=== PATIENT | female | born 1990 | race Two or more races ===

== ENCOUNTER 2016-08-20 13:18 | Outpatient (CLI) | payer MEDICARE, MEDICAID | END 2016-08-20 13:19 | disposition home or self-care (01) | DX: Z01.818 Encounter for other preprocedural examination (principal); Q21.3 Tetralogy of Fallot; Z95.4 Presence of other heart-valve replacement; F81.9 Developmental disorder of scholastic skills, unspecified ==

== ENCOUNTER 2016-10-14 14:03 | Outpatient (CLI) | payer MEDICARE, MEDICAID | END 2016-10-14 14:04 | DX: F41.1 Generalized anxiety disorder (principal); E03.9 Hypothyroidism, unspecified; F33.1 Major depressive disorder, recurrent, moderate ==

== ENCOUNTER 2016-10-14 15:02 | Outpatient (CLI) | payer MEDICARE, MEDICAID | END 2016-10-14 15:03 | DX: J31.0 Chronic rhinitis (principal) ==

== ENCOUNTER 2016-10-15 08:00 | Outpatient (CLI) | payer MEDICARE, MEDICAID | END 2016-10-15 08:01 | disposition home or self-care (01) | DX: R19.7 Diarrhea, unspecified (principal) ==

== ENCOUNTER 2016-12-06 11:51 | Outpatient (CLI) | payer MEDICARE, MEDICAID | END 2016-12-06 11:52 | disposition home or self-care (01) | DX: F43.10 Post-traumatic stress disorder, unspecified (principal); F22 Delusional disorders ==

== ENCOUNTER 2017-02-19 12:07 | Emergency (ER) | payer MEDICARE, MEDICAID ==
[2017-02-19 12:17] VITALS: BP 133/86
--- NOTE | 2017-02-19 12:33 | ED Physician Documentation ---
PD HPI HEENT - Stated complaint Stated Complaint: R EAR PX - Chief complaint Chief Complaint: Heent - History obtained from History obtained from: Patient - History of Present Illness Timing - onset: Other (She had some sort of ear surgery done in July at [facility] she thinks. For the last 3 weeks she has had fullness in the ear with decreased hearing and mild pain.) Review of Systems Constitutional: denies: Fever, Chills Eyes: denies: Loss of vision, Decreased vision Ears: reports: Loss of hearing, Ear pain. 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 : None HEENT: None Psych: Depression, Anxiety, Other Musculoskeletal: None Derm: None - Past Surgical History Past Surgical History: Yes Cardiovascular: Valve replacement, Other HEENT: Myringotomy (tubes) - Present Medications Home Medications: Ambulatory Orders Medication Instructions Recorded Confirmed Levothyroxine Sodium [Synthroid] 88 mcg PO DAILY 01/14/13 07/22/16 Trazodone HCl 50 mg PO DAILY 02/08/13 07/22/16 Ibuprofen [Motrin] 400 mg PO Q6H PRN #30 tablet 10/08/13 07/22/16 Acyclovir 400 mg PO DAILY 12/13/14 07/22/16 Atorvastatin [Lipitor] 10 mg PO DAILY 12/13/14 07/22/16 Bupropion HCl [Wellbutrin] 150 mg PO DAILY 12/13/14 07/22/16 Cetirizine [ZyrTEC] 10 mg PO DAILY 12/13/14 07/22/16 Ferrous Gluconate 324 mg PO DAILY 12/13/14 07/22/16 Minocycline HCl 100 mg PO DAILY 12/13/14 07/22/16 Epinephrine [Epipen 2-Americo] 0.3 mg IJ ONCE PRN #1 packet 12/16/15 07/22/16 raNITIdine [Zantac] 150 mg PO BID #30 tablet 05/14/16 07/22/16 Ibuprofen [Motrin] 800 mg PO Q8H PRN #30 tablet 02/19/17 Ofloxacin [Floxin] 5 drops OT BID 10 Days 02/19/17 - Allergies Allergies/Adverse Reactions: Allergies Allergy/AdvReac Type Severity Reaction Status Date / Time cephalexin monohydrate * Allergy Severe Hives Verified 02/19/17 12:17 [From Keflex] cetirizine HCl * Allergy Mild Rash Verified 02/19/17 12:17 [From Zyrtec] bacitracin Allergy Hives Verified 02/19/17 12:17 [From Neosporin (cdk-pnn-[id number])] bacitracin zinc * Allergy Hives Verified 02/19/17 12:17 [From Neosporin (amv-npw-pzbgk)] neomycin sulfate * Allergy Hives Verified 02/19/17 12:17 [From Neosporin (snf-wvp-kakcs)] polymyxin B Allergy Hives Verified 02/19/17 12:17 [From Neosporin (ozj-gvv-mtasz)] sulfamethoxazole Allergy Hives Verified 02/19/17 12:17 [From Septra] trimethoprim [From Septra] Allergy Hives Verified 02/19/17 12:17 sertraline HCl * AdvReac Intermediate Nausea Verified 02/19/17 12:17 [From Zoloft] - Social History Does the pt smoke?: No Smoking Status: Former smoker Does the pt drink ETOH?: No Does the pt have substance abuse?: No - Immunizations Immunizations are current?: No Immunizations: Other immun not current - POLST Patient has POLST: No PD ED PE NORMAL - Vitals Vital signs reviewed: Yes - General General: Alert and oriented X 3, No acute distress - HEENT HEENT: PERRL, EOMI, Other (Right TM has what appears to be a chronic perforation with mild otitis but no otorrhea) - Neck Neck: Supple, no meningeal sign, No bony TTP - Neuro Neuro: Alert and oriented X 3, Normal speech - Psych Psych: Normal mood, Normal affect Results - Vitals Vitals: Vital Signs - 24 hr 02/19/17 12:16 Temperature 36.7 C Heart Rate 102 H Respiratory 18 Rate Blood Pressure 133/86 H O2 Saturation 94 Oxygen O2 Source Room air PD MEDICAL DECISION MAKING - ED course ED course: The patient was counseled as to the diagnosis and need for follow-up. I counseled the patient with regard to signs and symptoms that would necessitate an urgent reevaluation in the emergency department. They understand they are welcome to return at any time if worse or if not improving as expected. This document was made in part using voice recognition software. While efforts are made to proofread this documents, sound alike and grammatical errors may occur. Departure - Departure Disposition: 01 Home, Self Care Clinical Impression: Otitis media, chronic with perforation Qualifiers: Laterality: right Qualified Code(s): H66.91 - Otitis media, unspecified, right ear Condition: Good Record reviewed to determine appropriate education?: Yes Instructions: ED Rupture Eardrum Infec Prescriptions: Ofloxacin [Floxin] 5 drops OT BID 10 Days Ibuprofen [Motrin] 800 mg PO Q8H PRN #30 tablet PRN Reason: PAIN &/OR FEVER Comments: I think it is imperative that she call Loren Foley on Tuesday to arrange follow-up with your ear nose and throat surgeon. Return if worse. Your blood pressure was elevated today on check into the emergency department. This does not mean that you have hypertension, it is a common phenomenon to come to the emergency department and have elevated blood pressure. I recommend that she see her primary care physician within the week to have it rechecked when you are feeling better.
== END 2017-02-19 12:42 | disposition home or self-care (01) ==
LOC: ED 12:07
DX: H66.91 Otitis media, unspecified, right ear (principal); R03.0 Elevated blood-pressure reading, without diagnosis of hypertension; Z95.2 Presence of prosthetic heart valve; Z87.891 Personal history of nicotine dependence; Z96.22 Myringotomy tube(s) status
CPT/HCPCS: 99283

== ENCOUNTER 2017-02-25 10:00 | Emergency (ER) | payer MEDICARE, MEDICAID ==
[2017-02-25 10:38] LABS: BILIRUBIN,URINE NEGATIVE (NEGATIVE); PH,URINE 5.5 PH (5.0-7.5)
[2017-02-25 10:42] LABS: UA w/ MICROSCOPIC CHARGE YES
[2017-02-25 11:03] VITALS: BP 115/80
[2017-02-25 11:05] LABS: WBC,URINE 0-3 /HPF (0-5)
[2017-02-25 11:06] LABS: UR CULTURE IF IND INDICATED
--- NOTE | 2017-02-25 11:50 | ED Physician Documentation ---
PD HPI FEMALE - Stated complaint Stated Complaint: FEMALE / BILAT ANKLE SWELLING - Chief complaint Chief Complaint: UTI - History obtained from History obtained from: Patient - History of Present Illness Timing - onset: How many years ago (1) Timing - duration: Years (1) Timing - details: Gradual onset, Still present, Waxing and waning Associated symptoms: Other (urine leaking) Similar symptoms before: Has not had sx before Recently seen: Clinic - Additional information Additional information: 26-year-old female with a history of repaired tetralogy of flow has developed some urinary leaking that has become significant enough that she is running out of underwear early in the week. She has been walking regularly and now has complaints of ankle swelling and shortness of breath with exertion as well as some chest pain. She has anxiety related to her health. Review of Systems Constitutional: denies: Fever, Chills, Myalgias Eyes: denies: Decreased vision Ears: reports: Ear pain, Drainage/discharge Nose: denies: Rhinorrhea / runny nose, Congestion Throat: denies: Sore throat Cardiac: reports: Chest pain / pressure. denies: Palpitations Respiratory: reports: Dyspnea. denies: Cough GI: denies: Abdominal Pain, Nausea, Vomiting : denies: Dysuria, Frequency Skin: denies: Rash Musculoskeletal: reports: Extremity swelling. 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 : None HEENT: None Psych: Depression, Anxiety, Other Musculoskeletal: None Derm: None - Past Surgical History Past Surgical History: Yes Cardiovascular: Valve replacement, Other HEENT: Myringotomy (tubes) - Present Medications Home Medications: Ambulatory Orders Medication Instructions Recorded Confirmed Levothyroxine Sodium [Synthroid] 88 mcg PO DAILY 01/14/13 07/22/16 Trazodone HCl 50 mg PO DAILY 02/08/13 07/22/16 Ibuprofen [Motrin] 400 mg PO Q6H PRN #30 tablet 10/08/13 07/22/16 Acyclovir 400 mg PO DAILY 12/13/14 07/22/16 Atorvastatin [Lipitor] 10 mg PO DAILY 12/13/14 07/22/16 Bupropion HCl [Wellbutrin] 150 mg PO DAILY 12/13/14 07/22/16 Cetirizine [ZyrTEC] 10 mg PO DAILY 12/13/14 07/22/16 Ferrous Gluconate 324 mg PO DAILY 12/13/14 07/22/16 Minocycline HCl 100 mg PO DAILY 12/13/14 07/22/16 Epinephrine [Epipen 2-Americo] 0.3 mg IJ ONCE PRN #1 packet 12/16/15 07/22/16 raNITIdine [Zantac] 150 mg PO BID #30 tablet 05/14/16 07/22/16 Ibuprofen [Motrin] 800 mg PO Q8H PRN #30 tablet 02/19/17 Ofloxacin [Floxin] 5 drops OT BID 10 Days 02/19/17 Furosemide [Lasix] 40 mg PO DAILY #20 tablet 02/25/17 - Allergies Allergies/Adverse Reactions: Allergies Allergy/AdvReac Type Severity Reaction Status Date / Time cephalexin monohydrate * Allergy Severe Hives Verified 02/19/17 12:17 [From Keflex] cetirizine HCl * Allergy Mild Rash Verified 02/19/17 12:17 [From Zyrtec] bacitracin Allergy Hives Verified 02/19/17 12:17 [From Neosporin (thh-tsm-[id number])] bacitracin zinc * Allergy Hives Verified 02/19/17 12:17 [From Neosporin (xxr-bcq-caras)] neomycin sulfate * Allergy Hives Verified 02/19/17 12:17 [From Neosporin (vok-fnw-[id number])] polymyxin B Allergy Hives Verified 02/19/17 12:17 [From Neosporin (dbj-avd-ljdai)] sulfamethoxazole Allergy Hives Verified 02/19/17 12:17 [From Septra] trimethoprim [From Septra] Allergy Hives Verified 02/19/17 12:17 sertraline HCl * AdvReac Intermediate Nausea Verified 02/19/17 12:17 [From Zoloft] - Social History Does the pt smoke?: No Smoking Status: Former smoker Does the pt drink ETOH?: No Does the pt have substance abuse?: No - Immunizations Immunizations are current?: No Immunizations: Other immun not current - POLST Patient has POLST: No PD ED PE NORMAL - Vitals Vital signs reviewed: Yes (normal ) - General General: Alert and oriented X 3, No acute distress, Well developed/nourished - HEENT HEENT: Atraumatic, PERRL, EOMI - Neck Neck: Supple, no meningeal sign - Cardiac Cardiac: RRR, Other (split second sound ) - Respiratory Respiratory: No respiratory distress, Clear bilaterally - Abdomen Abdomen: Soft, Non tender - Back Back: No CVA TTP, No spinal TTP - Derm Derm: Normal color, Warm and dry, No rash - Extremities Extremities: No deformity, Other (trace pitting edema bilaterally ) - Neuro Neuro: No motor deficit, No sensory deficit - Psych Psych: Normal affect, Other (mood is anxious. ) Results - Vitals Vitals: Vital Signs - 24 hr 02/25/17 10:25 Temperature 36.7 C Heart Rate 91 Respiratory 19 Rate Blood Pressure 115/80 O2 Saturation 97 Oxygen O2 Source Room air - Labs Labs: Laboratory Tests 02/25/17 02/25/17 02/25/17 10:30 13:15 13:15 WBC 10.2 RBC 4.27 Hgb 13.3 Hct 39.4 MCV 92.1 MCH 31.2 H MCHC 33.9 RDW 12.0 Plt Count 184 MPV 9.6 Neut # 6.6 Lymph # 2.5 Island # 0.6 Eos # 0.4 Baso # 0.1 Absolute Nucleated RBC 0.00 Nucleated RBCs 0.0 Sodium 141 Potassium 3.7 Chloride 110 Carbon Dioxide 22 Anion Gap 9.0 BUN 8 Creatinine 0.8 Estimated GFR (MDRD) 85 L Glucose 116 H Calcium 9.4 Total Bilirubin 1.0 AST 46 H ALT 40 Alkaline Phosphatase 142 H Troponin I B-Natriuretic Peptide Total Protein 7.5 Albumin 4.2 Globulin 3.3 Albumin/Globulin Ratio 1.3 Lipase 21 L Urine Color YELLOW Urine Clarity HAZY Urine pH 5.5 Ur Specific [place] <=1.005 Urine Protein NEGATIVE Urine Glucose (UA) NEGATIVE Urine Ketones NEGATIVE Urine Occult Blood NEGATIVE Urine Nitrite NEGATIVE Urine Bilirubin NEGATIVE Urine Urobilinogen 0.2 (NORMAL) Ur Leukocyte Esterase TRACE H Urine RBC 0-5 Urine WBC 0-3 Ur Squamous Epith Cells FEW Squamous Urine Bacteria None Seen Ur Microscopic Review INDICATED Urine Culture Comments INDICATED 02/25/17 02/25/17 13:15 13:15 WBC RBC Hgb Hct MCV MCH MCHC RDW Plt Count MPV Neut # Lymph # Island # Eos # Baso # Absolute Nucleated RBC Nucleated RBCs Sodium Potassium Chloride Carbon Dioxide Anion Gap BUN Creatinine Estimated GFR (MDRD) Glucose Calcium Total Bilirubin AST ALT Alkaline Phosphatase Troponin I < 0.04 B-Natriuretic Peptide 71 Total Protein Albumin Globulin Albumin/Globulin Ratio Lipase Urine Color Urine Clarity Urine pH Ur Specific [place] Urine Protein Urine Glucose (UA) Urine Ketones Urine Occult Blood Urine Nitrite Urine Bilirubin Urine Urobilinogen Ur Leukocyte Esterase Urine RBC Urine WBC Ur Squamous Epith Cells Urine Bacteria Ur Microscopic Review Urine Culture Comments - Rads (name of study) 2 view chest Radiology: Prelim report reviewed (Impression: Mild cardiomegaly and CHF.), EMP read indepedently, See rad report Procedures - IVC sono (time) 1145 Bedside IVC sono: IVC measures (cm) (1.21), IVC collapsed c insp (cm) (complete) , Dehydration PD MEDICAL DECISION MAKING - ED course Complexity details: reviewed old records, reviewed results, re-evaluated patient , considered differential, d/w patient, d/w family ED course: 26-year-old female with a history of tetralogy has symptoms of congestive heart failure with exertional dyspnea ankle swelling and orthopnea. She does not appear to be decompensated here in the emergency room department at the current time. She has a trace amount of fluid on her chest x-ray and a normal BNP. She does have swelling in her ankles. Her IVC is not plethoric. I have prescribed some Lasix and I have given the patient instructions on things to be concerned about for dehydration related to the medication. I have asked her to follow-up with her wind up worker for further medication adjustment. Departure - Departure Disposition: 01 Home, Self Care Clinical Impression: Congestive heart failure (CHF) Qualifiers: Congestive heart failure type: unspecified congestive heart failure type Congestive heart failure chronicity: acute on chronic Qualified Code(s): I50.9 - Heart failure, unspecified Condition: Stable Instructions: ED CHF General, Lasix Follow-Up: Tiburcio Kahn PA-C [Primary Care Provider] - [facility] - Card [Provider Group] Prescriptions: Furosemide [Lasix] 40 mg PO DAILY #20 tablet Comments: Today here in the emergency department it appears to have some mild congestive heart failure. This causes a small amount of fluid to be accumulated on your lungs. This will make it difficult for you to breathe when you are exerting herself and trying to lay down. I have prescribed some Lasix which is a medication which will relieve some of the fluid and allow you to breathe more easily. You will need to have medication adjustments done by her wind up worker in the next week. It is possible to get too dehydrated with this medication and if this happens you will get a dry mouth and become light headed and you will need to stop the lasix and drink extra fluids.
[2017-02-25 13:23] LABS: BASOPHILS # (AUTO) 0.1 10^3/uL (0.0-0.1); BASOPHILS % (AUTO) 0.6 %; EOSINOPHILS # (AUTO) 0.4 10^3/uL (0.0-0.7); EOSINOPHILS % (AUTO) 3.5 %; HCT - HEMATOCRIT 39.4 % (37.0-47.0); HGB - HEMOGLOBIN 13.3 g/dL (12.0-16.0); LYMPHOCYTES # (AUTO) 2.5 10^3/uL (1.5-3.5); LYMPHOCYTES % (AUTO) 24.4 %; MEAN CORPUSCULAR HEMOGLOBIN 31.2 pg (27.0-31.0); MEAN CORPUSCULAR HGB CONC 33.9 g/dL (32.0-36.0); MEAN CORPUSCULAR VOLUME 92.1 fL (81.0-99.0); MEAN PLATELET VOLUME 9.6 fL (7.9-10.8); MONOCYTES # (AUTO) 0.6 10^3/uL (0.0-1.0); MONOCYTES % (AUTO) 6.2 %; NEUTROPHILS # (AUTO) 6.6 10^3/uL (1.5-6.6); NEUTROPHILS % (AUTO) 65.3 %; RED BLOOD COUNT 4.27 10^6/uL (4.20-5.40); UNCORRECTED WHITE BLOOD COUNT 10.2 x10^3/uL; WHITE BLOOD COUNT 10.2 x10^3/uL (4.8-10.8)
[2017-02-25 13:56] LABS: ALBUMIN/GLOBULIN RATIO 1.3 (1.0-2.2); CALCIUM 9.4 mg/dL (8.5-10.3); CREATININE 0.8 mg/dL (0.4-1.0); POTASSIUM 3.7 mmol/L (3.5-5.0); TOTAL PROTEIN 7.5 g/dL (6.7-8.2)
--- NOTE | 2017-02-25 14:01 | XRAY Preliminary Report ---
Exam: XR Chest 2 View PA/LAT IMPRESSION: Mild cardiomegaly and CHF. [facility] SITE ID: [id number]
--- NOTE | 2017-02-25 14:13 | XRAY Report ---
EXAM: CHEST RADIOGRAPHY EXAM DATE: 02/25/2017 01:37 PM. CLINICAL HISTORY: Chest pain, exertional dyspnea. COMPARISON: 07/22/2016. TECHNIQUE: 2 views. FINDINGS: Lungs/Pleura: New borderline gastric congestion. No focal consolidation, effusion or pneumothorax. No rmal lung volumes. Mediastinum: Stable mild cardiomegaly. Remote sternotomy. No tracheal shift. Other: None. IMPRESSION: Mild cardiomegaly and CHF. [facility] Referring Provider Line: [phone] SITE ID: [id number]
== END 2017-02-25 15:09 | disposition home or self-care (01) ==
LOC: ED 10:00
DX: I50.9 Heart failure, unspecified (principal); E78.00 Pure hypercholesterolemia, unspecified; I38 Endocarditis, valve unspecified; E03.9 Hypothyroidism, unspecified; Z87.891 Personal history of nicotine dependence
CPT/HCPCS: 36415; 71020; 80053; 81001; 81003; 83690; 83880; 84484; 85025; 87086; 99282; 99284

== ENCOUNTER 2017-02-26 19:37 | Emergency (ER) | payer MEDICARE, MEDICAID ==
--- NOTE | 2017-02-26 21:11 | ED Physician Documentation ---
History of Present Illness - Stated complaint Stated Complaint: CHEST PX - Chief complaint Chief Complaint: Cardiac - History obtained from History obtained from: Patient, Caregiver - Additonal information Additional information: Patient is a 26-year-old female with a history of tetralogy of fallotWho presents with a complaint of generalized chest pain. She was seen here yesterday and diagnosed with possible new onset congestive heart failure. 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 Her complaint yesterday was swelling in the lower extremities. Today she complains of generalized chest pain. She denies any shortness of breath, nausea , vomiting constipation diarrhea or syncope. The patient is sitting on the bed playing cards with her caregiver and looks well. Review of systems: For pertinent positive and negatives in the review of systems please see history of present illness. Otherwise all other systems have been reviewed and are negative. Dragon disclaimer: Parts of this medical record were created using voice recognition technology. Because of the inherent limitations of this system occasional same sounding word substitutions do occur and persist despite proofreading. Please read the document for context. Review of Systems Constitutional: denies: Fever, Chills, Myalgias Cardiac: reports: Chest pain / pressure. 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 : None HEENT: None Psych: Depression, Anxiety, Other Musculoskeletal: None Derm: None - Past Surgical History Past Surgical History: Yes Cardiovascular: Valve replacement, Other HEENT: Myringotomy (tubes) - Present Medications Home Medications: Ambulatory Orders Medication Instructions Recorded Confirmed Levothyroxine Sodium [Synthroid] 88 mcg PO DAILY 01/14/13 07/22/16 Trazodone HCl 50 mg PO DAILY 02/08/13 07/22/16 Ibuprofen [Motrin] 400 mg PO Q6H PRN #30 tablet 10/08/13 07/22/16 Acyclovir 400 mg PO DAILY 12/13/14 07/22/16 Atorvastatin [Lipitor] 10 mg PO DAILY 12/13/14 07/22/16 Bupropion HCl [Wellbutrin] 150 mg PO DAILY 12/13/14 07/22/16 Cetirizine [ZyrTEC] 10 mg PO DAILY 12/13/14 07/22/16 Ferrous Gluconate 324 mg PO DAILY 12/13/14 07/22/16 Minocycline HCl 100 mg PO DAILY 12/13/14 07/22/16 Epinephrine [Epipen 2-Americo] 0.3 mg IJ ONCE PRN #1 packet 12/16/15 07/22/16 raNITIdine [Zantac] 150 mg PO BID #30 tablet 05/14/16 07/22/16 Ibuprofen [Motrin] 800 mg PO Q8H PRN #30 tablet 02/19/17 Ofloxacin [Floxin] 5 drops OT BID 10 Days 02/19/17 Furosemide [Lasix] 40 mg PO DAILY #20 tablet 02/25/17 - Allergies Allergies/Adverse Reactions: Allergies Allergy/AdvReac Type Severity Reaction Status Date / Time cephalexin monohydrate * Allergy Severe Hives Verified 02/26/17 19:48 [From Keflex] cetirizine HCl * Allergy Mild Rash Verified 02/26/17 19:48 [From Zyrtec] bacitracin Allergy Hives Verified 02/26/17 19:48 [From Neosporin (qtk-bmi-icict)] bacitracin zinc * Allergy Hives Verified 02/26/17 19:48 [From Neosporin (yts-amo-habof)] neomycin sulfate * Allergy Hives Verified 02/26/17 19:48 [From Neosporin (brm-uof-znsrd)] polymyxin B Allergy Hives Verified 02/26/17 19:48 [From Neosporin (dzi-rid-guddl)] sulfamethoxazole Allergy Hives Verified 02/26/17 19:48 [From Septra] trimethoprim [From Septra] Allergy Hives Verified 02/26/17 19:48 sertraline HCl * AdvReac Intermediate Nausea Verified 02/26/17 19:48 [From Zoloft] - Social History Does the pt smoke?: No Smoking Status: Former smoker Does the pt drink ETOH?: No Does the pt have substance abuse?: No - Immunizations Immunizations are current?: No Immunizations: Other immun not current - POLST Patient has POLST: No PD ED PE NORMAL - General General: Alert and oriented X 3, No acute distress, Well developed/nourished, Other (Appears developmentally delayed) - HEENT HEENT: Atraumatic, PERRL - Neck Neck: Supple, no meningeal sign, No JVD, No bruit - Cardiac Cardiac: RRR, No murmur, No gallop, Other (Loud S2) - Respiratory Respiratory: No respiratory distress, Clear bilaterally - Abdomen Abdomen: Normal bowel sounds, Soft, Non tender, Non distended - Back Back: No CVA TTP - Derm Derm: Normal color, Warm and dry - Extremities Extremities: No deformity, No tenderness to palpate - Neuro Neuro: Alert and oriented X 3, 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 On examination she is a well-appearing female who is sitting on the bed playing cards with her caregiver. Her vital signs are within normal limits and her pulse oximetry is normal. There is no JVD and no rales on examination as well as no finding of pedal edema. Her chest x-ray is relatively normal here today. I do not see any overt evidence of congestive heart failure. EKG in this patient demonstrates normal sinus rhythm at 92 bpm the LA, QRS and QT intervals are normal. There is a right bundle branch block type pattern which is present on previous EKGs. The patient's workup from yesterday was reviewed. The patient's BNP was normal at that time clinically I do not think this patient has typical congestive heart failure. There might be a small component of right-sided heart failure butThis is not clinically appreciated here today. She was started on a low dose of Lasix and has been asked to follow-up with her shift stacker. I think this is a good course of action I see nothing else to add to her workup tonight. Incidentally she was ruled out for PE yesterday with a negative d-dimer. At this point in time I will discharge her to home Disposition Clinical impression: 1. Tetralogy of fallot-appears well compensated 2. No evidence of congestive heart failure on my evaluation 3.Precordial pain, doubt ACS, PE congestive heart failure pneumothorax pneumonia or any other serious cause at this point Departure - Departure Disposition: 01 Home, Self Care Clinical Impression: Atypical chest pain Condition: Good Instructions: ED Chest Pain Atypical Unkn Cause Follow-Up: Zain Weller MD [Physician No Access] -
--- NOTE | 2017-02-26 21:15 | XRAY Preliminary Report ---
Exam: XR Chest 2 View PA/LAT IMPRESSION: 1. Stable cardiac silhouette. Stable sternotomy. 2. No acute pulmonary process. [facility] SITE ID: [id number]
[2017-02-26] MEDS ORDERED: ACETAMINOPHEN 325 MG TABLET PO STA (21:21)
[2017-02-26 21:35] VITALS: BP 106/61
[2017-02-26] MEDS ORDERED: ACETAMINOPHEN 325 MG TABLET PO ONE (21:36)
--- NOTE | 2017-02-26 21:55 | XRAY Report ---
EXAM: CHEST RADIOGRAPHY EXAM DATE: 02/26/2017 08:55 p.m. CLINICAL HISTORY: Chest pain. COMPARISON: 02/25/2017. TECHNIQUE: 2 views. FINDINGS: Lungs/Pleura: No focal opacities evident. No pleural effusion. No pneumothorax. Normal volumes. Mediastinum: Previous sternotomy. Alignment and appearance of the sternal wires is unchanged. Stable cardiac silhouette. EKG leads overlie the chest. Other: None. IMPRESSION: 1. Stable cardiac silhouette. Stable sternotomy. 2. No acute pulmonary process. [facility] Referring Provider Line: [phone] SITE ID: [id number]
== END 2017-02-26 21:40 | disposition home or self-care (01) ==
LOC: ED 19:37
DX: R07.89 Other chest pain (principal); Q21.3 Tetralogy of Fallot; I45.10 Unspecified right bundle-branch block; R94.31 Abnormal electrocardiogram [ECG] [EKG]; E78.00 Pure hypercholesterolemia, unspecified; J45.909 Unspecified asthma, uncomplicated; E03.9 Hypothyroidism, unspecified; Z87.891 Personal history of nicotine dependence
CPT/HCPCS: 71020; 93005; 99283; A9270

== ENCOUNTER 2017-03-02 10:16 | Outpatient (CLI) | payer MEDICARE, MEDICAID ==
[2017-03-02 12:49] LABS: BASOPHILS % (AUTO) 0.4 %; EOSINOPHILS # (AUTO) 0.4 10^3/uL (0.0-0.7); HGB - HEMOGLOBIN 12.5 g/dL (12.0-16.0); LYMPHOCYTES # (AUTO) 2.4 10^3/uL (1.5-3.5); LYMPHOCYTES % (AUTO) 31.6 %; MEAN CORPUSCULAR HEMOGLOBIN 31.3 pg (27.0-31.0); MEAN CORPUSCULAR HGB CONC 33.8 g/dL (32.0-36.0); MEAN CORPUSCULAR VOLUME 92.4 fL (81.0-99.0); MEAN PLATELET VOLUME 10.4 fL (7.9-10.8); MONOCYTES # (AUTO) 0.6 10^3/uL (0.0-1.0); NEUTROPHILS # (AUTO) 4.1 10^3/uL (1.5-6.6); NUCLEATED RED BLOOD CELLS AUTO 0.1 /100WBC; RED CELL DISTRIBUTION WIDTH 12.1 % (12.0-15.0); UNCORRECTED WHITE BLOOD COUNT 7.5 x10^3/uL; WHITE BLOOD COUNT 7.5 x10^3/uL (4.8-10.8)
[2017-03-02 13:37] LABS: CREATININE 0.8 mg/dL (0.4-1.0); POTASSIUM 3.4 mmol/L (3.5-5.0)
[2017-03-02 14:22] LABS: HEMOGLOBIN A1C 0.57 g/dL
== END 2017-03-02 10:17 | disposition home or self-care (01) ==
LOC: LAB.N 10:16
PROVIDERS: ATTEND Physician Assistant
DX: E11.9 Type 2 diabetes mellitus without complications (principal)
CPT/HCPCS: 36415; 80048; 82043; 83036; 84443; 85025

== ENCOUNTER 2017-04-26 11:27 | Outpatient (CLI) | payer MEDICARE, MEDICAID ==
[2017-04-26 19:42] LABS: CALCIUM 8.8 mg/dL (8.5-10.3); CREATININE 0.9 mg/dL (0.4-1.0); POTASSIUM 3.8 mmol/L (3.5-5.0)
== END 2017-04-26 11:28 | disposition home or self-care (01) ==
LOC: LAB.N 11:27
PROVIDERS: ATTEND Family Medicine
DX: F33.1 Major depressive disorder, recurrent, moderate (principal); E55.9 Vitamin D deficiency, unspecified; E03.9 Hypothyroidism, unspecified
CPT/HCPCS: 36415; 80048; 82306; 84443

== ENCOUNTER 2017-06-08 11:12 | Outpatient (CLI) | payer MEDICARE, MEDICAID ==
[2017-06-08 19:22] LABS: THYROID STIMULATING HORMONE 17.63 uIU/mL (0.34-5.60)
== END 2017-06-08 11:13 | disposition home or self-care (01) ==
LOC: LAB.N 11:12
PROVIDERS: ATTEND Family Medicine
DX: E05.90 Thyrotoxicosis, unspecified without thyrotoxic crisis or storm (principal); M54.5 Low back pain
CPT/HCPCS: 36415; 72100; 84439; 84443; 84481

== ENCOUNTER 2017-07-29 15:13 | Emergency (ER) | payer MEDICARE, MEDICAID ==
[2017-07-29 15:29] VITALS: BP 124/75
--- NOTE | 2017-07-29 16:27 | ED Physician Documentation ---
History of Present Illness - Stated complaint Stated Complaint: LUMP ON CHEST - Chief complaint Chief Complaint: General - History obtained from History obtained from: Patient - History of Present Illness Timing: Today Pain level max: 3 Pain level now: 1 Improved by: nothing Worsened by: nothing - Additonal information Additional information: Patient is a 26-year-old female who presents to the emergency department stating that earlier today she felt a lump on the right upper chest wall. States it is gone now. States that her chest is sore from doing physical therapy. Did not notice any overlying skin changes. Has not had this happen before. Is using Motrin for pain at home. 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 : None HEENT: None Psych: Depression, Anxiety, Other Musculoskeletal: None Derm: None - Past Surgical History Past Surgical History: Yes Cardiovascular: Valve replacement, Other HEENT: Myringotomy (tubes) - Present Medications Home Medications: Ambulatory Orders Medication Instructions Recorded Confirmed Levothyroxine [Synthroid] 75 mcg PO DAILY 07/29/17 07/29/17 Lisinopril 2.5 mg PO DAILY 07/29/17 07/29/17 Prazosin [Minipress] 2 mg PO DAILY 07/29/17 07/29/17 QUEtiapine [SEROquel] 200 mg PO DAILY 07/29/17 07/29/17 metFORMIN [Glucophage] 500 mcg PO DAILY 07/29/17 07/29/17 - Allergies Allergies/Adverse Reactions: Allergies Allergy/AdvReac Type Severity Reaction Status Date / Time cephalexin monohydrate * Allergy Severe Hives Verified 02/26/17 19:48 [From Keflex] cetirizine HCl * Allergy Mild Rash Verified 02/26/17 19:48 [From Zyrtec] bacitracin Allergy Hives Verified 02/26/17 19:48 [From Neosporin ([id number])] bacitracin zinc * Allergy Hives Verified 02/26/17 19:48 [From Neosporin ([id number])] neomycin sulfate * Allergy Hives Verified 02/26/17 19:48 [From Neosporin ([id number])] polymyxin B Allergy Hives Verified 02/26/17 19:48 [From Neosporin ([id number])] sulfamethoxazole Allergy Hives Verified 02/26/17 19:48 [From Septra] trimethoprim [From Aprra] Allergy Hives Verified 02/26/17 19:48 sertraline HCl * AdvReac Intermediate Nausea Verified 02/26/17 19:48 [From Zoloft] - Social History Does the pt smoke?: No Smoking Status: Former smoker Does the pt drink ETOH?: No Does the pt have substance abuse?: No - Immunizations Immunizations are current?: No Immunizations: Other immun not current - POLST Patient has POLST: No PD ED PE NORMAL - Vitals Vital signs reviewed: Yes - General General: Alert and oriented X 3, No acute distress - HEENT HEENT: Moist mucous membranes - Neck Neck: Supple, no meningeal sign - Cardiac Cardiac: RRR, Strong equal pulses - Respiratory Respiratory: No respiratory distress, Clear bilaterally, Other (TTP over the R upper chest wall. no mass felt. no lymphadenopathy. no abscess.) - Abdomen Abdomen: Soft, Non tender, Non distended - Derm Derm: Warm and dry - Neuro Neuro: Alert and oriented X 3 - Psych Psych: Normal mood, Normal affect Results - Vitals Vitals: Vital Signs - 24 hr 07/29/17 15:25 Temperature 36.5 C Heart Rate 90 Respiratory 16 Rate Blood Pressure 124/75 O2 Saturation 96 Oxygen O2 Source Room air PD MEDICAL DECISION MAKING - ED course Complexity details: considered differential, d/w patient ED course: Patient is a 26-year-old female presents to the emergency department with right upper chest wall discomfort and a mass felt earlier today. The mass has since resolved. She appears to have muscular pain at the site. No evidence of abscess. No lymphadenopathy. Will follow up with PCP for further evaluation. Patient counseled regarding signs and symptoms for which I believe and urgent re -evaluation would be necessary. Patient with good understanding of and agreement to plan and is comfortable going home at this time This document was made in part using voice recognition software. While efforts are made to proofread this document, sound alike and grammatical errors may occur. Departure - Departure Disposition: 01 Home, Self Care Clinical Impression: Chest wall pain Condition: Good Instructions: ED Strain Chest Wall Follow-Up: Jaspreet Castro MD [Primary Care Provider] - Within 1 week Comments: Return if you worsen. Continue motrin or tylenol as needed at home for pain. Discharge Date/Time: 07/29/17 16:35
== END 2017-07-29 16:35 | disposition home or self-care (01) ==
LOC: ED 15:13
DX: R07.89 Other chest pain (principal); E78.00 Pure hypercholesterolemia, unspecified; J45.909 Unspecified asthma, uncomplicated; E03.9 Hypothyroidism, unspecified; Z95.2 Presence of prosthetic heart valve; Z87.891 Personal history of nicotine dependence; F22 Delusional disorders; F33.3 Major depressive disorder, recurrent, severe with psychotic symptoms; F43.10 Post-traumatic stress disorder, unspecified
CPT/HCPCS: 36415; 80053; 82306; 84443; 85025; 99282

== ENCOUNTER 2017-08-17 14:00 | Outpatient (CLI) | payer MEDICARE, MEDICAID ==
[2017-08-17 19:00] LABS: BASOPHILS % (AUTO) 0.4 %; EOSINOPHILS # (AUTO) 0.2 10^3/uL (0.0-0.7); EOSINOPHILS % (AUTO) 2.8 %; HGB - HEMOGLOBIN 13.1 g/dL (12.0-16.0); LYMPHOCYTES % (AUTO) 30.3 %; MEAN CORPUSCULAR HEMOGLOBIN 31.6 pg (27.0-31.0); MEAN CORPUSCULAR HGB CONC 32.8 g/dL (32.0-36.0); MEAN CORPUSCULAR VOLUME 96.1 fL (81.0-99.0); MEAN PLATELET VOLUME 10.8 fL (7.9-10.8); MONOCYTES # (AUTO) 0.3 10^3/uL (0.0-1.0); MONOCYTES % (AUTO) 5.2 %; NEUTROPHILS # (AUTO) 4.1 10^3/uL (1.5-6.6); NEUTROPHILS % (AUTO) 61.3 %; PLT - PLATELET COUNT 162 10^3/uL (130-450); RED BLOOD COUNT 4.16 10^6/uL (4.20-5.40); RED CELL DISTRIBUTION WIDTH 13.4 % (12.0-15.0); WHITE BLOOD COUNT 6.7 x10^3/uL (4.8-10.8)
[2017-08-17 19:10] LABS: ALBUMIN 4.5 g/dL (3.2-5.5); ALBUMIN/GLOBULIN RATIO 1.5 (1.0-2.2); BILIRUBIN,TOTAL 1.2 mg/dL (0.2-1.0); CALCIUM 8.9 mg/dL (8.5-10.3); CREATININE 0.9 mg/dL (0.4-1.0); TOTAL PROTEIN 7.6 g/dL (6.7-8.2)
[2017-08-17 19:21] LABS: THYROID STIMULATING HORMONE 7.42 uIU/mL (0.34-5.60)
[2017-08-17 19:23] LABS: FREE T4 (FREE THYROXINE) 0.66 ng/dL (0.58-1.64)
[2017-08-17 20:11] LABS: HB2 TOTAL 14.1 g/dL; HEMOGLOBIN A1C 0.6 g/dL
[2017-08-18 13:36] LABS: HEPATITIS B SURFACE ANTIGEN NON-REACTIVE (NON-REACTIVE)
== END 2017-08-17 14:01 ==
LOC: LAB.N 14:00
PROVIDERS: ATTEND Family Medicine
DX: R74.0 Nonspecific elevation of levels of transaminase and lactic acid dehydrogenase [LDH] (principal); E11.9 Type 2 diabetes mellitus without complications; E03.9 Hypothyroidism, unspecified
CPT/HCPCS: 36415; 80053; 83036; 83540; 84439; 84443; 84466; 85025; 85651; 86317; 86704; 86709; 86803; 87340

== ENCOUNTER 2017-10-02 23:23 | Emergency (ER) | payer MEDICARE, MEDICAID ==
[2017-10-02] MEDS ORDERED: MECLIZINE 12.5 MG TABLET PO STA (23:43)
[2017-10-03 00:10] LABS: BILIRUBIN,URINE NEGATIVE (NEGATIVE); GLUCOSE, URINE (UA) NEGATIVE (NEGATIVE); KETONES,URINE (UA) NEGATIVE (NEGATIVE); LEUKOCYTE ESTERASE, URINE NEGATIVE (NEGATIVE); NITRITE,URINE NEGATIVE (NEGATIVE); OCCULT BLOOD,URINE NEGATIVE (NEGATIVE); PROTEIN,URINE NEGATIVE (NEGATIVE); UROBILINOGEN,URINE 0.2 (NORMAL) E.U./dL (NORMAL)
[2017-10-03 00:13] LABS: CLARITY,URINE CLEAR (CLEAR); HCG UR QUAL NEGATIVE
[2017-10-03 00:27] LABS: CREATININE 0.9 mg/dL (0.4-1.0)
--- NOTE | 2017-10-03 00:43 | ED Physician Documentation ---
History of Present Illness - Stated complaint Stated Complaint: DIZZINESS - Chief complaint Chief Complaint: Neuro - History obtained from History obtained from: Patient - Additonal information Additional information: The patient is a 26-year-old female who complains of dizzy spells that have been waxing and waning for the past week, and became worse tonight. She describes it as being "like my whole body is spinning." She reports associated nausea, without vomiting. She denies fever, headache, visual disturbance, sore throat, cough, or dysuria. She reports chronic tinnitus, with no recent change. She has a history of similar episodes of dizziness in the past, but never lasting this long. Further past medical history is significant for congestive heart failure. Review of Systems Constitutional: denies: Fever, Fatigue Eyes: denies: Decreased vision Ears: reports: Tinnitus/ringing (Chronically.). denies: Ear pain Nose: denies: Congestion Throat: denies: Sore throat Cardiac: denies: Chest pain / pressure, Palpitations Respiratory: denies: Dyspnea, Cough GI: reports: Nausea. 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 : None HEENT: None Psych: Depression, Anxiety, ADD/ADHD, Post traumatic stress disorder, Other Musculoskeletal: None Derm: None - Past Surgical History Past Surgical History: Yes Cardiovascular: Valve replacement, Other HEENT: Myringotomy (tubes) - Present Medications Home Medications: Ambulatory Orders Medication Instructions Recorded Confirmed Levothyroxine [Synthroid] 75 mcg PO DAILY 07/29/17 07/29/17 Lisinopril 2.5 mg PO DAILY 07/29/17 07/29/17 Prazosin [Minipress] 2 mg PO DAILY 07/29/17 07/29/17 QUEtiapine [SEROquel] 200 mg PO DAILY 07/29/17 07/29/17 metFORMIN [Glucophage] 500 mcg PO DAILY 07/29/17 07/29/17 Meclizine HCl [Motion Sickness 25 mg PO BID PRN #20 tablet 10/03/17 Relief] - Allergies Allergies/Adverse Reactions: Allergies Allergy/AdvReac Type Severity Reaction Status Date / Time cephalexin monohydrate * Allergy Severe Hives Verified 10/02/17 23:38 [From Keflex] cetirizine HCl * Allergy Mild Rash Verified 10/02/17 23:38 [From Zyrtec] bacitracin Allergy Hives Verified 10/02/17 23:38 [From Neosporin ([id number])] bacitracin zinc * Allergy Hives Verified 10/02/17 23:38 [From Neosporin ([id number])] neomycin sulfate * Allergy Hives Verified 10/02/17 23:38 [From Neosporin ([id number])] polymyxin B Allergy Hives Verified 10/02/17 23:38 [From Neosporin ([id number]-qeu-[id number])] sulfamethoxazole Allergy Hives Verified 10/02/17 23:38 [From Septra] trimethoprim [From Septra] Allergy Hives Verified 10/02/17 23:38 sertraline HCl * AdvReac Intermediate Nausea Verified 10/02/17 23:38 [From Zoloft] - Social History Does the pt smoke?: No Smoking Status: Former smoker Does the pt drink ETOH?: Yes Does the pt have substance abuse?: No Substance Use and Type: Marijuana - Immunizations Immunizations are current?: Yes Immunizations: Other immun not current - POLST Patient has POLST: No PD ED PE NORMAL - Vitals Vital signs reviewed: Yes (Hypertensive) - General General: Alert and oriented X 3, Other (Obese) - HEENT HEENT: Atraumatic, PERRL, EOMI, Ears normal, Moist mucous membranes, Pharynx benign - Neck Neck: Supple, no meningeal sign, No adenopathy, No JVD - Cardiac Cardiac: Other (Slightly rapid rate, regular rhythm.) - Respiratory Respiratory: No respiratory distress, Clear bilaterally - Abdomen Abdomen: Soft, Non tender - Back Back: No CVA TTP - Derm Derm: No rash - Extremities Extremities: No edema, No calf tenderness / cord - Neuro Neuro: Alert and oriented X 3, No motor deficit, No sensory deficit, Normal speech Results - Vitals Vitals: Vital Signs - 24 hr 10/02/17 10/02/17 10/03/17 23:28 23:36 00:49 Temperature 36.5 C Heart Rate 114 H 111 H 99 Respiratory 18 16 16 Rate Blood Pressure 148/129 H 110/78 127/84 H O2 Saturation 97 97 98 Oxygen O2 Source Room air - Labs Labs: Laboratory Tests 10/03/17 10/03/17 00:04 00:07 Sodium 137 Potassium 3.6 Chloride 106 Carbon Dioxide 19 L Anion Gap 12.0 BUN 9 Creatinine 0.9 Estimated GFR (MDRD) 75 L Glucose 136 H Calcium 9.0 Urine Color COLORLESS Urine Clarity CLEAR Urine pH 6.0 Ur Specific [place] <=1.005 Urine Protein NEGATIVE Urine Glucose (UA) NEGATIVE Urine Ketones NEGATIVE Urine Occult Blood NEGATIVE Urine Nitrite NEGATIVE Urine Bilirubin NEGATIVE Urine Urobilinogen 0.2 (NORMAL) Ur Leukocyte Esterase NEGATIVE Ur Microscopic Review NOT INDICATED Urine Culture Comments NOT INDICATED Urine HCG, Qual NEGATIVE PD MEDICAL DECISION MAKING - ED course Complexity details: reviewed results, re-evaluated patient, considered differential, d/w patient ED course: The patient's presentation is most consistent with vertigo of peripheral etiology. There is no clinical evidence to suggest a central nervous system cause for her vertigo. Her basic metabolic panel reveals mild hyperglycemia. Urinalysis is negative. Treatment in the emergency department included administration of meclizine 25 mg orally. Her symptoms improved with the above treatment. She is being discharged with a prescription for meclizine. 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 Departure - Departure Disposition: 01 Home, Self Care Clinical Impression: Dizziness, Vertigo Condition: Stable Instructions: ED Vertigo Unspecified Follow-Up: Jaspreet Castro MD [Primary Care Provider] - Prescriptions: Meclizine HCl [Motion Sickness Relief] 25 mg PO BID PRN #20 tablet PRN Reason: Dizziness Comments: You can use meclizine as prescribed if needed for recurrent dizziness. Follow up with your primary physician within 2 weeks. Call to schedule an appointment. Return to the emergency department if you develop increasing dizziness, persistent vomiting, increasing headache, or otherwise worsening symptoms. Discharge Date/Time: 10/03/17 00:50
[2017-10-03 00:50] VITALS: BP 127/84
== END 2017-10-03 00:50 | disposition home or self-care (01) ==
LOC: ED 23:23
DX: R42 Dizziness and giddiness (principal); E78.00 Pure hypercholesterolemia, unspecified; E03.9 Hypothyroidism, unspecified; Z95.2 Presence of prosthetic heart valve; Z87.891 Personal history of nicotine dependence
CPT/HCPCS: 36415; 80048; 81003; 81025; 99283; 99284; A9270; 81001; 87086

== ENCOUNTER 2017-10-17 22:09 | Emergency (ER) | payer MEDICARE, MEDICAID ==
[2017-10-17 22:18] VITALS: BP 113/70
[2017-10-17 23:14] LABS: BILIRUBIN,URINE NEGATIVE (NEGATIVE); GLUCOSE, URINE (UA) NEGATIVE (NEGATIVE); KETONES,URINE (UA) NEGATIVE (NEGATIVE); LEUKOCYTE ESTERASE, URINE MODERATE (NEGATIVE); NITRITE,URINE NEGATIVE (NEGATIVE); OCCULT BLOOD,URINE MODERATE (NEGATIVE); PH,URINE 5.5 PH (5.0-7.5); PROTEIN,URINE NEGATIVE (NEGATIVE); UROBILINOGEN,URINE 0.2 (NORMAL) E.U./dL (NORMAL)
[2017-10-17 23:16] LABS: CLARITY,URINE CLEAR (CLEAR); HCG UR QUAL NEGATIVE
[2017-10-17 23:20] LABS: BACTERIA,URINE Rare /HPF (None Seen); SQUAMOUS EPITHELIAL CELL,UR MOD Squamous (<= Few)
[2017-10-17] MEDS ORDERED: PHENAZOPYRIDINE 100 MG TABLET PO STA (23:20)
[2017-10-17] MEDS ORDERED: NITROFURANTOIN MACRO 100 MG CAPSULE PO STA (23:20)
--- NOTE | 2017-10-17 23:32 | ED Physician Documentation ---
PD HPI FEMALE - Stated complaint Stated Complaint: LOW BACK PX,PAINFUL URINATION - Chief complaint Chief Complaint: Abd Pain - History obtained from History obtained from: Patient - History of Present Illness Timing - onset: Yesterday Timing - details: Gradual onset, Still present Associated symptoms: Dysuria, Urinary frequency Similar symptoms before: Treatment Recently seen: Not recently seen - Additional information Additional information: Patient is a 27 year old female who is presenting to the emergency department for dysuria, increased urinary frequency and suprapubic pain. Patient states that the symptoms have been going on for the last few days. Review of Systems Constitutional: denies: Fever, Chills Eyes: reports: Reviewed and negative Ears: reports: Reviewed and negative Nose: reports: Reviewed and negative Throat: reports: Reviewed and negative Cardiac: reports: Reviewed and negative Respiratory: reports: Reviewed and negative GI: reports: Abdominal Pain. denies: Nausea, Vomiting, Constipation, Diarrhea : reports: Dysuria, Frequency, Hematuria. 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 HEENT: None Psych: Depression, Anxiety, Other Musculoskeletal: None Derm: None - Past Surgical History Past Surgical History: Yes Cardiovascular: Valve replacement, Other HEENT: Myringotomy (tubes) - Present Medications Home Medications: Ambulatory Orders Medication Instructions Recorded Confirmed Levothyroxine [Synthroid] 75 mcg PO DAILY 07/29/17 07/29/17 Lisinopril 2.5 mg PO DAILY 07/29/17 07/29/17 Prazosin [Minipress] 2 mg PO DAILY 07/29/17 07/29/17 QUEtiapine [SEROquel] 200 mg PO DAILY 07/29/17 07/29/17 metFORMIN [Glucophage] 500 mcg PO DAILY 07/29/17 07/29/17 Meclizine HCl [Motion Sickness 25 mg PO BID PRN #20 tablet 10/03/17 Relief] Nitrofurantoin Monohyd/M-Cryst 100 mg PO BID 5 Days capsule 10/17/17 [Macrobid 100 mg Capsule] Phenazopyridine HCl [Pyridium] 200 mg PO TID PRN #6 tablet 10/17/17 - Allergies Allergies/Adverse Reactions: Allergies Allergy/AdvReac Type Severity Reaction Status Date / Time cephalexin monohydrate * Allergy Severe Hives Verified 10/17/17 22:18 [From Keflex] cetirizine HCl * Allergy Mild Rash Verified 10/17/17 22:18 [From Zyrtec] bacitracin Allergy Hives Verified 10/17/17 22:18 [From Neosporin ([id number])] bacitracin zinc * Allergy Hives Verified 10/17/17 22:18 [From Neosporin ([id number])] neomycin sulfate * Allergy Hives Verified 10/17/17 22:18 [From Neosporin ([id number]-[id number])] polymyxin B Allergy Hives Verified 10/17/17 22:18 [From Neosporin ([id number])] sulfamethoxazole Allergy Hives Verified 10/17/17 22:18 [From Septra] trimethoprim [From Septra] Allergy Hives Verified 10/17/17 22:18 sertraline HCl * AdvReac Intermediate Nausea Verified 10/17/17 22:18 [From Zoloft] - Social History Does the pt smoke?: No Smoking Status: Former smoker Does the pt drink ETOH?: No Does the pt have substance abuse?: No - Immunizations Immunizations are current?: No Immunizations: Other immun not current - POLST Patient has POLST: No PD ED PE NORMAL - Vitals Vital signs reviewed: Yes - General General: Alert and oriented X 3 - HEENT HEENT: Atraumatic, Moist mucous membranes - Cardiac Cardiac: RRR - Respiratory Respiratory: No respiratory distress - Back Back: No CVA TTP - Derm Derm: Normal color - Extremities Extremities: No deformity, Normal ROM s pain, No calf tenderness / cord - Neuro Neuro: Alert and oriented X 3, No motor deficit, No sensory deficit, Normal speech Eye Opening: Spontaneous Motor: Obeys Commands Verbal: Oriented GCS Score: 15 - Psych Psych: Normal mood PD ED PE EXPANDED - Abdomen Abdomen: Tender to palpation, Suprapubic. No: Rebound, Guarding Results - Vitals Vitals: Vital Signs - 24 hr 10/17/17 22:14 Temperature 36.6 C Heart Rate 99 Respiratory 17 Rate Blood Pressure 113/70 O2 Saturation 100 Oxygen O2 Source Room air - Labs Labs: Laboratory Tests 10/17/17 22:24 Urine Color YELLOW Urine Clarity CLEAR Urine pH 5.5 Ur Specific [place] <=1.005 Urine Protein NEGATIVE Urine Glucose (UA) NEGATIVE Urine Ketones NEGATIVE Urine Occult Blood MODERATE H Urine Nitrite NEGATIVE Urine Bilirubin NEGATIVE Urine Urobilinogen 0.2 (NORMAL) Ur Leukocyte Esterase MODERATE H Urine RBC 11-25 H Urine WBC 6-10 H Ur Squamous Epith Cells MOD Squamous H Urine Bacteria Rare Ur Microscopic Review INDICATED Urine Culture Comments NOT INDICATED Urine HCG, Qual NEGATIVE PD MEDICAL DECISION MAKING - ED course Complexity details: reviewed old records, reviewed results, re-evaluated patient , considered differential, d/w patient ED course: Patient was seen and examined at bedside. patient's urine was collected and consistent with uti. patient was treated with macrobid and pyridium. Patient required no further work up and was stable for discharge with outpatient follow up. Departure - Departure Disposition: Home, Self Care Clinical Impression: Urinary tract infection Condition: Good Instructions: ED UTI Cystitis Female Follow-Up: Rima Melendez ARNP [Primary Care Provider] - As Needed Prescriptions: Nitrofurantoin Monohyd/M-Cryst [Macrobid 100 mg Capsule] 100 mg PO BID 5 Days capsule Phenazopyridine HCl [Pyridium] 200 mg PO TID PRN #6 tablet PRN Reason: dysuria Comments: Your symptoms today are being caused by a urinary tract infection. You had your first dose of antibiotics tonight and will need to be on them for five days. You can take pyridium, motrin and tylenol as needed for pain. You should drink plenty of fluids. you should follow up with your doctor if your symptoms persist. You may return to the emergency department at any time for new, worsening or uncontrollable symptoms. Discharge Date/Time: 10/17/17 23:45
== END 2017-10-17 23:45 | disposition home or self-care (01) ==
LOC: ED 22:09
DX: N39.0 Urinary tract infection, site not specified (principal); Z87.891 Personal history of nicotine dependence
CPT/HCPCS: 81001; 81025; 99282; 99283; A9270; 81003; 87086

== ENCOUNTER 2017-10-25 13:12 | Outpatient (CLI) | payer MEDICARE, MEDICAID ==
[2017-10-25 19:27] LABS: THYROID STIMULATING HORMONE 8.05 uIU/mL (0.34-5.60)
[2017-10-25 20:22] LABS: FREE T4 (FREE THYROXINE) 0.65 ng/dL (0.58-1.64)
== END 2017-10-25 13:13 | disposition home or self-care (01) ==
LOC: LAB.N 13:12
PROVIDERS: ATTEND Nurse Practitioner Gerontology
DX: E03.9 Hypothyroidism, unspecified (principal)
CPT/HCPCS: 36415; 84439; 84443

== ENCOUNTER 2017-11-08 09:41 | Outpatient (CLI) | payer MEDICARE, MEDICAID | END 2017-11-08 09:42 | disposition critical access hospital (66) | LOC: EMS 09:41 | PROVIDERS: ATTEND Surgery | DX: R45.851 Suicidal ideations (principal) | CPT/HCPCS: A0425; A0429 ==

== ENCOUNTER 2017-11-08 10:01 | Emergency (ER) | payer MEDICARE, MEDICAID ==
[2017-11-08] MEDS ORDERED: TETANUS/DIPHTHERIA/PERTUSSIS 0.5 ML SYRINGE IM ONE (10:13)
--- NOTE | 2017-11-08 10:17 | ED Physician Documentation ---
History of Present Illness - Stated complaint Stated Complaint: SI - Additonal information Additional information: hx from pt 27 y/o f to ER with suicidal ideation /attempt by cutting states her stressors are mom and boyfriend denies HI sometimes hears laughing states she has a hx of tetrology and had cardiac surgery twice, once as infant and then a pulmonic valve later in life she is complaint with her meds - had her levothyroxine increased a week ago she has not seen her marble mason for at least a year - had stress test 2014 and echo 2016 she states she has felt generally weak for many months also had diffuse abd pain for weeks to months Review of Systems Constitutional: denies: Fever, Chills Cardiac: denies: Chest pain / pressure, Palpitations Respiratory: denies: Dyspnea, Cough GI: reports: Abdominal Pain (diffuse subacute). denies: Abdominal Swelling, Nausea, Vomiting, Diarrhea Neurologic: reports: Generalized weakness Psychiatric: reports: Depressed, Suicidal. 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 followed by cardio at [facility] - Past Surgical History Past Surgical History: Yes Cardiovascular: Valve replacement, Other HEENT: Myringotomy (tubes) - Present Medications Home Medications: Ambulatory Orders Medication Instructions Recorded Confirmed Levothyroxine [Synthroid] 75 mcg PO DAILY 07/29/17 07/29/17 Lisinopril 2.5 mg PO DAILY 07/29/17 07/29/17 Prazosin [Minipress] 2 mg PO DAILY 07/29/17 07/29/17 metFORMIN [Glucophage] 500 mcg PO DAILY 07/29/17 07/29/17 Acetaminophen/Cod 300/30 [Tylenol 11/08/17 #3] Lurasidone HCl [Latuda] 11/08/17 Zolpidem [Ambien] 11/08/17 - Allergies Allergies/Adverse Reactions: Allergies Allergy/AdvReac Type Severity Reaction Status Date / Time cephalexin monohydrate * Allergy Severe Hives Verified 11/08/17 10:27 [From Keflex] cetirizine HCl * Allergy Mild Rash Verified 11/08/17 10:27 [From Zyrtec] bacitracin Allergy Hives Verified 11/08/17 10:27 [From Neosporin ([id number])] bacitracin zinc * Allergy Hives Verified 11/08/17 10:27 [From Neosporin ([id number])] neomycin sulfate * Allergy Hives Verified 11/08/17 10:27 [From Neosporin ([id number])] polymyxin B Allergy Hives Verified 11/08/17 10:27 [From Neosporin ([id number]-ioh-[id number])] sulfamethoxazole Allergy Hives Verified 11/08/17 10:27 [From Septra] trimethoprim [From Septra] Allergy Hives Verified 11/08/17 10:27 sertraline HCl * AdvReac Intermediate Nausea Verified 11/08/17 10:27 [From Zoloft] - Social History Does the pt smoke?: No Smoking Status: Former smoker Does the pt drink ETOH?: No Does the pt have substance abuse?: No - Immunizations Immunizations are current?: No Immunizations: Other immun not current - POLST Patient has POLST: No PD ED PE NORMAL - Vitals Vital signs reviewed: Yes - General General: Alert and oriented X 3 - HEENT HEENT: PERRL - Neck Neck: Supple, no meningeal sign - Cardiac Cardiac: RRR, Other (sternal scar) - Respiratory Respiratory: Clear bilaterally, Other (no rales) - Abdomen Abdomen: Soft, Other (mod diffuse TTP s peritoneal signs) - Derm Derm: Normal color, Other (superfical lacs to R ant wrist) - Neuro Neuro: Alert and oriented X 3 - Psych Psych: Other (depressed) Results - Vitals Vitals: Vital Signs - 24 hr 11/08/17 11/08/17 10:05 11:16 Temperature 36.2 C L Heart Rate 80 83 Respiratory 18 18 Rate Blood Pressure 118/79 128/75 O2 Saturation 97 98 Oxygen O2 Source Room air - EKG (time done) 1039 Rate: Rate (enter#) (80) Rhythm: NSR Intervals: RBBB Other comments: Other comments (simila to prior) - Labs Labs: Laboratory Tests 0311/08/17 11/08/17 10:25 10:25 10:25 WBC 7.5 RBC 4.38 Hgb 13.8 Hct 40.8 MCV 93.0 MCH 31.6 H MCHC 34.0 RDW 12.9 Plt Count 182 MPV 10.2 Neut # 4.8 Lymph # 2.0 [place] # 0.4 Eos # 0.2 Baso # 0.1 Absolute Nucleated RBC 0.00 Nucleated RBC % 0.0 Sodium 140 Potassium 3.3 L Chloride 105 Carbon Dioxide 24 Anion Gap 11.0 BUN 7 Creatinine 0.8 Estimated GFR (MDRD) 85 L Glucose 118 H Calcium 9.2 Total Bilirubin 1.2 H AST 55 H ALT 59 Alkaline Phosphatase 118 Troponin I < 0.04 B-Natriuretic Peptide Total Protein 8.1 Albumin 4.7 Globulin 3.4 Albumin/Globulin Ratio 1.4 Lipase 20 L TSH Urine Color Urine Clarity Urine pH Ur Specific [place] Urine Protein Urine Glucose (UA) Urine Ketones Urine Occult Blood Urine Nitrite Urine Bilirubin Urine Urobilinogen Ur Leukocyte Esterase Ur Microscopic Review Urine Culture Comments Urine HCG, Qual Salicylates < 6.0 Urine Opiates Screen Ur Oxycodone Screen Urine Methadone Screen Ur Propoxyphene Screen Acetaminophen < 10 L Ur Barbiturates Screen Ur Tricyclics Screen Ur Phencyclidine Scrn Ur Amphetamine Screen U Methamphetamines Scrn U Benzodiazepines Scrn Urine Cocaine Screen U Cannabinoids Screen Ethyl Alcohol < 5.0 11/08/17 11/08/17 11/08/17 10:25 10:25 10:25 WBC RBC Hgb Hct MCV MCH MCHC RDW Plt Count MPV Neut # Lymph # [place] # Eos # Baso # Absolute Nucleated RBC Nucleated RBC % Sodium Potassium Chloride Carbon Dioxide Anion Gap BUN Creatinine Estimated GFR (MDRD) Glucose Calcium Total Bilirubin AST ALT Alkaline Phosphatase Troponin I B-Natriuretic Peptide 31 Total Protein Albumin Globulin Albumin/Globulin Ratio Lipase TSH 14.17 H Urine Color Urine Clarity Urine pH Ur Specific [place] Urine Protein Urine Glucose (UA) Urine Ketones Urine Occult Blood Urine Nitrite Urine Bilirubin Urine Urobilinogen Ur Leukocyte Esterase Ur Microscopic Review Urine Culture Comments Urine HCG, Qual Salicylates Urine Opiates Screen POSITIVE H Ur Oxycodone Screen NEGATIVE Urine Methadone Screen NEGATIVE Ur Propoxyphene Screen NEGATIVE Acetaminophen Ur Barbiturates Screen NEGATIVE Ur Tricyclics Screen NEGATIVE Ur Phencyclidine Scrn NEGATIVE Ur Amphetamine Screen NEGATIVE U Methamphetamines Scrn NEGATIVE U Benzodiazepines Scrn NEGATIVE Urine Cocaine Screen NEGATIVE U Cannabinoids Screen NEGATIVE Ethyl Alcohol 11/08/17 10:25 WBC RBC Hgb Hct MCV MCH MCHC RDW Plt Count MPV Neut # Lymph # [place] # Eos # Baso # Absolute Nucleated RBC Nucleated RBC % Sodium Potassium Chloride Carbon Dioxide Anion Gap BUN Creatinine Estimated GFR (MDRD) Glucose Calcium Total Bilirubin AST ALT Alkaline Phosphatase Troponin I B-Natriuretic Peptide Total Protein Albumin Globulin Albumin/Globulin Ratio Lipase TSH Urine Color LIGHT YELLOW Urine Clarity CLEAR Urine pH 5.0 Ur Specific [place] <=1.005 Urine Protein NEGATIVE Urine Glucose (UA) NEGATIVE Urine Ketones NEGATIVE Urine Occult Blood NEGATIVE Urine Nitrite NEGATIVE Urine Bilirubin NEGATIVE Urine Urobilinogen 0.2 (NORMAL) Ur Leukocyte Esterase NEGATIVE Ur Microscopic Review NOT INDICATED Urine Culture Comments NOT INDICATED Urine HCG, Qual NEGATIVE Salicylates Urine Opiates Screen Ur Oxycodone Screen Urine Methadone Screen Ur Propoxyphene Screen Acetaminophen Ur Barbiturates Screen Ur Tricyclics Screen Ur Phencyclidine Scrn Ur Amphetamine Screen U Methamphetamines Scrn U Benzodiazepines Scrn Urine Cocaine Screen U Cannabinoids Screen Ethyl Alcohol PD MEDICAL DECISION MAKING - ED course ED course: pt with suicidal ideation and self harm medically clear - her underlying cardiac issues are stable, her TS is high and she is fatigued but her PMD has already increased her levothyroxine SW consult ordered seen by SW - and by pts own keycase assembler - they feel pt can go home - both keycase assembler and [facility] will do follow up calls later - pts caregiver will come pick her up and be with her Departure - Departure Disposition: Home, Self Care Clinical Impression: Depression Qualifiers: Depression Type: unspecified Qualified Code(s): F32.9 - Major depressive disorder, single episode, unspecified Condition: Good Instructions: ED Depression Comments: You met with your keycase assembler and also our social worker psychiatric and they feel it is safe for you to go home. You should be receiving call from [facility] and from your keycase assembler jessika to see how you are doing - please answer the phone Of course you are always welcome to return to the ER if things get worse. For the wounds on your arm, please wash with soap and water and apply antibiotic ointment twice a day until healed Also you got a tetanus booster - please let your PMD know so your medical record can be updated
[2017-11-08 10:30] LABS: MUDS CUTOFF CONCENTRATIONS CUTOFF CONC BELOW:
[2017-11-08 10:35] LABS: BILIRUBIN,URINE NEGATIVE (NEGATIVE); GLUCOSE, URINE (UA) NEGATIVE (NEGATIVE); KETONES,URINE (UA) NEGATIVE (NEGATIVE); LEUKOCYTE ESTERASE, URINE NEGATIVE (NEGATIVE); NITRITE,URINE NEGATIVE (NEGATIVE); OCCULT BLOOD,URINE NEGATIVE (NEGATIVE); PROTEIN,URINE NEGATIVE (NEGATIVE); UROBILINOGEN,URINE 0.2 (NORMAL) E.U./dL (NORMAL)
[2017-11-08 10:36] LABS: CLARITY,URINE CLEAR (CLEAR); HCG UR QUAL NEGATIVE
[2017-11-08 10:37] LABS: BASOPHILS # (AUTO) 0.1 10^3/uL (0.0-0.1); EOSINOPHILS # (AUTO) 0.2 10^3/uL (0.0-0.7); EOSINOPHILS % (AUTO) 2.6 %; HGB - HEMOGLOBIN 13.8 g/dL (12.0-16.0); LYMPHOCYTES % (AUTO) 26.8 %; MEAN CORPUSCULAR HEMOGLOBIN 31.6 pg (27.0-31.0); MEAN PLATELET VOLUME 10.2 fL (7.9-10.8); MONOCYTES # (AUTO) 0.4 10^3/uL (0.0-1.0); MONOCYTES % (AUTO) 5.1 %; NEUTROPHILS # (AUTO) 4.8 10^3/uL (1.5-6.6); NEUTROPHILS % (AUTO) 64.5 %; PLT - PLATELET COUNT 182 10^3/uL (130-450); RED BLOOD COUNT 4.38 10^6/uL (4.20-5.40); RED CELL DISTRIBUTION WIDTH 12.9 % (12.0-15.0); WHITE BLOOD COUNT 7.5 x10^3/uL (4.8-10.8)
[2017-11-08 10:44] LABS: ALBUMIN 4.7 g/dL (3.2-5.5); ALBUMIN/GLOBULIN RATIO 1.4 (1.0-2.2); ALKALINE PHOSPHATASE 118 IU/L (42-121); ALT ALANINE AMINOTRANSFERASE 59 IU/L (10-60); AST ASPARTATE AMINOTRANSFERASE 55 IU/L (10-42); BILIRUBIN,TOTAL 1.2 mg/dL (0.2-1.0); BUN - BLOOD UREA NITROGEN 7 mg/dL (6-20); CALCIUM 9.2 mg/dL (8.5-10.3); CARBON DIOXIDE - CO2 24 mmol/L (21-32); CHLORIDE 105 mmol/L (101-111); CREATININE 0.8 mg/dL (0.4-1.0); GFR - MDRD 85 (>89); GLUCOSE 118 mg/dL (70-100); LIPASE 20 U/L (22-51); SALICYLATE < 6.0 mg/dL; SODIUM 140 mmol/L (135-145); TOTAL PROTEIN 8.1 g/dL (6.7-8.2)
[2017-11-08 10:45] LABS: ACETAMINOPHEN < 10 ug/mL (10-30); AMPHETAMINE SCREEN,URINE NEGATIVE (NEGATIVE); BENZODIAZEPINES SCREEN, URINE NEGATIVE (NEGATIVE); COCAINE SCREEN URINE NEGATIVE (NEGATIVE); METHADONE SCREEN, URINE NEGATIVE (NEGATIVE); METHAMPHETAMINES SCREEN, URINE NEGATIVE (NEGATIVE); OPIATE SCREEN, URINE POSITIVE (NEGATIVE); OXYCODONE SCREEN, URINE NEGATIVE (NEGATIVE); PROPOXYPHENE SCREEN, URINE NEGATIVE (NEGATIVE); TRICYCLIC ANTIDEPRESSANT,URINE NEGATIVE (NEGATIVE)
[2017-11-08 13:52] VITALS: BP 125/74
== END 2017-11-08 13:51 | disposition home or self-care (01) ==
LOC: EDUNIT# → ED 10:01
DX: F32.9 Major depressive disorder, single episode, unspecified (principal); S60.911A Unspecified superficial injury of right wrist, initial encounter; X78.9XXA Intentional self-harm by unspecified sharp object, initial encounter; Z23 Encounter for immunization; I45.10 Unspecified right bundle-branch block; R94.31 Abnormal electrocardiogram [ECG] [EKG]; Q21.3 Tetralogy of Fallot; E78.00 Pure hypercholesterolemia, unspecified; I38 Endocarditis, valve unspecified; E03.9 Hypothyroidism, unspecified; J45.909 Unspecified asthma, uncomplicated; Z87.891 Personal history of nicotine dependence
CPT/HCPCS: 36415; 80053; 80306; 80307; 81003; 81025; 83690; 83880; 84443; 84484; 85025; 90471; 90715; 93005; 99283; 99284; G0480; 80320; 80329; 81001; 87086

== ENCOUNTER 2017-12-08 11:00 | Emergency (ER) | payer MEDICARE, MEDICAID ==
[2017-12-08 11:27] LABS: BASOPHILS # (AUTO) 0.1 10^3/uL (0.0-0.1); BASOPHILS % (AUTO) 0.6 %; EOSINOPHILS # (AUTO) 0.2 10^3/uL (0.0-0.7); EOSINOPHILS % (AUTO) 2.7 %; HGB - HEMOGLOBIN 13.7 g/dL (12.0-16.0); LYMPHOCYTES # (AUTO) 2.4 10^3/uL (1.5-3.5); LYMPHOCYTES % (AUTO) 25.2 %; MEAN CORPUSCULAR HEMOGLOBIN 31.8 pg (27.0-31.0); MEAN CORPUSCULAR HGB CONC 33.3 g/dL (32.0-36.0); MEAN CORPUSCULAR VOLUME 95.4 fL (81.0-99.0); MEAN PLATELET VOLUME 9.9 fL (7.9-10.8); MONOCYTES # (AUTO) 0.5 10^3/uL (0.0-1.0); MONOCYTES % (AUTO) 5.6 %; NEUTROPHILS # (AUTO) 6.2 10^3/uL (1.5-6.6); NEUTROPHILS % (AUTO) 65.9 %; PLT - PLATELET COUNT 191 10^3/uL (130-450); RED BLOOD COUNT 4.32 10^6/uL (4.20-5.40); RED CELL DISTRIBUTION WIDTH 13.1 % (12.0-15.0); WHITE BLOOD COUNT 9.3 x10^3/uL (4.8-10.8)
[2017-12-08 11:29] LABS: BILIRUBIN,URINE NEGATIVE (NEGATIVE); GLUCOSE, URINE (UA) NEGATIVE (NEGATIVE); KETONES,URINE (UA) NEGATIVE (NEGATIVE); LEUKOCYTE ESTERASE, URINE NEGATIVE (NEGATIVE); NITRITE,URINE NEGATIVE (NEGATIVE); OCCULT BLOOD,URINE NEGATIVE (NEGATIVE); PROTEIN,URINE NEGATIVE (NEGATIVE); UROBILINOGEN,URINE 0.2 (NORMAL) E.U./dL (NORMAL)
[2017-12-08 11:39] LABS: CLARITY,URINE CLEAR (CLEAR); HCG UR QUAL NEGATIVE
[2017-12-08 12:08] LABS: ALBUMIN 4.2 g/dL (3.2-5.5); ALBUMIN/GLOBULIN RATIO 1.3 (1.0-2.2); ALKALINE PHOSPHATASE 123 IU/L (42-121); ALT ALANINE AMINOTRANSFERASE 55 IU/L (10-60); AST ASPARTATE AMINOTRANSFERASE 40 IU/L (10-42); BILIRUBIN,TOTAL 0.8 mg/dL (0.2-1.0); BUN - BLOOD UREA NITROGEN < 5 mg/dL (6-20); CALCIUM 8.6 mg/dL (8.5-10.3); CARBON DIOXIDE - CO2 27 mmol/L (21-32); CHLORIDE 106 mmol/L (101-111); CREATININE 0.9 mg/dL (0.4-1.0); GFR - MDRD 74 (>89); GLUCOSE 105 mg/dL (70-100); LIPASE 21 U/L (22-51); SODIUM 141 mmol/L (135-145); TOTAL PROTEIN 7.4 g/dL (6.7-8.2)
[2017-12-08] MEDS ORDERED: SODIUM CHLORIDE 0.9% 1,000 ML IV ONE (13:27)
[2017-12-08] MEDS ORDERED: MORPHINE 2 MG/ML SYRINGE IVP STA (13:27)
[2017-12-08] MEDS ORDERED: ONDANSETRON 4 MG/2 ML VIAL IVP STA (13:27)
--- NOTE | 2017-12-08 13:29 | ED Physician Documentation ---
PD HPI ABD PAIN - Stated complaint Stated Complaint: ABD PX - Chief complaint Chief Complaint: Abd Pain - History obtained from History obtained from: Patient - History of Present Illness Timing - onset: Other (27-year-old woman with stage II chronic kidney disease, diabetes, hypertension. She presents with 2 days of Nausea with one episode of vomiting at the outset, She is also had diarrhea. She has not been exposed to a similar illness. She has migratory abdominal pain which is worse on the right. 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 : None HEENT: None Psych: Depression, Anxiety, Other Musculoskeletal: None Derm: None - Past Surgical History Past Surgical History: Yes Cardiovascular: Valve replacement, Other HEENT: Myringotomy (tubes) - Present Medications Home Medications: Ambulatory Orders Medication Instructions Recorded Confirmed Levothyroxine [Synthroid] 75 mcg PO DAILY 07/29/17 07/29/17 Lisinopril 2.5 mg PO DAILY 07/29/17 07/29/17 Prazosin [Minipress] 2 mg PO DAILY 07/29/17 07/29/17 metFORMIN [Glucophage] 500 mcg PO DAILY 07/29/17 07/29/17 Acetaminophen/Cod 300/30 [Tylenol 11/08/17 #3] Lurasidone HCl [Latuda] 11/08/17 Zolpidem [Ambien] 11/08/17 Loperamide [Imodium] 2 mg PO QID PRN #10 capsule 12/08/17 Ondansetron HCl [Zofran] 4 mg PO Q6H PRN #10 tablet 12/08/17 - Allergies Allergies/Adverse Reactions: Allergies Allergy/AdvReac Type Severity Reaction Status Date / Time cephalexin monohydrate * Allergy Severe Hives Verified 11/08/17 10:27 [From Keflex] cetirizine HCl * Allergy Mild Rash Verified 11/08/17 10:27 [From Zyrtec] bacitracin Allergy Hives Verified 11/08/17 10:27 [From Neosporin ([id number])] bacitracin zinc * Allergy Hives Verified 11/08/17 10:27 [From Neosporin ([id number])] neomycin sulfate * Allergy Hives Verified 11/08/17 10:27 [From Neosporin (rrd-cyp-[id number])] polymyxin B Allergy Hives Verified 11/08/17 10:27 [From Neosporin ([id number])] sulfamethoxazole Allergy Hives Verified 11/08/17 10:27 [From Septra] trimethoprim [From Septra] Allergy Hives Verified 11/08/17 10:27 sertraline HCl * AdvReac Intermediate Nausea Verified 11/08/17 10:27 [From Zoloft] - Social History Does the pt smoke?: No Smoking Status: Never smoker Does the pt drink ETOH?: No Does the pt have substance abuse?: No - Family History Family history: reports: Non contributory - Immunizations Immunizations are current?: No Immunizations: Other immun not current - POLST Patient has POLST: No PD ED PE NORMAL - Vitals Vital signs reviewed: Yes - General General: Alert and oriented X 3, No acute distress - HEENT HEENT: PERRL, EOMI - Neck Neck: Supple, no meningeal sign, No bony TTP - Cardiac Cardiac: RRR, No murmur - Respiratory Respiratory: No respiratory distress, Clear bilaterally - Abdomen Abdomen: Normal bowel sounds, Soft, Other (Tender on the right side, both upper and lower quadrants without guarding or rebound, negative Rovsing sign.) - Back Back: No CVA TTP, No spinal TTP - Derm Derm: Normal color, Warm and dry - Extremities Extremities: No edema, No calf tenderness / cord - Neuro Neuro: Alert and oriented X 3, Normal speech - Psych Psych: Normal mood, Normal affect Results - Vitals Vitals: Vital Signs - 24 hr 12/08/17 12/08/17 11:07 13:02 Temperature 36.3 C L 36.8 C Heart Rate 84 82 Respiratory 16 18 Rate Blood Pressure 112/69 125/78 O2 Saturation 97 100 Oxygen O2 Source Room air - Labs Labs: Laboratory Tests 12/08/17 12/08/17 12/08/17 11:23 11:23 11:25 WBC 9.3 RBC 4.32 Hgb 13.7 Hct 41.2 MCV 95.4 MCH 31.8 H MCHC 33.3 RDW 13.1 Plt Count 191 MPV 9.9 Neut # 6.2 Lymph # 2.4 [place] # 0.5 Eos # 0.2 Baso # 0.1 Absolute Nucleated RBC 0.00 Nucleated RBC % 0.0 Sodium 141 Potassium 3.1 L Chloride 106 Carbon Dioxide 27 Anion Gap 8.0 BUN < 5 L Creatinine 0.9 Estimated GFR (MDRD) 74 L Glucose 105 H Calcium 8.6 Total Bilirubin 0.8 AST 40 ALT 55 Alkaline Phosphatase 123 H Total Protein 7.4 Albumin 4.2 Globulin 3.2 Albumin/Globulin Ratio 1.3 Lipase 21 L Urine Color YELLOW Urine Clarity CLEAR Urine pH 6.0 Ur Specific [place] <=1.005 Urine Protein NEGATIVE Urine Glucose (UA) NEGATIVE Urine Ketones NEGATIVE Urine Occult Blood NEGATIVE Urine Nitrite NEGATIVE Urine Bilirubin NEGATIVE Urine Urobilinogen 0.2 (NORMAL) Ur Leukocyte Esterase NEGATIVE Ur Microscopic Review NOT INDICATED Urine Culture Comments NOT INDICATED Urine HCG, Qual NEGATIVE - Rads (name of study) CT A/P Radiology: EMP read contemporaneously (normal) PD MEDICAL DECISION MAKING - ED course ED course: 27-year-old woman with vomiting and diarrhea and abdominal cramps that seems mostly like a viral process, that said she was abdominally tender on the right and therefore CT scanning was done, her appendix was well visualized and normal. The only lab that was abnormal of significance was her potassium which was repleted normally, her alkaline phosphatase is chronically elevated. She was feeling better after treatment here and requested discharge. Departure - Departure Disposition: 01 Home, Self Care Clinical Impression: Abdominal pain Qualifiers: Abdominal location: generalized Qualified Code(s): R10.84 - Generalized abdominal pain Vomiting Qualifiers: Vomiting type: unspecified Vomiting Intractability: non-intractable Nausea presence: with nausea Qualified Code(s): R11.2 - Nausea with vomiting, unspecified Diarrhea Qualifiers: Diarrhea type: presumed infectious Qualified Code(s): R19.7 - Diarrhea, unspecified Condition: Good Record reviewed to determine appropriate education?: Yes Instructions: Abdominal Pain, ED Nausea Vomiting Prescriptions: Loperamide [Imodium] 2 mg PO QID PRN #10 capsule PRN Reason: Diarrhea Ondansetron HCl [Zofran] 4 mg PO Q6H PRN #10 tablet PRN Reason: Nausea / Vomiting Comments: Call your doctor to arrange a follow-up appointment, make the next available appointment. In the interim, return anytime if worse or if new symptoms develop.
[2017-12-08] MEDS ORDERED: IOPAMIDOL-300 100 ML VIAL ONE (14:39)
[2017-12-08] MEDS ORDERED: IOPAMIDOL-300 100 ML VIAL IVP ONE (15:02)
[2017-12-08] MEDS ORDERED: POTASSIUM BICARB 25 MEQ TABLET PO STA (15:15)
--- NOTE | 2017-12-08 15:24 | CT Report ---
EXAM: CT ABDOMEN AND PELVIS EXAM DATE: 12/08/2017 03:03 PM. CLINICAL HISTORY: Right lower quadrant pain. COMPARISONS: CT abdomen and pelvis 05/27/15. TECHNIQUE: Routine helical CT imaging was performed through the abdomen and pelvis. IV contrast: ISOV UE 300 100mL. Enteric contrast: No. Reconstructions: Coronal and sagittal. In accordance with CT protocol optimization, one or more of the following dose reduction techniques w ere utilized for this exam: automated exposure control, adjustment of mA and/or KV based on patient s ize, or use of iterative reconstructive technique. FINDINGS: Lung bases: No acute findings. Liver: Fatty liver. Mild lobular contour at the left hepatic lobe again noted. Gallbladder: Unremarkable. Pelvis: Unremarkable Pancreas: Unremarkable. Spleen: Lobular contour of the spleen. No splenomegaly. Adrenals: Unremarkable. Kidneys: Unremarkable. No urinary tract calculi are seen. Bowel: Normal appendix. No acute findings. No evidence for bowel obstruction. No free fluid or free a ir. Pelvis: The bladder and remaining pelvic organs appear unremarkable. Vascular structures: No acute findings. Bones: No acute bone findings. Sternotomy wires. IMPRESSION: 1. Fatty liver. 2. Normal appendix. 3. No acute findings. [facility] Referring Provider Line: [phone] SITE ID: [id number]
--- NOTE | 2017-12-08 15:24 | CT Preliminary Report ---
Exam: CT ABDOMEN/PELVIS W/ IMPRESSION: 1. Fatty liver. 2. Normal appendix. 3. No acute findings. [facility] SITE ID: [id number]
[2017-12-08 15:46] VITALS: BP 126/78
== END 2017-12-08 15:45 | disposition home or self-care (01) ==
LOC: ED 11:00
DX: R11.2 Nausea with vomiting, unspecified (principal); R19.7 Diarrhea, unspecified; R10.84 Generalized abdominal pain; E78.00 Pure hypercholesterolemia, unspecified; J45.909 Unspecified asthma, uncomplicated; E03.9 Hypothyroidism, unspecified; Z95.2 Presence of prosthetic heart valve
CPT/HCPCS: 36415; 74177; 80053; 81003; 81025; 83690; 85025; 96361; 96374; 99283; 99284; A9270; J2270; Q9967; 81001; 87086

== ENCOUNTER 2018-01-19 13:18 | Outpatient (CLI) | payer MEDICARE, MEDICAID ==
[2018-01-19 19:12] LABS: CALCIUM 9.1 mg/dL (8.5-10.3); CREATININE 0.7 mg/dL (0.4-1.0)
== END 2018-01-19 13:19 | disposition home or self-care (01) ==
LOC: LAB.N 13:18
PROVIDERS: ATTEND Nurse Practitioner Gerontology
DX: E87.6 Hypokalemia (principal); E03.9 Hypothyroidism, unspecified; R10.9 Unspecified abdominal pain
CPT/HCPCS: 36415; 80048; 84443

== ENCOUNTER 2018-02-13 19:19 | Outpatient (CLI) | payer MEDICARE, MEDICAID | END 2018-02-13 19:20 | disposition critical access hospital (66) | LOC: EMS 19:19 | PROVIDERS: ATTEND Surgery | DX: R45.851 Suicidal ideations (principal); R45.850 Homicidal ideations | CPT/HCPCS: A0425; A0429 ==

== ENCOUNTER 2018-02-13 19:35 | Emergency (ER) | payer MEDICARE, MEDICAID ==
[2018-02-13 19:56] LABS: MUDS CUTOFF CONCENTRATIONS CUTOFF CONC BELOW:
[2018-02-13 19:57] LABS: BASOPHILS # (AUTO) 0.1 10^3/uL (0.0-0.1); BASOPHILS % (AUTO) 0.8 %; EOSINOPHILS # (AUTO) 0.1 10^3/uL (0.0-0.7); EOSINOPHILS % (AUTO) 1.1 %; LYMPHOCYTES # (AUTO) 1.8 10^3/uL (1.5-3.5); LYMPHOCYTES % (AUTO) 17.9 %; MEAN CORPUSCULAR HEMOGLOBIN 32.1 pg (27.0-31.0); MEAN CORPUSCULAR HGB CONC 33.8 g/dL (32.0-36.0); MEAN CORPUSCULAR VOLUME 95.2 fL (81.0-99.0); MEAN PLATELET VOLUME 10.4 fL (7.9-10.8); MONOCYTES # (AUTO) 0.6 10^3/uL (0.0-1.0); MONOCYTES % (AUTO) 5.8 %; NEUTROPHILS # (AUTO) 7.3 10^3/uL (1.5-6.6); NEUTROPHILS % (AUTO) 74.4 %; PLT - PLATELET COUNT 179 10^3/uL (130-450); RED BLOOD COUNT 4.66 10^6/uL (4.20-5.40); RED CELL DISTRIBUTION WIDTH 12.7 % (12.0-15.0); WHITE BLOOD COUNT 9.8 x10^3/uL (4.8-10.8)
[2018-02-13 20:03] LABS: BILIRUBIN,URINE NEGATIVE (NEGATIVE); GLUCOSE, URINE (UA) NEGATIVE (NEGATIVE); KETONES,URINE (UA) NEGATIVE (NEGATIVE); LEUKOCYTE ESTERASE, URINE LARGE (NEGATIVE); NITRITE,URINE NEGATIVE (NEGATIVE); OCCULT BLOOD,URINE TRACE-LYSE (NEGATIVE); PROTEIN,URINE NEGATIVE (NEGATIVE); UROBILINOGEN,URINE 0.2 (NORMAL) E.U./dL (NORMAL)
[2018-02-13 20:10] LABS: CLARITY,URINE HAZY (CLEAR)
[2018-02-13 20:11] LABS: HCG UR QUAL NEGATIVE
[2018-02-13 20:12] LABS: ALBUMIN 4.4 g/dL (3.2-5.5); ALBUMIN/GLOBULIN RATIO 1.2 (1.0-2.2); ALKALINE PHOSPHATASE 133 IU/L (42-121); ALT ALANINE AMINOTRANSFERASE 82 IU/L (10-60); AST ASPARTATE AMINOTRANSFERASE 66 IU/L (10-42); BILIRUBIN,TOTAL 1.3 mg/dL (0.2-1.0); BUN - BLOOD UREA NITROGEN 6 mg/dL (6-20); CALCIUM 9.6 mg/dL (8.5-10.3); CARBON DIOXIDE - CO2 25 mmol/L (21-32); CHLORIDE 106 mmol/L (101-111); CREATININE 0.8 mg/dL (0.4-1.0); GFR - MDRD 85 (>89); GLUCOSE 124 mg/dL (70-100); LIPASE 27 U/L (22-51); SALICYLATE < 6.0 mg/dL; SODIUM 141 mmol/L (135-145); TOTAL PROTEIN 8.1 g/dL (6.7-8.2)
[2018-02-13 20:16] LABS: BACTERIA,URINE Many /HPF (None Seen); SQUAMOUS EPITHELIAL CELL,UR RARE Squamous (<= Few); YEAST,URINE PRESENT
[2018-02-13 20:17] LABS: AMPHETAMINE SCREEN,URINE NEGATIVE (NEGATIVE); BENZODIAZEPINES SCREEN, URINE NEGATIVE (NEGATIVE); COCAINE SCREEN URINE NEGATIVE (NEGATIVE); METHADONE SCREEN, URINE NEGATIVE (NEGATIVE); METHAMPHETAMINES SCREEN, URINE NEGATIVE (NEGATIVE); OPIATE SCREEN, URINE NEGATIVE (NEGATIVE); OXYCODONE SCREEN, URINE NEGATIVE (NEGATIVE); PROPOXYPHENE SCREEN, URINE NEGATIVE (NEGATIVE); TRICYCLIC ANTIDEPRESSANT,URINE NEGATIVE (NEGATIVE)
[2018-02-13 20:24] LABS: ACETAMINOPHEN < 10 ug/mL (10-30)
[2018-02-13] MEDS ORDERED: NITROFURANTOIN MACRO 100 MG CAPSULE PO STA (20:32)
--- NOTE | 2018-02-13 20:34 | ED Physician Documentation ---
PD HPI MHE - Stated complaint Stated Complaint: SI - Chief complaint Chief Complaint: MHE - History obtained from History obtained from: Patient - History of Present Illness Primary symptom: Suicidal ideation, Homicidal ideation Timing - onset: Today Contributing factors: Sig other Similar symptoms before: Work up / diagnostics, Treatment Recently seen: Not recently seen - Additional information Additional information: Patient is a 27 year old female with a history of depression who is presenting to the emergency department for suicidal ideation. Ptaient states that her ex boyfriend placed a restraining order against her today and that is what set things off today. patient was going to take "sleeping pills" Patient called police and they came to the house before she could take the pills. 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 : None HEENT: None Psych: Depression, Anxiety, Other Musculoskeletal: None Derm: None - Past Surgical History Past Surgical History: Yes Cardiovascular: Valve replacement, Other HEENT: Myringotomy (tubes) - Present Medications Home Medications: Ambulatory Orders Medication Instructions Recorded Confirmed Levothyroxine [Synthroid] 75 mcg PO DAILY 07/29/17 07/29/17 Lisinopril 2.5 mg PO DAILY 07/29/17 07/29/17 Prazosin [Minipress] 2 mg PO DAILY 07/29/17 07/29/17 metFORMIN [Glucophage] 500 mcg PO DAILY 07/29/17 07/29/17 Lurasidone HCl [Latuda] 11/08/17 Nitrofurantoin Monohyd/M-Cryst 100 mg PO BID 5 Days capsule 02/13/18 [Macrobid 100 mg Capsule] Ramelteon [Rozerem] 8 mg PO DAILY PM PRN 02/13/18 02/13/18 - Allergies Allergies/Adverse Reactions: Allergies Allergy/AdvReac Type Severity Reaction Status Date / Time cephalexin monohydrate * Allergy Severe Hives Verified 02/13/18 19:44 [From Keflex] cetirizine HCl * Allergy Mild Rash Verified 02/13/18 19:44 [From Zyrtec] bacitracin Allergy Hives Verified 02/13/18 19:44 [From Neosporin ([id number])] bacitracin zinc * Allergy Hives Verified 02/13/18 19:44 [From Neosporin ([id number]-[id number])] neomycin sulfate * Allergy Hives Verified 02/13/18 19:44 [From Neosporin ([id number]-[id number])] polymyxin B Allergy Hives Verified 02/13/18 19:44 [From Neosporin (koy-rje-ssqqi)] sulfamethoxazole Allergy Hives Verified 02/13/18 19:44 [From Septra] trimethoprim [From Septra] Allergy Hives Verified 02/13/18 19:44 sertraline HCl * AdvReac Intermediate Nausea Verified 02/13/18 19:44 [From Zoloft] - Social History Does the pt smoke?: No Smoking Status: Never smoker Does the pt drink ETOH?: No Does the pt have substance abuse?: No - Immunizations Immunizations are current?: No Immunizations: Other immun not current - POLST Patient has POLST: No PD ED PE NORMAL - Vitals Vital signs reviewed: Yes - General General: Alert and oriented X 3 - HEENT HEENT: Atraumatic - Cardiac Cardiac: RRR - Respiratory Respiratory: No respiratory distress - Abdomen Abdomen: Non distended - Derm Derm: Normal color, Warm and dry - Extremities Extremities: No deformity - Neuro Neuro: Alert and oriented X 3, No motor deficit, Normal speech Eye Opening: Spontaneous PD ED PE EXPANDED - Psych Psych: Depressed, Suicidal. No: Anxious, Agitated, Combative Results - Vitals Vitals: Vital Signs - 24 hr 02/13/18 02/14/18 19:37 04:06 Temperature 36.1 C L Heart Rate 75 72 Respiratory 16 14 Rate Blood Pressure 112/76 114/78 O2 Saturation 95 74 L Oxygen O2 Source Room air - Labs Labs: Laboratory Tests 02/13/18 02/13/18 02/13/18 19:48 19:48 19:52 WBC 9.8 RBC 4.66 Hgb 15.0 Hct 44.3 MCV 95.2 MCH 32.1 H MCHC 33.8 RDW 12.7 Plt Count 179 MPV 10.4 Neut # (Auto) 7.3 H Lymph # (Auto) 1.8 [place] # (Auto) 0.6 Eos # (Auto) 0.1 Baso # (Auto) 0.1 Absolute Nucleated RBC 0.00 Nucleated RBC % 0.0 Sodium Potassium Chloride Carbon Dioxide Anion Gap BUN Creatinine Estimated GFR (MDRD) Glucose Calcium Total Bilirubin AST ALT Alkaline Phosphatase Total Protein Albumin Globulin Albumin/Globulin Ratio Lipase TSH Urine Color YELLOW Urine Clarity HAZY Urine pH 6.0 Ur Specific [place] <=1.005 Urine Protein NEGATIVE Urine Glucose (UA) NEGATIVE Urine Ketones NEGATIVE Urine Occult Blood TRACE-LYSE Urine Nitrite NEGATIVE Urine Bilirubin NEGATIVE Urine Urobilinogen 0.2 (NORMAL) Ur Leukocyte Esterase LARGE H Urine RBC 11-25 H Urine WBC >25 H Ur Squamous Epith Cells RARE Squamous Urine Bacteria Many H Urine Yeast PRESENT Ur Microscopic Review INDICATED Urine Culture Comments INDICATED Urine HCG, Qual NEGATIVE Salicylates Urine Opiates Screen NEGATIVE Ur Oxycodone Screen NEGATIVE Urine Methadone Screen NEGATIVE Ur Propoxyphene Screen NEGATIVE Acetaminophen Ur Barbiturates Screen NEGATIVE Ur Tricyclics Screen NEGATIVE Ur Phencyclidine Scrn NEGATIVE Ur Amphetamine Screen NEGATIVE U Methamphetamines Scrn NEGATIVE U Benzodiazepines Scrn NEGATIVE Urine Cocaine Screen NEGATIVE U Cannabinoids Screen NEGATIVE Ethyl Alcohol 02/13/18 02/13/18 19:52 19:52 WBC RBC Hgb Hct MCV MCH MCHC RDW Plt Count MPV Neut # (Auto) Lymph # (Auto) [place] # (Auto) Eos # (Auto) Baso # (Auto) Absolute Nucleated RBC Nucleated RBC % Sodium 141 Potassium 3.5 Chloride 106 Carbon Dioxide 25 Anion Gap 10.0 BUN 6 Creatinine 0.8 Estimated GFR (MDRD) 85 L Glucose 124 H Calcium 9.6 Total Bilirubin 1.3 H AST 66 H ALT 82 H Alkaline Phosphatase 133 H Total Protein 8.1 Albumin 4.4 Globulin 3.7 Albumin/Globulin Ratio 1.2 Lipase 27 TSH < 0.08 L Urine Color Urine Clarity Urine pH Ur Specific [place] Urine Protein Urine Glucose (UA) Urine Ketones Urine Occult Blood Urine Nitrite Urine Bilirubin Urine Urobilinogen Ur Leukocyte Esterase Urine RBC Urine WBC Ur Squamous Epith Cells Urine Bacteria Urine Yeast Ur Microscopic Review Urine Culture Comments Urine HCG, Qual Salicylates < 6.0 Urine Opiates Screen Ur Oxycodone Screen Urine Methadone Screen Ur Propoxyphene Screen Acetaminophen < 10 L Ur Barbiturates Screen Ur Tricyclics Screen Ur Phencyclidine Scrn Ur Amphetamine Screen U Methamphetamines Scrn U Benzodiazepines Scrn Urine Cocaine Screen U Cannabinoids Screen Ethyl Alcohol < 5.0 PD MEDICAL DECISION MAKING - ED course Complexity details: reviewed old records, reviewed results, re-evaluated patient , considered differential, d/w patient ED course: Patient was seen and examined at bedside. labs were drawn and urine was collected. Patient was found to have a urinary tract infection but was otherwise medically clear. Patient was voluntary so was observed in the emergency department overnight. Patient was signed out to Dr. Navarrete awaiting social work evaluation. - Sepsis Event Vital Signs: Vital Signs - 24 hr 02/13/18 02/14/18 19:37 04:06 Temperature 36.1 C L Heart Rate 75 72 Respiratory 16 14 Rate Blood Pressure 112/76 114/78 O2 Saturation 95 74 L Oxygen O2 Source Room air Departure - Departure Clinical Impression: Urinary tract infection, Depressive disorder, Suicidal ideation Condition: Good Instructions: ED Stress React, ED Depression, ED UTI Cystitis Female Prescriptions: Nitrofurantoin Monohyd/M-Cryst [Macrobid 100 mg Capsule] 100 mg PO BID 5 Days capsule
[2018-02-14] MEDS ORDERED: LORazepam 0.5 MG TABLET PO STA (04:01)
[2018-02-14] MEDS ORDERED: ACETAMINOPHEN 325 MG TABLET PO STA (08:03)
[2018-02-14 10:34] VITALS: BP 98/65
== END 2018-02-14 10:45 | disposition home or self-care (01) ==
LOC: EDBD → ED 19:35
DX: R45.851 Suicidal ideations (principal); N39.0 Urinary tract infection, site not specified; F32.9 Major depressive disorder, single episode, unspecified; E78.00 Pure hypercholesterolemia, unspecified; E03.9 Hypothyroidism, unspecified; Z95.2 Presence of prosthetic heart valve; Z79.82 Long term (current) use of aspirin
CPT/HCPCS: 36415; 80053; 80306; 80307; 81001; 81025; 83690; 84443; 85025; 87086; 99283; 99284; A9270; G0480; 80320; 80329; 81003

== ENCOUNTER 2018-02-21 21:47 | Outpatient (CLI) | payer MEDICARE, MEDICAID | END 2018-02-21 21:48 | disposition critical access hospital (66) | LOC: EMS 21:47 | PROVIDERS: ATTEND Surgery | DX: T42.6X2A Poisoning by other antiepileptic and sedative-hypnotic drugs, intentional self-harm, initial encounter (principal) | CPT/HCPCS: A0425; A0429 ==

== ENCOUNTER 2018-02-21 22:05 | Emergency (ER) | payer MEDICARE, MEDICAID ==
[2018-02-21 23:06] LABS: BASOPHILS # (AUTO) 0.1 10^3/uL (0.0-0.1); BASOPHILS % (AUTO) 0.9 %; EOSINOPHILS # (AUTO) 0.2 10^3/uL (0.0-0.7); EOSINOPHILS % (AUTO) 2.2 %; HGB - HEMOGLOBIN 14.1 g/dL (12.0-16.0); LYMPHOCYTES # (AUTO) 2.3 10^3/uL (1.5-3.5); LYMPHOCYTES % (AUTO) 23.6 %; MEAN CORPUSCULAR HEMOGLOBIN 31.6 pg (27.0-31.0); MEAN CORPUSCULAR HGB CONC 33.5 g/dL (32.0-36.0); MEAN CORPUSCULAR VOLUME 94.4 fL (81.0-99.0); MEAN PLATELET VOLUME 10.2 fL (7.9-10.8); MONOCYTES # (AUTO) 0.7 10^3/uL (0.0-1.0); MONOCYTES % (AUTO) 7.2 %; NEUTROPHILS # (AUTO) 6.3 10^3/uL (1.5-6.6); NEUTROPHILS % (AUTO) 66.1 %; PLT - PLATELET COUNT 169 10^3/uL (130-450); RED BLOOD COUNT 4.47 10^6/uL (4.20-5.40); RED CELL DISTRIBUTION WIDTH 12.7 % (12.0-15.0); WHITE BLOOD COUNT 9.6 x10^3/uL (4.8-10.8)
[2018-02-21 23:24] LABS: ACETAMINOPHEN < 10 ug/mL (10-30); ALBUMIN 3.9 g/dL (3.2-5.5); ALBUMIN/GLOBULIN RATIO 1.1 (1.0-2.2); ALKALINE PHOSPHATASE 134 IU/L (42-121); ALT ALANINE AMINOTRANSFERASE 40 IU/L (10-60); AST ASPARTATE AMINOTRANSFERASE 38 IU/L (10-42); BILIRUBIN,TOTAL 1.1 mg/dL (0.2-1.0); BUN - BLOOD UREA NITROGEN < 5 mg/dL (6-20); CARBON DIOXIDE - CO2 23 mmol/L (21-32); CHLORIDE 107 mmol/L (101-111); CREATININE 0.8 mg/dL (0.4-1.0); GFR - MDRD 85 (>89); GLUCOSE 105 mg/dL (70-100); LIPASE 25 U/L (22-51); MAGNESIUM 1.8 mg/dL (1.7-2.8); SALICYLATE < 6.0 mg/dL; SODIUM 141 mmol/L (135-145); TOTAL PROTEIN 7.4 g/dL (6.7-8.2)
[2018-02-21 23:30] LABS: HCG,QUALITATIVE BLOOD NEGATIVE
--- NOTE | 2018-02-22 01:03 | ED Physician Documentation ---
History of Present Illness - Stated complaint Stated Complaint: OD - Chief complaint Chief Complaint: MHE - Additonal information Additional information: 27-year-old female presents the emergency department after taking an overdose of her medication this evening. The patient reports doing this and attempt to end her life. The patient still has Is having suicidal thoughts. The patient denies any acute medical complaints. The symptoms were initiated after issues with her significant other. No relieving factors. No other associated symptoms. 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 : None HEENT: None Psych: Depression, Anxiety, Other Musculoskeletal: None Derm: None - Past Surgical History Past Surgical History: Yes Cardiovascular: Valve replacement, Other HEENT: Myringotomy (tubes) - Present Medications Home Medications: Ambulatory Orders Medication Instructions Recorded Confirmed Levothyroxine [Synthroid] 75 mcg PO DAILY 07/29/17 07/29/17 Lisinopril 2.5 mg PO DAILY 07/29/17 07/29/17 Prazosin [Minipress] 2 mg PO DAILY 07/29/17 07/29/17 metFORMIN [Glucophage] 500 mcg PO DAILY 07/29/17 07/29/17 Lurasidone HCl [Latuda] 11/08/17 Nitrofurantoin Monohyd/M-Cryst 100 mg PO BID 5 Days capsule 02/13/18 [Macrobid 100 mg Capsule] Ramelteon [Rozerem] 8 mg PO DAILY PM PRN 02/13/18 02/13/18 - Allergies Allergies/Adverse Reactions: Allergies Allergy/AdvReac Type Severity Reaction Status Date / Time cephalexin monohydrate * Allergy Severe Hives Verified 02/13/18 19:44 [From Keflex] cetirizine HCl * Allergy Mild Rash Verified 02/13/18 19:44 [From Zyrtec] bacitracin Allergy Hives Verified 02/13/18 19:44 [From Neosporin ([id number])] bacitracin zinc * Allergy Hives Verified 02/13/18 19:44 [From Neosporin ([id number])] neomycin sulfate * Allergy Hives Verified 02/13/18 19:44 [From Neosporin ([id number])] polymyxin B Allergy Hives Verified 02/13/18 19:44 [From Neosporin ([id number])] sulfamethoxazole Allergy Hives Verified 02/13/18 19:44 [From Septra] trimethoprim [From Septra] Allergy Hives Verified 02/13/18 19:44 sertraline HCl * AdvReac Intermediate Nausea Verified 02/13/18 19:44 [From Zoloft] - Social History Does the pt smoke?: No Smoking Status: Never smoker Does the pt drink ETOH?: No Does the pt have substance abuse?: No - Immunizations Immunizations are current?: No Immunizations: Other immun not current - POLST Patient has POLST: No PD ED PE NORMAL - General General: Alert and oriented X 3, No acute distress - HEENT HEENT: Atraumatic, PERRL, EOMI, Ears normal - Cardiac Cardiac: RRR, Strong equal pulses - Respiratory Respiratory: No respiratory distress, Clear bilaterally - Abdomen Abdomen: Normal bowel sounds, Soft - Derm Derm: Normal color - Extremities Extremities: No deformity, No edema - Neuro Neuro: Alert and oriented X 3, No motor deficit, Normal speech PD ED PE EXPANDED - Psych Psych: Depressed, Suicidal, Withdrawn, Anxious Results - Vitals Vitals: Vital Signs - 24 hr 02/21/18 02/21/18 02/22/18 22:10 23:54 00:12 Temperature 36.5 C Heart Rate 82 78 78 Respiratory 16 21 16 Rate Blood Pressure 114/81 H 106/75 104/69 O2 Saturation 98 96 96 02/22/18 01:10 Temperature Heart Rate 84 Respiratory 17 Rate Blood Pressure 107/84 H O2 Saturation 97 Oxygen O2 Source Room air - Labs Labs: Laboratory Tests 02/21/18 02/21/18 02/21/18 23:01 23:01 23:01 WBC 9.6 RBC 4.47 Hgb 14.1 Hct 42.2 MCV 94.4 MCH 31.6 H MCHC 33.5 RDW 12.7 Plt Count 169 MPV 10.2 Neut # (Auto) 6.3 Lymph # (Auto) 2.3 [place] # (Auto) 0.7 Eos # (Auto) 0.2 Baso # (Auto) 0.1 Absolute Nucleated RBC 0.00 Nucleated RBC % 0.0 Sodium 141 Potassium 3.2 L Chloride 107 Carbon Dioxide 23 Anion Gap 11.0 BUN < 5 L Creatinine 0.8 Estimated GFR (MDRD) 85 L Glucose 105 H Calcium 9.0 Magnesium 1.8 Total Bilirubin 1.1 H AST 38 ALT 40 Alkaline Phosphatase 134 H Total Protein 7.4 Albumin 3.9 Globulin 3.5 Albumin/Globulin Ratio 1.1 Lipase 25 Serum HCG, Qual NEGATIVE Urine Color Urine Clarity Urine pH Ur Specific [place] Urine Protein Urine Glucose (UA) Urine Ketones Urine Occult Blood Urine Nitrite Urine Bilirubin Urine Urobilinogen Ur Leukocyte Esterase Ur Microscopic Review Urine Culture Comments Salicylates < 6.0 Acetaminophen < 10 L 02/22/18 04:52 WBC RBC Hgb Hct MCV MCH MCHC RDW Plt Count MPV Neut # (Auto) Lymph # (Auto) [place] # (Auto) Eos # (Auto) Baso # (Auto) Absolute Nucleated RBC Nucleated RBC % Sodium Potassium Chloride Carbon Dioxide Anion Gap BUN Creatinine Estimated GFR (MDRD) Glucose Calcium Magnesium Total Bilirubin AST ALT Alkaline Phosphatase Total Protein Albumin Globulin Albumin/Globulin Ratio Lipase Serum HCG, Qual Urine Color YELLOW Urine Clarity HAZY Urine pH 6.0 Ur Specific [place] <=1.005 Urine Protein NEGATIVE Urine Glucose (UA) NEGATIVE Urine Ketones NEGATIVE Urine Occult Blood TRACE-INTA Urine Nitrite NEGATIVE Urine Bilirubin NEGATIVE Urine Urobilinogen 0.2 (NORMAL) Ur Leukocyte Esterase LARGE H Ur Microscopic Review INDICATED Urine Culture Comments Not Reportable Salicylates Acetaminophen PD MEDICAL DECISION MAKING - ED course ED course: The patient is medically stable and has not developed any toxidrome secondary to her overdose. Since the patient is voluntary at this time she was observed in the emergency department throughout the night. The patient will require evaluation by social work. The findings and plan were discussed with the patient who understands and agrees. @ 07:00 AM The patient's care will be turned over to the oncoming physician Dr. Navarrete For final disposition per social work's recommendations - Sepsis Event Vital Signs: Vital Signs - 24 hr 02/21/18 02/21/18 02/22/18 22:10 23:54 00:12 Temperature 36.5 C Heart Rate 82 78 78 Respiratory 16 21 16 Rate Blood Pressure 114/81 H 106/75 104/69 O2 Saturation 98 96 96 02/22/18 01:10 Temperature Heart Rate 84 Respiratory 17 Rate Blood Pressure 107/84 H O2 Saturation 97 Oxygen O2 Source Room air Departure - Departure Clinical Impression: Attempted suicide
[2018-02-22 04:58] LABS: MUDS CUTOFF CONCENTRATIONS CUTOFF CONC BELOW:
[2018-02-22 04:59] LABS: BILIRUBIN,URINE NEGATIVE (NEGATIVE); GLUCOSE, URINE (UA) NEGATIVE (NEGATIVE); KETONES,URINE (UA) NEGATIVE (NEGATIVE); LEUKOCYTE ESTERASE, URINE LARGE (NEGATIVE); NITRITE,URINE NEGATIVE (NEGATIVE); OCCULT BLOOD,URINE TRACE-INTA (NEGATIVE); PROTEIN,URINE NEGATIVE (NEGATIVE); UROBILINOGEN,URINE 0.2 (NORMAL) E.U./dL (NORMAL)
[2018-02-22 05:02] LABS: CLARITY,URINE HAZY (CLEAR)
[2018-02-22 05:09] LABS: BACTERIA,URINE Few /HPF (None Seen); RBC,URINE 0-5 /HPF (0-5); SQUAMOUS EPITHELIAL CELL,UR FEW Squamous (<= Few); TRICHOMONAS,URINE PRESENT (None Seen)
[2018-02-22 05:10] LABS: AMPHETAMINE SCREEN,URINE NEGATIVE (NEGATIVE); BENZODIAZEPINES SCREEN, URINE NEGATIVE (NEGATIVE); COCAINE SCREEN URINE NEGATIVE (NEGATIVE); METHADONE SCREEN, URINE NEGATIVE (NEGATIVE); METHAMPHETAMINES SCREEN, URINE NEGATIVE (NEGATIVE); OPIATE SCREEN, URINE NEGATIVE (NEGATIVE); OXYCODONE SCREEN, URINE NEGATIVE (NEGATIVE); PROPOXYPHENE SCREEN, URINE NEGATIVE (NEGATIVE); TRICYCLIC ANTIDEPRESSANT,URINE NEGATIVE (NEGATIVE)
--- NOTE | 2018-02-22 08:20 | ED Physician Documentation ---
PD HPI MHE - Stated complaint Stated Complaint: OD - Chief complaint Chief Complaint: MHE - History obtained from History obtained from: Patient - History of Present Illness Primary symptom: Suicidal ideation, Suicide attempt, Self harm - OD Timing - onset: Today Contributing factors: Sig other Similar symptoms before: Diagnosis (depression with SI) Recently seen: Emergency Dept - Additional information Additional information: 27-year-old female with history of depression has had multiple episodes of suicidal ideation and she had a attempt last night with melatonin. She is somewhat impulsive and this morning she is remorseful no longer suicidal. 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 : None HEENT: None Psych: Depression, Anxiety, Other Musculoskeletal: None Derm: None - Past Surgical History Past Surgical History: Yes Cardiovascular: Valve replacement, Other HEENT: Myringotomy (tubes) - Present Medications Home Medications: Ambulatory Orders Medication Instructions Recorded Confirmed Levothyroxine [Synthroid] 75 mcg PO DAILY 07/29/17 07/29/17 Lisinopril 2.5 mg PO DAILY 07/29/17 07/29/17 Prazosin [Minipress] 2 mg PO DAILY 07/29/17 07/29/17 metFORMIN [Glucophage] 500 mcg PO DAILY 07/29/17 07/29/17 Lurasidone HCl [Latuda] 11/08/17 Nitrofurantoin Monohyd/M-Cryst 100 mg PO BID 5 Days capsule 02/13/18 [Macrobid 100 mg Capsule] Ramelteon [Rozerem] 8 mg PO DAILY PM PRN 02/13/18 02/13/18 - Allergies Allergies/Adverse Reactions: Allergies Allergy/AdvReac Type Severity Reaction Status Date / Time cephalexin monohydrate * Allergy Severe Hives Verified 02/13/18 19:44 [From Keflex] cetirizine HCl * Allergy Mild Rash Verified 02/13/18 19:44 [From Zyrtec] bacitracin Allergy Hives Verified 02/13/18 19:44 [From Neosporin ([id number])] bacitracin zinc * Allergy Hives Verified 02/13/18 19:44 [From Neosporin ([id number])] neomycin sulfate * Allergy Hives Verified 02/13/18 19:44 [From Neosporin ([id number]-[id number])] polymyxin B Allergy Hives Verified 02/13/18 19:44 [From Neosporin ([id number]-[id number])] sulfamethoxazole Allergy Hives Verified 02/13/18 19:44 [From Septra] trimethoprim [From Septra] Allergy Hives Verified 02/13/18 19:44 sertraline HCl * AdvReac Intermediate Nausea Verified 02/13/18 19:44 [From Zoloft] - Social History Does the pt smoke?: No Smoking Status: Never smoker Does the pt drink ETOH?: No Does the pt have substance abuse?: No - Immunizations Immunizations are current?: No Immunizations: Other immun not current - POLST Patient has POLST: No PD ED PE NORMAL - Vitals Vital signs reviewed: Yes (hypertensive mild diastolic only ) - General General: Alert and oriented X 3, No acute distress, Well developed/nourished - HEENT HEENT: Atraumatic, PERRL, EOMI - Respiratory Respiratory: No respiratory distress - Extremities Extremities: No deformity, No edema - Neuro Neuro: Alert and oriented X 3, flap presser 2-12 intact, No motor deficit, No sensory deficit, Normal speech Eye Opening: Spontaneous Motor: Obeys Commands Verbal: Oriented GCS Score: 15 - Psych Psych: Normal mood, Normal affect, Other (no pressured speech or flight of ideas. No specific plan. ) Results - Vitals Vitals: Vital Signs - 24 hr 02/21/18 02/21/18 02/22/18 22:10 23:54 00:12 Temperature 36.5 C Heart Rate 82 78 78 Respiratory 16 21 16 Rate Blood Pressure 114/81 H 106/75 104/69 O2 Saturation 98 96 96 02/22/18 02/22/18 02/22/18 01:10 06:28 06:29 Temperature 36.9 C Heart Rate 84 69 Respiratory 17 18 Rate Blood Pressure 107/84 H 107/67 O2 Saturation 97 95 02/22/18 11:58 Temperature 36.8 C Heart Rate 68 Respiratory 18 Rate Blood Pressure 110/65 O2 Saturation 97 Oxygen O2 Source Room air - Labs Labs: Microbiology 02/22/18 04:52 Urine Culture - Preliminary Urine,Clean Catch CULTURE IN PROGRESS. RESULTS TO FOLLOW. Laboratory Tests 07/10/18 07/10/18 07/10/18 23:01 23:01 23:01 WBC 9.6 RBC 4.47 Hgb 14.1 Hct 42.2 MCV 94.4 MCH 31.6 H MCHC 33.5 RDW 12.7 Plt Count 169 MPV 10.2 Neut # (Auto) 6.3 Lymph # (Auto) 2.3 [place] # (Auto) 0.7 Eos # (Auto) 0.2 Baso # (Auto) 0.1 Absolute Nucleated RBC 0.00 Nucleated RBC % 0.0 Sodium 141 Potassium 3.2 L Chloride 107 Carbon Dioxide 23 Anion Gap 11.0 BUN < 5 L Creatinine 0.8 Estimated GFR (MDRD) 85 L Glucose 105 H Calcium 9.0 Magnesium 1.8 Total Bilirubin 1.1 H AST 38 ALT 40 Alkaline Phosphatase 134 H Total Protein 7.4 Albumin 3.9 Globulin 3.5 Albumin/Globulin Ratio 1.1 Lipase 25 Serum HCG, Qual NEGATIVE Urine Color Urine Clarity Urine pH Ur Specific [place] Urine Protein Urine Glucose (UA) Urine Ketones Urine Occult Blood Urine Nitrite Urine Bilirubin Urine Urobilinogen Ur Leukocyte Esterase Urine RBC Urine WBC Ur Squamous Epith Cells Urine Bacteria Urine Trichomonas Ur Microscopic Review Urine Culture Comments Salicylates < 6.0 Urine Opiates Screen Ur Oxycodone Screen Urine Methadone Screen Ur Propoxyphene Screen Acetaminophen < 10 L Ur Barbiturates Screen Ur Tricyclics Screen Ur Phencyclidine Scrn Ur Amphetamine Screen U Methamphetamines Scrn U Benzodiazepines Scrn Urine Cocaine Screen U Cannabinoids Screen 02/22/18 04:52 WBC RBC Hgb Hct MCV MCH MCHC RDW Plt Count MPV Neut # (Auto) Lymph # (Auto) [place] # (Auto) Eos # (Auto) Baso # (Auto) Absolute Nucleated RBC Nucleated RBC % Sodium Potassium Chloride Carbon Dioxide Anion Gap BUN Creatinine Estimated GFR (MDRD) Glucose Calcium Magnesium Total Bilirubin AST ALT Alkaline Phosphatase Total Protein Albumin Globulin Albumin/Globulin Ratio Lipase Serum HCG, Qual Urine Color YELLOW Urine Clarity HAZY Urine pH 6.0 Ur Specific [place] <=1.005 Urine Protein NEGATIVE Urine Glucose (UA) NEGATIVE Urine Ketones NEGATIVE Urine Occult Blood TRACE-INTA Urine Nitrite NEGATIVE Urine Bilirubin NEGATIVE Urine Urobilinogen 0.2 (NORMAL) Ur Leukocyte Esterase LARGE H Urine RBC 0-5 Urine WBC >25 H Ur Squamous Epith Cells FEW Squamous Urine Bacteria Few Urine Trichomonas PRESENT H Ur Microscopic Review INDICATED Urine Culture Comments INDICATED Salicylates Urine Opiates Screen NEGATIVE Ur Oxycodone Screen NEGATIVE Urine Methadone Screen NEGATIVE Ur Propoxyphene Screen NEGATIVE Acetaminophen Ur Barbiturates Screen NEGATIVE Ur Tricyclics Screen NEGATIVE Ur Phencyclidine Scrn NEGATIVE Ur Amphetamine Screen NEGATIVE U Methamphetamines Scrn NEGATIVE U Benzodiazepines Scrn NEGATIVE Urine Cocaine Screen NEGATIVE U Cannabinoids Screen NEGATIVE PD MEDICAL DECISION MAKING - ED course Complexity details: reviewed old records, considered differential, d/w patient ED course: 27-year-old female with prior psychiatric history had another impulsive event last night she was boarded in the emergency department overnight and social media executive evaluate her this morning. - Sepsis Event Vital Signs: Vital Signs - 24 hr 02/21/18 02/21/18 02/22/18 22:10 23:54 00:12 Temperature 36.5 C Heart Rate 82 78 78 Respiratory 16 21 16 Rate Blood Pressure 114/81 H 106/75 104/69 O2 Saturation 98 96 96 02/22/18 02/22/18 02/22/18 01:10 06:28 06:29 Temperature 36.9 C Heart Rate 84 69 Respiratory 17 18 Rate Blood Pressure 107/84 H 107/67 O2 Saturation 97 95 02/22/18 11:58 Temperature 36.8 C Heart Rate 68 Respiratory 18 Rate Blood Pressure 110/65 O2 Saturation 97 Oxygen O2 Source Room air Departure - Departure Disposition: 01 Home, Self Care Clinical Impression: Attempted suicide, Depressive disorder Condition: Stable Instructions: ED Stress React, ED Contract No Harm Follow-Up: Rima Melendez ARNP [Primary Care Provider] - Discharge Date/Time: 02/22/18 11:58
[2018-02-22 12:00] VITALS: BP 110/65
== END 2018-02-22 11:58 | disposition home or self-care (01) ==
LOC: EDUNIT# → ED 22:05
DX: T50.992A Poisoning by other drugs, medicaments and biological substances, intentional self-harm, initial encounter (principal); F32.9 Major depressive disorder, single episode, unspecified; E78.00 Pure hypercholesterolemia, unspecified; E03.9 Hypothyroidism, unspecified; Z95.2 Presence of prosthetic heart valve
CPT/HCPCS: 36415; 80053; 80306; 80307; 81001; 83690; 83735; 84703; 85025; 87086; 99283; 99284; G0480; 80329; 81003

== ENCOUNTER 2018-05-02 17:14 | Outpatient (CLI) | payer MEDICARE, MEDICAID | END 2018-05-02 17:15 | disposition critical access hospital (66) | LOC: EMS 17:14 | PROVIDERS: ATTEND Surgery | DX: R45.851 Suicidal ideations (principal) | CPT/HCPCS: A0425; A0429 ==

== ENCOUNTER 2018-05-02 17:37 | Emergency (ER) | payer MEDICARE, MEDICAID ==
[2018-05-02 17:57] LABS: MUDS CUTOFF CONCENTRATIONS CUTOFF CONC BELOW:
[2018-05-02 18:00] LABS: BILIRUBIN,URINE NEGATIVE (NEGATIVE); GLUCOSE, URINE (UA) NEGATIVE (NEGATIVE); KETONES,URINE (UA) NEGATIVE (NEGATIVE); LEUKOCYTE ESTERASE, URINE MODERATE (NEGATIVE); NITRITE,URINE NEGATIVE (NEGATIVE); OCCULT BLOOD,URINE TRACE-LYSE (NEGATIVE); PROTEIN,URINE NEGATIVE (NEGATIVE); UROBILINOGEN,URINE 0.2 (NORMAL) E.U./dL (NORMAL)
--- NOTE | 2018-05-02 18:12 | ED Physician Documentation ---
PD HPI MHE - Stated complaint Stated Complaint: SI - Chief complaint Chief Complaint: MHE - History obtained from History obtained from: Patient - History of Present Illness Primary symptom: Suicidal ideation, Self harm - cut Timing - onset: Today - Additional information Additional information: 27-year-old female with a history of depression, anxiety and multiple attempts at self-harm presents the emergency department with suicidal ideations and cutting. The patient reports cutting herself with a kitchen knife. The wounds are superficial. The patient denies any overdoses. The patient still reports feeling suicidal. Symptoms are described as severe. No specific triggering factors. The patient denies any acute medical complaints. The patient has been hospitalized in the past for similar episodes Review of Systems Constitutional: denies: Fever, Chills Eyes: denies: Discharge Ears: denies: Ear pain Nose: denies: Congestion Throat: denies: Sore throat Cardiac: denies: Chest pain / pressure Respiratory: denies: Cough GI: denies: Abdominal Pain, Abdominal Swelling : denies: Dysuria Skin: denies: Rash Musculoskeletal: denies: Neck pain Neurologic: denies: Generalized weakness Psychiatric: reports: Depressed, Suicidal. 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 HEENT: None Psych: Depression, Anxiety, Other Musculoskeletal: None Derm: None - Past Surgical History Past Surgical History: Yes Cardiovascular: Valve replacement, Other HEENT: Myringotomy (tubes) - Present Medications Home Medications: Ambulatory Orders Medication Instructions Recorded Confirmed Levothyroxine [Synthroid] 75 mcg PO DAILY 07/29/17 07/29/17 Lisinopril 2.5 mg PO DAILY 07/29/17 07/29/17 Prazosin [Minipress] 2 mg PO DAILY 07/29/17 07/29/17 metFORMIN [Glucophage] 500 mcg PO DAILY 07/29/17 07/29/17 Lurasidone HCl [Latuda] 11/08/17 Nitrofurantoin Monohyd/M-Cryst 100 mg PO BID 5 Days capsule 02/13/18 [Macrobid 100 mg Capsule] Ramelteon [Rozerem] 8 mg PO DAILY PM PRN 02/13/18 02/13/18 - Allergies Allergies/Adverse Reactions: Allergies Allergy/AdvReac Type Severity Reaction Status Date / Time cephalexin monohydrate * Allergy Severe Hives Verified 02/13/18 19:44 [From Keflex] cetirizine HCl * Allergy Mild Rash Verified 02/13/18 19:44 [From Zyrtec] bacitracin Allergy Hives Verified 02/13/18 19:44 [From Neosporin ([id number])] bacitracin zinc * Allergy Hives Verified 02/13/18 19:44 [From Neosporin ([id number])] neomycin sulfate * Allergy Hives Verified 02/13/18 19:44 [From Neosporin ([id number])] polymyxin B Allergy Hives Verified 02/13/18 19:44 [From Neosporin ([id number])] sulfamethoxazole Allergy Hives Verified 02/13/18 19:44 [From Septra] trimethoprim [From Septra] Allergy Hives Verified 02/13/18 19:44 sertraline HCl * AdvReac Intermediate Nausea Verified 02/13/18 19:44 [From Zoloft] - Social History Does the pt smoke?: No Smoking Status: Never smoker Does the pt drink ETOH?: No Does the pt have substance abuse?: No - Immunizations Immunizations are current?: No Immunizations: Other immun not current - POLST Patient has POLST: No PD ED PE NORMAL - General General: Alert and oriented X 3 - HEENT HEENT: Atraumatic, PERRL, EOMI, Moist mucous membranes - Cardiac Cardiac: RRR, Strong equal pulses - Respiratory Respiratory: No respiratory distress - Abdomen Abdomen: Soft, Non tender, Non distended - Back Back: No CVA TTP - Derm Derm: Other (The patient has very superficial abrasions on her wrists, there is no evidence of deep lacerations that would require suture repair) - Extremities Extremities: No deformity, Normal ROM s pain - Neuro Neuro: Alert and oriented X 3 PD ED PE EXPANDED - Psych Psych: Depressed, Suicidal, Anxious Results - Vitals Vitals: Vital Signs - 24 hr 05/02/18 17:48 Temperature 36 C L Heart Rate 78 Respiratory 18 Rate Blood Pressure 111/70 O2 Saturation 98 Oxygen O2 Source Room air - Labs Labs: Laboratory Tests 05/02/18 05/02/18 05/02/18 17:36 17:36 18:20 WBC RBC Hgb Hct MCV MCH MCHC RDW Plt Count MPV Neut # (Auto) Lymph # (Auto) [place] # (Auto) Eos # (Auto) Baso # (Auto) Absolute Nucleated RBC Nucleated RBC % Sodium 143 Potassium 3.3 L Chloride 109 Carbon Dioxide 24 Anion Gap 10.0 BUN 6 Creatinine 0.7 Estimated GFR (MDRD) 99 Glucose 115 H Calcium 9.2 Total Bilirubin 0.4 AST 46 H ALT 51 Alkaline Phosphatase 141 H Total Protein 7.8 Albumin 4.4 Globulin 3.4 Albumin/Globulin Ratio 1.3 Lipase 27 Urine Color LT. YELLOW Urine Clarity CLEAR Urine pH 6.0 Ur Specific [place] <=1.005 Urine Protein NEGATIVE Urine Glucose (UA) NEGATIVE Urine Ketones NEGATIVE Urine Occult Blood TRACE-LYSE Urine Nitrite NEGATIVE Urine Bilirubin NEGATIVE Urine Urobilinogen 0.2 (NORMAL) Ur Leukocyte Esterase MODERATE H Urine RBC 0-5 Urine WBC 11-25 H Ur Squamous Epith Cells MOD Squamous H Urine Bacteria Rare Ur Microscopic Review INDICATED Urine Culture Comments NOT INDICATED Urine HCG, Qual NEGATIVE Salicylates < 6.0 Urine Opiates Screen NEGATIVE Ur Oxycodone Screen NEGATIVE Urine Methadone Screen NEGATIVE Ur Propoxyphene Screen NEGATIVE Acetaminophen < 10 L Ur Barbiturates Screen NEGATIVE Ur Tricyclics Screen NEGATIVE Ur Phencyclidine Scrn NEGATIVE Ur Amphetamine Screen NEGATIVE U Methamphetamines Scrn NEGATIVE U Benzodiazepines Scrn NEGATIVE Urine Cocaine Screen NEGATIVE U Cannabinoids Screen NEGATIVE Ethyl Alcohol < 5.0 05/02/18 18:20 WBC 9.6 RBC 4.57 Hgb 14.7 Hct 44.0 MCV 96.2 MCH 32.1 H MCHC 33.4 RDW 13.8 Plt Count 182 MPV 10.4 Neut # (Auto) 6.5 Lymph # (Auto) 2.3 [place] # (Auto) 0.4 Eos # (Auto) 0.3 Baso # (Auto) 0.1 Absolute Nucleated RBC 0.01 Nucleated RBC % 0.1 Sodium Potassium Chloride Carbon Dioxide Anion Gap BUN Creatinine Estimated GFR (MDRD) Glucose Calcium Total Bilirubin AST ALT Alkaline Phosphatase Total Protein Albumin Globulin Albumin/Globulin Ratio Lipase Urine Color Urine Clarity Urine pH Ur Specific [place] Urine Protein Urine Glucose (UA) Urine Ketones Urine Occult Blood Urine Nitrite Urine Bilirubin Urine Urobilinogen Ur Leukocyte Esterase Urine RBC Urine WBC Ur Squamous Epith Cells Urine Bacteria Ur Microscopic Review Urine Culture Comments Urine HCG, Qual Salicylates Urine Opiates Screen Ur Oxycodone Screen Urine Methadone Screen Ur Propoxyphene Screen Acetaminophen Ur Barbiturates Screen Ur Tricyclics Screen Ur Phencyclidine Scrn Ur Amphetamine Screen U Methamphetamines Scrn U Benzodiazepines Scrn Urine Cocaine Screen U Cannabinoids Screen Ethyl Alcohol PD MEDICAL DECISION MAKING - ED course ED course: The patient was seen and evaluated by telemetry psych. The patient contracts for safety and no longer reports self-harm. The tele-psych physician recommends discharge into the care of the great grandparents if they are willing to come evaluated. They recommend reevaluation as an outpatient with the patient's mental health professional. On reevaluation the patient is resting comfortably, the patient has no suicidal ideations and is requesting discharge home. The patient contacted her great- grandfather and he will come and pick the patient up and is comfortable taking the patient home. I discussed warning signs with the patient and recommended returning to the emergency department immediately for any worsening or any concerns. - Sepsis Event Vital Signs: Vital Signs - 24 hr 05/02/18 17:48 Temperature 36 C L Heart Rate 78 Respiratory 18 Rate Blood Pressure 111/70 O2 Saturation 98 Oxygen O2 Source Room air Departure - Departure Disposition: 01 Home, Self Care Clinical Impression: Suicidal ideations, Abrasion Condition: Good Instructions: ED Abrasion, Suicide Warning Signs What Do, Suicide Warning Signs Self Follow-Up: Rima Melendez ARNP [Primary Care Provider] - Tomorrow Comments: Please follow-up with your mental health professional in the next 1-3 days for recheck and reevaluation. Please return back to the emergency department immediately for any worsening or any concerns.
[2018-05-02 18:14] LABS: AMPHETAMINE SCREEN,URINE NEGATIVE (NEGATIVE); BENZODIAZEPINES SCREEN, URINE NEGATIVE (NEGATIVE); CLARITY,URINE CLEAR (CLEAR); COCAINE SCREEN URINE NEGATIVE (NEGATIVE); HCG UR QUAL NEGATIVE; METHADONE SCREEN, URINE NEGATIVE (NEGATIVE); METHAMPHETAMINES SCREEN, URINE NEGATIVE (NEGATIVE); OPIATE SCREEN, URINE NEGATIVE (NEGATIVE); OXYCODONE SCREEN, URINE NEGATIVE (NEGATIVE); PROPOXYPHENE SCREEN, URINE NEGATIVE (NEGATIVE); TRICYCLIC ANTIDEPRESSANT,URINE NEGATIVE (NEGATIVE)
[2018-05-02 18:15] LABS: BACTERIA,URINE Rare /HPF (None Seen); RBC,URINE 0-5 /HPF (0-5); SQUAMOUS EPITHELIAL CELL,UR MOD Squamous (<= Few)
[2018-05-02 18:31] LABS: BASOPHILS # (AUTO) 0.1 10^3/uL (0.0-0.1); BASOPHILS % (AUTO) 0.6 %; EOSINOPHILS # (AUTO) 0.3 10^3/uL (0.0-0.7); EOSINOPHILS % (AUTO) 2.7 %; HGB - HEMOGLOBIN 14.7 g/dL (12.0-16.0); LYMPHOCYTES # (AUTO) 2.3 10^3/uL (1.5-3.5); LYMPHOCYTES % (AUTO) 24.5 %; MEAN CORPUSCULAR HEMOGLOBIN 32.1 pg (27.0-31.0); MEAN CORPUSCULAR HGB CONC 33.4 g/dL (32.0-36.0); MEAN CORPUSCULAR VOLUME 96.2 fL (81.0-99.0); MEAN PLATELET VOLUME 10.4 fL (7.9-10.8); MONOCYTES # (AUTO) 0.4 10^3/uL (0.0-1.0); MONOCYTES % (AUTO) 4.6 %; NEUTROPHILS # (AUTO) 6.5 10^3/uL (1.5-6.6); NEUTROPHILS % (AUTO) 67.6 %; PLT - PLATELET COUNT 182 10^3/uL (130-450); RED BLOOD COUNT 4.57 10^6/uL (4.20-5.40); RED CELL DISTRIBUTION WIDTH 13.8 % (12.0-15.0); WHITE BLOOD COUNT 9.6 x10^3/uL (4.8-10.8)
[2018-05-02 18:46] LABS: ACETAMINOPHEN < 10 ug/mL (10-30); ALBUMIN 4.4 g/dL (3.2-5.5); ALBUMIN/GLOBULIN RATIO 1.3 (1.0-2.2); ALKALINE PHOSPHATASE 141 IU/L (42-121); ALT ALANINE AMINOTRANSFERASE 51 IU/L (10-60); AST ASPARTATE AMINOTRANSFERASE 46 IU/L (10-42); BILIRUBIN,TOTAL 0.4 mg/dL (0.2-1.0); BUN - BLOOD UREA NITROGEN 6 mg/dL (6-20); CALCIUM 9.2 mg/dL (8.5-10.3); CARBON DIOXIDE - CO2 24 mmol/L (21-32); CHLORIDE 109 mmol/L (101-111); CREATININE 0.7 mg/dL (0.4-1.0); GFR - MDRD 99 (>89); GLUCOSE 115 mg/dL (70-100); LIPASE 27 U/L (22-51); SALICYLATE < 6.0 mg/dL; SODIUM 143 mmol/L (135-145); TOTAL PROTEIN 7.8 g/dL (6.7-8.2)
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
[2018-05-02 22:46] VITALS: BP 119/71
== END 2018-05-03 00:02 | disposition home or self-care (01) ==
LOC: EDUNIT# → ED 17:37
DX: R45.851 Suicidal ideations (principal); S60.812A Abrasion of left wrist, initial encounter; S60.811A Abrasion of right wrist, initial encounter; X78.1XXA Intentional self-harm by knife, initial encounter; E03.9 Hypothyroidism, unspecified; E78.00 Pure hypercholesterolemia, unspecified; Z95.2 Presence of prosthetic heart valve
CPT/HCPCS: 36415; 80053; 81001; 81025; 83690; 85025; 99283; 99284; G0426; Q3014; 80306; 80307; 80320; 80329; 81003; 87086

== ENCOUNTER 2018-05-31 18:02 | Outpatient (CLI) | payer MEDICARE, MEDICAID | END 2018-05-31 18:03 | disposition critical access hospital (66) | LOC: EMS 18:02 | PROVIDERS: ATTEND Surgery | DX: R09.89 Other specified symptoms and signs involving the circulatory and respiratory systems (principal) | CPT/HCPCS: A0425; A0429 ==

== ENCOUNTER 2018-05-31 18:21 | Emergency (ER) | payer MEDICARE, MEDICAID ==
[2018-05-31 18:33] VITALS: BP 127/64
[2018-05-31] MEDS ORDERED: BENZONATATE 100 MG CAPSULE PO STA (19:09)
--- NOTE | 2018-05-31 19:11 | ED Physician Documentation ---
PD HPI URI - Stated complaint Stated Complaint: SOA - Chief complaint Chief Complaint: Resp - History obtained from History obtained from: Patient - Additional information Additional information: 27-year-old female presents the emergency department with nasal congestion and cough for the past several days. No reports of difficulty breathing, fevers, chills, abdominal pain or chest pain. Symptoms are described as mild. The patient has a history of suicidal ideations, the patient thought about suicide yesterday but currently denies any suicidal ideations, the patient denies homicidal ideations. No reports of self-harm. Review of Systems Constitutional: denies: Fever Eyes: denies: Discharge Ears: denies: Loss of hearing Nose: reports: Congestion Throat: denies: Sore throat Cardiac: denies: Chest pain / pressure Respiratory: reports: Cough. 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 : None HEENT: None Psych: Depression, Anxiety, Panic attacks, Post traumatic stress disorder, Other Musculoskeletal: None Derm: None Other Past Medical History: tetrology of fallo - Past Surgical History Past Surgical History: Yes Cardiovascular: Valve replacement, Other HEENT: Myringotomy (tubes) - Present Medications Home Medications: Ambulatory Orders Medication Instructions Recorded Confirmed RX: Levothyroxine [Synthroid] 75 mcg PO DAILY 07/29/17 05/31/18 RX: Lisinopril 2.5 mg PO DAILY 07/29/17 05/31/18 RX: Prazosin [Minipress] 2 mg PO DAILY 07/29/17 05/31/18 RX: metFORMIN [Glucophage] 500 mg PO DAILY 07/29/17 07/29/17 Lurasidone HCl [Latuda] 80 mg ORAL DAILY 11/08/17 05/31/18 Ramelteon [Rozerem] 8 mg PO DAILY PM PRN 02/13/18 05/31/18 Benzonatate [Tessalon Perle] 100 - 200 mg PO TID PRN #30 capsule 05/31/18 - Allergies Allergies/Adverse Reactions: Allergies Allergy/AdvReac Type Severity Reaction Status Date / Time cephalexin monohydrate * Allergy Severe Hives Verified 05/31/18 18:48 [From Keflex] cetirizine HCl * Allergy Mild Rash Verified 05/31/18 18:48 [From Zyrtec] bacitracin Allergy Hives Verified 05/31/18 18:48 [From Neosporin ([id number]-[id number])] bacitracin zinc * Allergy Hives Verified 05/31/18 18:48 [From Neosporin (qzj-sor-qjntf)] neomycin sulfate * Allergy Hives Verified 05/31/18 18:48 [From Neosporin (gwj-bzj-xzrhf)] polymyxin B Allergy Hives Verified 05/31/18 18:48 [From Neosporin (jel-qau-ydtog)] sulfamethoxazole Allergy Hives Verified 05/31/18 18:48 [From Septra] trimethoprim [From Septra] Allergy Hives Verified 05/31/18 18:48 sertraline HCl * AdvReac Intermediate Nausea Verified 05/31/18 18:48 [From Zoloft] - Social History Does the pt smoke?: Yes Smoking Status: Current every day smoker Does the pt drink ETOH?: No Does the pt have substance abuse?: No - Immunizations Immunizations are current?: Yes Immunizations: Other immun not current - POLST Patient has POLST: No PD ED PE NORMAL - General General: Alert and oriented X 3, No acute distress - HEENT HEENT: Atraumatic, PERRL, EOMI, Ears normal - Neck Neck: Supple, no meningeal sign - Cardiac Cardiac: RRR, Strong equal pulses - Respiratory Respiratory: No respiratory distress - Derm Derm: Normal color - Extremities Extremities: No deformity - Neuro Neuro: Alert and oriented X 3, Normal speech - Psych Psych: Normal mood Results - Vitals Vitals: Vital Signs - 24 hr 05/31/18 18:26 Temperature 37.5 C Heart Rate 80 Respiratory 18 Rate Blood Pressure 127/64 O2 Saturation 99 Oxygen O2 Source Room air PD MEDICAL DECISION MAKING - ED course ED course: The patient's symptoms seem to be consistent with a viral etiology. The patient appears appropriate for discharge home with symptomatic management. The patient has a long history of suicidal ideations, The patient currently has no active suicidal ideations or thoughts. The patient has appropriate outpatient care and currently no further workup is warranted at this time in the emergency department and the patient has no request for inpatient therapy. The patient appears appropriate for discharge. I discussed warning signs and recommended returning to the emergency department immediately for worsening or any concerns. Departure - Departure Disposition: Home, Self Care Clinical Impression: Viral URI with cough Condition: Good Instructions: ED URI Viral Follow-Up: Rima Melendez ARNP [Primary Care Provider] - Within 1 week Prescriptions: Benzonatate [Tessalon Perle] 100 - 200 mg PO TID PRN #30 capsule PRN Reason: Cough Comments: Please follow-up with primary care. Please return to the emergency department for any worsening or any concerns Discharge Date/Time: 05/31/18 19:25
== END 2018-05-31 19:25 | disposition home or self-care (01) ==
LOC: EDUNIT# → EDBD → ED 18:21
DX: J06.9 Acute upper respiratory infection, unspecified (principal); B97.89 Other viral agents as the cause of diseases classified elsewhere; E03.9 Hypothyroidism, unspecified; E78.00 Pure hypercholesterolemia, unspecified; E11.9 Type 2 diabetes mellitus without complications; F17.200 Nicotine dependence, unspecified, uncomplicated; Z79.84 Long term (current) use of oral hypoglycemic drugs; Z95.2 Presence of prosthetic heart valve
CPT/HCPCS: 99283; A9270

== ENCOUNTER 2018-10-17 09:39 | Outpatient (CLI) | payer MEDICARE, MEDICAID ==
--- NOTE | 2018-10-17 15:06 | Ultrasound Report ---
Reason: HX OF MENORRHAGIA Procedure Date: 10/17/2018 Accession Number: [id number] / [id number] Procedure: US - Pelvic w/Transvaginal CPT Code: FULL RESULT: EXAM: PELVIC ULTRASOUND EXAM DATE: 10/17/2018 10:37 AM. CLINICAL HISTORY: History of menorrhagia. COMPARISON: None. TECHNIQUE: Realtime transabdominal pelvic scan performed to identify the uterus and adnexa and as an overview of other pelvic structures, with static image documentation. FINDINGS: Uterus: 5.7 x 2.5 x 3.0 cm, volume 22.4 cc. Anteverted position. Normal overall size and echotexture. Masses: None. Endometrium: 5 mm. A 3 mm density seen within the fundal endometrial canal, no abnormal vascularity seen by Doppler. Cervix: Within the endocervical canal is a 0.6 x 0.4 cm soft tissue mass without internal vascularity by color Doppler surrounded by fluid within the endocervix. Ovaries are seen only in transabdominal fashion. Right Ovary: 2.7 x 1.0 x 1.3 cm, volume 2.4 cc. Normal echotexture and blood flow. Left Ovary: 2.8 x 1.0 x 1.7 cm, volume 2.5 cc. Normal echotexture and blood flow. Free Fluid: None. Other: None. IMPRESSION: Endocervical polyp versus blood products. An additional 3 mm density within the fundal endometrium, no abnormal vascularity was seen by color Doppler. RADIA
== END 2018-10-17 09:40 | disposition home or self-care (01) ==
LOC: DI 09:39
PROVIDERS: ATTEND Obstetrics & Gynecology
DX: N88.9 Noninflammatory disorder of cervix uteri, unspecified (principal)
CPT/HCPCS: 76830; 76856

== ENCOUNTER 2018-11-27 08:00 | Outpatient (CLI) | payer MEDICARE, MEDICAID ==
[2018-11-27 19:45] LABS: BASOPHILS % (AUTO) 0.3 %; EOSINOPHILS # (AUTO) 0.2 10^3/uL (0.0-0.7); EOSINOPHILS % (AUTO) 2.2 %; HGB - HEMOGLOBIN 14.1 g/dL (12.0-16.0); LYMPHOCYTES # (AUTO) 1.9 10^3/uL (1.5-3.5); LYMPHOCYTES % (AUTO) 25.9 %; MEAN CORPUSCULAR HEMOGLOBIN 30.9 pg (27.0-31.0); MEAN CORPUSCULAR HGB CONC 32.3 g/dL (32.0-36.0); MEAN CORPUSCULAR VOLUME 95.7 fL (81.0-99.0); MONOCYTES # (AUTO) 0.2 10^3/uL (0.0-1.0); MONOCYTES % (AUTO) 3.4 %; NEUTROPHILS # (AUTO) 5.1 10^3/uL (1.5-6.6); NEUTROPHILS % (AUTO) 68.2 %; PLT - PLATELET COUNT 165 10^3/uL (130-450); RED BLOOD COUNT 4.57 10^6/uL (4.20-5.40); RED CELL DISTRIBUTION WIDTH 13.1 % (12.0-15.0); WHITE BLOOD COUNT 7.5 x10^3/uL (4.8-10.8)
[2018-11-27 20:05] LABS: CALCIUM 9.4 mg/dL (8.5-10.3); CREATININE 0.7 mg/dL (0.4-1.0)
== END 2018-11-27 23:59 | disposition home or self-care (01) ==
LOC: LAB.N 08:00
PROVIDERS: ATTEND Internal Medicine Cardiovascular Disease
DX: Q21.3 Tetralogy of Fallot (principal); Z95.2 Presence of prosthetic heart valve; R42 Dizziness and giddiness
CPT/HCPCS: 36415; 80048; 85025

== ENCOUNTER 2018-12-13 15:45 | Emergency (ER) | payer MEDICARE, MEDICAID ==
--- NOTE | 2018-12-13 16:05 | ED Physician Documentation ---
PD HPI CHEST PAIN - Stated complaint Stated Complaint: CHEST PAIN - Chief complaint Chief Complaint: Cardiac - History obtained from History obtained from: Patient - History of Present Illness Timing - onset: Today Timing - onset during: Rest Timing - duration: Minutes Timing - details: Abrupt onset, Still present Quality: Sharp, Pain Location: Substernal, Right chest Radiation: Back Improved by: Rest Worsened by: Inspiration, Movement, Palpation Associated symptoms: No: Shortness of air, Diaphoresis, Nausea, Vomiting, Feeling faint / dizzy, General Weakness, Palpitations, Cough Similar symptoms before: Has not had sx before Recently seen: Not recently seen - Additional information Additional information: 28-year-old female has eaten at [employer] and shortly after developed some pain in her abdomen radiating to her back and into her chest. After arrival to the emerge department her pain seem to have resolved she now complains of some persistence of this pain. She states that she has had similar pains previously but none that lasted like this. Review of Systems Constitutional: denies: Fever Eyes: denies: Decreased vision Ears: denies: Ear pain Nose: denies: Congestion Throat: denies: Sore throat Cardiac: reports: Chest pain / pressure. denies: Palpitations, Pedal edema, Calf pain Respiratory: denies: Dyspnea, Cough GI: reports: Abdominal Pain, Nausea. denies: Vomiting, Constipation, Diarrhea : denies: Dysuria, Frequency Skin: denies: Rash Musculoskeletal: reports: Back pain. 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 HEENT: None Psych: Depression, Anxiety, Panic attacks, Post traumatic stress disorder, Other Musculoskeletal: None Derm: None - Past Surgical History Past Surgical History: Yes Cardiovascular: Valve replacement, Other HEENT: Myringotomy (tubes) - Present Medications Home Medications: Ambulatory Orders Medication Instructions Recorded Confirmed Levothyroxine [Synthroid] 75 mcg PO DAILY 07/29/17 12/13/18 Lisinopril 2.5 mg PO DAILY 07/29/17 12/13/18 Prazosin [Minipress] 2 mg PO DAILY 07/29/17 12/13/18 metFORMIN [Glucophage] 500 mg PO DAILY 07/29/17 12/13/18 Ramelteon [Rozerem] 8 mg PO DAILY PM PRN 02/13/18 12/13/18 Esomeprazole Magnesium [Nexium] 20 mg PO DAILY #30 capsule. 12/13/18 - Allergies Allergies/Adverse Reactions: Allergies Allergy/AdvReac Type Severity Reaction Status Date / Time cephalexin monohydrate * Allergy Severe Hives Verified 12/13/18 15:59 [From Keflex] cetirizine HCl * Allergy Mild Rash Verified 12/13/18 15:59 [From Zyrtec] bacitracin Allergy Hives Verified 12/13/18 15:59 [From Neosporin (vyf-sri-khorq)] bacitracin zinc * Allergy Hives Verified 12/13/18 15:59 [From Neosporin ([id number]-pne-vkgvp)] neomycin sulfate * Allergy Hives Verified 12/13/18 15:59 [From Neosporin (ala-vct-njmep)] polymyxin B Allergy Hives Verified 12/13/18 15:59 [From Neosporin (zty-wha-ztomj)] sulfamethoxazole Allergy Hives Verified 12/13/18 15:59 [From Septra] trimethoprim [From Septra] Allergy Hives Verified 12/13/18 15:59 sertraline HCl * AdvReac Intermediate Nausea Verified 12/13/18 15:59 [From Zoloft] - Social History Does the pt smoke?: Yes Smoking Status: Current every day smoker Does the pt drink ETOH?: No Does the pt have substance abuse?: No - Immunizations Immunizations are current?: Yes Immunizations: Other immun not current - POLST Patient has POLST: No PD ED PE NORMAL - Vitals Vital signs reviewed: Yes (tachy ) - General General: Alert and oriented X 3, No acute distress, Well developed/nourished - HEENT HEENT: Atraumatic, PERRL, EOMI - Neck Neck: Supple, no meningeal sign, No bony TTP - Cardiac Cardiac: RRR, No murmur - Respiratory Respiratory: No respiratory distress, Other - Abdomen Abdomen: Normal bowel sounds, Soft - Back Back: No CVA TTP, No spinal TTP - Derm Derm: Normal color, Warm and dry, No rash - Extremities Extremities: No deformity Results - Vitals Vitals: Vital Signs - 24 hr 12/13/18 15:57 Temperature 37.0 C Heart Rate 107 H Respiratory 16 Rate Blood Pressure 122/70 O2 Saturation 99 Oxygen O2 Source Room air - EKG (time done) 1555 Rate: Rate (enter#) (101) Rhythm: Sinus tachycardia, LAE Intervals: RBBB Compare to prior EKG: Changed from prior EKG (SPT 11-08-17 rate has increased) Computer interpretation: Agree with computer - Labs Labs: Laboratory Tests 12/13/18 12/13/18 17:22 17:22 WBC 10.6 RBC 4.59 Hgb 14.3 Hct 42.7 MCV 93.1 MCH 31.2 H MCHC 33.5 RDW 13.1 Plt Count 170 MPV 10.0 Neut # (Auto) 7.9 H Lymph # (Auto) 1.8 [place] # (Auto) 0.5 Eos # (Auto) 0.3 Baso # (Auto) 0.2 H Absolute Nucleated RBC 0.00 Nucleated RBC % 0.0 Sodium 140 Potassium 3.5 Chloride 103 Carbon Dioxide 24 Anion Gap 13.0 BUN 6 Creatinine 0.9 Estimated GFR (MDRD) 74 L Glucose 96 Calcium 9.2 Total Bilirubin 0.9 AST 70 H ALT 59 Alkaline Phosphatase 123 H Total Protein 7.7 Albumin 4.1 Globulin 3.6 Albumin/Globulin Ratio 1.1 Lipase 28 PD MEDICAL DECISION MAKING - ED course Complexity details: reviewed old records, reviewed results, re-evaluated patient, considered differential, d/w patient, d/w family ED course: 28 y/o female with a history of congenital heart disease has developed chest pain after eating today and has right upper quadrant pain on palpation. She does not have obvious stone on bedside ultrasound but the gallbladder is sonographically tender. She is administered a GI cocktail with resolution of her symptoms. An ultrasound of the gallbladder is obtained. Departure - Departure Clinical Impression: GERD (gastroesophageal reflux disease) Qualifiers: Esophagitis presence: esophagitis presence not specified Qualified Code(s): K21.9 - Gastro-esophageal reflux disease without esophagitis Condition: Stable Instructions: ED GERD Follow-Up: Rima Melendez ARNP [Primary Care Provider] - Prescriptions: Esomeprazole Magnesium [Nexium] 20 mg PO DAILY #30 capsule.
[2018-12-13 17:28] LABS: BASOPHILS # (AUTO) 0.2 10^3/uL (0.0-0.1); BASOPHILS % (AUTO) 1.7 %; EOSINOPHILS # (AUTO) 0.3 10^3/uL (0.0-0.7); EOSINOPHILS % (AUTO) 2.4 %; HGB - HEMOGLOBIN 14.3 g/dL (12.0-16.0); LYMPHOCYTES # (AUTO) 1.8 10^3/uL (1.5-3.5); LYMPHOCYTES % (AUTO) 16.6 %; MEAN CORPUSCULAR HEMOGLOBIN 31.2 pg (27.0-31.0); MEAN CORPUSCULAR HGB CONC 33.5 g/dL (32.0-36.0); MEAN CORPUSCULAR VOLUME 93.1 fL (81.0-99.0); MONOCYTES # (AUTO) 0.5 10^3/uL (0.0-1.0); MONOCYTES % (AUTO) 4.7 %; NEUTROPHILS # (AUTO) 7.9 10^3/uL (1.5-6.6); NEUTROPHILS % (AUTO) 74.6 %; PLT - PLATELET COUNT 170 10^3/uL (130-450); RED BLOOD COUNT 4.59 10^6/uL (4.20-5.40); RED CELL DISTRIBUTION WIDTH 13.1 % (12.0-15.0); WHITE BLOOD COUNT 10.6 x10^3/uL (4.8-10.8)
[2018-12-13] MEDS ORDERED: LIDOCAINE VISCOUS 2% 15 ML UDC MM STA (17:28)
[2018-12-13] MEDS ORDERED: MAG HYDROX/AL HYDROX/SIMETH 30 ML UDC PO STA (17:28)
[2018-12-13 17:40] LABS: ALBUMIN 4.1 g/dL (3.2-5.5); ALBUMIN/GLOBULIN RATIO 1.1 (1.0-2.2); BILIRUBIN,TOTAL 0.9 mg/dL (0.2-1.0); CALCIUM 9.2 mg/dL (8.5-10.3); CREATININE 0.9 mg/dL (0.4-1.0); TOTAL PROTEIN 7.7 g/dL (6.7-8.2)
--- NOTE | 2018-12-13 18:42 | Ultrasound Report ---
Reason: RUQ pain after [employer] Procedure Date: 12/13/2018 Accession Number: [id number] / [id number] Procedure: US - Abdomen Limited CPT Code: FULL RESULT: EXAM: ABDOMEN ULTRASOUND LIMITED, RUQ EXAM DATE: 12/13/2018 06:16 PM. CLINICAL HISTORY: Right upper quadrant pain COMPARISON: ABDOMEN/PELVIS W/ 12/08/2017 2:47 PM. TECHNIQUE: Real-time scanning was performed with static images obtained. FINDINGS: Liver: Submitted images of liver demonstrate no focal lesions. Main portal vein flow: Hepatopetal. Gallbladder: No stones, wall thickening, or sonographic Sherman's sign. Biliary System: CBD measures 3 mm. No intrahepatic or extrahepatic ductal dilatation. Other: No evidence of right hydronephrosis. IMPRESSION: Negative right upper quadrant ultrasound. RADIA
[2018-12-13 19:01] VITALS: BP 115/65
== END 2018-12-13 19:01 | disposition home or self-care (01) ==
LOC: ED 15:45
DX: K21.9 Gastro-esophageal reflux disease without esophagitis (principal); E11.9 Type 2 diabetes mellitus without complications; Q28.9 Congenital malformation of circulatory system, unspecified; F17.200 Nicotine dependence, unspecified, uncomplicated; Z95.2 Presence of prosthetic heart valve; Z79.84 Long term (current) use of oral hypoglycemic drugs
CPT/HCPCS: 36415; 76705; 80053; 83690; 85025; 93005; 99283; A9270

== ENCOUNTER 2019-01-09 19:40 | Outpatient (CLI) | payer MEDICARE, MEDICAID | END 2019-01-09 19:41 | disposition critical access hospital (66) | LOC: EMS 19:40 | PROVIDERS: ATTEND Surgery | DX: R45.851 Suicidal ideations (principal); R10.9 Unspecified abdominal pain | CPT/HCPCS: A0425; A0429 ==

== ENCOUNTER 2019-01-09 19:59 | Emergency (ER) | payer MEDICARE, MEDICAID ==
--- NOTE | 2019-01-09 20:11 | ED Physician Documentation ---
History of Present Illness - Stated complaint Stated Complaint: SI - Chief complaint Chief Complaint: MHE - History obtained from History obtained from: Patient - History of Present Illness Timing: Prior to arrival - Additonal information Additional information: Patient is a 28-year-old female with history of psychiatric disease and previous suicide attempt by medication overdose presenting with suicidal ideations. Patient reports that her aunt and her got into a fight which caused her excessive stress and she began to think about running into traffic in order to end her life. Patient states that she would not actually do this because of how much she loves her parents, but she is feeling significantly stressed and sad otherwise. Patient denies other self harming behavior, hallucinations, paranoia, alcohol or illicit drug use. Patient does complain of suprapubic abdominal tenderness with nausea but no vomiting, fever, dysuria, hematuria, stool changes. Patient also denies other symptoms such as cough or cold symptoms. Patient reports that she is compliant with all medications including psychiatric medications. No other improving or worsening factors noted. 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 : None HEENT: None Psych: Depression, Anxiety, Panic attacks, Post traumatic stress disorder, Other Musculoskeletal: None Derm: None - Past Surgical History Past Surgical History: Yes Cardiovascular: Valve replacement, Other HEENT: Myringotomy (tubes) - Present Medications Home Medications: Ambulatory Orders Medication Instructions Recorded Confirmed Levothyroxine [Synthroid] 75 mcg PO DAILY 07/29/17 01/09/19 Lisinopril 2.5 mg PO DAILY 07/29/17 01/09/19 Prazosin [Minipress] 2 mg PO DAILY 07/29/17 01/09/19 metFORMIN [Glucophage] 500 mg PO DAILY 07/29/17 01/09/19 Ramelteon [Rozerem] 8 mg PO DAILY PM PRN 02/13/18 01/09/19 Esomeprazole Magnesium [Nexium] 20 mg PO DAILY #30 capsule. 12/13/18 01/09/19 - Allergies Allergies/Adverse Reactions: Allergies Allergy/AdvReac Type Severity Reaction Status Date / Time cephalexin monohydrate * Allergy Severe Hives Verified 01/09/19 20:07 [From Keflex] cetirizine HCl * Allergy Mild Rash Verified 01/09/19 20:07 [From Zyrtec] bacitracin Allergy Hives Verified 01/09/19 20:07 [From Neosporin ([id number])] bacitracin zinc * Allergy Hives Verified 01/09/19 20:07 [From Neosporin (dxa-[id number]-[id number])] neomycin sulfate * Allergy Hives Verified 01/09/19 20:07 [From Neosporin (raq-iep-[id number])] polymyxin B Allergy Hives Verified 01/09/19 20:07 [From Neosporin (ety-gum-[id number])] sulfamethoxazole Allergy Hives Verified 01/09/19 20:07 [From Septra] trimethoprim [From Septra] Allergy Hives Verified 01/09/19 20:07 sertraline HCl * AdvReac Intermediate Nausea Verified 01/09/19 20:07 [From Zoloft] - Social History Does the pt smoke?: Yes Smoking Status: Current every day smoker Does the pt drink ETOH?: No Does the pt have substance abuse?: No - Immunizations Immunizations are current?: Yes Immunizations: Other immun not current - POLST Patient has POLST: No PD ED PE NORMAL - Vitals Vital signs reviewed: Yes - General General: Alert and oriented X 3, No acute distress, Well developed/nourished (Poor hygiene throughout) - HEENT HEENT: Atraumatic, Moist mucous membranes. No: Dentition benign (Poor dental hygiene throughout) - Cardiac Cardiac: RRR, No murmur (Faint holosystolic murmur) - Respiratory Respiratory: No respiratory distress, Clear bilaterally - Abdomen Abdomen: Soft, Non distended. No: Non tender (Suprapubic tenderness present without rebound or guarding) - Derm Derm: Normal color, Warm and dry, No rash - Extremities Extremities: No deformity, No tenderness to palpate - Neuro Neuro: Alert and oriented X 3, No motor deficit, No sensory deficit - Psych Psych: Normal mood, Normal affect Results - Vitals Vitals: Vital Signs - 24 hr 01/09/19 01/09/19 20:00 20:59 Temperature 36.0 C L Heart Rate 95 Respiratory 16 16 Rate Blood Pressure 110/84 H O2 Saturation 96 Oxygen O2 Source Room air - Labs Labs: Laboratory Tests 01/09/19 01/09/19 01/09/19 20:10 20:10 20:10 WBC RBC Hgb Hct MCV MCH MCHC RDW Plt Count MPV Neut # (Auto) Lymph # (Auto) [place] # (Auto) Eos # (Auto) Baso # (Auto) Absolute Nucleated RBC Nucleated RBC % Sodium Potassium Chloride Carbon Dioxide Anion Gap BUN Creatinine Estimated GFR (MDRD) Glucose Calcium Total Bilirubin AST ALT Alkaline Phosphatase Total Protein Albumin Globulin Albumin/Globulin Ratio Lipase TSH Urine Color LIGHT YELLOW Urine Clarity CLEAR Urine pH 6.0 Ur Specific [place] <=1.005 <=1.005 Urine Protein NEGATIVE Urine Glucose (UA) NEGATIVE Urine Ketones NEGATIVE Urine Occult Blood NEGATIVE Urine Nitrite NEGATIVE Urine Bilirubin NEGATIVE Urine Urobilinogen 0.2 (NORMAL) Ur Leukocyte Esterase SMALL H Urine RBC 0-5 Urine WBC >25 H Urine WBC Clumps PRESENT Ur Squamous Epith Cells MANY Squamous H Urine Bacteria Many H Ur Microscopic Review INDICATED Urine Culture Comments NOT INDICATED Urine HCG, Qual NEGATIVE Salicylates Urine Opiates Screen NEGATIVE Ur Oxycodone Screen NEGATIVE Urine Methadone Screen NEGATIVE Ur Propoxyphene Screen NEGATIVE Acetaminophen Ur Barbiturates Screen NEGATIVE Ur Tricyclics Screen NEGATIVE Ur Phencyclidine Scrn NEGATIVE Ur Amphetamine Screen NEGATIVE U Methamphetamines Scrn NEGATIVE U Benzodiazepines Scrn NEGATIVE Urine Cocaine Screen NEGATIVE U Cannabinoids Screen NEGATIVE 01/09/19 01/09/19 01/09/19 20:24 20:24 20:24 WBC 10.1 RBC 4.47 Hgb 13.9 Hct 40.8 MCV 91.3 MCH 31.1 H MCHC 34.1 RDW 13.1 Plt Count 185 MPV 10.2 Neut # (Auto) 6.9 H Lymph # (Auto) 2.4 [place] # (Auto) 0.6 Eos # (Auto) 0.2 Baso # (Auto) 0.1 Absolute Nucleated RBC 0.00 Nucleated RBC % 0.0 Sodium 140 Potassium 3.5 Chloride 102 Carbon Dioxide 23 Anion Gap 15.0 H BUN 8 Creatinine 0.8 Estimated GFR (MDRD) 84 L Glucose 117 H Calcium 9.7 Total Bilirubin 0.8 AST 67 H ALT 75 H Alkaline Phosphatase 152 H Total Protein 8.0 Albumin 4.3 Globulin 3.7 Albumin/Globulin Ratio 1.2 Lipase 33 TSH < 0.08 L Urine Color Urine Clarity Urine pH Ur Specific [place] Urine Protein Urine Glucose (UA) Urine Ketones Urine Occult Blood Urine Nitrite Urine Bilirubin Urine Urobilinogen Ur Leukocyte Esterase Urine RBC Urine WBC Urine WBC Clumps Ur Squamous Epith Cells Urine Bacteria Ur Microscopic Review Urine Culture Comments Urine HCG, Qual Salicylates < 6.0 Urine Opiates Screen Ur Oxycodone Screen Urine Methadone Screen Ur Propoxyphene Screen Acetaminophen < 10 L Ur Barbiturates Screen Ur Tricyclics Screen Ur Phencyclidine Scrn Ur Amphetamine Screen U Methamphetamines Scrn U Benzodiazepines Scrn Urine Cocaine Screen U Cannabinoids Screen PD MEDICAL DECISION MAKING - ED course Complexity details: reviewed old records, reviewed results, re-evaluated patient, considered differential, d/w patient ED course: Patient presenting with acute exacerbation of underlying psychiatric illness and suicidal thoughts. Patient does not appear to be responding to internal stimuli. Patient also denies hallucinations, paranoia, alcohol or drug use. No evidence of toxidrome, intoxication, withdrawal on exam. Physical exam is relatively unremarkable except for mild suprapubic tenderness and do have suspicion for possible UTI. Screening lab work and urinalysis obtained. Patient will require further mental health evaluation and social work has been consulted, but due to the hour, will likely not evaluate patient until tomorrow morning. Patient will likely stay in the ED overnight and she is aware of this plan.Screening lab work returned reflecting underlying disease processes such as diabetes and thyroid disorder. No acute issues found. Urinalysis also questionable for infection, but likely dirty sample given number of squamous cells present. However, based on clinical exam and patient's complaints, feel appropriate to treat for UTI. Patient started on Macrobid, particularly given her allergies. Patient monitored overnight in the ED without issue and signed off to oncoming ED physician at approximately 7 AM. Disposition per mental health evaluation. Departure - Departure Clinical Impression: Psychiatric symptoms, Suicidal ideation Condition: Fair
[2019-01-09 20:15] LABS: MUDS CUTOFF CONCENTRATIONS CUTOFF CONC BELOW:
[2019-01-09 20:19] LABS: BILIRUBIN,URINE NEGATIVE (NEGATIVE); GLUCOSE, URINE (UA) NEGATIVE (NEGATIVE); KETONES,URINE (UA) NEGATIVE (NEGATIVE); LEUKOCYTE ESTERASE, URINE SMALL (NEGATIVE); NITRITE,URINE NEGATIVE (NEGATIVE); OCCULT BLOOD,URINE NEGATIVE (NEGATIVE); PROTEIN,URINE NEGATIVE (NEGATIVE); UROBILINOGEN,URINE 0.2 (NORMAL) E.U./dL (NORMAL)
[2019-01-09 20:20] LABS: CLARITY,URINE CLEAR (CLEAR); HCG UR QUAL NEGATIVE
[2019-01-09 20:26] LABS: BACTERIA,URINE Many /HPF (None Seen); RBC,URINE 0-5 /HPF (0-5); SQUAMOUS EPITHELIAL CELL,UR MANY Squamous (<= Few); WBC CLUMPS,URINE PRESENT
[2019-01-09 20:27] LABS: AMPHETAMINE SCREEN,URINE NEGATIVE (NEGATIVE); BENZODIAZEPINES SCREEN, URINE NEGATIVE (NEGATIVE); COCAINE SCREEN URINE NEGATIVE (NEGATIVE); METHADONE SCREEN, URINE NEGATIVE (NEGATIVE); METHAMPHETAMINES SCREEN, URINE NEGATIVE (NEGATIVE); OPIATE SCREEN, URINE NEGATIVE (NEGATIVE); OXYCODONE SCREEN, URINE NEGATIVE (NEGATIVE); PROPOXYPHENE SCREEN, URINE NEGATIVE (NEGATIVE); TRICYCLIC ANTIDEPRESSANT,URINE NEGATIVE (NEGATIVE)
[2019-01-09 20:30] LABS: BASOPHILS # (AUTO) 0.1 10^3/uL (0.0-0.1); BASOPHILS % (AUTO) 0.7 %; EOSINOPHILS # (AUTO) 0.2 10^3/uL (0.0-0.7); EOSINOPHILS % (AUTO) 1.5 %; HGB - HEMOGLOBIN 13.9 g/dL (12.0-16.0); LYMPHOCYTES # (AUTO) 2.4 10^3/uL (1.5-3.5); LYMPHOCYTES % (AUTO) 23.8 %; MEAN CORPUSCULAR HEMOGLOBIN 31.1 pg (27.0-31.0); MEAN CORPUSCULAR HGB CONC 34.1 g/dL (32.0-36.0); MEAN CORPUSCULAR VOLUME 91.3 fL (81.0-99.0); MEAN PLATELET VOLUME 10.2 fL (7.9-10.8); MONOCYTES # (AUTO) 0.6 10^3/uL (0.0-1.0); MONOCYTES % (AUTO) 6.1 %; NEUTROPHILS # (AUTO) 6.9 10^3/uL (1.5-6.6); NEUTROPHILS % (AUTO) 67.9 %; PLT - PLATELET COUNT 185 10^3/uL (130-450); RED BLOOD COUNT 4.47 10^6/uL (4.20-5.40); RED CELL DISTRIBUTION WIDTH 13.1 % (12.0-15.0); WHITE BLOOD COUNT 10.1 x10^3/uL (4.8-10.8)
[2019-01-09 20:47] LABS: ACETAMINOPHEN < 10 ug/mL (10-30); ALBUMIN 4.3 g/dL (3.2-5.5); ALBUMIN/GLOBULIN RATIO 1.2 (1.0-2.2); ALKALINE PHOSPHATASE 152 IU/L (42-121); ALT ALANINE AMINOTRANSFERASE 75 IU/L (10-60); AST ASPARTATE AMINOTRANSFERASE 67 IU/L (10-42); BILIRUBIN,TOTAL 0.8 mg/dL (0.2-1.0); BUN - BLOOD UREA NITROGEN 8 mg/dL (6-20); CALCIUM 9.7 mg/dL (8.5-10.3); CARBON DIOXIDE - CO2 23 mmol/L (21-32); CHLORIDE 102 mmol/L (101-111); CREATININE 0.8 mg/dL (0.4-1.0); GFR - MDRD 84 (>89); GLUCOSE 117 mg/dL (70-100); LIPASE 33 U/L (22-51); SALICYLATE < 6.0 mg/dL; SODIUM 140 mmol/L (135-145)
[2019-01-09] MEDS ORDERED: NICOTINE 21 MG PATCH TOP STA (21:57)
[2019-01-09] MEDS ORDERED: NITROFURANTOIN MACRO 100 MG CAPSULE PO SCH (22:00)
[2019-01-10] MEDS ORDERED: LEVOTHYROXINE 75 MCG TABLET PO SCH (07:00)
[2019-01-10] MEDS ORDERED: LISINOPRIL 5 MG TABLET PO SCH (09:00)
[2019-01-10] MEDS ORDERED: metFORMIN 500 MG TABLET PO SCH (09:00)
--- NOTE | 2019-01-10 09:00 | ED Physician Documentation ---
ED Addendum - Addendum Addendum: 01/10/19 08:58 Patient has been seen and evaluated by the social service worker. They have created a safety plan and she has someone is going to come get her. She is well connected with mental health services. She stated to me that she is feeling better and no longer wanting to harm herself. She did request to be evaluated for pain in the right armpit. She has had a rash there for months. It is happened previously during the summer when she sweats a lot. She has not been putting anything on it and does not use any deodorants or other creams. She has not discussed this with her primary care provider. There is no rash in the left axilla. The rash is an area of erythema without satellite punctate lesions. No palpable fluctuance. It is slightly moist and a little tender. She is encouraged to use cornstarch and even a cotton padding there to help absorb any moisture and fol low-up with her primary care provider I see no evidence of abscess or fungal infection. Departure - Departure Disposition: 01 Home, Self Care Clinical Impression: Psychiatric symptoms, Suicidal ideation, Rash and nonspecific skin eruption UTI (urinary tract infection) Qualifiers: Urinary tract infection type: site unspecified Hematuria presence: without hematuria Qualified Code(s): N39.0 - Urinary tract infection, site not specified Condition: Good Instructions: ED Depression, ED UTI Cystitis Female Follow-Up: Rima Melendez ARNP [Primary Care Provider] - Within 1 week Prescriptions: Nitrofurantoin Monohyd/M-Cryst [Macrobid 100 mg Capsule] 100 mg PO BID #14 capsule Comments: Follow-up as arranged by social work with your mental health provider. Take the Macrobid prescription 1 tablet twice a day for 7 days for the urinary tract infection. Try to apply some cornstarch to the right armpit to help reduce the rash. Follow-up with your primary care provider within1 week to reevaluate the rash. Return to the emergency department if you have concerns that you are feeling you are going to harm yourself. Crisis Line and is available to talk to someone [email or web address] is also available to chat with someone online if you prefer. There are also many resources on this website and apps for your phone to help with your mental health You can also text the word START to [phone] to chat with someome via text.
[2019-01-10 09:34] VITALS: BP 135/75
[2019-01-10] MEDS ORDERED: PRAZOSIN 1 MG CAPSULE PO SCH (21:00)
== END 2019-01-10 09:34 | disposition home or self-care (01) ==
LOC: EDUNIT# → ED 19:59
DX: R45.851 Suicidal ideations (principal); F32.9 Major depressive disorder, single episode, unspecified; F41.9 Anxiety disorder, unspecified; E11.9 Type 2 diabetes mellitus without complications; F17.200 Nicotine dependence, unspecified, uncomplicated; Z79.84 Long term (current) use of oral hypoglycemic drugs
CPT/HCPCS: 36415; 81001; 81025; 83690; 99284; 99285; A9270; 80053; 80306; 80307; 80320; 80329; 81003; 84443; 85025; 87086

== ENCOUNTER 2019-01-30 08:00 | Outpatient (CLI) | payer MEDICARE, MEDICAID ==
[2019-01-30 19:27] LABS: HB2 TOTAL 14.4 g/dL; HEMOGLOBIN A1C 0.6 g/dL
[2019-01-30 19:41] LABS: CALCIUM 9.2 mg/dL (8.5-10.3); CREATININE 0.8 mg/dL (0.4-1.0)
== END 2019-01-30 23:59 | disposition home or self-care (01) ==
LOC: LAB.N 08:00
PROVIDERS: ATTEND Nurse Practitioner Gerontology
DX: E11.9 Type 2 diabetes mellitus without complications (principal)
CPT/HCPCS: 36415; 80048; 83036

== ENCOUNTER 2019-02-22 10:39 | Outpatient (CLI) | payer MEDICARE, MEDICAID ==
--- NOTE | 2019-02-22 14:19 | XRAY Report ---
Reason: ankle pain,right Procedure Date: 02/22/2019 Accession Number: [id number] / [id number] Procedure: XRN - Ankle 3 View RT CPT Code: FULL RESULT: EXAM: RIGHT ANKLE RADIOGRAPHY, 3 VIEWS EXAM DATE: 02/22/2019 11:23 AM. CLINICAL HISTORY: 28-year-old female with nontraumatic right ankle pain for 3 weeks. COMPARISON: None. TECHNIQUE: Frontal, lateral and oblique views. FINDINGS: Bones: Small plantar heel spur. Otherwise normal. No fractures or bone lesions. Joints: Normal. No effusion. No subluxations. The ankle mortise is normally aligned. Soft Tissues: Normal. No soft tissue swelling. IMPRESSION: Small plantar heel spur. Otherwise normal examination. RADIA
== END 2019-02-22 10:40 | disposition home or self-care (01) ==
LOC: DI.N 10:39
PROVIDERS: ATTEND Family Medicine
DX: M77.31 Calcaneal spur, right foot (principal)

== ENCOUNTER 2019-04-08 11:58 | Outpatient (CLI) | payer MEDICARE, MEDICAID | END 2019-04-08 11:59 | disposition critical access hospital (66) | LOC: EMS 11:58 | PROVIDERS: ATTEND Surgery | DX: H93.93 Unspecified disorder of ear, bilateral (principal) | CPT/HCPCS: A0425; A0429 ==

== ENCOUNTER 2019-04-08 12:15 | Emergency (ER) | payer MEDICARE, MEDICAID ==
[2019-04-08 12:22] VITALS: BP 132/76
--- NOTE | 2019-04-08 12:27 | ED Physician Documentation ---
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 No fevers or pain.) Review of Systems Constitutional: denies: Fever Ears: reports: Loss of hearing. 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 : None HEENT: None Psych: Depression, Anxiety, Panic attacks, Post traumatic stress disorder, Other Musculoskeletal: None Derm: None - Past Surgical History Past Surgical History: Yes Cardiovascular: Valve replacement, Other HEENT: Myringotomy (tubes) - Present Medications Home Medications: Ambulatory Orders Medication Instructions Recorded Confirmed Levothyroxine [Synthroid] 75 mcg PO DAILY 07/29/17 01/09/19 Lisinopril 2.5 mg PO DAILY 07/29/17 01/09/19 Prazosin [Minipress] 2 mg PO DAILY 07/29/17 01/09/19 metFORMIN [Glucophage] 500 mg PO DAILY 07/29/17 01/09/19 Ramelteon [Rozerem] 8 mg PO DAILY PM PRN 02/13/18 01/09/19 Esomeprazole Magnesium [Nexium] 20 mg PO DAILY #30 capsule. 12/13/18 01/09/19 Nitrofurantoin Monohyd/M-Cryst 100 mg PO BID #14 capsule 01/10/19 [Macrobid 100 mg Capsule] Amox/Clav 875/125 [Augmentin] 1 each PO Q12H #20 tablet 04/08/19 Carbamide Peroxide Otic Drop 10 drops OT DAILY #1 bottle 04/08/19 [Debrox Otic Drops] - Allergies Allergies/Adverse Reactions: Allergies Allergy/AdvReac Type Severity Reaction Status Date / Time cephalexin monohydrate * Allergy Severe Hives Verified 04/08/19 12:22 [From Keflex] cetirizine HCl * Allergy Mild Rash Verified 04/08/19 12:22 [From Zyrtec] bacitracin Allergy Hives Verified 04/08/19 12:22 [From Neosporin (zof-kbb-febed)] bacitracin zinc * Allergy Hives Verified 04/08/19 12:22 [From Neosporin (ult-quu-jtdla)] neomycin sulfate * Allergy Hives Verified 04/08/19 12:22 [From Neosporin ([id number]-qtb-wwvqd)] polymyxin B Allergy Hives Verified 04/08/19 12:22 [From Neosporin (ixe-mqh-bedox)] sulfamethoxazole Allergy Hives Verified 04/08/19 12:22 [From Septra] trimethoprim [From Septra] Allergy Hives Verified 04/08/19 12:22 sertraline HCl * AdvReac Intermediate Nausea Verified 04/08/19 12:22 [From Zoloft] - Social History Does the pt smoke?: Yes Smoking Status: Current every day smoker Does the pt drink ETOH?: No Does the pt have substance abuse?: No - Immunizations Immunizations are current?: Yes Immunizations: Other immun not current - POLST Patient has POLST: No PD ED PE NORMAL - Vitals Vital signs reviewed: Yes - General General: Alert and oriented X 3, No acute distress - HEENT HEENT: Other (She has right otitis media, the left TM is not able to be visualized due to cerumen impaction) - Neck Neck: Supple, no meningeal sign, No bony TTP - Neuro Neuro: Alert and oriented X 3, Normal speech Results - Vitals Vitals: Vital Signs - 24 hr 04/08/19 12:20 Temperature 36.5 C Heart Rate 88 Respiratory 19 Rate Blood Pressure 132/76 H O2 Saturation 94 Oxygen O2 Source Room air PD MEDICAL DECISION MAKING - ED course ED course: I attempted to irrigate the left ear canal for cerumen, she did not tolerate it well stating that her ears are very sensitive and prefers to do home treatment. Departure - Departure Disposition: 01 Home, Self Care Clinical Impression: Impacted cerumen of left ear ROM (right otitis media) Qualifiers: Otitis media type: suppurative Chronicity: acute Recurrence: not specified as recurrent Spontaneous tympanic membrane rupture: without spontaneous rupture Qualified Code(s): H66.001 - Acute suppurative otitis media without spontaneous rupture of ear drum, right ear Condition: Good Record reviewed to determine appropriate education?: Yes Instructions: ED Otitis Media Acute Adult, ED Wax Ear Home Removal Prescriptions: Amox/Clav 875/125 [Augmentin] 1 each PO Q12H #20 tablet Carbamide Peroxide Otic Drop [Debrox Otic Drops] 10 drops OT DAILY #1 bottle Comments: The earwax drops only need to go in the left ear. Follow-up with your doctor in 1 week. Return for new worsening symptoms.
== END 2019-04-08 12:33 | disposition home or self-care (01) ==
LOC: EDUNIT# → ED 12:15
DX: H66.001 Acute suppurative otitis media without spontaneous rupture of ear drum, right ear (principal); H61.22 Impacted cerumen, left ear; E11.9 Type 2 diabetes mellitus without complications; Z79.84 Long term (current) use of oral hypoglycemic drugs; F17.200 Nicotine dependence, unspecified, uncomplicated
CPT/HCPCS: 69209; 99282; 99283

== ENCOUNTER 2019-04-30 08:00 | Outpatient (CLI) | payer MEDICARE, MEDICAID | END 2019-04-30 08:01 | disposition home or self-care (01) | LOC: LAB.R 08:00 | PROVIDERS: ATTEND Nurse Practitioner Gerontology | DX: R19.7 Diarrhea, unspecified (principal) | CPT/HCPCS: 87493 ==

== ENCOUNTER 2019-05-21 08:00 | Outpatient (CLI) | payer MEDICARE, MEDICAID | END 2019-05-21 23:59 | disposition home or self-care (01) | LOC: LAB.R 08:00 | PROVIDERS: ATTEND Nurse Practitioner Family | DX: N39.0 Urinary tract infection, site not specified (principal) | CPT/HCPCS: 87077; 87086; 87181 ==

== ENCOUNTER 2019-07-23 10:49 | Outpatient (CLI) | payer MEDICARE, MEDICAID ==
[2019-07-23 12:55] LABS: BASOPHILS # (AUTO) 0.1 10^3/uL (0.0-0.1); BASOPHILS % (AUTO) 0.5 %; EOSINOPHILS # (AUTO) 0.3 10^3/uL (0.0-0.7); EOSINOPHILS % (AUTO) 3.2 %; HGB - HEMOGLOBIN 13.7 g/dL (12.0-16.0); LYMPHOCYTES # (AUTO) 2.3 10^3/uL (1.5-3.5); LYMPHOCYTES % (AUTO) 24.5 %; MEAN CORPUSCULAR HEMOGLOBIN 29.6 pg (27.0-31.0); MEAN CORPUSCULAR HGB CONC 31.9 g/dL (32.0-36.0); MEAN CORPUSCULAR VOLUME 92.7 fL (81.0-99.0); MEAN PLATELET VOLUME 12.2 fL (7.9-10.8); MONOCYTES # (AUTO) 0.9 10^3/uL (0.0-1.0); MONOCYTES % (AUTO) 9.6 %; NEUTROPHILS # (AUTO) 5.7 10^3/uL (1.5-6.6); NEUTROPHILS % (AUTO) 61.8 %; PLT - PLATELET COUNT 180 10^3/uL (130-450); RED BLOOD COUNT 4.63 10^6/uL (4.20-5.40); RED CELL DISTRIBUTION WIDTH 12.6 % (12.0-15.0); WHITE BLOOD COUNT 9.2 x10^3/uL (4.8-10.8)
[2019-07-23 13:13] LABS: HB2 TOTAL 14.6 g/dL; HEMOGLOBIN A1C 0.66 g/dL; HEMOGLOBIN A1C % 6.3 % (4.6-6.2)
[2019-07-23 13:25] LABS: ALBUMIN 4.4 g/dL (3.2-5.5); ALBUMIN/GLOBULIN RATIO 1.1 (1.0-2.2); ALKALINE PHOSPHATASE 136 IU/L (42-121); ALT ALANINE AMINOTRANSFERASE 51 IU/L (10-60); AST ASPARTATE AMINOTRANSFERASE 56 IU/L (10-42); BILIRUBIN,TOTAL 1.4 mg/dL (0.2-1.0); BUN - BLOOD UREA NITROGEN 6 mg/dL (6-20); CALCIUM 9.2 mg/dL (8.5-10.3); CARBON DIOXIDE - CO2 24 mmol/L (21-32); CHLORIDE 104 mmol/L (101-111); CHOL/HDL RATIO 5.2 (<4.4); CHOLESTEROL 259 mg/dL; CREATININE 0.9 mg/dL (0.4-1.0); GFR - MDRD 74 (>89); GLUCOSE 152 mg/dL (70-100); HDL CHOLESTEROL 50 mg/dL; LDL CHOLESTEROL,CALCULATED 168 mg/dL; LDL/HDL RATIO 3.4 (<4.4); SODIUM 138 mmol/L (135-145); TOTAL PROTEIN 8.5 g/dL (6.7-8.2); VLDL CHOLESTEROL 41 mg/dL
[2019-07-23 13:56] LABS: FREE T4 (FREE THYROXINE) 0.7 ng/dL (0.58-1.64)
== END 2019-07-23 23:59 | disposition home or self-care (01) ==
LOC: LAB.N 10:49
PROVIDERS: ATTEND Nurse Practitioner Gerontology
DX: E11.9 Type 2 diabetes mellitus without complications (principal); E78.1 Pure hyperglyceridemia; E03.9 Hypothyroidism, unspecified
CPT/HCPCS: 36415; 80053; 80061; 83036; 83721; 84439; 84443; 85025

== ENCOUNTER 2019-08-20 04:30 | Outpatient (CLI) | payer MEDICARE, MEDICAID | END 2019-08-20 23:59 | disposition home or self-care (01) | LOC: LAB.R 04:30 | PROVIDERS: ATTEND Family Medicine | DX: K52.9 Noninfective gastroenteritis and colitis, unspecified (principal) | CPT/HCPCS: 81599; 83630; 87045; 87046; 87177; 87209; 87329; 87338; 87493 ==

== ENCOUNTER 2019-08-27 02:35 | Outpatient (CLI) | payer MEDICARE, MEDICAID | END 2019-08-27 02:36 | disposition critical access hospital (66) | LOC: EMS 02:35 | PROVIDERS: ATTEND Surgery | DX: R42 Dizziness and giddiness (principal); F41.9 Anxiety disorder, unspecified | CPT/HCPCS: A0425; A0429 ==

== ENCOUNTER 2019-08-27 02:55 | Emergency (ER) | payer MEDICARE, MEDICAID ==
--- NOTE | 2019-08-27 03:17 | ED Physician Documentation ---
PD [facility] HEENT - Stated complaint Stated Complaint: DIZZY - Chief complaint Chief Complaint: Neuro - History obtained from History obtained from: Patient, EMS - History of Present Illness Timing - onset: How many days ago (3) Timing - duration: Days (3) Timing - details: Gradual onset, Still present Location: Other (She has been having positional vertigo for the last 3 days. She has had some nasal congestion and a little bit of sore throat. She had had a cough a few weeks ago but this has improved. She denies any generalized headache but does have a feeling of pressure and discomfort in the frontal area. She was feeling increased dizziness with movement and position with nausea associated this evening.) Worsens: Position Associated symptoms: Congestion, Headache (frontal sinus area only), Other (She states she gets her medications weekly and a prefilled packet from the pharmacy. She had not gotten her most recent one on Tuesday as it was not available at the pharmacy on time. She has been without her usual medicines for 3 days however the symptoms started on the 3 days ago when she had not even run out as yet.). 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 : None HEENT: None Psych: Depression, Anxiety, Panic attacks, Post traumatic stress disorder, Other Musculoskeletal: None Derm: None - Past Surgical History Past Surgical History: Yes Cardiovascular: Valve replacement, Other HEENT: Myringotomy (tubes) - Present Medications Home Medications: Ambulatory Orders Medication Instructions Recorded Confirmed Levothyroxine [Synthroid] 75 mcg PO DAILY 07/29/17 08/27/19 Prazosin [Minipress] 2 mg PO DAILY 07/29/17 08/27/19 lisinopriL [Lisinopril] 2.5 mg PO DAILY 07/29/17 08/27/19 metFORMIN [Glucophage] 500 mg PO DAILY 07/29/17 08/27/19 Ramelteon [Rozerem] 8 mg PO DAILY PM PRN 02/13/18 08/27/19 Esomeprazole Magnesium [Nexium] 20 mg PO DAILY #30 capsule. 12/13/18 08/27/19 Buspirone HCl 5 mg PO DAILY 08/27/19 08/27/19 Doxycycline Monohydrate 100 mg PO BID #14 tablet 08/27/19 Meclizine HCl [Motion Sickness 25 mg PO Q6H PRN #25 tablet 08/27/19 Relief] Potassium Chloride 10 meq PO DAILY #10 tablet.er 08/27/19 - Allergies Allergies/Adverse Reactions: Allergies Allergy/AdvReac Type Severity Reaction Status Date / Time cephalexin monohydrate * Allergy Severe Hives Verified 08/27/19 03:06 [From Keflex] cetirizine HCl * Allergy Mild Rash Verified 08/27/19 03:06 [From Zyrtec] bacitracin Allergy Hives Verified 08/27/19 03:06 [From Neosporin ([id number])] bacitracin zinc * Allergy Hives Verified 08/27/19 03:06 [From Neosporin (hhl-smn-tgiqw)] neomycin sulfate * Allergy Hives Verified 08/27/19 03:06 [From Neosporin (zyg-shv-tvmst)] polymyxin B Allergy Hives Verified 08/27/19 03:06 [From Neosporin (lro-lqz-abjuq)] sulfamethoxazole Allergy Hives Verified 08/27/19 03:06 [From Septra] trimethoprim [From Septra] Allergy Hives Verified 08/27/19 03:06 sertraline HCl * AdvReac Intermediate Nausea Verified 08/27/19 03:06 [From Zoloft] - Social History Does the pt smoke?: Yes Smoking Status: Current every day smoker Does the pt drink ETOH?: No Does the pt have substance abuse?: No - Immunizations Immunizations are current?: Yes Immunizations: Other immun not current - POLST Patient has POLST: No PD ED PE NORMAL - Vitals Vital signs reviewed: Yes - General General: Alert and oriented X 3, Well developed/nourished - HEENT HEENT: PERRL, EOMI (with some nystagmus to the left), Pharynx benign. No: Ears normal (right is normal. Left TM is normal but there is small pimple-like spot at inner helix of ear, just at outer end of the canal. Local redness as well. 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 2-12 intact, No motor deficit, No sensory deficit, Normal speech Eye Opening: Spontaneous Motor: Obeys Commands Verbal: Oriented GCS Score: 15 Results - Vitals Vitals: Vital Signs - 24 hr 08/27/19 08/27/19 08/27/19 03:00 03:30 04:00 Temperature 36.5 C Heart Rate 78 73 77 Respiratory 16 16 17 Rate Blood Pressure 126/89 H 100/71 118/73 O2 Saturation 96 100 98 08/27/19 04:30 Temperature 36.8 C Heart Rate 76 Respiratory 16 Rate Blood Pressure 113/60 O2 Saturation 99 Oxygen O2 Source Room air - Labs Labs: Laboratory Tests 08/27/19 08/27/19 04:07 04:07 WBC 9.5 RBC 4.20 Hgb 13.0 Hct 40.2 MCV 95.7 MCH 31.0 MCHC 32.3 RDW 13.2 Plt Count 209 MPV 11.1 H Neut # (Auto) 5.8 Lymph # (Auto) 2.8 [place] # (Auto) 0.5 Eos # (Auto) 0.3 Baso # (Auto) 0.0 Absolute Nucleated RBC 0.00 Nucleated RBC % 0.0 Sodium 142 Potassium 3.1 L Chloride 109 Carbon Dioxide 24 Anion Gap 9.0 BUN 8 Creatinine 0.8 Estimated GFR (MDRD) 84 L Glucose 151 H Calcium 9.0 Total Bilirubin 1.0 AST 43 H ALT 43 Alkaline Phosphatase 131 H Total Protein 7.6 Albumin 4.1 Globulin 3.5 Albumin/Globulin Ratio 1.2 Lipase 33 Departure - Departure Disposition: 01 Home, Self Care Clinical Impression: Acute severe vertigo, Hypokalemia Infection of ear canal Qualifiers: Laterality: left Qualified Code(s): H60.392 - Other infective otitis externa, left ear Condition: Stable Record reviewed to determine appropriate education?: Yes Instructions: ED Vertigo Unspecified Follow-Up: Rima Melendez ARNP [Primary Care Provider] - Prescriptions: Doxycycline Monohydrate 100 mg PO BID #14 tablet Meclizine HCl [Motion Sickness Relief] 25 mg PO Q6H PRN #25 tablet PRN Reason: Vertigo Potassium Chloride 10 meq PO DAILY #10 tablet.er Comments: Continue usual medications. Stay well-hydrated. Use meclizine every 6-8 hours if needed for dizziness. We will give you an antibiotic doxycycline twice daily for a week for potential infectious cause of this. There is some redness of the left ear canal. And an infection of the middle ear is also a common cause of dizziness like this. Your potassium level was low on your electrolytes/blood test. Take your potassium supplement daily for a week. I would anticipate improvement with the meclizine for the dizziness and resolution of the symptoms over the next 2 to 3 days. Recheck if persistent beyond that or other worsening symptoms.
[2019-08-27] MEDS ORDERED: MECLIZINE 12.5 MG TABLET PO STA (03:54)
[2019-08-27] MEDS ORDERED: DOXYCYCLINE 100 MG TABLET PO STA (03:55)
[2019-08-27 04:14] LABS: BASOPHILS % (AUTO) 0.4 %; EOSINOPHILS # (AUTO) 0.3 10^3/uL (0.0-0.7); EOSINOPHILS % (AUTO) 3.6 %; LYMPHOCYTES # (AUTO) 2.8 10^3/uL (1.5-3.5); LYMPHOCYTES % (AUTO) 29.4 %; MEAN CORPUSCULAR HGB CONC 32.3 g/dL (32.0-36.0); MEAN CORPUSCULAR VOLUME 95.7 fL (81.0-99.0); MEAN PLATELET VOLUME 11.1 fL (7.9-10.8); MONOCYTES # (AUTO) 0.5 10^3/uL (0.0-1.0); MONOCYTES % (AUTO) 5.1 %; NEUTROPHILS # (AUTO) 5.8 10^3/uL (1.5-6.6); PLT - PLATELET COUNT 209 10^3/uL (130-450); RED CELL DISTRIBUTION WIDTH 13.2 % (12.0-15.0); WHITE BLOOD COUNT 9.5 x10^3/uL (4.8-10.8)
[2019-08-27 04:27] LABS: ALBUMIN 4.1 g/dL (3.2-5.5); ALBUMIN/GLOBULIN RATIO 1.2 (1.0-2.2); CREATININE 0.8 mg/dL (0.4-1.0); TOTAL PROTEIN 7.6 g/dL (6.7-8.2)
[2019-08-27 04:42] VITALS: BP 113/60
[2019-08-27] MEDS ORDERED: POTASSIUM CHLORIDE 20 MEQ TABLET PO ONE (04:55)
== END 2019-08-27 05:15 | disposition home or self-care (01) ==
LOC: EDUNIT# → EDBD → ED 02:55
DX: R42 Dizziness and giddiness (principal); E87.6 Hypokalemia; H60.392 Other infective otitis externa, left ear; E11.9 Type 2 diabetes mellitus without complications; Z79.84 Long term (current) use of oral hypoglycemic drugs; J45.909 Unspecified asthma, uncomplicated; F17.200 Nicotine dependence, unspecified, uncomplicated
CPT/HCPCS: 36415; 80053; 83690; 85025; 99284; A9270

== ENCOUNTER 2020-01-30 08:00 | Outpatient (CLI) | payer MEDICARE, MEDICAID ==
[2020-01-30 11:56] LABS: BASOPHILS # (AUTO) 0.1 10^3/uL (0.0-0.1); BASOPHILS % (AUTO) 0.6 %; EOSINOPHILS # (AUTO) 0.2 10^3/uL (0.0-0.7); EOSINOPHILS % (AUTO) 2.5 %; HGB - HEMOGLOBIN 14.5 g/dL (12.0-16.0); LYMPHOCYTES # (AUTO) 2.3 10^3/uL (1.5-3.5); LYMPHOCYTES % (AUTO) 25.9 %; MEAN CORPUSCULAR HEMOGLOBIN 31.1 pg (27.0-31.0); MEAN CORPUSCULAR HGB CONC 32.6 g/dL (32.0-36.0); MEAN CORPUSCULAR VOLUME 95.5 fL (81.0-99.0); MEAN PLATELET VOLUME 12.8 fL (7.9-10.8); MONOCYTES # (AUTO) 0.5 10^3/uL (0.0-1.0); MONOCYTES % (AUTO) 5.9 %; NEUTROPHILS # (AUTO) 5.8 10^3/uL (1.5-6.6); NEUTROPHILS % (AUTO) 64.8 %; PLT - PLATELET COUNT 168 10^3/uL (130-450); RED BLOOD COUNT 4.66 10^6/uL (4.20-5.40); RED CELL DISTRIBUTION WIDTH 13.1 % (12.0-15.0)
[2020-01-30 12:51] LABS: THYROID STIMULATING HORMONE 1.36 uIU/mL (0.34-5.60)
[2020-01-30 12:53] LABS: ALBUMIN 4.7 g/dL (3.2-5.5); ALBUMIN/GLOBULIN RATIO 1.3 (1.0-2.2); BILIRUBIN,TOTAL 0.9 mg/dL (0.2-1.0); CALCIUM 9.2 mg/dL (8.5-10.3); CREATININE 0.8 mg/dL (0.4-1.0); FREE T3 3.4 pg/mL (2.5-3.9); FREE T4 (FREE THYROXINE) 0.95 ng/dL (0.58-1.64); TOTAL PROTEIN 8.2 g/dL (6.7-8.2)
[2020-01-30 13:27] LABS: HB2 TOTAL 14.9 g/dL; HEMOGLOBIN A1C 0.62 g/dL
[2020-01-30 14:04] LABS: HCG,QUALITATIVE BLOOD NEGATIVE
[2020-01-30 23:04] LABS: TRICHOMONAS VAGINALIS DNA NEGATIVE (NEGATIVE)
[2020-01-31 12:59] LABS: HEPATITIS C ANTIBODY NON-REACTIVE (NON-REACTIVE)
[2020-02-01 10:49] LABS: HSV 1 IGG TYPE SPECIFIC AB <0.90 index; HSV 2 IGG TYPE SPECIFIC AB 3.46 index
== END 2020-01-30 23:59 | disposition home or self-care (01) ==
LOC: LAB.WCP 08:00
PROVIDERS: ATTEND Nurse Practitioner
DX: Z11.9 Encounter for screening for infectious and parasitic diseases, unspecified (principal); E11.9 Type 2 diabetes mellitus without complications; Z32.00 Encounter for pregnancy test, result unknown; D69.6 Thrombocytopenia, unspecified; E03.9 Hypothyroidism, unspecified
CPT/HCPCS: 36415; 80053; 82043; 83036; 84439; 84443; 84481; 84703; 85025; 86317; 86695; 86696; 86704; 86803; 87389; 87491; 87591; 87661

== ENCOUNTER 2020-02-13 14:26 | Outpatient (CLI) | payer MEDICARE, MEDICAID ==
--- NOTE | 2020-02-13 16:27 | Ultrasound Report ---
PROCEDURE: Abdomen Limited INDICATIONS: TRANSAMINASES SERUM ELEVATED TECHNIQUE: Real-time focused scanning was performed of the abdomen, with image documentation. COMPARISON: 12/13/2018 FINDINGS: Liver is normal in size. Liver is diffusely echogenic with nodular margins highly suspicious for hepa tic cirrhosis. No focal hepatic mass lesions. Gallbladder is sonographically normal. No gallstones. No gallbladder wall thickening. No pericholecys tic fluid. The sonographic Sherman's sign. Biliary tree is nondilated. Common bile duct measures 5.0 mm. Pancreas is obscured by bowel gas and cannot be evaluated. Right kidney is sonographically normal. Abdominal aorta are sonographically normal. IMPRESSION: 1. Echogenic liver with nodular hepatic margins highly suspicious for hepatic cirrhosis. 2. No biliary obstruction. Reviewed by: Milly Jenkins MD, PhD on 02/13/2020 4:25 PM PDT Approved by: Milly Jenkins MD, PhD on 02/13/2020 4:25 PM PDT Station ID: [id number]
== END 2020-02-13 14:27 | disposition home or self-care (01) ==
LOC: DI 14:26
PROVIDERS: ATTEND Nurse Practitioner
DX: R74.0 Nonspecific elevation of levels of transaminase and lactic acid dehydrogenase [LDH] (principal)
CPT/HCPCS: 76705

== ENCOUNTER 2020-02-26 16:52 | Outpatient (CLI) | payer MEDICARE, MEDICAID | END 2020-02-26 16:53 | disposition critical access hospital (66) | LOC: EMS 16:52 | PROVIDERS: ATTEND Surgery | DX: R60.0 Localized edema (principal) | CPT/HCPCS: A0425; A0429 ==

== ENCOUNTER 2020-02-26 17:11 | Emergency (ER) | payer MEDICARE, MEDICAID ==
[2020-02-26 17:53] LABS: BILIRUBIN,URINE NEGATIVE (NEGATIVE); GLUCOSE, URINE (UA) NEGATIVE (NEGATIVE); KETONES,URINE (UA) NEGATIVE (NEGATIVE); LEUKOCYTE ESTERASE, URINE MODERATE (NEGATIVE); NITRITE,URINE NEGATIVE (NEGATIVE); OCCULT BLOOD,URINE TRACE-LYSE (NEGATIVE); PROTEIN,URINE NEGATIVE (NEGATIVE); UROBILINOGEN,URINE 0.2 (NORMAL) E.U./dL (NORMAL)
[2020-02-26 17:55] LABS: CLARITY,URINE CLEAR (CLEAR); HCG UR QUAL NEGATIVE
[2020-02-26 18:01] LABS: BACTERIA,URINE None Seen /HPF (None Seen); RBC,URINE 0-5 /HPF (0-5); SQUAMOUS EPITHELIAL CELL,UR FEW Squamous (<= Few)
--- NOTE | 2020-02-26 18:54 | ED Physician Documentation ---
History of Present Illness - Stated complaint Stated Complaint: BODY SWELLING - Chief complaint Chief Complaint: General - History obtained from History obtained from: Patient - History of Present Illness Timing: Prior to arrival - Additonal information Additional information: 29-year-old female presents to the emergency department with chief complaint of swelling in her hands and forearms that she noticed this afternoon. Patient denies dyspnea, chest pain, she has no difficulty talking swallowing. The finding of upper extremity swelling is a subjective finding only. I do not appreciate any facial or arm swelling. Patient is known to this emergency department and has been seen multiple times previously for mental health concerns History of hypothyroidism. On levothyroxine 125 mcg qd Review of Systems Constitutional: denies: Fever, Chills Cardiac: denies: Chest pain / pressure, Palpitations Respiratory: denies: Dyspnea, Cough GI: denies: Abdominal Pain, Abdominal Swelling : denies: Dysuria, Frequency Skin: denies: Rash, Lesions Musculoskeletal: reports: Other (Reports swelling of hands and forearms). 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 : None HEENT: Chronic hearing loss Psych: Depression, Anxiety, Panic attacks, Post traumatic stress disorder, Other Musculoskeletal: None Derm: Eczema Other Past Medical History: TOF - Past Surgical History Past Surgical History: Yes Cardiovascular: Valve replacement, Other HEENT: Myringotomy (tubes) - Present Medications Home Medications: Ambulatory Orders Medication Instructions Recorded Confirmed Levothyroxine [Synthroid] 125 mcg PO DAILY 07/29/17 02/26/20 Prazosin [Minipress] 2 mg PO DAILY 07/29/17 02/26/20 lisinopriL [Lisinopril] 2.5 mg PO DAILY 07/29/17 02/26/20 metFORMIN [Glucophage] 500 mg PO DAILY 07/29/17 02/26/20 Ramelteon [Rozerem] 8 mg PO DAILY PM PRN 02/13/18 02/26/20 Esomeprazole Magnesium [Nexium] 20 mg PO DAILY #30 capsule. 12/13/18 08/27/19 Buspirone HCl 5 mg PO TID 08/27/19 02/26/20 Meclizine HCl [Motion Sickness 25 mg PO Q6H PRN #25 tablet 08/27/19 02/26/20 Relief] Potassium Chloride 10 meq PO DAILY #10 tablet.er 08/27/19 02/26/20 Mirtazapine 15 mg PO DAILY PM 02/26/20 02/26/20 - Allergies Allergies/Adverse Reactions: Allergies Allergy/AdvReac Type Severity Reaction Status Date / Time cephalexin monohydrate * Allergy Severe Hives Verified 08/27/19 03:06 [From Keflex] cetirizine HCl * Allergy Mild Rash Verified 08/27/19 03:06 [From Zyrtec] bacitracin Allergy Hives Verified 08/27/19 03:06 [From Neosporin ([id number])] bacitracin zinc * Allergy Hives Verified 08/27/19 03:06 [From Neosporin ([id number]-[id number])] neomycin sulfate * Allergy Hives Verified 08/27/19 03:06 [From Neosporin ([id number])] polymyxin B Allergy Hives Verified 08/27/19 03:06 [From Neosporin ([id number]-yid-[id number])] sulfamethoxazole Allergy Hives Verified 08/27/19 03:06 [From Septra] trimethoprim [From Septra] Allergy Hives Verified 08/27/19 03:06 sertraline HCl * AdvReac Intermediate Nausea Verified 08/27/19 03:06 [From Zoloft] - Social History Does the pt smoke?: No Smoking Status: Former smoker Does the pt drink ETOH?: No Does the pt have substance abuse?: Yes Substance Use and Type: Marijuana - Immunizations Immunizations are current?: Yes Immunizations: Other immun not current - POLST Patient has POLST: No PD ED PE NORMAL - General General: Alert and oriented X 3, No acute distress, Well developed/nourished - HEENT HEENT: PERRL, EOMI, Other (Poor dentition) - Neck Neck: Supple, no meningeal sign, No adenopathy - Cardiac Cardiac: RRR, No murmur - Respiratory Respiratory: No respiratory distress - Abdomen Abdomen: Normal bowel sounds, Soft - Back Back: No CVA TTP, No spinal TTP - Extremities Extremities: No deformity, No tenderness to palpate, Normal ROM s pain (No swelling noted in the hands or forearms of patient. 2+ radial pulse bilaterally. Patient able to move bilateral upper extremities normal in all planes.). 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, No motor deficit, No sensory deficit Results - Vitals Vitals: Vital Signs - 24 hr 02/26/20 02/26/20 02/26/20 17:11 17:22 19:55 Temperature 37.2 C 37 C Heart Rate 92 94 82 Respiratory 18 18 17 Rate Blood Pressure 111/64 135/79 H O2 Saturation 95 96 98 02/26/20 19:57 Temperature Heart Rate Respiratory Rate Blood Pressure 122/75 O2 Saturation Oxygen O2 Source Room air - Labs Labs: Laboratory Tests 02/26/20 02/26/20 02/26/20 17:45 18:49 18:49 WBC 8.3 RBC 4.26 Hgb 13.5 Hct 41.3 MCV 96.9 MCH 31.7 H MCHC 32.7 RDW 13.1 Plt Count 183 MPV 12.1 H Neut # (Auto) 5.6 Lymph # (Auto) 2.0 [place] # (Auto) 0.4 Eos # (Auto) 0.3 Baso # (Auto) 0.0 Absolute Nucleated RBC 0.00 Nucleated RBC % 0.0 PT 11.1 INR 1.0 Sodium Potassium Chloride Carbon Dioxide Anion Gap BUN Creatinine Estimated GFR (MDRD) Glucose Calcium Total Bilirubin AST ALT Alkaline Phosphatase B-Natriuretic Peptide Total Protein Albumin Globulin Albumin/Globulin Ratio Lipase TSH Free T4 Urine Color YELLOW Urine Clarity CLEAR Urine pH 6.0 Ur Specific [place] <=1.005 Urine Protein NEGATIVE Urine Glucose (UA) NEGATIVE Urine Ketones NEGATIVE Urine Occult Blood TRACE-LYSE Urine Nitrite NEGATIVE Urine Bilirubin NEGATIVE Urine Urobilinogen 0.2 (NORMAL) Ur Leukocyte Esterase MODERATE H Urine RBC 0-5 Urine WBC 6-10 H Ur Squamous Epith Cells FEW Squamous Urine Bacteria None Seen Ur Microscopic Review INDICATED Urine Culture Comments INDICATED Urine HCG, Qual NEGATIVE 02/26/20 02/26/20 02/26/20 18:49 18:49 18:49 WBC RBC Hgb Hct MCV MCH MCHC RDW Plt Count MPV Neut # (Auto) Lymph # (Auto) [place] # (Auto) Eos # (Auto) Baso # (Auto) Absolute Nucleated RBC Nucleated RBC % PT INR Sodium 147 H Potassium 2.9 L Chloride 105 Carbon Dioxide 27 Anion Gap 15.0 H BUN 6 Creatinine 1.0 Estimated GFR (MDRD) 65 L Glucose 114 H Calcium 9.1 Total Bilirubin 1.0 AST 51 H ALT 41 Alkaline Phosphatase 100 B-Natriuretic Peptide 72 Total Protein 7.3 Albumin 4.3 Globulin 3.0 Albumin/Globulin Ratio 1.4 Lipase 36 TSH 21.55 H Free T4 Urine Color Urine Clarity Urine pH Ur Specific [place] Urine Protein Urine Glucose (UA) Urine Ketones Urine Occult Blood Urine Nitrite Urine Bilirubin Urine Urobilinogen Ur Leukocyte Esterase Urine RBC Urine WBC Ur Squamous Epith Cells Urine Bacteria Ur Microscopic Review Urine Culture Comments Urine HCG, Qual 02/26/20 18:49 WBC RBC Hgb Hct MCV MCH MCHC RDW Plt Count MPV Neut # (Auto) Lymph # (Auto) [place] # (Auto) Eos # (Auto) Baso # (Auto) Absolute Nucleated RBC Nucleated RBC % PT INR Sodium Potassium Chloride Carbon Dioxide Anion Gap BUN Creatinine Estimated GFR (MDRD) Glucose Calcium Total Bilirubin AST ALT Alkaline Phosphatase B-Natriuretic Peptide Total Protein Albumin Globulin Albumin/Globulin Ratio Lipase TSH Free T4 0.42 L Urine Color Urine Clarity Urine pH Ur Specific [place] Urine Protein Urine Glucose (UA) Urine Ketones Urine Occult Blood Urine Nitrite Urine Bilirubin Urine Urobilinogen Ur Leukocyte Esterase Urine RBC Urine WBC Ur Squamous Epith Cells Urine Bacteria Ur Microscopic Review Urine Culture Comments Urine HCG, Qual PD MEDICAL DECISION MAKING - ED course Complexity details: reviewed results, re-evaluated patient, d/w patient ED course: 29-year-old female presents to the emergency department with chief complaint of swelling in her hands and forearms that she noticed today. This is a subjective finding only as neither I nor the nursing staff note any swelling in her arms or hands. She has no dysphonia, no complaints of chest pain, she is speaking in full sentences. - labs reviewed. noted TSH abnormalities c/w hx of hypothyroidism. Corrected T4 0.48. Recommend close f/u with pcp - no findings c/w heart failure, pulmonary edema. Pt potassium was low at 2.9. repleated with 40 meq kcl in the ED - Departure - Departure Disposition: 01 Home, Self Care Clinical Impression: Arm swelling, Hypokalemia Hypothyroid Qualifiers: Hypothyroidism type: other Qualified Code(s): E03.8 - Other specified hypothyroidism Condition: Stable Comments: your labs look good today other than persistence of your hypothyroidism. Please discuss this with your primary doctor, your levothyroxine should be reevaluated You do not have swellign right now If you have difficulty breathing, return of swelling, return to the ED for a second look
[2020-02-26 18:58] LABS: BASOPHILS % (AUTO) 0.5 %; EOSINOPHILS # (AUTO) 0.3 10^3/uL (0.0-0.7); HGB - HEMOGLOBIN 13.5 g/dL (12.0-16.0); LYMPHOCYTES % (AUTO) 24.5 %; MEAN CORPUSCULAR HEMOGLOBIN 31.7 pg (27.0-31.0); MEAN CORPUSCULAR HGB CONC 32.7 g/dL (32.0-36.0); MEAN CORPUSCULAR VOLUME 96.9 fL (81.0-99.0); MEAN PLATELET VOLUME 12.1 fL (7.9-10.8); MONOCYTES # (AUTO) 0.4 10^3/uL (0.0-1.0); MONOCYTES % (AUTO) 4.2 %; NEUTROPHILS # (AUTO) 5.6 10^3/uL (1.5-6.6); NEUTROPHILS % (AUTO) 67.4 %; PLT - PLATELET COUNT 183 10^3/uL (130-450); RED BLOOD COUNT 4.26 10^6/uL (4.20-5.40); RED CELL DISTRIBUTION WIDTH 13.1 % (12.0-15.0); WHITE BLOOD COUNT 8.3 x10^3/uL (4.8-10.8)
[2020-02-26 19:05] LABS: PT - PROTHROMBIN TIME 11.1 secs (9.9-12.6)
[2020-02-26 19:15] LABS: ALBUMIN 4.3 g/dL (3.2-5.5); ALBUMIN/GLOBULIN RATIO 1.4 (1.0-2.2); CALCIUM 9.1 mg/dL (8.5-10.3); TOTAL PROTEIN 7.3 g/dL (6.7-8.2)
[2020-02-26] MEDS ORDERED: POTASSIUM CHLORIDE 20 MEQ TABLET PO STA (19:49)
[2020-02-26 19:57] VITALS: BP 122/75
== END 2020-02-26 20:39 | disposition home or self-care (01) ==
LOC: EDUNIT# → ED 17:11
DX: R22.33 Localized swelling, mass and lump, upper limb, bilateral (principal); E87.6 Hypokalemia; E11.9 Type 2 diabetes mellitus without complications; Z79.84 Long term (current) use of oral hypoglycemic drugs; J45.909 Unspecified asthma, uncomplicated; Z95.2 Presence of prosthetic heart valve; Z87.891 Personal history of nicotine dependence; E03.9 Hypothyroidism, unspecified
CPT/HCPCS: 36415; 80053; 81001; 81025; 83690; 83880; 84439; 84443; 85025; 85610; 87086; 99283; 99284; A9270; 81003

== ENCOUNTER 2020-03-27 11:25 | Outpatient (CLI) | payer MEDICARE, MEDICAID | END 2020-03-27 11:26 | disposition critical access hospital (66) | LOC: EMS 11:25 | PROVIDERS: ATTEND Surgery | DX: R07.9 Chest pain, unspecified (principal); R06.02 Shortness of breath; R53.83 Other fatigue | CPT/HCPCS: A0425; A0427 ==

== ENCOUNTER 2020-03-27 11:47 | Emergency (ER) | payer MEDICARE, MEDICAID ==
[2020-03-27 12:14] LABS: BASOPHILS # (AUTO) 0.1 10^3/uL (0.0-0.1); BASOPHILS % (AUTO) 0.7 %; EOSINOPHILS # (AUTO) 0.3 10^3/uL (0.0-0.7); EOSINOPHILS % (AUTO) 3.5 %; HGB - HEMOGLOBIN 13.4 g/dL (12.0-16.0); LYMPHOCYTES # (AUTO) 2.2 10^3/uL (1.5-3.5); LYMPHOCYTES % (AUTO) 30.2 %; MEAN CORPUSCULAR HEMOGLOBIN 30.5 pg (27.0-31.0); MEAN CORPUSCULAR HGB CONC 31.5 g/dL (32.0-36.0); MEAN CORPUSCULAR VOLUME 96.8 fL (81.0-99.0); MEAN PLATELET VOLUME 12.5 fL (7.9-10.8); MONOCYTES # (AUTO) 0.5 10^3/uL (0.0-1.0); MONOCYTES % (AUTO) 6.4 %; NEUTROPHILS # (AUTO) 4.3 10^3/uL (1.5-6.6); NEUTROPHILS % (AUTO) 58.9 %; PLT - PLATELET COUNT 188 10^3/uL (130-450); RED BLOOD COUNT 4.39 10^6/uL (4.20-5.40); RED CELL DISTRIBUTION WIDTH 12.4 % (12.0-15.0); WHITE BLOOD COUNT 7.3 x10^3/uL (4.8-10.8)
--- NOTE | 2020-03-27 12:21 | XRAY Report ---
PROCEDURE: Chest 1 View X-Ray INDICATIONS: Chest pain TECHNIQUE: One view of the chest was acquired. COMPARISON: 03/26/2020 FINDINGS: Surgical changes and devices: Median sternotomy changes again noted. Lungs and pleura: No pleural effusions or pneumothorax. Lungs are clear. Mediastinum: Mediastinal contours appear normal. Heart size at the upper limits of normal similar t o the prior study. Bones and chest wall: No suspicious bony lesions. Overlying soft tissues appear unremarkable. IMPRESSION: Mild cardiomegaly similar to prior study. No acute cardiopulmonary process superimposed. Reviewed by: Harshil Goins MD on 03/27/2020 12:20 PM PDT Approved by: Harshil Goins MD on 03/27/2020 12:20 PM PDT Station ID: [id number]
--- NOTE | 2020-03-27 12:26 | ED Physician Documentation ---
History of Present Illness - Stated complaint Stated Complaint: CHEST PAIN/SOA - Chief complaint Chief Complaint: Cardiac - History obtained from History obtained from: Patient - History of Present Illness Timing: How many days ago (2) - Additonal information Additional information: 29-year-old female presents to the emergency department for evaluation of chest pain and shortness of breath. This young lady does have some developmental delay and reports a history of tetralogy of Fallot (TOF) for which she had some partial corrective surgery at 18 months of age as well as a pulmonary valve replacement at the [facility] in [place] in 2011. She states that this morning she was walking her dog with her caregiver when she developed chest pain. It lasted about an hour. She also reported that she developed pain below both of her ribs at that time. EMS was summoned and she was brought to the emergency department. 324 mg of aspirin was given in route. At this time patient denies that she has chest pain and states that she feels better because they gave her aspirin. i saw this young lady nearly a month ago when she reported that her hands and le gs were swollen, however that was a subjective finding only She denies any cough or fever. She has no arm or leg swelling at this time. pmh: tetraology of fallot, Pulmonary valve replacement, htn, hypothyroid, ?? 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 : None HEENT: Chronic hearing loss Psych: Depression, Anxiety, Panic attacks, Post traumatic stress disorder, Other Musculoskeletal: None Derm: Eczema - Past Surgical History Past Surgical History: Yes Cardiovascular: Valve replacement, Other HEENT: Myringotomy (tubes) - Present Medications Home Medications: Ambulatory Orders Medication Instructions Recorded Confirmed Levothyroxine [Synthroid] 125 mcg PO DAILY 07/29/17 02/26/20 Prazosin [Minipress] 2 mg PO DAILY 07/29/17 02/26/20 lisinopriL [Lisinopril] 2.5 mg PO DAILY 07/29/17 02/26/20 metFORMIN [Glucophage] 500 mg PO DAILY 07/29/17 02/26/20 Ramelteon [Rozerem] 8 mg PO DAILY PM PRN 02/13/18 02/26/20 Esomeprazole Magnesium [Nexium] 20 mg PO DAILY #30 capsule. 12/13/18 08/27/19 Buspirone HCl 5 mg PO TID 08/27/19 02/26/20 Meclizine HCl [Motion Sickness 25 mg PO Q6H PRN #25 tablet 08/27/19 02/26/20 Relief] Potassium Chloride 10 meq PO DAILY #10 tablet.er 08/27/19 02/26/20 Mirtazapine 15 mg PO DAILY PM 02/26/20 02/26/20 - Allergies Allergies/Adverse Reactions: Allergies Allergy/AdvReac Type Severity Reaction Status Date / Time cephalexin monohydrate * Allergy Severe Hives Verified 08/27/19 03:06 [From Keflex] cetirizine HCl * Allergy Mild Rash Verified 08/27/19 03:06 [From Zyrtec] bacitracin Allergy Hives Verified 08/27/19 03:06 [From Neosporin ([id number])] bacitracin zinc * Allergy Hives Verified 08/27/19 03:06 [From Neosporin ([id number]-nbz-[id number])] neomycin sulfate * Allergy Hives Verified 08/27/19 03:06 [From Neosporin ([id number]-[id number])] polymyxin B Allergy Hives Verified 08/27/19 03:06 [From Neosporin ([id number])] sulfamethoxazole Allergy Hives Verified 08/27/19 03:06 [From Septra] trimethoprim [From Septra] Allergy Hives Verified 08/27/19 03:06 sertraline HCl * AdvReac Intermediate Nausea Verified 08/27/19 03:06 [From Zoloft] - Social History Does the pt smoke?: No Smoking Status: Never smoker Does the pt drink ETOH?: No Does the pt have substance abuse?: Yes - Immunizations Immunizations are current?: Yes Immunizations: Other immun not current - POLST Patient has POLST: No PD ED PE NORMAL - General General: Alert and oriented X 3, No acute distress - HEENT HEENT: PERRL, EOMI - Neck Neck: Supple, no meningeal sign, No adenopathy - Cardiac Cardiac: RRR, No murmur, No gallop, Strong equal pulses - Respiratory Respiratory: No respiratory distress, Clear bilaterally - Abdomen Abdomen: Normal bowel sounds, Non tender - Derm Derm: Normal color, Warm and dry - Extremities Extremities: No deformity - Neuro Neuro: Alert and oriented X 3, 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 Eye Opening: Spontaneous Motor: Obeys Commands Verbal: Oriented GCS Score: 15 Results - Vitals Vitals: Vital Signs - 24 hr 03/27/20 03/27/20 03/27/20 11:50 12:20 13:15 Temperature 36.9 C Heart Rate 95 90 90 Respiratory 22 17 18 Rate Blood Pressure 124/68 134/75 H 127/85 H O2 Saturation 96 96 97 03/27/20 13:30 Temperature Heart Rate 87 Respiratory 19 Rate Blood Pressure 127/85 H O2 Saturation 100 Oxygen O2 Source Room air - EKG (time done) 1150 Rate: Rate (enter#) (90) Rhythm: NSR [place]: Normal Intervals: RBBB QRS: LVH Ischemia: Non specific changes Compare to prior EKG: Unchanged from prior EKG Computer interpretation: Agree with computer - Labs Labs: Laboratory Tests 03/27/20 03/27/20 03/27/20 12:00 12:00 12:00 WBC 7.3 RBC 4.39 Hgb 13.4 Hct 42.5 MCV 96.8 MCH 30.5 MCHC 31.5 L RDW 12.4 Plt Count 188 MPV 12.5 H Neut # (Auto) 4.3 Lymph # (Auto) 2.2 [place] # (Auto) 0.5 Eos # (Auto) 0.3 Baso # (Auto) 0.1 Absolute Nucleated RBC 0.00 Nucleated RBC % 0.0 Sodium 139 Potassium 3.6 Chloride 100 L Carbon Dioxide 28 Anion Gap 11.0 BUN 6 Creatinine 0.8 Estimated GFR (MDRD) 84 L Glucose 116 H Calcium 9.3 Total Bilirubin 0.9 AST 62 H ALT 46 Alkaline Phosphatase 178 H Troponin I High Sens 3.5 B-Natriuretic Peptide Total Protein 8.4 H Albumin 4.7 Globulin 3.7 Albumin/Globulin Ratio 1.3 Lipase 28 03/27/20 12:00 WBC RBC Hgb Hct MCV MCH MCHC RDW Plt Count MPV Neut # (Auto) Lymph # (Auto) [place] # (Auto) Eos # (Auto) Baso # (Auto) Absolute Nucleated RBC Nucleated RBC % Sodium Potassium Chloride Carbon Dioxide Anion Gap BUN Creatinine Estimated GFR (MDRD) Glucose Calcium Total Bilirubin AST ALT Alkaline Phosphatase Troponin I High Sens B-Natriuretic Peptide 19 Total Protein Albumin Globulin Albumin/Globulin Ratio Lipase - Rads (name of study) CXR Radiology: Final report received (Mild cardiomegaly similar to prior study. No acute cardiopulmonary process superimposed.) PD MEDICAL DECISION MAKING - ED course Complexity details: reviewed old records, reviewed results, re-evaluated patient, considered differential, d/w patient ED course: 29-year-old female presents the emergency department for evaluation of chest pain that she noted while walking her dog this afternoon. - She does have a history of TOF as well as a pulmonary valve replacement. She is scheduled to see her high pressure kettle operator on the in [place]. - At this time on exam she appears very well. Her EKG is unchanged from previous and continues to show a right bundle branch block. Her high- sensitivity troponin is negative despite 2 days of chest pain. Chest x-ray is without any acute cardiopulmonary events. Mild cardiomegaly is noted and unchanged from baseline. Her BNP is not elevated. In addition she has no crackles or hypoxia on exam. This exam is not consistent with acute heart failure - Patient reports that she feels well and no longer has chest pain. At this time I feel that she is stable for discharge home and appropriate for her to continue to follow-up with the high pressure kettle operator as scheduled. Departure - Departure Disposition: 01 Home, Self Care Clinical Impression: History of tetralogy of Fallot repair, Pulmonary valve replaced Chest pain Qualifiers: Chest pain type: unspecified Qualified Code(s): R07.9 - Chest pain, unspecified Condition: Stable Instructions: ED Chest Pain Atypical Unkn Cause Follow-Up: Micaela Light ARNP, SENIOR TELECOMMUNICATIONS CONSULTANT-C [Primary Care Provider] - Comments: Stacey today your labs, EKG and chest x-ray are all relatively normal and unchanged from previous visits. It does not look like you are having a heart attack today. I think it is important that you continue to follow-up with a high pressure kettle operator on the of this month as you are already scheduled. Please return to the emergency department if your symptoms worsen, you have any lavell ting episodes, feels severely short of breath or have any other emergent concerns.
[2020-03-27 12:35] LABS: ALBUMIN 4.7 g/dL (3.2-5.5); ALBUMIN/GLOBULIN RATIO 1.3 (1.0-2.2); BILIRUBIN,TOTAL 0.9 mg/dL (0.2-1.0); CALCIUM 9.3 mg/dL (8.5-10.3); CREATININE 0.8 mg/dL (0.4-1.0); TOTAL PROTEIN 8.4 g/dL (6.7-8.2)
[2020-03-27 13:56] VITALS: BP 130/75
== END 2020-03-27 13:59 | disposition home or self-care (01) ==
LOC: EDUNIT# → ED 11:47
DX: R07.9 Chest pain, unspecified (principal); Z87.74 Personal history of (corrected) congenital malformations of heart and circulatory system; Z95.2 Presence of prosthetic heart valve; E11.9 Type 2 diabetes mellitus without complications; Z79.84 Long term (current) use of oral hypoglycemic drugs; I45.10 Unspecified right bundle-branch block
CPT/HCPCS: 36415; 71045; 80053; 83690; 83880; 84484; 85025; 93005; 99281; 99284

== ENCOUNTER 2020-05-16 08:00 | Outpatient (CLI) | payer MEDICARE, MEDICAID | END 2020-05-16 23:59 | disposition home or self-care (01) | LOC: LAB.R 08:00 | PROVIDERS: ATTEND Family Medicine | DX: J06.9 Acute upper respiratory infection, unspecified (principal); Z20.828 Contact with and (suspected) exposure to other viral communicable diseases ==

== ENCOUNTER 2020-07-03 16:44 | Outpatient (CLI) | payer MEDICARE, MEDICAID | END 2020-07-03 16:45 | disposition EMS.NT | LOC: EMS 16:44 | PROVIDERS: ATTEND Surgery | DX: F41.9 Anxiety disorder, unspecified (principal) ==

== ENCOUNTER 2020-07-30 18:54 | Outpatient (CLI) | payer MEDICARE, MEDICAID | END 2020-07-30 18:55 | disposition critical access hospital (66) | LOC: EMS 18:54 | PROVIDERS: ATTEND Surgery | DX: R07.9 Chest pain, unspecified (principal) | CPT/HCPCS: A0425; A0429 ==

== ENCOUNTER 2020-07-30 19:38 | Observation (INO) | payer MEDICARE, MEDICAID ==
[2020-07-30 20:06] LABS: BASOPHILS % (AUTO) 0.4 %; EOSINOPHILS # (AUTO) 0.1 10^3/uL (0.0-0.7); EOSINOPHILS % (AUTO) 1.3 %; HGB - HEMOGLOBIN 13.5 g/dL (12.0-16.0); LYMPHOCYTES # (AUTO) 2.3 10^3/uL (1.5-3.5); LYMPHOCYTES % (AUTO) 24.7 %; MEAN CORPUSCULAR HEMOGLOBIN 30.7 pg (27.0-31.0); MEAN CORPUSCULAR HGB CONC 32.1 g/dL (32.0-36.0); MEAN CORPUSCULAR VOLUME 95.7 fL (81.0-99.0); MEAN PLATELET VOLUME 12.5 fL (7.9-10.8); MONOCYTES # (AUTO) 0.4 10^3/uL (0.0-1.0); MONOCYTES % (AUTO) 4.7 %; NEUTROPHILS # (AUTO) 6.3 10^3/uL (1.5-6.6); NEUTROPHILS % (AUTO) 68.6 %; PLT - PLATELET COUNT 174 10^3/uL (130-450); RED CELL DISTRIBUTION WIDTH 13.5 % (12.0-15.0); WHITE BLOOD COUNT 9.2 x10^3/uL (4.8-10.8)
[2020-07-30] MEDS ORDERED: SODIUM CHLORIDE FLUSH 0.9% 10 ML SYRINGE IVP PRN (20:31)
[2020-07-30] MEDS ORDERED: ACETAMINOPHEN 325 MG TABLET PO PRN (20:31)
[2020-07-30] MEDS ORDERED: oxyCODONE 5 MG TABLET PO PRN (20:31)
--- NOTE | 2020-07-30 20:32 | ED Physician Documentation ---
PD HPI CHEST PAIN - Stated complaint Stated Complaint: CP, ANXIETY - Chief complaint Chief Complaint: Cardiac - History obtained from History obtained from: Patient - Additional information Additional information: 29-year-old woman with past medical history of tetralogy of Fallot status post open heart surgery as an infant, with pulmonic valve revision in 2011, high blood pressure, hypothyroidism, former smoker, with family history of heart attack presents with chest heaviness intermittent over past few weeks with an episode today occurring at rest that is now mild, initially sudden onset, sever e, constant, pressure like, a/w dizziness. she Also has been more short of breath and anxious recently. She does say that she has had significant family stress. Denies fevers cough nausea or diaphoresis. Denies leg swelling. 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 HEENT: Chronic hearing loss Psych: Depression, Anxiety, Panic attacks, Post traumatic stress disorder, Other Musculoskeletal: None Derm: Eczema - Past Surgical History Past Surgical History: Yes Cardiovascular: Valve replacement, Other HEENT: Myringotomy (tubes) - Present Medications Home Medications: Ambulatory Orders Medication Instructions Recorded Confirmed Levothyroxine [Synthroid] 125 mcg PO DAILY 07/29/17 02/26/20 Prazosin [Minipress] 2 mg PO DAILY 07/29/17 02/26/20 lisinopriL [Lisinopril] 2.5 mg PO DAILY 07/29/17 02/26/20 metFORMIN [Glucophage] 500 mg PO DAILY 07/29/17 02/26/20 Ramelteon [Rozerem] 8 mg PO DAILY PM PRN 02/13/18 02/26/20 Esomeprazole Magnesium [Nexium] 20 mg PO DAILY #30 capsule. 12/13/18 08/27/19 Buspirone HCl 5 mg PO TID 08/27/19 02/26/20 Meclizine HCl [Motion Sickness 25 mg PO Q6H PRN #25 tablet 08/27/19 02/26/20 Relief] Potassium Chloride 10 meq PO DAILY #10 tablet.er 08/27/19 02/26/20 Mirtazapine 15 mg PO DAILY PM 02/26/20 02/26/20 - Allergies Allergies/Adverse Reactions: Allergies Allergy/AdvReac Type Severity Reaction Status Date / Time cephalexin monohydrate * Allergy Severe Hives Verified 07/30/20 19:53 [From Keflex] cetirizine HCl * Allergy Mild Rash Verified 07/30/20 19:53 [From Zyrtec] bacitracin Allergy Hives Verified 07/30/20 19:53 [From Neosporin ([id number])] bacitracin zinc * Allergy Hives Verified 07/30/20 19:53 [From Neosporin ([id number]-ciz-vibkj)] neomycin sulfate * Allergy Hives Verified 07/30/20 19:53 [From Neosporin (iiz-ovo-nptqy)] polymyxin B Allergy Hives Verified 07/30/20 19:53 [From Neosporin (son-uap-[id number])] sulfamethoxazole Allergy Hives Verified 07/30/20 19:53 [From Septra] trimethoprim [From Septra] Allergy Hives Verified 07/30/20 19:53 sertraline HCl * AdvReac Intermediate Nausea Verified 07/30/20 19:53 [From Zoloft] - Social History Does the pt smoke?: No Smoking Status: Never smoker Does the pt drink ETOH?: No Does the pt have substance abuse?: Yes - Immunizations Immunizations are current?: Yes Immunizations: Other immun not current - POLST Patient has POLST: No PD ED PE NORMAL - Vitals Vital signs reviewed: Yes - General General: Alert and oriented X 3 - HEENT HEENT: Atraumatic, PERRL, EOMI - Neck Neck: Supple, no meningeal sign - Cardiac Cardiac: RRR - Respiratory Respiratory: No respiratory distress, Clear bilaterally - Abdomen Abdomen: Normal bowel sounds, Non tender, Non distended - Female Female : Deferred - Rectal Rectal: Deferred - Back Back: No CVA TTP - Derm Derm: Normal color - Extremities Extremities: No deformity - Neuro Neuro: Alert and oriented X 3 - Psych Psych: Normal mood, Normal affect Results - Vitals Vitals: Vital Signs - 24 hr 07/30/20 19:43 Temperature 36.2 C L Heart Rate 83 Respiratory 14 Rate Blood Pressure 106/66 O2 Saturation 100 Oxygen O2 Source Room air - Labs Labs: Laboratory Tests 07/30/20 07/30/20 19:58 19:58 WBC 9.2 RBC 4.40 Hgb 13.5 Hct 42.1 MCV 95.7 MCH 30.7 MCHC 32.1 RDW 13.5 Plt Count 174 MPV 12.5 H Neut # (Auto) 6.3 Lymph # (Auto) 2.3 [place] # (Auto) 0.4 Eos # (Auto) 0.1 Baso # (Auto) 0.0 Absolute Nucleated RBC 0.00 Nucleated RBC % 0.0 Troponin I High Sens 4.5 PD MEDICAL DECISION MAKING - ED course Complexity details: reviewed results, d/w patient, d/w cisco consultant ED course: Yes 29-year-old woman with high risk features presents with chest pain, 2.5 years since last stress test. Discussed with Dr. Steiner who says she is a good candidate for obs. Will stress in the morning. possible echo as well. Departure - Departure Disposition: ED Place in Observation Clinical Impression: Chest pain, Shortness of breath, Dizziness Condition: Stable
--- NOTE | 2020-07-30 20:34 | XRAY Report ---
PROCEDURE: Chest 1 View X-Ray INDICATIONS: Chest Pain TECHNIQUE: One view of the chest was acquired. COMPARISON: 03/27/2020 FINDINGS: Surgical changes and devices: Sternotomy wires and cardiac valvular prosthesis. Lungs and pleura: No pleural effusions or pneumothorax. Scattered subsegmental scarring/atelectasis . No acute consolidation. . Mediastinum: Mediastinal contours appear normal. Heart size is normal. Bones and chest wall: No suspicious bony lesions. Overlying soft tissues appear unremarkable. IMPRESSION: No acute disease. Reviewed by: Silvestre Mason MD on 07/30/2020 8:32 PM PST Approved by: Silvestre Mason MD on 07/30/2020 8:32 PM [facility] Station ID: [id number]
--- NOTE | 2020-07-30 20:42 | HISTORY & PHYSICAL EXAMINATION ---
Chief Complaint - Chief Complaint Chief Complaint: Chest pain/pressure History of Present Illness - Admitted From Admitted From:: [facility] ED - History Obtained From Records Reviewed: Yes History obtained from: Patient - History of Present Illness HPI Comment/Other: Patient is a 29-year-old obese female with medical history significant for ajay betes mellitus, hypertension, hyperlipidemia, depression, hypothyroidism, GERD, tetralogy of Fallot as a child and a pulmonic valve replacement who presented to the ED with complaint of chest pressure. She says it feels like there is a wrecking ball on her chest. She reports radiation to the left side of her chest. Her symptoms started around 7 PM today while she was cleaning her apartment. She denied difficulty in breathing fever or chills. She reported some nausea but no vomiting and mild abdominal pain. The chest pain was intermittent and she said it lasted about 15 minutes. At the time of the exam she was not experiencing any chest pain but reported left sided pain under her left arm. It was a reproducible pain. She reports having undergone a stress test about 2 years ago in [place]. She has seen a casket coverer by name Dr. Mattson in [place]. Work-up in the ED included troponin which was negative. Her EKG showed right bundle branch. She was presented for admission for chest pain rule out. 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 She does not know her parents medical history because she has not been in communication with them for a long time. She was mainly brought up by her Great grandparents. Her great grandfather had history of an SD. Social History Notes: She stopped smoking on March 02, 2019. She does not drink alcohol or use recreational substances.She lives alone - POLST Patient has POLST: No POLST Status: Full Code Meds/Allgy - Home Medications Home Medications: Ambulatory Orders Medication Instructions Recorded Confirmed Levothyroxine [Synthroid] 125 mcg PO DAILY 07/29/17 02/26/20 Prazosin [Minipress] 2 mg PO DAILY 07/29/17 02/26/20 lisinopriL [Lisinopril] 2.5 mg PO DAILY 07/29/17 02/26/20 metFORMIN [Glucophage] 500 mg PO DAILY 07/29/17 02/26/20 Ramelteon [Rozerem] 8 mg PO DAILY PM PRN 02/13/18 02/26/20 Esomeprazole Magnesium [Nexium] 20 mg PO DAILY #30 capsule. 12/13/18 08/27/19 Buspirone HCl 5 mg PO TID 08/27/19 02/26/20 Meclizine HCl [Motion Sickness 25 mg PO Q6H PRN #25 tablet 08/27/19 02/26/20 Relief] Potassium Chloride 10 meq PO DAILY #10 tablet.er 08/27/19 02/26/20 Mirtazapine 15 mg PO DAILY PM 02/26/20 02/26/20 - Allergies Allergies/Adverse Reactions: Allergies Allergy/AdvReac Type Severity Reaction Status Date / Time cephalexin monohydrate * Allergy Severe Hives Verified 07/30/20 19:53 [From Keflex] cetirizine HCl * Allergy Mild Rash Verified 07/30/20 19:53 [From Zyrtec] bacitracin Allergy Hives Verified 07/30/20 19:53 [From Neosporin ([id number])] bacitracin zinc * Allergy Hives Verified 07/30/20 19:53 [From Neosporin ([id number])] neomycin sulfate * Allergy Hives Verified 07/30/20 19:53 [From Neosporin ([id number])] polymyxin B Allergy Hives Verified 07/30/20 19:53 [From Neosporin ([id number])] sulfamethoxazole Allergy Hives Verified 07/30/20 19:53 [From Septra] trimethoprim [From Septra] Allergy Hives Verified 07/30/20 19:53 sertraline HCl * AdvReac Intermediate Nausea Verified 07/30/20 19:53 [From Zoloft] Review of Systems - Constitutional Constitutional: denies: Fatigue, Fever, Chills - Eyes Eyes: denies: Pain, Vision loss - Ears, Nose & Throat Ears, Nose & Throat: denies: Ear pain, Sore throat - Cardiovascular Cariovascular: reports: Chest pain. denies: Irregular heart rate, Palpitations, Edema, Lightheadedness, Syncope - Respiratory Respiratory: denies: Cough, Sputum production, Wheezing, SOB at rest, SOB with exertion - Gastrointestinal Gastrointestinal: denies: Abdominal pain, Abdominal distention, Constipation, Diarrhea, Nausea, Vomiting - Genitourinary Genitourinary: denies: Dysuria, Frequency, Urgency, Hematuria - Musculoskeletal Musculoskeletal: denies: Muscle pain, Back pain, Muscle aches, Stiffness - Integumentary Integumentary: denies: Rash, Pruritis, Lesions - Neurological Neurological: denies: General weakness, Focal weakness, Headache, Dizziness - Psychiatric Psychiatric: reports: Depression, Anxiety - Endocrine Endocrine: denies: Polyuria, Polydypsia - Hematologic/Lymphatic Hematologic/Lymphatic: denies: Anemia, Bruising, Petechiae Prior Level of Functionality: She is independent of activities of daily living Exam - Vital Signs Vital Signs: Vital Signs x48h Temp Pulse Resp BP Pulse Ox 07/30/20 19:43 36.2 C L 83 14 106/66 100 - Physical Exam General Appearance: positive: Alert, Mild distress Eyes Bilateral: positive: PERRL, EOMI ENT: positive: No signs of dehydration Neck: positive: No JVD, Trachea midline Respiratory: positive: No respiratory distress, Breath sounds nml. negative: Chest non-tender, Wheezes, Rales, Rhonchi Cardiovascular: positive: Regular rate & rhythm, Systolic murmur (2/6). negative: Tachycardia Abdomen: positive: Non-tender, No organomegaly, Nml bowel sounds, No distention. negative: Guarding, Rebound Back: positive: Nml inspection Skin: positive: Color nml, No rash, Warm, Dry Extremities: positive: Non-tender, Full ROM, Nml appearance, No pedal edema Neurologic/Psychiatric: positive: Oriented x3, Motor nml, Mood/affect nml Conclusion/Plan - Problem List (1) Chest pain Conclusion/Plan: Differential for etiology includes cardiac versus anxiety versus musculoskeletal Given her significant cardiac history, it was felt that she should undergo a chest pain rule out. She has history of tetralogy of Fallot and a pulmonary valve replacement in 2010. Her last stress test was 2 years ago. It was an exercise stress test which she reports was unremarkable. Initial troponin was negative. We will trend troponin x2 more and do a stress test in the morning (2) Diabetes Conclusion/Plan: Patient is on Metformin at home. We will hold Metformin and order sliding scale insulin. (3) Hypertension Conclusion/Plan: On lisinopril and prazosin (4) Depression Conclusion/Plan: On buspirone and mirtazapine Qualifiers: Depression Type: unspecified Qualified Code(s): F32.9 - Major depressive disorder, single episode, unspecified (5) GERD (gastroesophageal reflux disease) Conclusion/Plan: On Nexium. Will order Protonix Qualifiers: Esophagitis presence: esophagitis presence not specified Qualified Code(s): K21.9 - Gastro-esophageal reflux disease without esophagitis (6) Hypothyroid Conclusion/Plan: On Synthroid 125 mcg p.o. daily Qualifiers: Hypothyroidism type: other Qualified Code(s): E03.8 - Other specified hypothyroidism - Lab Results Fish Bones: 07/30/20 19:58 07/30/20 20:25 Core Measures - Anticipated LOS I expect patient to be DC'd or transferred within 96 hours.: Yes - DVT/VTE - Prophylaxis VTE/DVT Device ordered at admit?: Yes VTE/DVT Prophylaxis med ordered at admit?: Yes
[2020-07-30 20:44] LABS: ALBUMIN 4.9 g/dL (3.2-5.5); ALBUMIN/GLOBULIN RATIO 1.3 (1.0-2.2); BILIRUBIN,TOTAL 1.3 mg/dL (0.2-1.0); CALCIUM 9.1 mg/dL (8.5-10.3); CREATININE 1.3 mg/dL (0.4-1.0); TOTAL PROTEIN 8.7 g/dL (6.7-8.2)
[2020-07-30] MEDS ORDERED: ASPIRIN 325 MG TABLET PO STA (20:45)
[2020-07-30] MEDS ORDERED: POTASSIUM CHLORIDE 20 MEQ/15 ML UDC PO STA (20:46)
[2020-07-30] MEDS ORDERED: LACTATED RINGERS 1,000 ML IV STA (20:48)
[2020-07-30 21:48] LABS: C. PNEUMONIAE- RESP PCR PANEL NOT DETECTED
[2020-07-30] MEDS: POTASSIUM CHLOR 10 MEQ/100 ML 10 MEQ/100 ML BAG IV SCH (22:38)
[2020-07-30] MEDS: SODIUM CHLORIDE 0.9% 1,000 ML IV SCH (23:43)
[2020-07-30] MEDS: INSULIN REGULAR HUMAN 300 UNIT/3 ML VIAL SUBQ SCH (23:49)
[2020-07-31] MEDS: POTASSIUM CHLOR 10 MEQ/100 ML 10 MEQ/100 ML BAG IV SCH ×3 (00:39→04:39)
[2020-07-31] MEDS: SODIUM CHLORIDE FLUSH 0.9% 10 ML SYRINGE IVP SCH ×2 (01:44→13:46)
[2020-07-31 05:38] LABS: BASOPHILS # (AUTO) 0.1 10^3/uL (0.0-0.1); BASOPHILS % (AUTO) 0.6 %; EOSINOPHILS # (AUTO) 0.3 10^3/uL (0.0-0.7); EOSINOPHILS % (AUTO) 3.2 %; HGB - HEMOGLOBIN 13.3 g/dL (12.0-16.0); LYMPHOCYTES # (AUTO) 2.8 10^3/uL (1.5-3.5); LYMPHOCYTES % (AUTO) 34.9 %; MEAN CORPUSCULAR HEMOGLOBIN 31.7 pg (27.0-31.0); MEAN CORPUSCULAR HGB CONC 32.8 g/dL (32.0-36.0); MEAN CORPUSCULAR VOLUME 96.7 fL (81.0-99.0); MEAN PLATELET VOLUME 12.3 fL (7.9-10.8); MONOCYTES # (AUTO) 0.5 10^3/uL (0.0-1.0); MONOCYTES % (AUTO) 6.2 %; NEUTROPHILS # (AUTO) 4.4 10^3/uL (1.5-6.6); PLT - PLATELET COUNT 175 10^3/uL (130-450); RED CELL DISTRIBUTION WIDTH 13.6 % (12.0-15.0); WHITE BLOOD COUNT 7.9 x10^3/uL (4.8-10.8)
[2020-07-31 05:47] LABS: CREATININE 1.1 mg/dL (0.4-1.0)
[2020-07-31] MEDS: INSULIN REGULAR HUMAN 300 UNIT/3 ML VIAL SUBQ SCH ×2 (05:58→13:11)
[2020-07-31] MEDS ORDERED: PANTOPRAZOLE 40 MG TABLET PO SCH (07:00)
[2020-07-31] MEDS: SODIUM CHLORIDE 0.9% 1,000 ML IV SCH (08:26)
[2020-07-31] MEDS ORDERED: ENOXAPARIN 40 MG/0.4 ML SYRINGE SUBQ SCH (09:00)
[2020-07-31] MEDS ORDERED: AMINOPHYLLINE 500 MG/20 ML VIAL ONE (12:48)
[2020-07-31] MEDS ORDERED: REGADENOSON 0.4 MG/5 ML SYRINGE IVP ONE ×2 (12:48→13:55)
--- NOTE | 2020-07-31 14:37 | PHARMACY PROGRESS NOTE ---
- Best Possible Medication History Admit Date and Time: 07/30/202030 Processed by: Pharmacy Medication History completed: Yes Patient Interview: Completed Secondary Source(s): Physician records, Pharmacy records, Insurance records (PATIENT INTERVIEWED BY ELECTRICAL LINESWORKER. PATIENT ABLE TO CONFIRM HOME MEDICATIONS. PATIENT REPORTS SHE DOES NOT TAKE LASIX 20MG AT HOME, HOWEVER IT IS SHOWN ON THE INSURANCE PULL ) As the person ultimately responsible for medication therapy, providers are able to order a medication from an existing home medication list in [facility] via the "Reconcile Routine" prior to Confirmation of that medication by applications support specialist. Such practice is discouraged except when the physician, in their clinical judgment, deems that a medical need exists for a medication without regard to previous use.
--- NOTE | 2020-07-31 14:53 | CARDIAC PROCEDURE NOTE ---
DATE OF SERVICE: 07/31/2020 Physician: Lauren Felton MD INDICATION: Chest pain. CARDIAC RISK FACTORS: Obesity, diabetes, hypertension, hyperlipidemia, recent ex-smoker who quit 1 year ago, remote family history of heart disease. This patient has a history of Tetralogy of Fallot, that was repaired at 18 months, and approximately 10 years ago, she had pulmonic valve replacement ope- heart surgery. DESCRIPTION OF PROCEDURE: After signing informed consent, the patient started to undergo a Saqib-protocol treadmill stress test. She could not complete the walking and requested the test to be stopped. The test was was then changed to a Lexiscan pharmaceutical stress test with nuclear myocardial perfusion imaging. RESTING HEART RATE: 69. PEAK heart rate that was achieved during exercise was 104. With Lexiscan, her heart rate was 94. RESTING BLOOD PRESSURE: Resting blood pressure: 109/71. With exercise, her blood pressure james to 132/80. With Lexiscan, her blood pressure was measured at 107/83. The patient developed fatigue, shortness of breath and started to get her chest pressure after 1.5 minutes of exercise in stage 1 of Saqib protocol. Her oxygen saturation at that point dropped to 90% on room air. During the Lexiscan test, she had approximately 15 seconds of chest pain and brief shortness of breath. The oxygen saturation was 91-95% on room air. RESTING EKG: Normal sinus rhythm, vertical axis, right bundle branch block. EKG AT PEAK: With Lexiscan, EKG showed no new ST segment or T-wave changes. SUMMARY: 1. Abnormal resting EKG with evidence of cor pulmonale (in a patient with known Tetralogy of Fallot and right heart disease, and status post pulmonic valve implant). 2. Poor exercise tolerance and desaturation occurred after 1.5 minutes of exercise. 3. No ischemic changes developed by EKG criteria during pharmaceutical stress testing. 4. Nuclear images will be reported separately and showed: Anterior wall artifact that resolves with position change, no areas of ischemia suspected. cc: VICENTE Morley, CLAM PICKER-C Zain Weller MD TD: 07/31/2020 13:44 JEFF
--- NOTE | 2020-07-31 16:15 | Nuclear Medicine Report ---
PROCEDURE: Rest and exercise myocardial perfusion SPECT with gated imaging and ejection fraction INDICATIONS: chest pain RADIOPHARMACEUTICAL: 15.8 mCi Tc-99m Myoview IV at rest and 40.5 mCi Tc-99m Myoview IV at peak exerc ise. [id number] was performed. TECHNIQUE: Radiopharmaceutical was injected at peak stress test, and also at rest. SPECT images wer e obtained. SPECT myocardial perfusion images were displayed in short axis, horizontal long axis, an d vertical long axis views. Gated images were reviewed using AutoQUANT software. COMPARISON: None available. FINDINGS: Raw data: There is good myocardial labeling by radiotracer. No significant motion artifacts. Lung- to-heart ratio is 0.34 (normal is less than 0.38 for tetrafosmin tracer). Left ventricle function: Unable to perform gated images to assess left ventricular systolic function . Myocardial perfusion: There is a large, moderate, primarily fixed perfusion defect in the anterior w all, anterior septum and anterolateral, most likely secondary to breast attenuation and shifting marcella st artifact.. IMPRESSION: 1. Severely limited examination because of the patient's body habitus. The gated images could not be obtained to assess left ventricular systolic function. 2. Probably normal myocardial perfusion images. There is a large, moderate, primarily fixed perfusion defect in the anterior wall, anterior septum and anterolateral, most likely secondary to breast atte nuation and shifting breast artifact. A large area of myocardial infarct with mild yajaira-infarct ische alec is felt less likely although not entirely excluded. 3. Please correlate with stress EKG result. PQRS ATTESTATIONS: Measure 322 - Is this imaging test primarily performed on a low-risk surgery patient for preoperative evaluation within 30 days preceding their low-risk non-cardiac surgery? Low-risk surgery is defined as cardiac or myocardial infarction less than 1%, including (but not limited to) endoscopic pr ocedures, superficial procedures, cataract surgery, and excisional breast surgery: Answer: No Measure 323 - Is this imaging test performed primarily for the monitoring of an asymptomatic patient who had percutaneous coronary intervention on the visit date or within 2 years of the visit date? An swer: No Measure 324 - Is this imaging test performed primarily for the initial detection and risk assessment on an asymptomatic, low coronary heart disease patient? Low CHD risk definition = clinicians should consider the maximum number of available patient factors used to estimate risk based on [place] (A TP III criteria), typically age, gender, diabetes, smoking status, and use of blood pressure medicati on, and integrate age appropriate estimates for missing elements, such as LDL or standard blood press ure. Answer: No Reviewed by: Jorge Swann MD on 07/31/2020 4:13 PM PST Approved by: Jorge Swann MD on 07/31/2020 4:13 PM PST Station ID: [id number]
--- NOTE | 2020-07-31 16:53 | Discharge Plan ---
Discharge Plan Problem Reviewed?: Yes Disposition: Home, Self Care Condition: Fair Diet: Diabetic Activity Restrictions: Activity as Tolerated Health Concerns: You were in Observation status to evaluate chest pain. The stress test turned out stable and your Echo turned out stable. You should have follow-up with your System Administration Advisor soon, in the next several weeks, to further evaluate the chest pain. Resume all your usual medications. Plan of Treatment: As above. Care Goals: Improvement in symptoms and stabilization are the goals. Assessment: Patient understands the plan. Written instructions are provided as a reminder. No Smoking: If you smoke, Please STOP! Call for help. Follow-up with: Zain Weller MD [Physician No Access] - Micaela Light ARNP, BRYOLOGIST-C [Credentialed Staff Provider] -
--- NOTE | 2020-07-31 17:02 | DISCHARGE SUMMARY ---
Discharge Summary Admit Date: 07/30/20 Discharge Date: 07/31/20 Discharging Provider: Dr Lauren Felton Primary Care Provider: Micaela Light NP and Dr Smitha Weller (Cardiology) Code Status: Attempt Resuscitation Condition at Discharge: Fair Discharge Disposition: 01 Home, Self Care - HPI History of Present Illness: From the admission H&P of Dr. Alyssa Justiceu: Patient is a 29-year-old obese female with medical history significant for diabetes mellitus, hypertension, hyperlipidemia, depression, hypothyroidism, GERD, Tetralogy of Fallot, repaired as an and a pulmonic valve replacement several years ago, who presented to the ED with complaint of chest pressure. She says it feels like there is a "wrecking ball on her chest". She reports radiation to the left side of her chest. Her symptoms started around 7 PM today while she was cleaning her apartment. She denied difficulty in breathing fever or chills. She reported some nausea but no vomiting and mild abdominal pain. The chest pain was intermittent and she said it lasted about 15 minutes. At the time of the exam she was not experiencing any chest pain but reported pain under her left arm. It was a reproducible pain, with tenderness to touch. She reports having undergone a stress test about 2 years ago in [place]. She has seen a Instrument And Electrical Technician by name Dr. Weller in [place]. Work-up in the ED included troponin which was negative. Her EKG showed right bundle branch. She was presented for Observation for chest pain, rule out AL protocol. - HOSPITAL COURSE Hospital Course: #1 Chest pain She had one more episode of chest pain when she was anxious. Troponins were all normal. She underwent a stress test: she could not adjust to treadmill exercise and she became quickly SOB, O2 sat became 90%. Therefore a Lexiscan pharmaceutical stress test was done. Her EKG showed a vertical axis and RBBB. There were no ischemic EKG changes with pharmaceutical stress. The nuclear image showed an attenuation defect, resolved with prone imaging. It was felt to be a normal test, without ischemia. #2 Pericardial effusion A resting Echo was also done. This showed normal LV size and function, normal RV size and function. A 15 mmHg gradient across her PV replacement was reported. She also had a small posterior pericardial effusion. The possible cause of her chest pain may have been pericarditis therefore. She was advised to see her Instrument And Electrical Technician for further management of this (potentially with NSAIDs). #3 Tetralogy of Fallot repaired As per Hx. #4 Hx pulmonic valve replaced, with normal function As per Hx. The gradient of 15 mmHg across a PV replacement may be acceptable. #5 Diabetes mellitus She was on a Diabetic diet and her Metformin was unchanged. #6 Hypertension She was kept on her home med of Lisinopril. #7 Morbid obesity BMI is 39, for her 4 foot 9 in. frame. #8 GERD These symptoms were unlike her GERD, she reported. #9 Hypothyroidism Her home dose of Synthroid was continued. #10 Developmental delay She exhibited signs of developmental delay in her conversations, and she has dysmorphic features, thick glasses, short height, and a syndrome may be present. #11 Depression (?and Anxiety) She was kept on her same 4 home meds for this. - ALLERGIES Allergies/Adverse Reactions: Allergies Allergy/AdvReac Type Severity Reaction Status Date / Time cephalexin monohydrate * Allergy Severe Hives Verified 07/30/20 19:53 [From Keflex] cetirizine HCl * Allergy Mild Rash Verified 07/30/20 19:53 [From Zyrtec] bacitracin Allergy Hives Verified 07/30/20 19:53 [From Neosporin ([id number])] bacitracin zinc * Allergy Hives Verified 07/30/20 19:53 [From Neosporin ([id number]-[id number])] neomycin sulfate * Allergy Hives Verified 07/30/20 19:53 [From Neosporin ([id number]-[id number])] polymyxin B Allergy Hives Verified 07/30/20 19:53 [From Neosporin ([id number])] sulfamethoxazole Allergy Hives Verified 07/30/20 19:53 [From Septra] trimethoprim [From Septra] Allergy Hives Verified 07/30/20 19:53 sertraline HCl * AdvReac Intermediate Nausea Verified 07/30/20 19:53 [From Zoloft] - MEDICATIONS Home Medications: Ambulatory Orders Medication Instructions Recorded Confirmed lisinopriL [Lisinopril] 2.5 mg PO DAILY 07/29/17 07/31/20 metFORMIN [Glucophage] 500 mg PO DAILY 07/29/17 07/31/20 ARIPiprazole INJ [Abilify Maintena] 400 mg IM .QMONTH 07/31/20 07/31/20 Acetaminophen [Aphen] 325 mg PO DAILY PRN 07/31/20 07/31/20 Albuterol Sulf [Ventolin Hfa 1 - 2 puffs INH Q6H PRN 07/31/20 07/31/20 Inhaler] Buspirone HCl 7.5 mg PO TID 07/31/20 07/31/20 Doxepin [SINEquan] 25 mg PO DAILY 07/31/20 07/31/20 Levothyroxine [Synthroid] 125 mcg PO DAILY 07/31/20 07/31/20 Melatonin 5 mg PO QPM PRN 07/31/20 07/31/20 Mirtazapine [Remeron] 30 mg PO QPM 07/31/20 07/31/20 Prazosin [Minipress] 1 mg PO DAILY 07/31/20 07/31/20 - PHYSICAL EXAM AT DISCHARGE General Appearance: positive: No acute distress, Other (Short stature, dysmorphic facial features, Indiginous ethnicity) Eyes Bilateral: positive: EOMI, Other (Wearing thick prescription-lens glasses) ENT: positive: No signs of dehydration Neck: positive: Nml inspection, No JVD Respiratory: positive: No respiratory distress, Breath sounds nml Cardiovascular: positive: Regular rate & rhythm, No murmur Abdomen: positive: Nml bowel sounds, Other (Obese with a pannus) Skin: positive: Warm, Dry Extremities: positive: Non-tender, No pedal edema Neurologic/Psychiatric: positive: Oriented x3, Motor nml - LABS Result Diagrams: 07/31/20 05:22 07/31/20 05:22 - DIAGNOSTIC IMAGING Diagnostic Imaging Results: Final report reviewed - FOLLOW UP Follow Up: See PCP and/or Instrument And Electrical Technician in 1-2 weeks for hospital follow-up. - TIME SPENT Time Spent in Discharge (Minutes): 35
[2020-07-31 17:43] VITALS: BP 114/75
== END 2020-07-31 19:15 | disposition home or self-care (01) ==
LOC: EDUNIT# → EDBD → ED 19:38 → MS2 20:31
PROVIDERS: ADMIT Internal Medicine; ATTEND Internal Medicine
DX: R07.9 Chest pain, unspecified (principal); I45.10 Unspecified right bundle-branch block; J90 Pleural effusion, not elsewhere classified; Z87.74 Personal history of (corrected) congenital malformations of heart and circulatory system; Z95.2 Presence of prosthetic heart valve; E11.9 Type 2 diabetes mellitus without complications; I10 Essential (primary) hypertension; E66.01 Morbid (severe) obesity due to excess calories; Z68.39 Body mass index [BMI] 39.0-39.9, adult; K21.9 Gastro-esophageal reflux disease without esophagitis; E03.9 Hypothyroidism, unspecified; F80.9 Developmental disorder of speech and language, unspecified; F41.9 Anxiety disorder, unspecified; F32.9 Major depressive disorder, single episode, unspecified; E78.5 Hyperlipidemia, unspecified; J45.909 Unspecified asthma, uncomplicated; R01.1 Cardiac murmur, unspecified; H54.7 Unspecified visual loss; F43.10 Post-traumatic stress disorder, unspecified; F41.0 Panic disorder [episodic paroxysmal anxiety]; Z79.84 Long term (current) use of oral hypoglycemic drugs; Z79.899 Other long term (current) drug therapy; Z87.891 Personal history of nicotine dependence; Z82.49 Family history of ischemic heart disease and other diseases of the circulatory system
CPT/HCPCS: 36415; 71045; 78452; 80048; 80053; 83690; 83735; 84484; 85025; 87631; 93005; 93017; 93306; 96365; 96366; 96372; 99284; 99285; A9270; A9500; G0378; J1650; J2785; J7120; 0202U

== ENCOUNTER 2020-08-27 22:11 | Outpatient (CLI) | payer MEDICARE, MEDICAID | END 2020-08-27 22:12 | disposition critical access hospital (66) | LOC: EMS 22:11 | PROVIDERS: ATTEND Surgery | DX: R07.9 Chest pain, unspecified (principal) | CPT/HCPCS: A0425; A0427 ==

== ENCOUNTER 2020-08-27 22:27 | Emergency (ER) | payer MEDICARE, MEDICAID ==
--- NOTE | 2020-08-27 23:26 | ED Physician Documentation ---
PD HPI CHEST PAIN - Stated complaint Stated Complaint: CP - Chief complaint Chief Complaint: Cardiac - History obtained from History obtained from: Patient - Additional information Additional information: Comes emergency department chief complaint of chest pain that has been going on on and off for "a long time", months to years per patient. The patient states that hurts to take a deep breath or try to sit up. She denies any shortness of breath, fever, or chills. No cough. The patient was just admitted to the hospital in mid July for work-up after experiencing further chest pain. At that time, she was evaluated with a stress test and echocardiogram. Stress test was negative, and echo showed a mild amount of fluid in the posterior pericardial sac. It is thought the patient may possibly have pericarditis, but she did very well while admitted and was deemed stable for discharge. The patient is already established with Dr. Weller of cardiology through [facility]. 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 She also has a history of diabetes and hypertension. No known coronary artery disease. Patient states she does not take anything for the pain when she gets the episodes at home. She was given a dose of aspirin in route, and states that her pain is gone. No other complaints at this time. Patient does report that she did follow-up with Dr. Ku on the th of this month via Zoom, and that Dr. Weller is going to have her go to the [facility] for second opinion on her ongoing chest pain. However, she states nothing was changed in her medication regimen. Review of Systems Ten Systems: 10 systems reviewed and negative Constitutional: reports: Reviewed and negative. denies: Fever, Chills Eyes: reports: Reviewed and negative Ears: reports: Reviewed and negative Nose: reports: Reviewed and negative Throat: reports: Reviewed and negative Cardiac: reports: Chest pain / pressure. denies: Pedal edema Respiratory: reports: Reviewed and negative. 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 : None HEENT: Chronic hearing loss Psych: Depression, Anxiety, Panic attacks, Post traumatic stress disorder, Other Musculoskeletal: None Derm: Eczema - Past Surgical History Past Surgical History: Yes Cardiovascular: Valve replacement, Other HEENT: Myringotomy (tubes) - Present Medications Home Medications: Ambulatory Orders Medication Instructions Recorded Confirmed lisinopriL [Lisinopril] 2.5 mg PO DAILY 07/29/17 08/27/20 metFORMIN [Glucophage] 500 mg PO DAILY 07/29/17 08/27/20 ARIPiprazole INJ [Abilify Maintena] 400 mg IM .QMONTH 07/31/20 08/27/20 Acetaminophen [Aphen] 325 mg PO DAILY PRN 07/31/20 08/27/20 Albuterol Sulf [Ventolin Hfa 1 - 2 puffs INH Q6H PRN 07/31/20 08/27/20 Inhaler] Buspirone HCl 7.5 mg PO TID 07/31/20 08/27/20 Doxepin [SINEquan] 25 mg PO DAILY 07/31/20 08/27/20 Levothyroxine [Synthroid] 125 mcg PO DAILY 07/31/20 08/27/20 Melatonin 5 mg PO QPM PRN 07/31/20 08/27/20 Mirtazapine [Remeron] 30 mg PO QPM 07/31/20 08/27/20 Prazosin [Minipress] 1 mg PO DAILY 07/31/20 08/27/20 - Allergies Allergies/Adverse Reactions: Allergies Allergy/AdvReac Type Severity Reaction Status Date / Time cephalexin monohydrate * Allergy Severe Hives Verified 08/27/20 22:36 [From Keflex] cetirizine HCl * Allergy Mild Rash Verified 08/27/20 22:36 [From Zyrtec] bacitracin Allergy Hives Verified 08/27/20 22:36 [From Neosporin ([id number])] bacitracin zinc * Allergy Hives Verified 08/27/20 22:36 [From Neosporin ([id number]-[id number])] neomycin sulfate * Allergy Hives Verified 08/27/20 22:36 [From Neosporin ([id number])] polymyxin B Allergy Hives Verified 08/27/20 22:36 [From Neosporin ([id number])] sulfamethoxazole Allergy Hives Verified 08/27/20 22:36 [From Septra] trimethoprim [From Septra] Allergy Hives Verified 08/27/20 22:36 sertraline HCl * AdvReac Intermediate Nausea Verified 08/27/20 22:36 [From Zoloft] - Social History Does the pt smoke?: No Smoking Status: Never smoker Does the pt drink ETOH?: No Does the pt have substance abuse?: Yes - Immunizations Immunizations are current?: Yes Immunizations: Other immun not current - POLST Patient has POLST: No POLST Status: Full Code PD ED PE NORMAL - Vitals Vital signs reviewed: Yes - General General: Alert and oriented X 3, No acute distress, Well developed/nourished - HEENT HEENT: Atraumatic, PERRL, EOMI, Moist mucous membranes - Neck Neck: Supple, no meningeal sign - Cardiac Cardiac: RRR, No murmur, Strong equal pulses - Respiratory Respiratory: No respiratory distress, Clear bilaterally - Abdomen Abdomen: Soft, Non distended, Other (Mild epigastric tenderness, no rebound or guarding.) - Back Back: No CVA TTP - Derm Derm: Normal color, Warm and dry, No rash - Extremities Extremities: No deformity, No edema, No calf tenderness / cord - Neuro Neuro: Alert and oriented X 3, Other (Grossly intact) - Psych Psych: Normal mood, Normal affect Results - Vitals Vitals: Vital Signs - 24 hr 08/27/20 08/27/20 22:31 23:47 Temperature 37.1 C 36.6 C Heart Rate 80 85 Respiratory 18 16 Rate Blood Pressure 114/66 115/72 O2 Saturation 99 97 Oxygen O2 Source Room air - EKG (time done) 2229 Rate: Rate (enter#) (78) Rhythm: NSR [place]: Normal Intervals: RBBB QRS: Normal Ischemia: Normal ST segments, T wave inversion Compare to prior EKG: Unchanged from prior EKG Computer interpretation: Agree with computer - Rads (name of study) chest XR Radiology: Final report received, EMP read indepedently, See rad report (stable CM) PD MEDICAL DECISION MAKING - ED course Complexity details: reviewed old records, reviewed results, re-evaluated patient, considered differential, d/w patient ED course: I did review the patient's old records and found that the patient had had a very extensive work-up from a cardiac standpoint within the last month, without concerning findings. EKG tonight was unremarkable for new changes. Chest x-ray is also unremarkable. I discussed with the patient that I do not find evidence on EKG of pericarditis, and I do not hear any pericardial rub on exam. I am not sure why the patient is keeps getting episodes of chest pain, but I do not find evidence of an emergent cause of this today. We have discussed home management of the symptoms, as well as the usual indications for return. Patient is also encouraged to continue to pursue the plan as outlined by her sawing and assembly supervisor. Departure - Departure Disposition: 01 Home, Self Care Clinical Impression: Chest pain Qualifiers: Chest pain type: unspecified Qualified Code(s): R07.9 - Chest pain, unspecified Condition: Stable Instructions: ED Chest Pain Atypical Unkn Cause Comments: Your chest x-ray is clear today. There is no evidence of an acute worsening of your cardiac condition, and at this point in time, you should follow-up with your sawing and assembly supervisor and with the sawing and assembly supervisor at [facility], as planned. You may use aspirin, ibuprofen, or Tylenol as needed for the pains that you get. Discharge Date/Time: 08/27/20 23:49
[2020-08-27 23:50] VITALS: BP 115/72
--- NOTE | 2020-08-28 08:22 | XRAY Report ---
PROCEDURE: Chest 1 View X-Ray INDICATIONS: chest pain TECHNIQUE: One view of the chest was acquired. COMPARISON: 07/30/2020 FINDINGS: Surgical changes and devices: Median sternotomy wires and surgical clips are again seen. Prosthetic h eart valve is also unchanged.. Lungs and pleura: No pleural effusions or pneumothorax. Mild pulmonary vascular congestion is likely present. No definite focal infiltrate. Mediastinum: Mediastinal contours appear normal. Heart size is enlarged. Bones and chest wall: No suspicious bony lesions. Overlying soft tissues appear unremarkable. IMPRESSION: Cardiomegaly and mild congestion. No definite focal infiltrate, pleural effusion or pneumothorax. No significant discrepancy. Reviewed by: Ortega Reveles MD on 08/28/2020 8:20 AM [facility] Approved by: Ortega Reveles MD on 08/28/2020 8:20 AM [facility] Station ID: [id number]
== END 2020-08-27 23:49 | disposition home or self-care (01) ==
LOC: EDUNIT# → ED 22:27
DX: R07.9 Chest pain, unspecified (principal); I45.10 Unspecified right bundle-branch block; I10 Essential (primary) hypertension; E11.9 Type 2 diabetes mellitus without complications; Z79.84 Long term (current) use of oral hypoglycemic drugs
CPT/HCPCS: 93005; 99283

== ENCOUNTER 2020-09-11 21:10 | Outpatient (CLI) | payer MEDICARE, MEDICAID | END 2020-09-11 21:11 | disposition critical access hospital (66) | LOC: EMS 21:10 | PROVIDERS: ATTEND Surgery | DX: M54.5 Low back pain (principal) | CPT/HCPCS: A0425; A0429 ==

== ENCOUNTER 2020-09-11 21:28 | Emergency (ER) | payer MEDICARE, MEDICAID ==
[2020-09-11] MEDS ORDERED: KETOROLAC 30 MG/ML VIAL IM STA (21:41)
[2020-09-11] MEDS ORDERED: HYDROcod/ACETAM 5/325 MG TABLET PO STA (21:41)
[2020-09-11] MEDS ORDERED: methocarbamoL 500 MG TABLET PO STA (21:41)
--- NOTE | 2020-09-11 21:42 | ED Physician Documentation ---
PD HPI BACK PAIN - Stated complaint Stated Complaint: LOW BACK PAIN - History obtained from History obtained from: Patient, Family (sister) - History of Present Illness Timing - onset: Today (awoke with low back pain, left and right, this morning. No noted injury. Did not hurt yesterday.) Timing - duration: Days (1) Timing - details: Abrupt onset (noted when awoke from sleep and started to get up.), Still present Location: Lower, Right, Left Quality: Pain, Spasm Associated symptoms: No: Fever, Weakness, Numbness Improves with: Rest Worsened by: Movement Contributing factors: No: Lifting, Twisting, Trauma Similar symptoms before: Has not had sx before Recently seen: Clinic (has been seen for chest pain in past couple months, with eval by ECHO and nuclear stress, without signs of ischemic heart disease.) Review of Systems Constitutional: denies: Fever, Chills Nose: denies: Rhinorrhea / runny nose, Congestion Throat: denies: Sore throat Respiratory: denies: Cough GI: reports: Abdominal Pain (chronic recurrent and is getting referral to GI.), Diarrhea (loose at times chronically.). 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 : None HEENT: Chronic hearing loss Psych: Depression, Anxiety, Panic attacks, Post traumatic stress disorder, Other Musculoskeletal: None Derm: Eczema - Past Surgical History Past Surgical History: Yes Cardiovascular: Valve replacement, Other HEENT: Myringotomy (tubes) - Present Medications Home Medications: Ambulatory Orders Medication Instructions Recorded Confirmed lisinopriL [Lisinopril] 2.5 mg PO DAILY 07/29/17 09/11/20 metFORMIN [Glucophage] 500 mg PO DAILY 07/29/17 09/11/20 ARIPiprazole INJ [Abilify Maintena] 400 mg IM .QMONTH 07/31/20 08/27/20 Acetaminophen [Aphen] 325 mg PO DAILY PRN 07/31/20 08/27/20 Albuterol Sulf [Ventolin Hfa 1 - 2 puffs INH Q6H PRN 07/31/20 08/27/20 Inhaler] Buspirone HCl 15 mg PO TID 07/31/20 09/11/20 Doxepin [SINEquan] 25 mg PO DAILY 07/31/20 09/11/20 Levothyroxine [Synthroid] 125 mcg PO DAILY 07/31/20 09/11/20 Melatonin 5 mg PO QPM PRN 07/31/20 08/27/20 Mirtazapine [Remeron] 30 mg PO QPM 07/31/20 09/11/20 Prazosin [Minipress] 1 mg PO DAILY 07/31/20 09/11/20 HYDROcod/ACETAM 5/325 [Jacob 5/325] 1 ea PO Q6H PRN #14 tablet 09/11/20 tiZANidine [Zanaflex] 4 mg PO Q8H PRN #20 tablet 09/11/20 - Allergies Allergies/Adverse Reactions: Allergies Allergy/AdvReac Type Severity Reaction Status Date / Time cephalexin monohydrate * Allergy Severe Hives Verified 09/11/20 21:49 [From Keflex] cetirizine HCl * Allergy Mild Rash Verified 09/11/20 21:49 [From Zyrtec] bacitracin Allergy Hives Verified 09/11/20 21:49 [From Neosporin ([id number])] bacitracin zinc * Allergy Hives Verified 09/11/20 21:49 [From Neosporin ([id number])] neomycin sulfate * Allergy Hives Verified 09/11/20 21:49 [From Neosporin ([id number])] polymyxin B Allergy Hives Verified 09/11/20 21:49 [From Neosporin ([id number])] sulfamethoxazole Allergy Hives Verified 09/11/20 21:49 [From Septra] trimethoprim [From Septra] Allergy Hives Verified 09/11/20 21:49 sertraline HCl * AdvReac Intermediate Nausea Verified 09/11/20 21:49 [From Zoloft] - Social History Does the pt smoke?: No Smoking Status: Never smoker Does the pt drink ETOH?: No Does the pt have substance abuse?: Yes - Immunizations Immunizations are current?: Yes Immunizations: Other immun not current - POLST Patient has POLST: No POLST Status: Full Code PD ED PE NORMAL - Vitals Vital signs reviewed: Yes - General General: Alert and oriented X 3, Well developed/nourished - Neck Neck: Supple, no meningeal sign, No adenopathy - Cardiac Cardiac: RRR, Other (1/6 murmur left chest) - Respiratory Respiratory: Clear bilaterally - Abdomen Abdomen: Soft, Non distended, No organomegaly, Other (mild tenderness mid to low abd without guarding nor percussion tender. She states that is usually tender for her and is getting GI referral. Abd palpation does not make back hurt more. ) - Back Back: No CVA TTP, Other (tender in paralumbar muscles right more than left, without point tenderness. No rash nor sores. ) - Derm Derm: Normal color, Warm and dry - Neuro Neuro: Alert and oriented X 3, No motor deficit, No sensory deficit, Normal speech, Other (normal patellar reflexes. ) Eye Opening: Spontaneous Motor: Obeys Commands Verbal: Oriented GCS Score: 15 Results - Vitals Vitals: Vital Signs - 24 hr 09/11/20 09/11/20 21:46 22:46 Temperature 37.2 C Heart Rate 88 83 Respiratory 18 18 Rate Blood Pressure 134/91 H 109/79 O2 Saturation 99 97 Oxygen O2 Source Room air - Labs Labs: Laboratory Tests 09/11/20 09/11/20 09/11/20 21:47 21:59 21:59 WBC 8.3 RBC 4.45 Hgb 13.7 Hct 43.7 MCV 98.2 MCH 30.8 MCHC 31.4 L RDW 13.3 Plt Count 146 MPV 12.3 H Neut # (Auto) 5.6 Lymph # (Auto) 2.2 [place] # (Auto) 0.3 Eos # (Auto) 0.2 Baso # (Auto) 0.1 Absolute Nucleated RBC 0.00 Nucleated RBC % 0.0 Sodium 144 Potassium 3.5 Chloride 103 Carbon Dioxide 26 Anion Gap 15.0 H BUN 11 Creatinine 1.1 H Estimated GFR (MDRD) 58 L Glucose 120 H Calcium 9.6 Total Bilirubin 0.9 AST 64 H ALT 76 H Alkaline Phosphatase 123 H Total Protein 8.4 H Albumin 4.7 Globulin 3.7 Albumin/Globulin Ratio 1.3 Urine Color YELLOW Urine Clarity CLEAR Urine pH 6.5 Ur Specific [place] <=1.005 Urine Protein NEGATIVE Urine Glucose (UA) NEGATIVE Urine Ketones NEGATIVE Urine Occult Blood NEGATIVE Urine Nitrite NEGATIVE Urine Bilirubin NEGATIVE Urine Urobilinogen 0.2 (NORMAL) Ur Leukocyte Esterase SMALL H Urine RBC 0-5 Urine WBC 4-5 Ur Squamous Epith Cells MOD Squamous H Urine Bacteria Rare Ur Microscopic Review INDICATED Urine Culture Comments NOT INDICATED Urine HCG, Qual NEGATIVE PD MEDICAL DECISION MAKING - ED course Complexity details: reviewed results, re-evaluated patient (improved and much more cvomfortable after meds. ), considered differential (seems musculoskeletal pain. She is concerned about UTI or kidney process. Not really hurting in kidney area. 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 Use tizanidine muscle relaxant 3 times a day. Tylenol 325 mg 4 times a day. To that add hydrocodone 3 or 4 times a day if needed for pain. Recheck if not improved well over the next several days and resolved by several days to a week. Discharge Date/Time: 09/11/20 22:46
[2020-09-11 22:04] LABS: BASOPHILS # (AUTO) 0.1 10^3/uL (0.0-0.1); BASOPHILS % (AUTO) 0.6 %; EOSINOPHILS # (AUTO) 0.2 10^3/uL (0.0-0.7); EOSINOPHILS % (AUTO) 2.1 %; HGB - HEMOGLOBIN 13.7 g/dL (12.0-16.0); LYMPHOCYTES # (AUTO) 2.2 10^3/uL (1.5-3.5); MEAN CORPUSCULAR HEMOGLOBIN 30.8 pg (27.0-31.0); MEAN CORPUSCULAR HGB CONC 31.4 g/dL (32.0-36.0); MEAN CORPUSCULAR VOLUME 98.2 fL (81.0-99.0); MEAN PLATELET VOLUME 12.3 fL (7.9-10.8); MONOCYTES # (AUTO) 0.3 10^3/uL (0.0-1.0); MONOCYTES % (AUTO) 4.1 %; NEUTROPHILS # (AUTO) 5.6 10^3/uL (1.5-6.6); PLT - PLATELET COUNT 146 10^3/uL (130-450); RED BLOOD COUNT 4.45 10^6/uL (4.20-5.40); RED CELL DISTRIBUTION WIDTH 13.3 % (12.0-15.0); WHITE BLOOD COUNT 8.3 x10^3/uL (4.8-10.8)
[2020-09-11 22:10] LABS: BILIRUBIN,URINE NEGATIVE (NEGATIVE); GLUCOSE, URINE (UA) NEGATIVE (NEGATIVE); KETONES,URINE (UA) NEGATIVE (NEGATIVE); LEUKOCYTE ESTERASE, URINE SMALL (NEGATIVE); NITRITE,URINE NEGATIVE (NEGATIVE); OCCULT BLOOD,URINE NEGATIVE (NEGATIVE); PH,URINE 6.5 PH (5.0-7.5); PROTEIN,URINE NEGATIVE (NEGATIVE); UROBILINOGEN,URINE 0.2 (NORMAL) E.U./dL (NORMAL)
[2020-09-11 22:12] LABS: CLARITY,URINE CLEAR (CLEAR); HCG UR QUAL NEGATIVE
[2020-09-11 22:17] LABS: ALBUMIN 4.7 g/dL (3.2-5.5); ALBUMIN/GLOBULIN RATIO 1.3 (1.0-2.2); BILIRUBIN,TOTAL 0.9 mg/dL (0.2-1.0); CALCIUM 9.6 mg/dL (8.5-10.3); CREATININE 1.1 mg/dL (0.4-1.0); TOTAL PROTEIN 8.4 g/dL (6.7-8.2)
[2020-09-11 22:26] LABS: BACTERIA,URINE Rare /HPF (None Seen); RBC,URINE 0-5 /HPF (0-5); SQUAMOUS EPITHELIAL CELL,UR MOD Squamous (<= Few)
[2020-09-11] MEDS ORDERED: HYDROcod/ACET 5/325 Prepack 4 PO STA (22:36)
[2020-09-11 22:47] VITALS: BP 109/79
== END 2020-09-11 22:46 | disposition home or self-care (01) ==
LOC: EDUNIT# → ED 21:28
DX: M54.5 Low back pain (principal); R10.9 Unspecified abdominal pain; E11.9 Type 2 diabetes mellitus without complications; Z79.84 Long term (current) use of oral hypoglycemic drugs; R01.1 Cardiac murmur, unspecified
CPT/HCPCS: 80053; 81001; 81025; 85025; 96372; 99283; 99284; A9270; 81003; 87086

== ENCOUNTER 2020-09-17 | Outpatient (CLI) | payer MEDICARE, MEDICAID | END 2020-09-17 11:19 | disposition critical access hospital (66) | DX: R07.81 Pleurodynia (principal) | CPT/HCPCS: A0425; A0429 ==

== ENCOUNTER 2020-09-17 11:45 | Emergency (ER) | payer MEDICARE, MEDICAID ==
[2020-09-17 12:16] LABS: BASOPHILS # (AUTO) 0.1 10^3/uL (0.0-0.1); BASOPHILS % (AUTO) 0.6 %; EOSINOPHILS # (AUTO) 0.3 10^3/uL (0.0-0.7); EOSINOPHILS % (AUTO) 3.6 %; HGB - HEMOGLOBIN 13.9 g/dL (12.0-16.0); LYMPHOCYTES # (AUTO) 2.4 10^3/uL (1.5-3.5); LYMPHOCYTES % (AUTO) 27.9 %; MEAN CORPUSCULAR HEMOGLOBIN 30.8 pg (27.0-31.0); MEAN CORPUSCULAR HGB CONC 32.1 g/dL (32.0-36.0); MEAN CORPUSCULAR VOLUME 95.8 fL (81.0-99.0); MEAN PLATELET VOLUME 12.1 fL (7.9-10.8); MONOCYTES # (AUTO) 0.4 10^3/uL (0.0-1.0); NEUTROPHILS # (AUTO) 5.5 10^3/uL (1.5-6.6); NEUTROPHILS % (AUTO) 62.7 %; PLT - PLATELET COUNT 170 10^3/uL (130-450); RED BLOOD COUNT 4.52 10^6/uL (4.20-5.40); RED CELL DISTRIBUTION WIDTH 13.4 % (12.0-15.0); WHITE BLOOD COUNT 8.7 x10^3/uL (4.8-10.8)
--- NOTE | 2020-09-17 12:20 | XRAY Report ---
PROCEDURE: Chest 1 View X-Ray INDICATIONS: Chest Pain TECHNIQUE: One view of the chest was acquired. COMPARISON: Chest x-ray 08/27/2020 FINDINGS: Surgical changes and devices: Sternal wires are noted. Prosthetic heart valve is also noted. Lungs and pleura: No pleural effusions or pneumothorax. Lungs are clear. Mild increased pulmonary v ascularity. Mediastinum: Mediastinal contours appear normal. Heart size is markedly enlarged. Bones and chest wall: No suspicious bony lesions. Overlying soft tissues appear unremarkable. IMPRESSION: Marked cardiomegaly without focal infiltrate. Mild prominence of pulmonary vasculature suggestive of edema. Reviewed by: Miracle Kim MD on 09/17/2020 12:18 PM PST Approved by: Miracle Kim MD on 09/17/2020 12:18 PM PST Station ID: [id number]
[2020-09-17] MEDS ORDERED: ACETAMINOPHEN 325 MG TABLET PO STA (12:39)
[2020-09-17 12:42] LABS: ALBUMIN 4.7 g/dL (3.2-5.5); ALBUMIN/GLOBULIN RATIO 1.4 (1.0-2.2); BILIRUBIN,TOTAL 1.5 mg/dL (0.2-1.0); CALCIUM 9.7 mg/dL (8.5-10.3); CREATININE 1.1 mg/dL (0.4-1.0); TOTAL PROTEIN 8.1 g/dL (6.7-8.2)
[2020-09-17] MEDS ORDERED: LORazepam 0.5 MG TABLET PO STA (12:44)
--- NOTE | 2020-09-17 12:47 | ED Physician Documentation ---
PD HPI CHEST PAIN - Stated complaint Stated Complaint: chest px - Chief complaint Chief Complaint: Cardiac - History obtained from History obtained from: Patient - History of Present Illness Pain level max: 7 Pain level now: 2 Quality: Pressure, Aching, Sharp Location: Left chest, Right chest Radiation: No: Jaw, Neck, Back, Abdominal, Left upper extremity, Right upper extremity Improved by: Rest Worsened by: Movement, Palpation Associated symptoms: No: Shortness of air, Diaphoresis, Nausea, Vomiting, Feeling faint / dizzy, General Weakness, Palpitations, Cough - Additional information Additional information: Patient is a 29-year-old female who presents to the emergency department complaint of bilateral chest pain. She states this is the same as her usual chest pain. She states she is scheduled for a work-up at the [facility] in 5 days. She has a history of tetralogy of Fallot. She states that she talked to the clinic today and they told her to come to the emergency department for evaluation. She states that she has had increasing anxiety lately and feels like she may be having a panic attack. Currently her pain is mild. She denies any suicidal or homicidal ideation. She states her pain was better after taking pain medication this morning. She is unsure what she took, she thinks it may have been Motrin or aspirin. Review of Systems Ten Systems: 10 systems reviewed and negative Constitutional: denies: Fever, Chills Ears: denies: Ear pain Nose: denies: Rhinorrhea / runny nose, Congestion Throat: denies: Sore throat Cardiac: denies: Palpitations, Calf pain Respiratory: denies: Cough GI: denies: Vomiting, Diarrhea : denies: Dysuria Skin: denies: Rash Musculoskeletal: denies: Neck pain, Back pain Neurologic: denies: Headache PD PAST MEDICAL HISTORY - Past Medical History Past Medical History: Yes Cardiovascular: Hypertension, High cholesterol, Murmur, Valve disorder, Other Respiratory: Asthma Neuro: None, Other Endocrine/Autoimmune: Type 2 diabetes, HyPOthyroidism GI: Other DIFFERENTIAL SPECIALIST: None : None HEENT: Chronic hearing loss Psych: Depression, Anxiety, Panic attacks, Post traumatic stress disorder, Other Musculoskeletal: None Derm: Eczema - Past Surgical History Past Surgical History: Yes Cardiovascular: Valve replacement, Other HEENT: Myringotomy (tubes) - Present Medications Home Medications: Ambulatory Orders Medication Instructions Recorded Confirmed lisinopriL [Lisinopril] 2.5 mg PO DAILY 07/29/17 09/17/20 metFORMIN [Glucophage] 500 mg PO DAILY 07/29/17 09/17/20 ARIPiprazole INJ [Abilify Maintena] 400 mg IM .QMONTH 07/31/20 09/17/20 Acetaminophen [Aphen] 325 mg PO DAILY PRN 07/31/20 09/17/20 Albuterol Sulf [Ventolin Hfa 1 - 2 puffs INH Q6H PRN 07/31/20 09/17/20 Inhaler] Buspirone HCl 15 mg PO TID 07/31/20 09/17/20 Doxepin [SINEquan] 10 mg PO DAILY 07/31/20 09/17/20 Levothyroxine [Synthroid] 125 mcg PO DAILY 07/31/20 09/17/20 Melatonin 5 mg PO QPM PRN 07/31/20 09/17/20 Mirtazapine [Remeron] 20 mg PO QPM 07/31/20 09/17/20 Prazosin [Minipress] 1 mg PO DAILY 07/31/20 09/17/20 HYDROcod/ACETAM 5/325 [[place] 5/325] 1 ea PO Q6H PRN #14 tablet 09/11/20 09/17/20 tiZANidine [Zanaflex] 4 mg PO Q8H PRN #20 tablet 09/11/20 09/17/20 Furosemide [Lasix] 20 mg PO DAILY 09/17/20 09/17/20 - Allergies Allergies/Adverse Reactions: Allergies Allergy/AdvReac Type Severity Reaction Status Date / Time cephalexin monohydrate * Allergy Severe Hives Verified 09/17/20 11:49 [From Keflex] cetirizine HCl * Allergy Mild Rash Verified 09/17/20 11:49 [From Zyrtec] bacitracin Allergy Hives Verified 09/17/20 11:49 [From Neosporin ([id number])] bacitracin zinc * Allergy Hives Verified 09/17/20 11:49 [From Neosporin ([id number])] neomycin sulfate * Allergy Hives Verified 09/17/20 11:49 [From Neosporin ([id number])] polymyxin B Allergy Hives Verified 09/17/20 11:49 [From Neosporin ([id number])] sulfamethoxazole Allergy Hives Verified 09/17/20 11:49 [From Septra] trimethoprim [From Septra] Allergy Hives Verified 09/17/20 11:49 sertraline HCl * AdvReac Intermediate Nausea Verified 09/17/20 11:49 [From Zoloft] - Social History Does the pt smoke?: No Smoking Status: Former smoker Does the pt drink ETOH?: No Does the pt have substance abuse?: Yes Substance Use and Type: Marijuana - Immunizations Immunizations are current?: Yes Immunizations: Other immun not current - POLST Patient has POLST: No POLST Status: Full Code PD ED PE NORMAL - Vitals Vital signs reviewed: Yes - General General: Alert and oriented X 3, No acute distress - HEENT HEENT: PERRL, Moist mucous membranes - Neck Neck: Supple, no meningeal sign - Cardiac Cardiac: RRR, Strong equal pulses - Respiratory Respiratory: No respiratory distress, Clear bilaterally - Abdomen Abdomen: Soft, Non tender, Non distended - Derm Derm: Warm and dry, No rash - Extremities Extremities: No edema, No calf tenderness / cord - Neuro Neuro: Alert and oriented X 3 - Psych Psych: Normal mood, Normal affect Results - Vitals Vitals: Vital Signs - 24 hr 09/17/20 09/17/20 09/17/20 11:49 12:50 13:22 Temperature 37 C 36.8 C Heart Rate 82 79 77 Respiratory 16 22 20 Rate Blood Pressure 116/85 H 123/82 H 122/80 O2 Saturation 99 100 100 Oxygen O2 Source Room air - EKG (time done) 1150 Rate: Rate (enter#) (80) Rhythm: NSR Intervals: RBBB QRS: LVH Compare to prior EKG: Unchanged from prior EKG - Labs Labs: Laboratory Tests 09/17/20 09/17/20 09/17/20 12:05 12:05 12:05 WBC 8.7 RBC 4.52 Hgb 13.9 Hct 43.3 MCV 95.8 MCH 30.8 MCHC 32.1 RDW 13.4 Plt Count 170 MPV 12.1 H Neut # (Auto) 5.5 Lymph # (Auto) 2.4 [place] # (Auto) 0.4 Eos # (Auto) 0.3 Baso # (Auto) 0.1 Absolute Nucleated RBC 0.00 Nucleated RBC % 0.0 Sodium 139 Potassium 3.3 L Chloride 97 L Carbon Dioxide 25 Anion Gap 17.0 H BUN 9 Creatinine 1.1 H Estimated GFR (MDRD) 58 L Glucose 108 H Calcium 9.7 Total Bilirubin 1.5 H AST 75 H ALT 66 H Alkaline Phosphatase 123 H Troponin I High Sens 3.2 Total Protein 8.1 Albumin 4.7 Globulin 3.4 Albumin/Globulin Ratio 1.4 Lipase 31 - Rads (name of study) cxr Radiology: Prelim report reviewed, EMP read contemporaneously, See rad report (Marked cardiomegaly without focal infiltrate. Mild prominence of pulmonary vasculature suggestive of edema) PD MEDICAL DECISION MAKING - ED course Complexity details: reviewed results, re-evaluated patient, considered differential (No ST elevation [place], no aortic dissection, no PE, no tension pneumothorax, no aortic aneurysm), d/w patient ED course: Symptoms resolved in the emergency department. Patient feels much better. We will have her follow-up with her doctor for further care. No evidence of acute coronary syndrome. No evidence of PE. No evidence of pneumothorax. Has chronic LFT elevation. Has had ultrasounds without gallbladder disease. Does have fatty liver. Patient counseled regarding signs and symptoms for which I believe and urgent re-evaluation would be necessary. Patient with good understanding of and agreement to plan and is comfortable going home at this time This document was made in part using voice recognition software. While efforts are made to proofread this document, sound alike and grammatical errors may occur. 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 Return if you worsen. You can use Tylenol or Motrin at home for pain. Continue your current medications. Your testing is normal today. Discharge Date/Time: 09/17/20 13:26
[2020-09-17 13:23] VITALS: BP 122/80
== END 2020-09-17 13:26 | disposition home or self-care (01) ==
LOC: EDUNIT# → ED 11:45
DX: R07.9 Chest pain, unspecified (principal); R74.8 Abnormal levels of other serum enzymes; I11.9 Hypertensive heart disease without heart failure; I45.10 Unspecified right bundle-branch block; K76.0 Fatty (change of) liver, not elsewhere classified; F41.9 Anxiety disorder, unspecified; E11.9 Type 2 diabetes mellitus without complications; Z79.84 Long term (current) use of oral hypoglycemic drugs; Z86.79 Personal history of other diseases of the circulatory system; Z87.891 Personal history of nicotine dependence
CPT/HCPCS: 36415; 71045; 80053; 83690; 84484; 85025; 93005; 99284; A9270

== ENCOUNTER 2020-10-29 15:13 | Outpatient (CLI) | payer MEDICARE, MEDICAID ==
--- NOTE | 2020-10-29 16:18 | Ultrasound Report ---
PROCEDURE: Abdomen Limited INDICATIONS: ELEVATED LIVER ENZYMES TECHNIQUE: Real-time focused scanning was performed of the abdomen, with image documentation. COMPARISON: 02/13/2020 FINDINGS: Diffusely increased hepatic parenchymal echogenicity and coarsened hepatic echotexture, fi ndings which are nonspecific but suggest a diffuse hepatocellular process such as steatosis, hepatiti s, or potentially early cirrhosis. No focal hepatic mass. No intrahepatic or extra hepatic biliary du ctal dilatation. Unremarkable CT appearance of the gallbladder, right kidney, and visualized portions of the pancreas. IMPRESSION: Diffusely increased hepatic parenchymal echogenicity with mild coarsened hepatic echotexture. These f indings are consistent with a diffuse hepatocellular process such as steatosis or steatohepatitis, vi ral hepatitis, or potentially early cirrhotic change. Other less common diffuse hepatocellular proces ses are also possible. Findings are not significantly changed from the prior study. Reviewed by: Harshil Goins MD on 10/29/2020 4:16 PM PDT Approved by: Harshil Goins MD on 10/29/2020 4:16 PM PDT Station ID: [id number]
== END 2020-10-29 15:14 | disposition home or self-care (01) ==
LOC: DI 15:13
PROVIDERS: ATTEND Internal Medicine Gastroenterology
DX: R93.2 Abnormal findings on diagnostic imaging of liver and biliary tract (principal)

== ENCOUNTER 2020-11-04 08:00 | Outpatient (CLI) | payer MEDICARE, MEDICAID ==
[2020-11-04 17:50] LABS: BASOPHILS % (AUTO) 0.5 %; EOSINOPHILS # (AUTO) 0.3 10^3/uL (0.0-0.7); EOSINOPHILS % (AUTO) 2.9 %; HGB - HEMOGLOBIN 13.3 g/dL (12.0-16.0); LYMPHOCYTES % (AUTO) 23.4 %; MEAN CORPUSCULAR HEMOGLOBIN 31.1 pg (27.0-31.0); MEAN CORPUSCULAR HGB CONC 31.7 g/dL (32.0-36.0); MEAN CORPUSCULAR VOLUME 98.4 fL (81.0-99.0); MEAN PLATELET VOLUME 12.3 fL (7.9-10.8); MONOCYTES # (AUTO) 0.4 10^3/uL (0.0-1.0); MONOCYTES % (AUTO) 4.2 %; NEUTROPHILS % (AUTO) 68.8 %; PLT - PLATELET COUNT 170 10^3/uL (130-450); RED BLOOD COUNT 4.27 10^6/uL (4.20-5.40); RED CELL DISTRIBUTION WIDTH 13.6 % (12.0-15.0); WHITE BLOOD COUNT 8.6 x10^3/uL (4.8-10.8)
[2020-11-04 17:51] LABS: BILIRUBIN,URINE NEGATIVE (NEGATIVE); GLUCOSE, URINE (UA) NEGATIVE (NEGATIVE); KETONES,URINE (UA) NEGATIVE (NEGATIVE); LEUKOCYTE ESTERASE, URINE MODERATE (NEGATIVE); NITRITE,URINE NEGATIVE (NEGATIVE); OCCULT BLOOD,URINE LARGE (NEGATIVE); PH,URINE 5.5 PH (5.0-7.5); PROTEIN,URINE NEGATIVE (NEGATIVE); UROBILINOGEN,URINE 0.2 (NORMAL) E.U./dL (NORMAL)
[2020-11-04 17:53] LABS: CLARITY,URINE CLOUDY (CLEAR)
[2020-11-04 18:01] LABS: BACTERIA,URINE Few /HPF (None Seen); SQUAMOUS EPITHELIAL CELL,UR FEW Squamous (<= Few); WBC,URINE >25 /HPF (0-5)
[2020-11-04 18:11] LABS: ALBUMIN 4.6 g/dL (3.2-5.5); ALBUMIN/GLOBULIN RATIO 1.4 (1.0-2.2); BILIRUBIN,TOTAL 1.1 mg/dL (0.2-1.0); CALCIUM 9.4 mg/dL (8.5-10.3); POTASSIUM 3.5 mmol/L (3.5-5.0)
[2020-11-04 19:11] LABS: ESTIMATED AVERAGE GLUCOSE 137 mg/dL (70-100); HEMOGLOBIN A1c% 6.4 % (4.27-6.07)
== END 2020-11-04 23:59 | disposition home or self-care (01) ==
LOC: LAB.WCP 08:00
PROVIDERS: ATTEND Nurse Practitioner
DX: E11.9 Type 2 diabetes mellitus without complications (principal); R30.0 Dysuria; R10.9 Unspecified abdominal pain
CPT/HCPCS: 36415; 80053; 81001; 83036; 85025; 87086; 87181

== ENCOUNTER 2020-11-06 17:51 | Outpatient (CLI) | payer MEDICARE, MEDICAID | END 2020-11-06 17:52 | disposition EMS.NT | LOC: EMS 17:51 | DX: M54.5 Low back pain (principal); R30.0 Dysuria; R31.0 Gross hematuria ==

== ENCOUNTER 2020-11-18 10:32 | Emergency (ER) | payer MEDICARE, MEDICAID ==
[2020-11-18] MEDS ORDERED: NAPROXEN 250 MG TABLET PO STA (11:59)
--- NOTE | 2020-11-18 12:10 | ED Physician Documentation ---
History of Present Illness - Stated complaint Stated Complaint: R BREAST PX - Chief complaint Chief Complaint: General - History obtained from History obtained from: Patient - Additonal information Additional information: Patient comes emergency department chief complaint of right breast pain that has been going on for the last approximately 5 days. Patient states it just feels as though something is poking her in the right side of her breast. Patient denies any mass. She states there may be swelling but she is not sure. Patient states her poor eyesight does not allow her to get a good look and see if her breast appears red. She denies any drainage from the nipple that she knows of. Patient has a history of amenorrhea for the last 13 years and has not been recently. She is not lactating. Patient denies trauma to her breast. No other complaints at this time. No family history of breast cancer that patient knows of Review of Systems Ten Systems: 10 systems reviewed and negative Constitutional: reports: Reviewed and negative Eyes: reports: Reviewed and negative Ears: reports: Reviewed and negative Nose: reports: Reviewed and negative Throat: reports: Reviewed and negative Cardiac: reports: Reviewed and negative Respiratory: reports: Reviewed and negative GI: reports: Reviewed and negative : reports: Reviewed and negative Skin: reports: Reviewed and negative Musculoskeletal: reports: Reviewed and negative Neurologic: reports: Reviewed and negative Psychiatric: reports: Reviewed and negative Endocrine: reports: Reviewed and negative Immunocompromised: reports: Reviewed and negative PD PAST MEDICAL HISTORY - Past Medical History Past Medical History: Yes Cardiovascular: Hypertension, High cholesterol, Murmur, Valve disorder, Other Respiratory: Asthma Neuro: None, Other Endocrine/Autoimmune: Type 2 diabetes, HyPOthyroidism GI: Other CLIENT DIRECTOR: None : None HEENT: Chronic hearing loss Psych: Depression, Anxiety, Panic attacks, Post traumatic stress disorder, Other Musculoskeletal: None Derm: Eczema - Past Surgical History Past Surgical History: Yes Cardiovascular: Valve replacement, Other HEENT: Myringotomy (tubes) - Present Medications Home Medications: Ambulatory Orders Medication Instructions Recorded Confirmed lisinopriL [Lisinopril] 2.5 mg PO DAILY 07/29/17 11/18/20 metFORMIN [Glucophage] 500 mg PO DAILY 07/29/17 11/18/20 ARIPiprazole INJ [Abilify Maintena] 400 mg IM .QMONTH 07/31/20 11/18/20 Acetaminophen [Aphen] 325 mg PO DAILY PRN 07/31/20 11/18/20 Albuterol Sulf [Ventolin Hfa 1 - 2 puffs INH Q6H PRN 07/31/20 11/18/20 Inhaler] Doxepin [SINEquan] 10 mg PO DAILY 07/31/20 11/18/20 Levothyroxine [Synthroid] 125 mcg PO DAILY 07/31/20 11/18/20 Melatonin 5 mg PO QPM PRN 07/31/20 11/18/20 Mirtazapine [Remeron] 20 mg PO QPM 07/31/20 11/18/20 Prazosin [Minipress] 2 mg PO DAILY 07/31/20 11/18/20 tiZANidine [Zanaflex] 4 mg PO Q8H PRN #20 tablet 09/11/20 11/18/20 Furosemide [Lasix] 20 mg PO DAILY 09/17/20 11/18/20 LORazepam [Ativan] 1 mg PO DAILY PRN 11/18/20 11/18/20 Naproxen 250 mg PO QID PRN #15 tablet 11/18/20 - Allergies Allergies/Adverse Reactions: Allergies Allergy/AdvReac Type Severity Reaction Status Date / Time cephalexin monohydrate * Allergy Severe Hives Verified 11/18/20 10:50 [From Keflex] cetirizine HCl * Allergy Mild Rash Verified 11/18/20 10:50 [From Zyrtec] bacitracin Allergy Hives Verified 11/18/20 10:50 [From Neosporin ([id number])] bacitracin zinc * Allergy Hives Verified 11/18/20 10:50 [From Neosporin (ipo-qel-qytag)] neomycin sulfate * Allergy Hives Verified 11/18/20 10:50 [From Neosporin ([id number]-[id number]-[id number])] polymyxin B Allergy Hives Verified 11/18/20 10:50 [From Neosporin ([id number]-bkg-[id number])] sulfamethoxazole Allergy Hives Verified 11/18/20 10:50 [From Septra] trimethoprim [From Septra] Allergy Hives Verified 11/18/20 10:50 sertraline HCl * AdvReac Intermediate Nausea Verified 11/18/20 10:50 [From Zoloft] - Social History Does the pt smoke?: No Smoking Status: Former smoker Does the pt drink ETOH?: Yes Does the pt have substance abuse?: Yes Substance Use and Type: Marijuana - Immunizations Immunizations are current?: Yes Immunizations: Other immun not current - POLST Patient has POLST: No POLST Status: Full Code PD ED PE NORMAL - Vitals Vital signs reviewed: Yes - General General: Alert and oriented X 3, No acute distress, Well developed/nourished - HEENT HEENT: Atraumatic, PERRL, EOMI, Moist mucous membranes - Neck Neck: Supple, no meningeal sign - Respiratory Respiratory: No respiratory distress - Derm Derm: Normal color, Warm and dry, No rash - Extremities Extremities: No deformity, No edema - Neuro Neuro: Alert and oriented X 3, 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 No distortion of nipple/areola. No peau d'orange. No palpable mass in either breast. Patient does have tenderness with deep probing during breast exam. This is located in approximately the 10 o'clock position probing toward the areola. However, no cords, erythema, fluctuance, induration, or any other abnormalities are noted. There is no palpable lymphadenopathy in either the breast or the axilla. No nipple discharge. Results - Vitals Vitals: Vital Signs - 24 hr 11/18/20 11/18/20 10:50 13:04 Temperature 36.5 C 36.9 C Heart Rate 86 83 Respiratory 18 18 Rate Blood Pressure 135/76 H 123/85 H O2 Saturation 99 100 Oxygen O2 Source Room air PD MEDICAL DECISION MAKING - ED course Complexity details: considered differential, d/w patient ED course: Examination revealed no abnormality of either breast, nor was there any axillary adenopathy. I did not find any indication for work-up or further intervention i n the ED. The pt was advised to follow up with her PCP or CLIENT DIRECTOR to discuss whether further intervention, such as mammogram, is indicated. We have discussed the usual indications for return. Departure - Departure Disposition: Home, Self Care Clinical Impression: Breast pain Condition: Stable Instructions: Benign Conditions Breast, Self Exam Breast Prescriptions: Naproxen 250 mg PO QID PRN #15 tablet PRN Reason: Pain Comments: Examination of your breast does not reveal any abnormal findings, other than some tenderness in the area of your breast glands. However, there is nothing that feels abnormal, like a tumor, or the inflammatory changes that we would expect with infection. Additionally, the skin of your breast appears healthy and does not show the changes that we would expect with cancer or infection. It is not clear exactly why your breast is hurting, since you have not had any trauma to the area. Most likely, there is some swelling or inflammation of the natural glandular tissue of the breasts, which can happen intermittently as a result of changes in your female hormones. It is important that you follow-up with your primary doctor to determine whether you need to have a mammogram or not. Generally, women should have mammograms starting age 40, so you would be a bit young for this. However, you should make an appointment to follow-up with your doctor and talk to her further about any concerns she may have regarding your breast pain. You may take ibuprofen or naproxen to help with this. You may also use warm and cold compresses to help with some of the discomfort, as well. Be sure you are wearing a bra that is supportive but not overly tight. Discharge Date/Time: 11/18/20 13:05
[2020-11-18 13:05] VITALS: BP 123/85
== END 2020-11-18 13:05 | disposition home or self-care (01) ==
LOC: ED 10:32
DX: N64.4 Mastodynia (principal); N91.2 Amenorrhea, unspecified; I10 Essential (primary) hypertension; E11.9 Type 2 diabetes mellitus without complications; Z79.84 Long term (current) use of oral hypoglycemic drugs; Z87.891 Personal history of nicotine dependence
CPT/HCPCS: 99282; 99284; A9270

== ENCOUNTER 2021-01-09 10:11 | Outpatient (CLI) | payer MEDICARE, MEDICAID ==
--- NOTE | 2021-01-13 13:25 | Mammography Report ---
BILATERAL DIGITAL DIAGNOSTIC MAMMOGRAM 3D/2D: 01/09/2021 CLINICAL: Intermitten pain in bilateral breasts. Pt had medical emergency during exam and left to be evaluated for left chest pain and left breast tingling. Pt had a vasovagal episode during exam. Pt cooper s had open heart surgery x2. Baseline exam. No prior exams were available for comparison. The tissue of both breasts is extremely dense, which lowers the sensitivity of mammography. No significant masses, calcifications, or other findings are seen in either breast. IMPRESSION: NEGATIVE There is no mammographic evidence of malignancy. Return to annual mammogram screening schedule is recommended. Breast pain in the breast is reported as bilateral and diffuse. During the mammogram examination the patient experienced a syncopal event and was taking to the emergency room. The additional ML view of the left breast was not obtained due to this syncopal event. If there is a high concern, the left ML view could be subsequently obtained. Recommend clinical evaluation. This exam was interpreted at Station ID: [id number]. NOTE: For mammograms, a report in lay terms will be sent to the patient. Approximately 15% of breast malignancies will not be visualized mammographically. In the management of a palpable breast mass, a negative mammogram must not discourage biopsy of a clinically suspicious lesion. Electronically Signed By: Armen Peck M.D. slc/:01/09/2021 15:22:31 ACR BI-RADS Category 1: Negative 3341F PARENCHYMAL PATTERN: (VD) - The breast(s) demonstrate(s) extremely dense parenchyma, limiting the sen sitivity of mammography. BI-RADS CATEGORY: (1) - 1 RECOMMENDATION: (ANNUAL) - Recommend routine annual screening mammography. [id number] return to screening LATERALITY: (B)
== END 2021-01-09 23:59 | disposition home or self-care (01) ==
LOC: DI 10:11
PROVIDERS: ATTEND Nurse Practitioner Family
DX: N64.4 Mastodynia (principal)

== ENCOUNTER 2021-01-09 10:29 | Outpatient (CLI) | payer MEDICARE, MEDICAID ==
--- NOTE | 2021-01-09 13:36 | Ultrasound Report ---
PROCEDURE: Abdomen Complete INDICATIONS: ABD PAIN TECHNIQUE: Real-time scanning was performed of the abdominal and retroperitoneal organs, with image documentatio n. COMPARISON: None. FINDINGS: Liver: Borderline hepatomegaly is seen. Liver measures 17 cm in length. Coarsely echogenic liver pare nchyma is seen. No discrete hepatic lesion. Suggestion of sparing near gallbladder fossa is noted. Gallbladder: There is no gallstone. No gallbladder wall thickening or pericholecystic fluid. No sonog raphic Sherman's sign. Biliary ducts: Intrahepatic bile ducts are non-dilated. Extrahepatic bile duct caliber measures 4.2 mm. Normal is 6-7 mm or less in diameter, or 10 mm or less post-cholecystectomy. Pancreas: Visualized portions of the pancreas are sonographically normal. Spleen: Spleen is normal in size and homogeneous in echotexture. Kidneys: Kidneys are normal in size and echotexture. Right kidney measures 9.7 cm long; left kidney measures 9.4 cm long. No hydronephrosis or nephrolithiasis. No solid masses. Aorta: Visualized aorta is normal in caliber at less than 3 cm. Iliacs: Proximal common iliac arteries are normal in caliber at less than 2.5 cm. IVC: Intrahepatic inferior vena cava is patent. Miscellaneous: No free abdominal fluid. IMPRESSION: 1. Hepatic steatosis with areas of sparing near gallbladder fossa. Borderline hepatomegaly measures 1 7 cm in length. 2. Normal-appearing gallbladder. No biliary ductal dilatation. 3. Rest of the exam is unremarkable. Reviewed by: Ortega Reveles MD on 01/09/2021 1:34 PM PDT Approved by: Ortega Reveles MD on 01/09/2021 1:34 PM PDT Station ID: [id number]
== END 2021-01-09 10:30 | disposition home or self-care (01) ==
LOC: DI 10:29
PROVIDERS: ATTEND Nurse Practitioner Family
DX: K76.0 Fatty (change of) liver, not elsewhere classified (principal); R16.0 Hepatomegaly, not elsewhere classified

== ENCOUNTER 2021-01-09 13:07 | Emergency (ER) | payer MEDICARE, MEDICAID ==
[2021-01-09] MEDS ORDERED: LORazepam 2 MG/ML VIAL IVP STA (13:16)
[2021-01-09] MEDS ORDERED: SODIUM CHLORIDE 0.9% 1,000 ML IV STA (13:16)
--- NOTE | 2021-01-09 13:18 | ED Physician Documentation ---
PD HPI ABD PAIN - Stated complaint Stated Complaint: LIGHT HEADED/LT BREAST PX - Chief complaint Chief Complaint: Cardiac - History obtained from History obtained from: Patient - Additional information Additional information: 30-year-old woman with history of tetralogy of Fallot with repair and pulmonic valve replacement, anxiety, hypothyroidism, diabetes, hypertension, reflux, depression presents with 5 days of constant left breast pain feeling like needles are in her breast. It is associated with intermittent shortness of breath, significant anxiety, and postural dizziness. She does note that she was fasting today for an abdominal ultrasound, results are not available yet, but the dizziness preceded the fasting. She denies pedal edema or calf pain. No possibility of . Review of Systems Ten Systems: 10 systems reviewed and negative Constitutional: denies: Fever, Chills Cardiac: denies: Pedal edema, Calf pain Respiratory: reports: Cough. 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 HEENT: Chronic hearing loss Psych: Depression, Anxiety, Panic attacks, Post traumatic stress disorder, Other Musculoskeletal: None Derm: Eczema - Past Surgical History Past Surgical History: Yes Cardiovascular: Valve replacement, Other HEENT: Myringotomy (tubes) - Present Medications Home Medications: Ambulatory Orders Medication Instructions Recorded Confirmed lisinopriL [Lisinopril] 2.5 mg PO DAILY 07/29/17 01/09/21 metFORMIN [Glucophage] 500 mg PO DAILY 07/29/17 01/09/21 ARIPiprazole INJ [Abilify Maintena] 400 mg IM .QMONTH 07/31/20 01/09/21 Acetaminophen [Aphen] 325 mg PO DAILY PRN 07/31/20 01/09/21 Albuterol Sulf [Ventolin Hfa 1 - 2 puffs INH Q6H PRN 07/31/20 01/09/21 Inhaler] Doxepin [SINEquan] 10 mg PO DAILY 07/31/20 01/09/21 Levothyroxine [Synthroid] 125 mcg PO DAILY 07/31/20 01/09/21 Melatonin 5 mg PO QPM PRN 07/31/20 01/09/21 Mirtazapine [Remeron] 20 mg PO QPM 07/31/20 01/09/21 Prazosin [Minipress] 2 mg PO DAILY 07/31/20 01/09/21 tiZANidine [Zanaflex] 4 mg PO Q8H PRN #20 tablet 09/11/20 01/09/21 Furosemide [Lasix] 20 mg PO DAILY 09/17/20 01/09/21 LORazepam [Ativan] 1 mg PO DAILY PRN 11/18/20 11/18/20 Naproxen 250 mg PO QID PRN #15 tablet 11/18/20 01/09/21 - Allergies Allergies/Adverse Reactions: Allergies Allergy/AdvReac Type Severity Reaction Status Date / Time cephalexin monohydrate * Allergy Severe Hives Verified 01/09/21 13:14 [From Keflex] cetirizine HCl * Allergy Mild Rash Verified 01/09/21 13:14 [From Zyrtec] bacitracin Allergy Hives Verified 01/09/21 13:14 [From Neosporin ([id number])] bacitracin zinc * Allergy Hives Verified 01/09/21 13:14 [From Neosporin ([id number]-gnm-[id number])] neomycin sulfate * Allergy Hives Verified 01/09/21 13:14 [From Neosporin ([id number]-ggh-[id number])] polymyxin B Allergy Hives Verified 01/09/21 13:14 [From Neosporin ([id number]-[id number])] sulfamethoxazole Allergy Hives Verified 01/09/21 13:14 [From Septra] trimethoprim [From Septra] Allergy Hives Verified 01/09/21 13:14 sertraline HCl * AdvReac Intermediate Nausea Verified 01/09/21 13:14 [From Zoloft] - Social History Does the pt smoke?: No Smoking Status: Former smoker Does the pt drink ETOH?: Yes Does the pt have substance abuse?: Yes - Immunizations Immunizations are current?: Yes Immunizations: Other immun not current - POLST Patient has POLST: No POLST Status: Full Code PD ED PE NORMAL - Vitals Vital signs reviewed: Yes - General General: Alert and oriented X 3 (Anxious and sometimes tearful) - HEENT HEENT: PERRL, EOMI - Neck Neck: Supple, no meningeal sign, No bony TTP - Cardiac Cardiac: RRR, Other (Subtle systolic murmur at the right upper sternal border) - Respiratory Respiratory: No respiratory distress, Clear bilaterally - Abdomen Abdomen: Non tender - Back Back: No CVA TTP, No spinal TTP - Derm Derm: Normal color, Warm and dry - Extremities Extremities: No edema, No calf tenderness / cord - Neuro Neuro: Alert and oriented X 3, Normal speech Results - Vitals Vitals: Vital Signs - 24 hr 01/09/21 13:11 Temperature 36.3 C L Heart Rate 84 Respiratory 16 Rate Blood Pressure 135/92 H O2 Saturation 99 Oxygen O2 Source Room air - EKG (time done) 1312 Rate: Rate (enter#) (83) Rhythm: NSR [place]: Normal Intervals: RBBB QRS: Normal Ischemia: Normal ST segments - Labs Labs: Laboratory Tests 01/09/21 01/09/21 01/09/21 13:13 13:13 13:13 WBC 8.1 RBC 4.37 Hgb 13.8 Hct 42.9 MCV 98.2 MCH 31.6 H MCHC 32.2 RDW 13.1 Plt Count 159 MPV 12.4 H Neut # (Auto) 4.8 Lymph # (Auto) 2.5 [place] # (Auto) 0.4 Eos # (Auto) 0.3 Baso # (Auto) 0.1 Absolute Nucleated RBC 0.00 Nucleated RBC % 0.0 Sodium 143 Potassium 4.2 Chloride 104 Carbon Dioxide 30 Anion Gap 9.0 BUN 6 Creatinine 1.1 H Estimated GFR (MDRD) 58 L Glucose 106 H Calcium 9.8 Total Bilirubin 1.0 AST 93 H ALT 101 H Alkaline Phosphatase 136 H Troponin I High Sens 3.9 Total Protein 8.9 H Albumin 5.0 Globulin 3.9 Albumin/Globulin Ratio 1.3 Lipase 32 PD MEDICAL DECISION MAKING - ED course Complexity details: reviewed old records (Stress test with nuclear component negative in July of last year. Right bundle branch block is old looking at prior EKGs.) ED course: 30-year-old woman presents with atypical chest pain and dizziness in the setting of anxiety and comorbidities including history of tetralogy of Fallot and type 2 diabetes. Labs reviewed, they are at her baseline. Chest x-ray shows no acute disease. Troponin and EKG without change. Departure - Departure Disposition: 01 Home, Self Care Clinical Impression: Atypical chest pain Condition: Good Record reviewed to determine appropriate education?: Yes Instructions: ED Chest Pain Atypical Unkn Cause Comments: Call your doctor to arrange a follow-up appointment, make the next available appointment. In the interim, return anytime if worse or if new symptoms develop.
[2021-01-09 13:34] LABS: BASOPHILS # (AUTO) 0.1 10^3/uL (0.0-0.1); BASOPHILS % (AUTO) 0.6 %; EOSINOPHILS # (AUTO) 0.3 10^3/uL (0.0-0.7); EOSINOPHILS % (AUTO) 3.1 %; HCT - HEMATOCRIT 42.9 % (37.0-47.0); HGB - HEMOGLOBIN 13.8 g/dL (12.0-16.0); LYMPHOCYTES # (AUTO) 2.5 10^3/uL (1.5-3.5); LYMPHOCYTES % (AUTO) 30.9 %; MEAN CORPUSCULAR HEMOGLOBIN 31.6 pg (27.0-31.0); MEAN CORPUSCULAR HGB CONC 32.2 g/dL (32.0-36.0); MEAN CORPUSCULAR VOLUME 98.2 fL (81.0-99.0); MEAN PLATELET VOLUME 12.4 fL (7.9-10.8); MONOCYTES # (AUTO) 0.4 10^3/uL (0.0-1.0); MONOCYTES % (AUTO) 5.5 %; NEUTROPHILS # (AUTO) 4.8 10^3/uL (1.5-6.6); NEUTROPHILS % (AUTO) 59.8 %; PLT - PLATELET COUNT 159 10^3/uL (130-450); RED BLOOD COUNT 4.37 10^6/uL (4.20-5.40); RED CELL DISTRIBUTION WIDTH 13.1 % (12.0-15.0); WHITE BLOOD COUNT 8.1 x10^3/uL (4.8-10.8)
--- NOTE | 2021-01-09 13:51 | XRAY Report ---
PROCEDURE: Chest 1 View X-Ray INDICATIONS: Chest Pain TECHNIQUE: One view of the chest was acquired. COMPARISON: None. FINDINGS: Surgical changes and devices: Sternotomy wires. Lungs and pleura: No pleural effusions or pneumothorax. Scattered subsegmental scarring/atelectasis . No acute consolidation. Mediastinum: Mediastinal contours appear normal. Heart size is normal. Bones and chest wall: No suspicious bony lesions. Overlying soft tissues appear unremarkable. IMPRESSION: No acute disease. Reviewed by: Silvestre Giron MD on 01/09/2021 1:49 PM PDT Approved by: Silvestre Giron MD on 01/09/2021 1:49 PM PDT Station ID: [id number]
[2021-01-09 14:02] LABS: ALBUMIN/GLOBULIN RATIO 1.3 (1.0-2.2); CALCIUM 9.8 mg/dL (8.5-10.3); CREATININE 1.1 mg/dL (0.4-1.0); POTASSIUM 4.2 mmol/L (3.5-5.0); TOTAL PROTEIN 8.9 g/dL (6.7-8.2)
[2021-01-09 14:23] VITALS: BP 114/81
== END 2021-01-09 15:51 | disposition home or self-care (01) ==
LOC: ED 13:07
DX: R07.89 Other chest pain (principal); I10 Essential (primary) hypertension; E11.9 Type 2 diabetes mellitus without complications; Q21.3 Tetralogy of Fallot; Z79.84 Long term (current) use of oral hypoglycemic drugs; Z87.891 Personal history of nicotine dependence; K76.0 Fatty (change of) liver, not elsewhere classified; R16.0 Hepatomegaly, not elsewhere classified; N64.4 Mastodynia
CPT/HCPCS: 36415; 71045; 76700; 77066; 80053; 83690; 84484; 85025; 93005; 96361; 96374; 99284; J2060

== ENCOUNTER 2021-01-23 06:43 | Outpatient (CLI) | payer MEDICARE, MEDICAID | END 2021-01-23 06:44 | disposition critical access hospital (66) | LOC: EMS 06:43 | DX: R10.9 Unspecified abdominal pain (principal); R19.7 Diarrhea, unspecified | CPT/HCPCS: A0425; A0429 ==

== ENCOUNTER 2021-01-23 07:01 | Emergency (ER) | payer MEDICARE, MEDICAID ==
[2021-01-23] MEDS ORDERED: ACETAMINOPHEN 325 MG TABLET PO STA (07:09)
--- NOTE | 2021-01-23 07:10 | ED Physician Documentation ---
PD HPI ABD PAIN - Stated complaint Stated Complaint: ABD PX - History obtained from History obtained from: Patient, EMS - Additional information Additional information: 30-year-old woman with history of tetralogy of Fallot but no abdominal s urgeries. 5 days of constant diffuse abdominal pain "like dragon flies in my stomach." It is associated with vomiting and diarrhea. No sick contacts. No fevers. is unlikely but not impossible. Says she has had similar episodes in the past worked up with ultrasound with diagnosis of fatty liver, no other clear diagnoses. Abdominal ultrasound from January 09 reviewed showing hepatic steatosis, borderline hepatomegaly, the rest of the exam was unremarkable. She has chronically elevated liver enzymes with transaminases in the 60 to 100 range, generally. 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 HEENT: Chronic hearing loss Psych: Depression, Anxiety, Panic attacks, Post traumatic stress disorder, Other Musculoskeletal: None Derm: Eczema - Past Surgical History Past Surgical History: Yes Cardiovascular: Valve replacement, Other HEENT: Myringotomy (tubes) - Present Medications Home Medications: Ambulatory Orders Medication Instructions Recorded Confirmed lisinopriL [Lisinopril] 2.5 mg PO DAILY 07/29/17 01/23/21 metFORMIN [Glucophage] 500 mg PO DAILY 07/29/17 01/23/21 ARIPiprazole INJ [Abilify Maintena] 400 mg IM .QMONTH 07/31/20 01/23/21 Acetaminophen [Aphen] 325 mg PO DAILY PRN 07/31/20 01/23/21 Albuterol Sulf [Ventolin Hfa 1 - 2 puffs INH Q6H PRN 07/31/20 01/23/21 Inhaler] Doxepin [SINEquan] 10 mg PO DAILY 07/31/20 01/23/21 Levothyroxine [Synthroid] 125 mcg PO DAILY 07/31/20 01/23/21 Melatonin 5 mg PO QPM PRN 07/31/20 01/23/21 Mirtazapine [Remeron] 20 mg PO QPM 07/31/20 01/23/21 Prazosin [Minipress] 2 mg PO DAILY 07/31/20 01/23/21 Furosemide [Lasix] 20 mg PO DAILY 09/17/20 01/23/21 LORazepam [Ativan] 1 mg PO DAILY PRN 11/18/20 01/23/21 Naproxen 250 mg PO QID PRN #15 tablet 11/18/20 01/23/21 Nitrofurantoin Macrocrystal 100 mg PO BID #10 cap 01/23/21 [Macrodantin] - Allergies Allergies/Adverse Reactions: Allergies Allergy/AdvReac Type Severity Reaction Status Date / Time cephalexin monohydrate * Allergy Severe Hives Verified 01/23/21 07:28 [From Keflex] cetirizine HCl * Allergy Mild Rash Verified 01/23/21 07:28 [From Zyrtec] bacitracin Allergy Hives Verified 01/23/21 07:28 [From Neosporin ([id number])] bacitracin zinc * Allergy Hives Verified 01/23/21 07:28 [From Neosporin ([id number]-[id number]-[id number])] neomycin sulfate * Allergy Hives Verified 01/23/21 07:28 [From Neosporin ([id number]-kzn-[id number])] polymyxin B Allergy Hives Verified 01/23/21 07:28 [From Neosporin (lbr-caz-xrdoc)] sulfamethoxazole Allergy Hives Verified 01/23/21 07:28 [From Septra] trimethoprim [From Septra] Allergy Hives Verified 01/23/21 07:28 sertraline HCl * AdvReac Intermediate Nausea Verified 01/23/21 07:28 [From Zoloft] - Social History Does the pt smoke?: No Smoking Status: Former smoker Does the pt drink ETOH?: Yes Does the pt have substance abuse?: Yes - Immunizations Immunizations are current?: Yes Immunizations: Other immun not current - POLST Patient has POLST: No POLST Status: Full Code PD ED PE NORMAL - Vitals Vital signs reviewed: Yes - General General: Alert and oriented X 3, No acute distress - HEENT HEENT: PERRL, EOMI - Neck Neck: Supple, no meningeal sign, No bony TTP - Cardiac Cardiac: RRR - Respiratory Respiratory: No respiratory distress, Clear bilaterally - Abdomen Abdomen: Normal bowel sounds, Soft, Other (Mild LLQ TTP) - Back Back: No CVA TTP, No spinal TTP - Derm Derm: Normal color, Warm and dry - Extremities Extremities: No edema, No calf tenderness / cord - Neuro Neuro: Alert and oriented X 3, Normal speech Results - Vitals Vitals: Vital Signs - 24 hr 01/23/21 07:08 Temperature 37.1 C Heart Rate 80 Respiratory 18 Rate Blood Pressure 123/79 O2 Saturation 98 Oxygen O2 Source Room air - Labs Labs: Laboratory Tests 01/23/21 01/23/21 01/23/21 07:31 07:31 07:59 WBC 7.4 RBC 4.21 Hgb 13.2 Hct 40.5 MCV 96.2 MCH 31.4 H MCHC 32.6 RDW 13.1 Plt Count 170 MPV 12.3 H Neut # (Auto) 4.4 Lymph # (Auto) 2.3 Crisp # (Auto) 0.4 Eos # (Auto) 0.2 Baso # (Auto) 0.1 Absolute Nucleated RBC 0.00 Nucleated RBC % 0.0 Sodium 138 Potassium 3.2 L Chloride 100 L Carbon Dioxide 26 Anion Gap 12.0 BUN 9 Creatinine 1.1 H Estimated GFR (MDRD) 58 L Glucose 112 H Calcium 9.4 Total Bilirubin 0.9 AST 75 H ALT 67 H Alkaline Phosphatase 118 Total Protein 8.7 H Albumin 5.0 Globulin 3.7 Albumin/Globulin Ratio 1.4 Lipase 35 Urine Color LIGHT YELLOW Urine Clarity CLEAR Urine pH 5.5 Ur Specific [place] <=1.005 Urine Protein NEGATIVE Urine Glucose (UA) NEGATIVE Urine Ketones NEGATIVE Urine Occult Blood NEGATIVE Urine Nitrite NEGATIVE Urine Bilirubin NEGATIVE Urine Urobilinogen 0.2 (NORMAL) Ur Leukocyte Esterase LARGE H Urine RBC 0-5 Urine WBC 6-10 H Ur Squamous Epith Cells MOD Squamous H Urine Bacteria Few Ur Microscopic Review INDICATED Urine Culture Comments NOT INDICATED Urine HCG, Qual NEGATIVE - Rads (name of study) CT A/P Radiology: EMP read contemporaneously (NAD) PD MEDICAL DECISION MAKING - ED course ED course: Patient with chronic abdominal pain, some tenderness in the suprapubic and left lower quadrant area. No evidence of diverticulitis on CT. Declined pain medication while here. Unable to produce a stool sample for culture. She has seen GI for this problem without clear diagnosis. Given the suprapubic tenderness and bacteriuria she is treated with Macrobid. Departure - Departure Disposition: 01 Home, Self Care Clinical Impression: Cystitis, Abdominal pain Condition: Stable Record reviewed to determine appropriate education?: Yes Instructions: ED UTI Cystitis Female Prescriptions: Nitrofurantoin Macrocrystal [Macrodantin] 100 mg PO BID #10 cap Comments: Follow-up with your primary care physician, next available appointment. Return for new or worsening symptoms. CT scanning labs were basically normal except for some chronic findings of mildly elevated liver enzymes and mildly low potassium, we did give you a potassium pill here prior to discharge. Discharge Date/Time: 01/23/21 09:37
[2021-01-23 07:28] VITALS: BP 123/79
[2021-01-23] MEDS ORDERED: IOVERSOL 320 100 ML VIAL IVP ONE ×2 (07:35→08:45)
[2021-01-23 08:00] LABS: BASOPHILS # (AUTO) 0.1 10^3/uL (0.0-0.1); BASOPHILS % (AUTO) 0.7 %; EOSINOPHILS # (AUTO) 0.2 10^3/uL (0.0-0.7); EOSINOPHILS % (AUTO) 2.7 %; HCT - HEMATOCRIT 40.5 % (37.0-47.0); HGB - HEMOGLOBIN 13.2 g/dL (12.0-16.0); LYMPHOCYTES # (AUTO) 2.3 10^3/uL (1.5-3.5); LYMPHOCYTES % (AUTO) 31.6 %; MEAN CORPUSCULAR HEMOGLOBIN 31.4 pg (27.0-31.0); MEAN CORPUSCULAR HGB CONC 32.6 g/dL (32.0-36.0); MEAN CORPUSCULAR VOLUME 96.2 fL (81.0-99.0); MEAN PLATELET VOLUME 12.3 fL (7.9-10.8); MONOCYTES # (AUTO) 0.4 10^3/uL (0.0-1.0); MONOCYTES % (AUTO) 5.3 %; NEUTROPHILS # (AUTO) 4.4 10^3/uL (1.5-6.6); NEUTROPHILS % (AUTO) 59.6 %; PLT - PLATELET COUNT 170 10^3/uL (130-450); RED BLOOD COUNT 4.21 10^6/uL (4.20-5.40); RED CELL DISTRIBUTION WIDTH 13.1 % (12.0-15.0); WHITE BLOOD COUNT 7.4 x10^3/uL (4.8-10.8)
[2021-01-23 08:08] LABS: BILIRUBIN,URINE NEGATIVE (NEGATIVE); GLUCOSE, URINE (UA) NEGATIVE (NEGATIVE); KETONES,URINE (UA) NEGATIVE (NEGATIVE); LEUKOCYTE ESTERASE, URINE LARGE (NEGATIVE); NITRITE,URINE NEGATIVE (NEGATIVE); OCCULT BLOOD,URINE NEGATIVE (NEGATIVE); PH,URINE 5.5 PH (5.0-7.5); PROTEIN,URINE NEGATIVE (NEGATIVE); UROBILINOGEN,URINE 0.2 (NORMAL) E.U./dL (NORMAL)
[2021-01-23 08:15] LABS: ALBUMIN/GLOBULIN RATIO 1.4 (1.0-2.2); BILIRUBIN,TOTAL 0.9 mg/dL (0.2-1.0); CALCIUM 9.4 mg/dL (8.5-10.3); CREATININE 1.1 mg/dL (0.4-1.0); POTASSIUM 3.2 mmol/L (3.5-5.0); TOTAL PROTEIN 8.7 g/dL (6.7-8.2)
[2021-01-23 08:18] LABS: CLARITY,URINE CLEAR (CLEAR); HCG UR QUAL NEGATIVE
[2021-01-23 08:27] LABS: BACTERIA,URINE Few /HPF (None Seen); RBC,URINE 0-5 /HPF (0-5); SQUAMOUS EPITHELIAL CELL,UR MOD Squamous (<= Few)
--- NOTE | 2021-01-23 08:53 | CT Report ---
PROCEDURE: Abdomen/Pelvis W INDICATIONS: IV only, LLQ pain CONTRAST: IV CONTRAST: Optiray 320 ml: 100 PO CONTRAST: *NO PO CONTRAST TECHNIQUE: After the administration of IV contrast, 5 mm thick sections acquired from the diaphragms to the symp hysis. 5 mm thick coronal and sagittal reformats were acquired. For radiation dose reduction, the f ollowing was used: automated exposure control, adjustment of mA and/or kV according to patient size. COMPARISON: 12/08/2017. FINDINGS: Image quality: Excellent. ABDOMEN: Lung bases: Lung bases are clear. Heart size is normal. Solid organs: Liver is normal in size. No discrete hepatic lesion is seen. Moderate to severe hepati c steatosis is seen. Spleen shows normal size and enhancement. Gallbladder is within normal limits. Biliary system is non dilated. Pancreas enhances normally. No adrenal nodules. Kidneys demonstrate normal size and enhancement, without hydronephrosis. Peritoneum and bowel: Bowel loops demonstrate normal wall thickness and caliber. No free fluid or a ir. Appendix is visualized and is within normal limits. No abscess collection. Nodes and vessels: No retroperitoneal or mesenteric adenopathy by size criteria. Aorta and inferior vena cava are normal in size. Miscellaneous: No ventral hernias. PELVIS: Genitourinary: Bladder wall thickness is normal. Intrauterine device is noted within its endometrial location. No gross abnormality is seen in bilateral adnexa. Miscellaneous: No inguinal hernias or adenopathy. Bones: No suspicious bony lesions. No vertebral body compression fractures. IMPRESSION: 1. No bowel obstruction or abnormal bowel wall thickening. No free fluid or free air. Normal appendix . 2. No renal stone or hydronephrosis. 3. Intrauterine device is noted within uterus. No gross abnormality is seen in bilateral ovaries. Reviewed by: Ortega Reveles MD on 01/23/2021 8:51 AM PDT Approved by: Ortega Reveles MD on 01/23/2021 8:51 AM PDT Station ID: [id number]
[2021-01-23] MEDS ORDERED: POTASSIUM CHLORIDE 20 MEQ TABLET PO STA (08:56)
== END 2021-01-23 09:37 | disposition home or self-care (01) ==
LOC: EDUNIT# → ED 07:01
DX: N30.90 Cystitis, unspecified without hematuria (principal); R10.9 Unspecified abdominal pain; I10 Essential (primary) hypertension; E11.9 Type 2 diabetes mellitus without complications; Z79.84 Long term (current) use of oral hypoglycemic drugs; Z87.891 Personal history of nicotine dependence
CPT/HCPCS: 36415; 74177; 80053; 81001; 81025; 83690; 85025; 99284; A9270; Q9967; 81003; 87086

== ENCOUNTER 2021-03-09 09:08 | Outpatient (CLI) | payer MEDICARE, MEDICAID ==
--- NOTE | 2021-03-09 11:11 | XRAY Report ---
PROCEDURE: Foot 3 View LT INDICATIONS: CONTUSION OF L FOOT TECHNIQUE: 3 views of the foot were acquired. COMPARISON: None FINDINGS: Bones: No fractures or dislocations. No suspicious bony lesions. Soft tissues: No tibiotalar joint effusion. Achilles tendon appears normal. IMPRESSION: Normal left foot Reviewed by: Russell Tom on 03/09/2021 11:09 AM PDT Approved by: Russell Tom on 03/09/2021 11:09 AM PDT Station ID: [id number]
== END 2021-03-09 23:59 | disposition home or self-care (01) ==
LOC: DI.N 09:08
PROVIDERS: ATTEND Physician Assistant Medical
DX: S90.32XA Contusion of left foot, initial encounter (principal)

== ENCOUNTER 2021-03-24 11:22 | Outpatient (CLI) | payer MEDICARE, MEDICAID | END 2021-03-24 11:23 | disposition home or self-care (01) | LOC: LAB.N 11:22 | PROVIDERS: ATTEND Family Medicine | DX: Z53.9 Procedure and treatment not carried out, unspecified reason (principal) ==

== ENCOUNTER 2021-03-24 11:23 | Outpatient (CLI) | payer MEDICARE, MEDICAID ==
[2021-03-24 18:10] LABS: BILIRUBIN,URINE NEGATIVE (NEGATIVE); GLUCOSE, URINE (UA) NEGATIVE (NEGATIVE); KETONES,URINE (UA) NEGATIVE (NEGATIVE); LEUKOCYTE ESTERASE, URINE MODERATE (NEGATIVE); NITRITE,URINE NEGATIVE (NEGATIVE); OCCULT BLOOD,URINE NEGATIVE (NEGATIVE); PROTEIN,URINE NEGATIVE (NEGATIVE); UROBILINOGEN,URINE 0.2 (NORMAL) E.U./dL (NORMAL)
[2021-03-24 18:14] LABS: CLARITY,URINE CLEAR (CLEAR)
[2021-03-24 18:36] LABS: BACTERIA,URINE Few /HPF (None Seen); RBC,URINE 0-5 /HPF (0-5); SQUAMOUS EPITHELIAL CELL,UR FEW Squamous (<= Few)
== END 2021-03-24 23:59 ==
LOC: LAB.N 11:23
PROVIDERS: ATTEND Family Medicine
DX: R10.9 Unspecified abdominal pain (principal)
CPT/HCPCS: 81001; 87086

== ENCOUNTER 2021-03-30 11:24 | Outpatient (CLI) | payer MEDICARE, MEDICAID ==
[2021-03-30 17:57] LABS: BILIRUBIN,URINE NEGATIVE (NEGATIVE); GLUCOSE, URINE (UA) NEGATIVE (NEGATIVE); KETONES,URINE (UA) NEGATIVE (NEGATIVE); LEUKOCYTE ESTERASE, URINE MODERATE (NEGATIVE); NITRITE,URINE NEGATIVE (NEGATIVE); OCCULT BLOOD,URINE NEGATIVE (NEGATIVE); PROTEIN,URINE NEGATIVE (NEGATIVE); UROBILINOGEN,URINE 0.2 (NORMAL) E.U./dL (NORMAL)
[2021-03-30 18:23] LABS: BACTERIA,URINE Many /HPF (None Seen); CLARITY,URINE HAZY (CLEAR); RBC,URINE 0-5 /HPF (0-5); SQUAMOUS EPITHELIAL CELL,UR MOD Squamous (<= Few); WBC,URINE >25 /HPF (0-5)
== END 2021-03-30 11:25 | disposition home or self-care (01) ==
LOC: LAB.N 11:24
PROVIDERS: ATTEND Nurse Practitioner
DX: R30.0 Dysuria (principal)
CPT/HCPCS: 81001; 87086

== ENCOUNTER 2021-05-18 21:12 | Outpatient (CLI) | payer MEDICARE, MEDICAID | END 2021-05-18 21:13 | disposition EMS.NT | LOC: EMS 21:12 | DX: M54.2 Cervicalgia (principal); R09.81 Nasal congestion ==

== ENCOUNTER 2021-06-25 08:00 | Outpatient (CLI) | payer MEDICARE, MEDICAID | END 2021-06-25 23:59 | disposition home or self-care (01) | LOC: LAB.N 08:00 | PROVIDERS: ATTEND Physician Assistant | DX: R39.9 Unspecified symptoms and signs involving the genitourinary system (principal) | CPT/HCPCS: 87086 ==

== ENCOUNTER 2021-07-20 08:00 | Outpatient (CLI) | payer MEDICARE, MEDICAID ==
[2021-07-20 21:16] LABS: BACTERIAL VAGINOSIS DNA POSITIVE (NEGATIVE); CANDIDA GLABRATA DNA NEGATIVE (NEGATIVE); CANDIDA GROUP DNA NEGATIVE (NEGATIVE); CANDIDA KRUSEI DNA NEGATIVE (NEGATIVE); TRICHOMONAS VAGINALIS DNA NEGATIVE (NEGATIVE)
== END 2021-07-20 23:59 ==
LOC: LAB.N 08:00
PROVIDERS: ATTEND Nurse Practitioner
DX: N39.0 Urinary tract infection, site not specified (principal)
CPT/HCPCS: 87077; 87086; 87181; 87661; 87801

== ENCOUNTER 2021-08-30 23:05 | Outpatient (CLI) | payer MEDICARE, MEDICAID | END 2021-08-30 23:06 | disposition critical access hospital (66) | LOC: EMS 23:05 | DX: R45.851 Suicidal ideations (principal) | CPT/HCPCS: A0425; A0429 ==

== ENCOUNTER 2021-08-30 23:22 | Emergency (ER) | payer MEDICARE, MEDICAID ==
--- NOTE | 2021-08-30 23:49 | ED Physician Documentation ---
PD HPI MHE - Stated complaint Stated Complaint: SI - Chief complaint Chief Complaint: MHE - History obtained from History obtained from: Patient, EMS - History of Present Illness Primary symptom: Suicidal ideation Timing - onset: Today (tonight) Pain level max: 0 Pain level now: 0 Recently seen: Not recently seen - Additional information Additional information: BIBA. Patient c/o suicidal thoughts with plan of drowning herself. She used marijuana tonight and she feels this might have triggered these thoughts, although she has used marijuana before without this effect. Review of Systems Cardiac: reports: Reviewed and negative Respiratory: reports: Reviewed and negative GI: reports: Reviewed and negative Psychiatric: reports: Depressed, Suicidal. 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 HEENT: Chronic hearing loss Psych: Depression, Anxiety, Panic attacks, Post traumatic stress disorder, Other Musculoskeletal: None Derm: Eczema - Past Surgical History Past Surgical History: Yes Cardiovascular: Valve replacement, Other HEENT: Myringotomy (tubes) - Present Medications Home Medications: Ambulatory Orders Medication Instructions Recorded Confirmed lisinopriL [Lisinopril] 2.5 mg PO DAILY 07/29/17 08/30/21 metFORMIN [Glucophage] 500 mg PO DAILY 07/29/17 08/30/21 ARIPiprazole INJ [Abilify Maintena] 400 mg IM .QMONTH 07/31/20 08/30/21 Acetaminophen [Aphen] 325 mg PO DAILY PRN 07/31/20 08/30/21 Albuterol Sulf [Ventolin Hfa 1 - 2 puffs INH Q6H PRN 07/31/20 08/30/21 Inhaler] Doxepin [SINEquan] 10 mg PO DAILY 07/31/20 08/30/21 Levothyroxine [Synthroid] 125 mcg PO DAILY 07/31/20 08/30/21 Melatonin 5 mg PO QPM PRN 07/31/20 08/30/21 Mirtazapine [Remeron] 20 mg PO QPM 07/31/20 08/30/21 Prazosin [Minipress] 2 mg PO DAILY 07/31/20 08/30/21 Furosemide [Lasix] 20 mg PO DAILY 09/17/20 08/30/21 LORazepam [Ativan] 1 mg PO DAILY PRN 11/18/20 08/30/21 Naproxen 250 mg PO QID PRN #15 tablet 11/18/20 08/30/21 - Allergies Allergies/Adverse Reactions: Allergies Allergy/AdvReac Type Severity Reaction Status Date / Time cephalexin monohydrate * Allergy Severe Hives Verified 08/30/21 23:28 [From Keflex] cetirizine HCl * Allergy Mild Rash Verified 08/30/21 23:28 [From Zyrtec] bacitracin Allergy Hives Verified 08/30/21 23:28 [From Neosporin ([id number])] bacitracin zinc * Allergy Hives Verified 08/30/21 23:28 [From Neosporin (atm-gcq-ekjhw)] neomycin sulfate * Allergy Hives Verified 08/30/21 23:28 [From Neosporin (evv-gee-mxela)] polymyxin B Allergy Hives Verified 08/30/21 23:28 [From Neosporin (suo-gud-puhzw)] sulfamethoxazole Allergy Hives Verified 08/30/21 23:28 [From Septra] trimethoprim [From Septra] Allergy Hives Verified 08/30/21 23:28 sertraline HCl * AdvReac Intermediate Nausea Verified 08/30/21 23:28 [From Zoloft] - Social History Does the pt smoke?: No Smoking Status: Never smoker Does the pt drink ETOH?: Yes Does the pt have substance abuse?: Yes - Immunizations Immunizations are current?: Yes Immunizations: Other immun not current - POLST Patient has POLST: No POLST Status: Full Code PD ED PE NORMAL - Vitals Vital signs reviewed: Yes - General General: Alert and oriented X 3, No acute distress, Well developed/nourished - HEENT HEENT: Moist mucous membranes - Neck Neck: Supple, no meningeal sign - Cardiac Cardiac: RRR - Respiratory Respiratory: No respiratory distress, Clear bilaterally - Abdomen Abdomen: Soft, Non tender - Derm Derm: Normal color, Warm and dry - Neuro Neuro: Alert and oriented X 3 Eye Opening: Spontaneous Motor: Obeys Commands Verbal: Oriented GCS Score: 15 PD ED PE EXPANDED - Cardiac Cardiac: Murmur Present (09/20 TEDDY cardiac base, greatest right 2nd ICS) - Psych Psych: Other (flat affect) Results - Vitals Vitals: Vital Signs - 24 hr 08/30/21 08/31/21 08/31/21 23:28 03:53 11:00 Temperature 36.3 C L 36.5 C 37.0 C Heart Rate 89 81 83 Respiratory 15 16 17 Rate Blood Pressure 112/66 115/68 127/68 O2 Saturation 99 98 95 08/31/21 14:34 Temperature 37.0 C Heart Rate 80 Respiratory 16 Rate Blood Pressure 124/62 O2 Saturation 96 Oxygen O2 Source Room air - Labs Labs: Microbiology 08/31/21 00:44 Urine Culture - Preliminary Urine,Clean Catch CULTURE IN PROGRESS. RESULTS TO FOLLOW. Laboratory Tests 08/31/21 08/31/21 08/31/21 00:37 00:37 00:37 WBC 8.8 RBC 4.25 Hgb 13.1 Hct 39.5 MCV 92.9 MCH 30.8 MCHC 33.2 RDW 13.1 Plt Count 158 MPV 12.6 H Neut # (Auto) 6.7 H Lymph # (Auto) 1.4 L [place] # (Auto) 0.6 Eos # (Auto) 0.1 Baso # (Auto) 0.0 Absolute Nucleated RBC 0.00 Nucleated RBC % 0.0 Sodium 139 Potassium 3.6 Chloride 100 L Carbon Dioxide 27 Anion Gap 12.0 BUN 8 Creatinine 0.8 Estimated GFR (MDRD) 83 L Glucose 156 H Calcium 9.2 TSH 0.08 L Urine Color Urine Clarity Urine pH Ur Specific Shock Urine Protein Urine Glucose (UA) Urine Ketones Urine Occult Blood Urine Nitrite Urine Bilirubin Urine Urobilinogen Ur Leukocyte Esterase Urine RBC Urine WBC Ur Squamous Epith Cells Urine Bacteria Ur Microscopic Review Urine Culture Comments Urine HCG, Qual Nasal Adenovirus (PCR) Nasal B. parapertussis DNA (PCR) Nasal Coronavir 229E PCR Nasal Coronavir HKU1 PCR Nasal Coronavir NL63 PCR Nasal Coronavir OC43 PCR Nasal Enterovir/Rhinovir PCR Nasal Influenza B PCR Nasal Influenza A PCR Nasal Parainfluen 1 PCR Nasal Parainfluen 2 PCR Nasal Parainfluen 3 PCR Nasal Parainfluen 4 PCR Nasal RSV (PCR) Nasal B.pertussis DNA PCR Nasal C.pneumoniae (PCR) Kev[place] Human Metapneumo PCR Nasal M.pneumoniae (PCR) Nasal SARS-CoV-2 (PCR) Salicylates < 6.0 Urine Opiates Screen Ur Oxycodone Screen Urine Methadone Screen Ur Propoxyphene Screen Acetaminophen < 10 L Ur Barbiturates Screen Ur Tricyclics Screen Ur Phencyclidine Scrn Ur Amphetamine Screen U Methamphetamines Scrn U Benzodiazepines Scrn Urine Cocaine Screen U Cannabinoids Screen Ethyl Alcohol < 5.0 08/31/21 08/31/21 00:44 07:22 WBC RBC Hgb Hct MCV MCH MCHC RDW Plt Count MPV Neut # (Auto) Lymph # (Auto) [place] # (Auto) Eos # (Auto) Baso # (Auto) Absolute Nucleated RBC Nucleated RBC % Sodium Potassium Chloride Carbon Dioxide Anion Gap BUN Creatinine Estimated GFR (MDRD) Glucose Calcium TSH Urine Color YELLOW Urine Clarity CLEAR Urine pH 6.0 Ur Specific [place] <=1.005 Urine Protein NEGATIVE Urine Glucose (UA) NEGATIVE Urine Ketones NEGATIVE Urine Occult Blood SMALL H Urine Nitrite NEGATIVE Urine Bilirubin NEGATIVE Urine Urobilinogen 0.2 (NORMAL) Ur Leukocyte Esterase SMALL H Urine RBC 0-5 Urine WBC 4-5 Ur Squamous Epith Cells RARE Squamous Urine Bacteria Rare Ur Microscopic Review INDICATED Urine Culture Comments INDICATED Urine HCG, Qual NEGATIVE Nasal Adenovirus (PCR) NOT DETECTED Nasal B. parapertussis DNA (PCR) NOT DETECTED Nasal Coronavir 229E PCR NOT DETECTED Nasal Coronavir HKU1 PCR NOT DETECTED Nasal Coronavir NL63 PCR NOT DETECTED Nasal Coronavir OC43 PCR NOT DETECTED Nasal Enterovir/Rhinovir PCR DETECTED A Nasal Influenza B PCR NOT DETECTED Nasal Influenza A PCR NOT DETECTED Nasal Parainfluen 1 PCR NOT DETECTED Nasal Parainfluen 2 PCR NOT DETECTED Nasal Parainfluen 3 PCR NOT DETECTED Nasal Parainfluen 4 PCR NOT DETECTED Nasal RSV (PCR) NOT DETECTED Nasal B.pertussis DNA PCR NOT DETECTED Nasal C.pneumoniae (PCR) NOT DETECTED Kevyn Human Metapneumo PCR NOT DETECTED Nasal M.pneumoniae (PCR) NOT DETECTED Nasal SARS-CoV-2 (PCR) NOT DETECTED Salicylates Urine Opiates Screen NEGATIVE Ur Oxycodone Screen NEGATIVE Urine Methadone Screen NEGATIVE Ur Propoxyphene Screen NEGATIVE Acetaminophen Ur Barbiturates Screen NEGATIVE Ur Tricyclics Screen NEGATIVE Ur Phencyclidine Scrn NEGATIVE Ur Amphetamine Screen NEGATIVE U Methamphetamines Scrn NEGATIVE U Benzodiazepines Scrn NEGATIVE Urine Cocaine Screen NEGATIVE U Cannabinoids Screen POSITIVE H Ethyl Alcohol PD MEDICAL DECISION MAKING - ED course Complexity details: reviewed old records, reviewed results, re-evaluated patient, considered differential, d/w patient ED course: presents with SI with plan. Telepsych consult obtained and recommendation is inpatient treatment. Patient is voluntary at this time. Care of patient turned over to Dr. 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 Follow the safety plan as outlined by the social director and follow up with your therapist as planned. Discharge Date/Time: 08/31/21 14:34
[2021-08-31 00:42] LABS: BASOPHILS % (AUTO) 0.3 %; EOSINOPHILS # (AUTO) 0.1 10^3/uL (0.0-0.7); EOSINOPHILS % (AUTO) 0.8 %; HCT - HEMATOCRIT 39.5 % (37.0-47.0); HGB - HEMOGLOBIN 13.1 g/dL (12.0-16.0); LYMPHOCYTES # (AUTO) 1.4 10^3/uL (1.5-3.5); LYMPHOCYTES % (AUTO) 15.8 %; MEAN CORPUSCULAR HEMOGLOBIN 30.8 pg (27.0-31.0); MEAN CORPUSCULAR HGB CONC 33.2 g/dL (32.0-36.0); MEAN CORPUSCULAR VOLUME 92.9 fL (81.0-99.0); MEAN PLATELET VOLUME 12.6 fL (7.9-10.8); MONOCYTES # (AUTO) 0.6 10^3/uL (0.0-1.0); MONOCYTES % (AUTO) 6.9 %; NEUTROPHILS # (AUTO) 6.7 10^3/uL (1.5-6.6); NEUTROPHILS % (AUTO) 75.9 %; PLT - PLATELET COUNT 158 10^3/uL (130-450); RED BLOOD COUNT 4.25 10^6/uL (4.20-5.40); RED CELL DISTRIBUTION WIDTH 13.1 % (12.0-15.0); WHITE BLOOD COUNT 8.8 x10^3/uL (4.8-10.8)
[2021-08-31 00:50] LABS: MUDS CUTOFF CONCENTRATIONS CUTOFF CONC BELOW:
[2021-08-31 00:54] LABS: BILIRUBIN,URINE NEGATIVE (NEGATIVE); GLUCOSE, URINE (UA) NEGATIVE (NEGATIVE); KETONES,URINE (UA) NEGATIVE (NEGATIVE); LEUKOCYTE ESTERASE, URINE SMALL (NEGATIVE); NITRITE,URINE NEGATIVE (NEGATIVE); OCCULT BLOOD,URINE SMALL (NEGATIVE); PROTEIN,URINE NEGATIVE (NEGATIVE); UROBILINOGEN,URINE 0.2 (NORMAL) E.U./dL (NORMAL)
[2021-08-31 00:56] LABS: ACETAMINOPHEN < 10 ug/mL (10-30); BUN - BLOOD UREA NITROGEN 8 mg/dL (6-20); CALCIUM 9.2 mg/dL (8.5-10.3); CARBON DIOXIDE - CO2 27 mmol/L (21-32); CHLORIDE 100 mmol/L (101-111); CREATININE 0.8 mg/dL (0.4-1.0); ETOH - ETHANOL < 5.0 mg/dL; GFR - MDRD 83 (>89); GLUCOSE 156 mg/dL (70-100); POTASSIUM 3.6 mmol/L (3.5-5.0); SALICYLATE < 6.0 mg/dL; SODIUM 139 mmol/L (135-145)
[2021-08-31 01:02] LABS: CLARITY,URINE CLEAR (CLEAR)
[2021-08-31 01:03] LABS: BACTERIA,URINE Rare /HPF (None Seen); HCG UR QUAL NEGATIVE; RBC,URINE 0-5 /HPF (0-5); SQUAMOUS EPITHELIAL CELL,UR RARE Squamous (<= Few)
[2021-08-31 01:04] LABS: AMPHETAMINE SCREEN,URINE NEGATIVE (NEGATIVE); BARBITURATE SCREEN,UR NEGATIVE (NEGATIVE); BENZODIAZEPINES SCREEN, URINE NEGATIVE (NEGATIVE); COCAINE SCREEN URINE NEGATIVE (NEGATIVE); METHADONE SCREEN, URINE NEGATIVE (NEGATIVE); METHAMPHETAMINES SCREEN, URINE NEGATIVE (NEGATIVE); OPIATE SCREEN, URINE NEGATIVE (NEGATIVE); OXYCODONE SCREEN, URINE NEGATIVE (NEGATIVE); PROPOXYPHENE SCREEN, URINE NEGATIVE (NEGATIVE); THC CANNABINOID SCREEN, URINE POSITIVE (NEGATIVE); TRICYCLIC ANTIDEPRESSANT,URINE NEGATIVE (NEGATIVE)
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
[2021-08-31 08:25] LABS: B. PARAPERTUSSIS- RESP PCR PAN NOT DETECTED; B. PERTUSSIS- RESP PCR PANEL NOT DETECTED; C. PNEUMONIAE- RESP PCR PANEL NOT DETECTED; CORONAVIRUS 229E-RESP PCR NOT DETECTED; CORONAVIRUS HKU1-RESP PCR NOT DETECTED; CORONAVIRUS NL63-RESP PCR NOT DETECTED; CORONAVIRUS OC43-RESP PCR NOT DETECTED; HUMAN METAPNEUMOVIRUS NOT DETECTED; INFLUENZA A- RESP PCR PANEL NOT DETECTED; INFLUENZA B - RESP PCR PANEL NOT DETECTED; M. PNEUMONIAE- RESP PCR PANEL NOT DETECTED; PARAINFLUENZA VIRUS 1 NOT DETECTED; PARAINFLUENZA VIRUS 2 NOT DETECTED; PARAINFLUENZA VIRUS 3 NOT DETECTED; PARAINFLUENZA VIRUS 4 NOT DETECTED; RHINOVIRUS/ENTEROVIRUS DETECTED; RSV- RESP PCR PANEL NOT DETECTED; SARS-CoV-2 -RESP PCR PANEL NOT DETECTED
[2021-08-31 14:35] VITALS: BP 124/62
== END 2021-08-31 14:34 | disposition home or self-care (01) ==
LOC: EDUNIT# → ED 23:22 → EEVIPCON 23:22 → ED 08-31 14:34
DX: F33.0 Major depressive disorder, recurrent, mild (principal); R45.851 Suicidal ideations; R01.1 Cardiac murmur, unspecified; I10 Essential (primary) hypertension; E11.9 Type 2 diabetes mellitus without complications; Z79.84 Long term (current) use of oral hypoglycemic drugs; Z20.822 Contact with and (suspected) exposure to COVID-19
CPT/HCPCS: 36415; 80048; 80306; 80307; 81001; 81025; 84443; 85025; 87086; 87631; 99283; G0425; G0480; Q3014; 0202U; 80320; 80329; 81003

== ENCOUNTER 2021-09-11 13:12 | Outpatient (CLI) | payer MEDICARE, MEDICAID | END 2021-09-11 23:59 | disposition home or self-care (01) | LOC: LAB.N 13:12 | PROVIDERS: ATTEND Nurse Practitioner | DX: N39.0 Urinary tract infection, site not specified (principal) | CPT/HCPCS: 87086 ==

== ENCOUNTER 2021-09-25 11:58 | Outpatient (CLI) | payer MEDICARE, MEDICAID ==
--- NOTE | 2021-09-25 12:35 | XRAY Report ---
PROCEDURE: Chest 2 View X-Ray INDICATIONS: CHEST PAIN TECHNIQUE: 2 view(s) of the chest. COMPARISON: January 09, 2021 FINDINGS: SUPPORT DEVICES: Redemonstrated sternotomy wires and evidence of CABG. LUNGS/PLEURA: No focal consolidation, pleural effusion or space-occupying pneumothorax. MEDIASTINUM: The cardiomediastinal silhouette is within normal limits. BONES/SOFT TISSUES: No acute abnormality. IMPRESSION: 1.No acute cardiopulmonary abnormality. Reviewed by: Jordin Narayanan MD on 09/25/2021 12:33 PM PST Approved by: Jordin Narayanan MD on 09/25/2021 12:33 PM [facility] Station ID: [id number]
== END 2021-09-25 23:59 | disposition home or self-care (01) ==
LOC: DI.N 11:58
PROVIDERS: ATTEND Registered Nurse
DX: R07.9 Chest pain, unspecified (principal); R05.9 Cough, unspecified; E03.9 Hypothyroidism, unspecified
CPT/HCPCS: 36415; 80053; 84439; 84443; 84484; 85025; 85651; 86140

== ENCOUNTER 2021-09-25 12:14 | Outpatient (CLI) | payer MEDICARE, MEDICAID ==
[2021-09-25 19:14] LABS: ALBUMIN/GLOBULIN RATIO 1.1 (1.0-2.2); BILIRUBIN,TOTAL 0.9 mg/dL (0.2-1.0); CREATININE 0.9 mg/dL (0.4-1.0); CRP - C-REACTIVE PROTEIN 1.1 mg/dL (0-1.0); POTASSIUM 3.5 mmol/L (3.5-5.0); TOTAL PROTEIN 7.7 g/dL (6.7-8.2)
[2021-09-25 19:42] LABS: THYROID STIMULATING HORMONE 0.04 uIU/mL (0.34-5.60)
[2021-09-25 20:37] LABS: FREE T4 (FREE THYROXINE) 1.26 ng/dL (0.58-1.64)
== END 2021-09-25 23:59 | disposition home or self-care (01) ==
LOC: LAB.N 12:14
PROVIDERS: ATTEND Registered Nurse
DX: R07.9 Chest pain, unspecified (principal); E03.9 Hypothyroidism, unspecified
CPT/HCPCS: 36415; 80053; 84439; 84443; 84484; 85025; 85651; 86140

== ENCOUNTER 2021-10-01 08:00 | Outpatient (CLI) | payer MEDICARE, MEDICAID ==
[2021-10-01 17:43] LABS: BASOPHILS % (AUTO) 0.4 %; EOSINOPHILS # (AUTO) 0.3 10^3/uL (0.0-0.7); EOSINOPHILS % (AUTO) 3.2 %; HCT - HEMATOCRIT 42.9 % (37.0-47.0); HGB - HEMOGLOBIN 13.7 g/dL (12.0-16.0); LYMPHOCYTES # (AUTO) 2.3 10^3/uL (1.5-3.5); LYMPHOCYTES % (AUTO) 21.7 %; MEAN CORPUSCULAR HEMOGLOBIN 29.7 pg (27.0-31.0); MEAN CORPUSCULAR HGB CONC 31.9 g/dL (32.0-36.0); MEAN CORPUSCULAR VOLUME 93.1 fL (81.0-99.0); MEAN PLATELET VOLUME 12.6 fL (7.9-10.8); MONOCYTES # (AUTO) 0.5 10^3/uL (0.0-1.0); MONOCYTES % (AUTO) 4.6 %; NEUTROPHILS # (AUTO) 7.4 10^3/uL (1.5-6.6); NEUTROPHILS % (AUTO) 69.9 %; PLT - PLATELET COUNT 212 10^3/uL (130-450); RED BLOOD COUNT 4.61 10^6/uL (4.20-5.40); RED CELL DISTRIBUTION WIDTH 12.7 % (12.0-15.0); WHITE BLOOD COUNT 10.5 x10^3/uL (4.8-10.8)
== END 2021-10-01 23:59 | disposition home or self-care (01) ==
LOC: LAB.N 08:00
PROVIDERS: ATTEND Registered Nurse
DX: R07.9 Chest pain, unspecified (principal)
CPT/HCPCS: 36415; 85025; 85651

== ENCOUNTER 2021-10-02 22:44 | Outpatient (CLI) | payer MEDICARE, MEDICAID | END 2021-10-02 22:45 | disposition critical access hospital (66) | LOC: EMS 22:44 | DX: R42 Dizziness and giddiness (principal); R31.9 Hematuria, unspecified; R10.30 Lower abdominal pain, unspecified | CPT/HCPCS: A0425; A0429 ==

== ENCOUNTER 2021-10-02 23:02 | Emergency (ER) | payer MEDICARE, MEDICAID ==
[2021-10-02 23:15] VITALS: BP 121/61
[2021-10-03 00:03] LABS: BILIRUBIN,URINE NEGATIVE (NEGATIVE); GLUCOSE, URINE (UA) NEGATIVE (NEGATIVE); KETONES,URINE (UA) NEGATIVE (NEGATIVE); LEUKOCYTE ESTERASE, URINE LARGE (NEGATIVE); NITRITE,URINE NEGATIVE (NEGATIVE); OCCULT BLOOD,URINE SMALL (NEGATIVE); PROTEIN,URINE NEGATIVE (NEGATIVE); UROBILINOGEN,URINE 0.2 (NORMAL) E.U./dL (NORMAL)
[2021-10-03 00:09] LABS: CLARITY,URINE CLEAR (CLEAR); HCG UR QUAL NEGATIVE
[2021-10-03 00:18] LABS: BACTERIA,URINE Rare /HPF (None Seen); RBC,URINE 0-5 /HPF (0-5); SQUAMOUS EPITHELIAL CELL,UR FEW Squamous (<= Few)
--- NOTE | 2021-10-03 00:26 | ED Physician Documentation ---
PD HPI FEMALE - Stated complaint Stated Complaint: DIZZY, BLOOD IN URINE - Chief complaint Chief Complaint: UTI - History obtained from History obtained from: Patient - History of Present Illness Timing - details: Gradual onset, Intermittant Associated symptoms: Back pain, Hematuria. No: Fever, Abdominal pain, Pelvic pain, Dysuria, Urinary frequency Contributing factors: No: - Additional information Additional information: c/o few weeks of episodic gross hematuria without clots. tonight she developed mild low back pain across lower/mid back and again noted hematuria. she denies urinary frequency , dysuria, fever, abdominal pain Review of Systems Constitutional: reports: Reviewed and negative GI: denies: Abdominal Pain, Nausea, Vomiting : reports: Hematuria. 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 : None HEENT: Chronic hearing loss Psych: Depression, Anxiety, Panic attacks, Post traumatic stress disorder, Other Musculoskeletal: None Derm: Eczema - Past Surgical History Past Surgical History: Yes Cardiovascular: Valve replacement, Other HEENT: Myringotomy (tubes) - Present Medications Home Medications: Ambulatory Orders Medication Instructions Recorded Confirmed lisinopriL [Lisinopril] 2.5 mg PO DAILY 07/29/17 08/30/21 metFORMIN [Glucophage] 500 mg PO DAILY 07/29/17 08/30/21 ARIPiprazole INJ [Abilify Maintena] 400 mg IM .QMONTH 07/31/20 08/30/21 Acetaminophen [Aphen] 325 mg PO DAILY PRN 07/31/20 08/30/21 Albuterol Sulf [Ventolin Hfa 1 - 2 puffs INH Q6H PRN 07/31/20 08/30/21 Inhaler] Doxepin [SINEquan] 10 mg PO DAILY 07/31/20 08/30/21 Levothyroxine [Synthroid] 125 mcg PO DAILY 07/31/20 08/30/21 Melatonin 5 mg PO QPM PRN 07/31/20 08/30/21 Mirtazapine [Remeron] 20 mg PO QPM 07/31/20 08/30/21 Prazosin [Minipress] 2 mg PO DAILY 07/31/20 08/30/21 Furosemide [Lasix] 20 mg PO DAILY 09/17/20 08/30/21 LORazepam [Ativan] 1 mg PO DAILY PRN 11/18/20 08/30/21 Naproxen 250 mg PO QID PRN #15 tablet 11/18/20 08/30/21 - Allergies Allergies/Adverse Reactions: Allergies Allergy/AdvReac Type Severity Reaction Status Date / Time cephalexin monohydrate * Allergy Severe Hives Verified 08/30/21 23:28 [From Keflex] cetirizine HCl * Allergy Mild Rash Verified 08/30/21 23:28 [From Zyrtec] bacitracin Allergy Hives Verified 08/30/21 23:28 [From Neosporin ([id number]-nbh-dhegf)] bacitracin zinc * Allergy Hives Verified 08/30/21 23:28 [From Neosporin ([id number]-glu-[id number])] neomycin sulfate * Allergy Hives Verified 08/30/21 23:28 [From Neosporin (rwn-uey-ohrjp)] polymyxin B Allergy Hives Verified 08/30/21 23:28 [From Neosporin (jue-kla-usztv)] sulfamethoxazole Allergy Hives Verified 08/30/21 23:28 [From Septra] trimethoprim [From Septra] Allergy Hives Verified 08/30/21 23:28 sertraline HCl * AdvReac Intermediate Nausea Verified 08/30/21 23:28 [From Zoloft] - Social History Does the pt smoke?: No Smoking Status: Never smoker Does the pt drink ETOH?: Yes Does the pt have substance abuse?: Yes - Immunizations Immunizations are current?: Yes Immunizations: Other immun not current - POLST Patient has POLST: No POLST Status: Full Code PD ED PE NORMAL - Vitals Vital signs reviewed: Yes - General General: Alert and oriented X 3, No acute distress, Well developed/nourished - Abdomen Abdomen: Soft, Non tender, Non distended - Back Back: No CVA TTP Results - Vitals Vitals: Oxygen O2 Source Room air - Labs Labs: Microbiology 10/02/21 23:22 Urine Culture - Final Urine,Clean Catch 10-50,000 COLONIES/ML Polymicrobial growth including potential pathogens. This is suggestive of skin or other contamination. Laboratory Tests 10/02/21 23:22 Urine Color YELLOW Urine Clarity CLEAR Urine pH 6.0 Ur Specific Ione <=1.005 Urine Protein NEGATIVE Urine Glucose (UA) NEGATIVE Urine Ketones NEGATIVE Urine Occult Blood SMALL H Urine Nitrite NEGATIVE Urine Bilirubin NEGATIVE Urine Urobilinogen 0.2 (NORMAL) Ur Leukocyte Esterase LARGE H Urine RBC 0-5 Urine WBC 6-10 H Ur Squamous Epith Cells FEW Squamous Urine Bacteria Rare Ur Microscopic Review INDICATED Urine Culture Comments INDICATED Urine HCG, Qual NEGATIVE PD MEDICAL DECISION MAKING - ED course Complexity details: reviewed results, re-evaluated patient, considered differential, d/w patient ED course: chief complaint of episodes of hematuria over weeks, developed pain across lower back tonight. The pain is described as mild and without exacerbating or ameliorating factors. UA has trace blood macroscopically and lg. LE, but no RBC on microscopy with only 5-10 WBC/hpf. Nitrites negative. Unclear cause of her symptoms at this time, further emergent testing is not indicated. Differential includes renal colic (bilateral back pain would be atypical and would expect both macroscopic and microscopic hematuria), UTI (unlikely given symptoms not particularly s/o UTI and only 5-10 WBC/hpf; culture will be done over next 1-2 days), musculoskeletal back pain. Instructed to follow up with primary care pr ovider; further workup might be needed if hematuria recurs or persists. Return precautions discussed. Departure - Departure Disposition: 01 Home, Self Care Clinical Impression: Hematuria Qualifiers: Hematuria type: unspecified type Qualified Code(s): R31.9 - Hematuria, unspecified Condition: Good Instructions: ED Hematuria Comments: As we discussed, there are no concerning findings on your urine sample; there is questionably a very small amount of blood in the urine and possibly a small number of white blood cells, but these findings do not suggest need for further testing at this time nor treatment (such as antibiotics for a urinary tract infection). Follow up with your primary care provider next week for reevaluation, but return to the emergency department if your symptoms worsen. The urine will be tested for bacterial infection (urine culture) , and this typically takes 1-2 days for results to return. If the urine culture shows a urinary tract infection, you will be contacted and an antibiotic can be sent to your pharmacy. Discharge Date/Time: 10/03/21 01:02
== END 2021-10-03 01:02 | disposition home or self-care (01) ==
LOC: EDUNIT# → SUPCPDRO 23:02 → ED 23:02
DX: M54.50 Low back pain, unspecified (principal); R31.9 Hematuria, unspecified; E11.9 Type 2 diabetes mellitus without complications; Z79.84 Long term (current) use of oral hypoglycemic drugs
CPT/HCPCS: 81001; 81003; 81025; 87086; 99282; 99283

== ENCOUNTER 2021-10-19 16:21 | Outpatient (CLI) | payer MEDICARE, MEDICAID ==
[2021-10-19 18:53] LABS: BASOPHILS % (AUTO) 0.4 %; EOSINOPHILS # (AUTO) 0.2 10^3/uL (0.0-0.7); EOSINOPHILS % (AUTO) 1.8 %; HCT - HEMATOCRIT 42.5 % (37.0-47.0); HGB - HEMOGLOBIN 13.6 g/dL (12.0-16.0); LYMPHOCYTES % (AUTO) 24.5 %; MEAN CORPUSCULAR HEMOGLOBIN 29.5 pg (27.0-31.0); MEAN CORPUSCULAR VOLUME 92.2 fL (81.0-99.0); MONOCYTES # (AUTO) 0.4 10^3/uL (0.0-1.0); MONOCYTES % (AUTO) 4.7 %; NEUTROPHILS # (AUTO) 5.7 10^3/uL (1.5-6.6); NEUTROPHILS % (AUTO) 68.4 %; PLT - PLATELET COUNT 191 10^3/uL (130-450); RED BLOOD COUNT 4.61 10^6/uL (4.20-5.40); RED CELL DISTRIBUTION WIDTH 12.4 % (12.0-15.0); WHITE BLOOD COUNT 8.3 x10^3/uL (4.8-10.8)
[2021-10-19 19:47] LABS: ALBUMIN 4.2 g/dL (3.2-5.5); ALBUMIN/GLOBULIN RATIO 1.2 (1.0-2.2); BILIRUBIN,TOTAL 0.8 mg/dL (0.2-1.0); CALCIUM 9.4 mg/dL (8.5-10.3); CREATININE 0.8 mg/dL (0.4-1.0); POTASSIUM 3.4 mmol/L (3.5-5.0); TOTAL PROTEIN 7.7 g/dL (6.7-8.2)
[2021-10-19 20:02] LABS: HCG,QUALITATIVE BLOOD NEGATIVE
== END 2021-10-19 23:59 | disposition home or self-care (01) ==
LOC: LAB.N 16:21
PROVIDERS: ATTEND Nurse Practitioner
DX: R10.9 Unspecified abdominal pain (principal)
CPT/HCPCS: 36415; 80053; 82150; 83690; 84703; 85025

== ENCOUNTER 2021-11-09 07:51 | Outpatient (CLI) | payer MEDICARE, MEDICAID ==
[2021-11-09] MEDS ORDERED: IOVERSOL 320 100 ML VIAL IVP ONE (08:18)
[2021-11-09] MEDS ORDERED: IOVERSOL 320 50 ML VIAL ONE (08:18)
[2021-11-09] MEDS: IOVERSOL 320 50 ML VIAL PO ONE (10:19)
[2021-11-09] MEDS: IOVERSOL 320 100 ML VIAL IVP ONE (10:19)
--- NOTE | 2021-11-09 11:28 | CT Report ---
PROCEDURE: Abdomen/Pelvis W INDICATIONS: ABD PAIN CONTRAST: IV CONTRAST: Optiray 320 ml: 100 PO CONTRAST: Optiray 320 ml50 TECHNIQUE: After the administration of IV and oral contrast, 5 mm thick sections acquired from the diaphragms to the symphysis. 5 mm thick coronal and sagittal reformats were acquired. For radiation dose reducti on, the following was used: automated exposure control, adjustment of mA and/or kV according to caesar ent size. COMPARISON: 01/23/2021 FINDINGS: Image quality: Excellent. ABDOMEN: Lung bases: The heart is enlarged and there are partially imaged median sternotomy changes. No hiatal hernia. Pleural scarring anteriorly in the right middle lobe and subpleural cystic changes in the le ft lateral lung. Liver: Mildly, diffusely hypodense parenchyma. No masses. Gallbladder: Normal wall thickness. No calcified stones. Biliary system: Nondilated. Pancreas: Normal. Spleen: Normal size. Adrenal glands: No nodules. Kidneys: Normal size, symmetric enhancement, no hydronephrosis or stone. Normal ureters. Peritoneum and bowel: Bowel loops demonstrate normal wall thickness and caliber. No free fluid or a ir. Normal appendix. Nodes and vessels: No retroperitoneal or mesenteric adenopathy by size criteria. Aorta and inferior vena cava are normal in size. Miscellaneous: No ventral hernias. PELVIS: Genitourinary: Bladder wall thickness is normal. IUD present in the uterus. Normal ovaries. Miscellaneous: No inguinal hernias or adenopathy. Bones: No suspicious bony lesions. No vertebral body compression fractures. IMPRESSION: 1. No acute abnormality. 2. Mild hepatic steatosis. 3. IUD in expected location. Reviewed by: Ellyn Scott MD on 11/09/2021 11:27 AM PDT Approved by: Ellyn Scott MD on 11/09/2021 11:27 AM PDT Station ID: [id number]
== END 2021-11-09 07:52 | disposition home or self-care (01) ==
LOC: DI 07:51
PROVIDERS: ATTEND Family Medicine
DX: K76.0 Fatty (change of) liver, not elsewhere classified (principal); R10.9 Unspecified abdominal pain; Z97.5 Presence of (intrauterine) contraceptive device
CPT/HCPCS: 74177; Q9967

== ENCOUNTER 2021-12-24 10:33 | Outpatient (CLI) | payer MEDICARE, MEDICAID | END 2021-12-24 10:34 | disposition EMS.NT | LOC: EMS 10:33 | DX: R05.9 Cough, unspecified (principal); J02.9 Acute pharyngitis, unspecified; Z20.822 Contact with and (suspected) exposure to COVID-19 ==

== ENCOUNTER 2022-01-03 18:34 | Outpatient (CLI) | payer MEDICARE, MEDICAID | END 2022-01-03 18:35 | disposition EMS.NT | LOC: EMS 18:34 | DX: S61.011A Laceration without foreign body of right thumb without damage to nail, initial encounter (principal); W26.8XXA Contact with other sharp object(s), not elsewhere classified, initial encounter; R45.89 Other symptoms and signs involving emotional state ==

== ENCOUNTER 2022-03-13 08:00 | Outpatient (CLI) | payer MEDICARE, MEDICAID ==
[2022-03-13 22:53] LABS: CHLAMYDIA TRACHOMATIS DNA NEGATIVE (NEGATIVE); NEISSERIA GONORRHOEAE DNA NEGATIVE (NEGATIVE); TRICHOMONAS VAGINALIS DNA NEGATIVE (NEGATIVE)
[2022-03-16 16:08] LABS: HSV 1 IGG TYPE SPEC <0.91 index (0.00-0.90); HSV 2 IGG SUPPLEMENTAL TEST Positive (Negative); HSV 2 IGG TYPE SPEC 3.16 index (0.00-0.90)
[2022-03-16 17:08] LABS: HSV IGM I/II COMBINATION <0.91 Ratio (0.00-0.90)
[2022-03-17 07:10] LABS: RPR Non Reactive (Non Reactive)
== END 2022-03-13 23:59 | disposition home or self-care (01) ==
LOC: LAB.N 08:00
PROVIDERS: ATTEND Physician Assistant
DX: L29.8 Other pruritus (principal)
CPT/HCPCS: 86592; 86695; 86696; 87491; 87591; 87661

== ENCOUNTER 2022-06-27 23:23 | Outpatient (CLI) | payer MEDICARE, MEDICAID | END 2022-06-27 23:24 | disposition EMS.NT | LOC: EMS 23:23 | DX: R04.0 Epistaxis (principal) ==

== ENCOUNTER 2022-07-12 08:00 | Outpatient (CLI) | payer MEDICARE, MEDICAID ==
[2022-07-12 21:04] LABS: BASOPHILS % (AUTO) 0.4 %; EOSINOPHILS # (AUTO) 0.3 10^3/uL (0.0-0.7); EOSINOPHILS % (AUTO) 3.3 %; HCT - HEMATOCRIT 39.9 % (37.0-47.0); HGB - HEMOGLOBIN 12.7 g/dL (12.0-16.0); LYMPHOCYTES # (AUTO) 2.3 10^3/uL (1.5-3.5); LYMPHOCYTES % (AUTO) 30.3 %; MEAN CORPUSCULAR HEMOGLOBIN 28.6 pg (27.0-31.0); MEAN CORPUSCULAR HGB CONC 31.8 g/dL (32.0-36.0); MEAN CORPUSCULAR VOLUME 89.9 fL (81.0-99.0); MEAN PLATELET VOLUME 12.6 fL (7.9-10.8); MONOCYTES # (AUTO) 0.5 10^3/uL (0.0-1.0); MONOCYTES % (AUTO) 6.3 %; NEUTROPHILS # (AUTO) 4.5 10^3/uL (1.5-6.6); NEUTROPHILS % (AUTO) 59.6 %; PLT - PLATELET COUNT 179 10^3/uL (130-450); RED BLOOD COUNT 4.44 10^6/uL (4.20-5.40); RED CELL DISTRIBUTION WIDTH 13.3 % (12.0-15.0); WHITE BLOOD COUNT 7.6 x10^3/uL (4.8-10.8)
[2022-07-12 21:21] LABS: ALBUMIN 4.4 g/dL (3.2-5.5); ALBUMIN/GLOBULIN RATIO 1.3 (1.0-2.2); BILIRUBIN,TOTAL 0.6 mg/dL (0.2-1.0); CALCIUM 9.4 mg/dL (8.5-10.3); CREATININE 0.7 mg/dL (0.4-1.0); POTASSIUM 3.8 mmol/L (3.5-5.0); TOTAL PROTEIN 7.9 g/dL (6.7-8.2)
[2022-07-12 21:48] LABS: INR 0.9 (0.8-1.2); PT - PROTHROMBIN TIME 10.4 secs (9.9-12.6)
[2022-07-12 21:56] LABS: PARTIAL THROMBOPLASTIN TIME 31.8 secs (24.9-33.3)
== END 2022-07-12 23:59 | disposition home or self-care (01) ==
LOC: LAB.N 08:00
PROVIDERS: ATTEND Nurse Practitioner
DX: R04.0 Epistaxis (principal)
CPT/HCPCS: 36415; 80053; 85025; 85610; 85730

== ENCOUNTER 2022-09-28 12:14 | Outpatient (CLI) | payer MEDICARE, MEDICAID | END 2022-09-28 12:15 | disposition critical access hospital (66) | LOC: EMS 12:14 | DX: R07.89 Other chest pain (principal); R20.2 Paresthesia of skin; R51.9 Headache, unspecified | CPT/HCPCS: A0425; A0429 ==

== ENCOUNTER 2022-09-28 12:32 | Emergency (ER) | payer MEDICARE, MEDICAID ==
[2022-09-28 12:46] VITALS: BP 124/72
--- NOTE | 2022-09-28 12:51 | ED Physician Documentation ---
PD HPI CHEST PAIN - Stated complaint Stated Complaint: CHEST PX - Chief complaint Chief Complaint: Cardiac - History obtained from History obtained from: Patient, EMS - Additional information Additional information: The patient comes to the emergency department chief complaint of onset of tingling over her sternum about 1 hour ago. The patient states that she did not have any shortness of breath, chest pain anywhere else, nausea, or any other symptoms. She has had some on and off bilateral hand pain since yesterday, but states this is not happening right now. 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 She just wants to make sure everything is okay. 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 HEENT: Chronic hearing loss Psych: Depression, Anxiety, Panic attacks, Post traumatic stress disorder, Other Musculoskeletal: None Derm: Eczema - Past Surgical History Past Surgical History: Yes Cardiovascular: Valve replacement, Other HEENT: Myringotomy (tubes) - Present Medications Home Medications: Ambulatory Orders Medication Instructions Recorded Confirmed lisinopriL [Lisinopril] 2.5 mg PO DAILY 07/29/17 08/30/21 metFORMIN [Glucophage] 500 mg PO DAILY 07/29/17 08/30/21 ARIPiprazole INJ [Abilify Maintena] 400 mg IM .QMONTH 07/31/20 08/30/21 Acetaminophen [Aphen] 325 mg PO DAILY PRN 07/31/20 08/30/21 Albuterol Sulf [Ventolin Hfa 1 - 2 puffs INH Q6H PRN 07/31/20 08/30/21 Inhaler] Doxepin [SINEquan] 10 mg PO DAILY 07/31/20 08/30/21 Levothyroxine [Synthroid] 125 mcg PO DAILY 07/31/20 08/30/21 Melatonin 5 mg PO QPM PRN 07/31/20 08/30/21 Mirtazapine [Remeron] 20 mg PO QPM 07/31/20 08/30/21 Prazosin [Minipress] 2 mg PO DAILY 07/31/20 08/30/21 Furosemide [Lasix] 20 mg PO DAILY 09/17/20 08/30/21 LORazepam [Ativan] 1 mg PO DAILY PRN 11/18/20 08/30/21 Naproxen 250 mg PO QID PRN #15 tablet 11/18/20 08/30/21 - Allergies Allergies/Adverse Reactions: Allergies Allergy/AdvReac Type Severity Reaction Status Date / Time cephalexin monohydrate * Allergy Severe Hives Verified 09/28/22 12:44 [From Keflex] cetirizine HCl * Allergy Mild Rash Verified 09/28/22 12:44 [From Zyrtec] bacitracin Allergy Hives Verified 09/28/22 12:44 [From Neosporin ([id number]-tet-[id number])] bacitracin zinc * Allergy Hives Verified 09/28/22 12:44 [From Neosporin (sel-vrb-[id number])] neomycin sulfate * Allergy Hives Verified 09/28/22 12:44 [From Neosporin (pbd-ncr-[id number])] polymyxin B Allergy Hives Verified 09/28/22 12:44 [From Neosporin (rdz-irh-srwmo)] sulfamethoxazole Allergy Hives Verified 09/28/22 12:44 [From Septra] trimethoprim [From Septra] Allergy Hives Verified 09/28/22 12:44 sertraline HCl * AdvReac Intermediate Nausea Verified 09/28/22 12:44 [From Zoloft] - Social History Does the pt smoke?: No Smoking Status: Never smoker Does the pt drink ETOH?: Yes Does the pt have substance abuse?: Yes - Immunizations Immunizations are current?: Yes Immunizations: Other immun not current - POLST Patient has POLST: No POLST Status: Full Code PD ED PE NORMAL - Vitals Vital signs reviewed: Yes - General General: Alert and oriented X 3, No acute distress, Well developed/nourished - HEENT HEENT: Atraumatic, PERRL, EOMI, Moist mucous membranes - Neck Neck: Supple, no meningeal sign - Cardiac Cardiac: RRR, No murmur - Respiratory Respiratory: No respiratory distress, Clear bilaterally - Abdomen Abdomen: Soft, Non tender, Non distended - Derm Derm: Normal color, Warm and dry, No rash - Extremities Extremities: No deformity, Normal ROM s pain - Neuro Neuro: Alert and oriented X 3, Other (Grossly intact) - Psych Psych: Normal mood, Normal affect Results - Vitals Vitals: Oxygen O2 Source Room air - EKG (time done) 1252 Rate: Rate (enter#) (81) Rhythm: NSR [place]: Normal Intervals: RBBB QRS: Normal Ischemia: Normal ST segments Compare to prior EKG: Old EKG unavailable Computer interpretation: Disagree with computer (Distinct P waves noted in a number of leads and disagree with the computer interpretation of "atrial flutter".) PD Medical Decision Making - ED course Complexity details: reviewed results, re-evaluated patient, considered differential, d/w patient ED course: EKG was performed and unremarkable. The patient was stable and I did not feel that any emergent condition, cardiac or otherwise, was responsible for her symptoms. We have discussed symptomatic management at home, as well as the usual indications for return. Departure - Departure Disposition: 01 Home, Self Care Clinical Impression: Chest pain Qualifiers: Chest pain type: unspecified Qualified Code(s): R07.9 - Chest pain, unspecified Condition: Stable Instructions: ED Chest Pain NonCardiac Discharge Date/Time: 09/28/22 13:29
== END 2022-09-28 13:29 | disposition home or self-care (01) ==
LOC: EDUNIT# → ED 12:32
DX: R07.9 Chest pain, unspecified (principal)
CPT/HCPCS: 93005; 99283

== ENCOUNTER 2022-11-22 17:06 | Outpatient (CLI) | payer MEDICARE, MEDICAID | END 2022-11-22 23:59 | disposition EMS.NT | LOC: EMS 17:06 | DX: R04.0 Epistaxis (principal) ==

== ENCOUNTER 2022-11-22 19:55 | Outpatient (CLI) | payer MEDICARE, MEDICAID | END 2022-11-22 23:59 | disposition EMS.NT | LOC: EMS 19:55 | DX: R04.0 Epistaxis (principal) ==

== ENCOUNTER 2023-02-03 13:38 | Outpatient (CLI) | payer MEDICARE, MEDICAID | END 2023-02-03 23:59 | disposition critical access hospital (66) | LOC: EMS 13:38 | DX: R07.9 Chest pain, unspecified (principal); R00.0 Tachycardia, unspecified | CPT/HCPCS: A0425; A0427 ==

== ENCOUNTER 2023-02-03 13:59 | Emergency (ER) | payer MEDICARE, MEDICAID ==
--- NOTE | 2023-02-03 14:17 | ED Physician Documentation ---
History of Present Illness - Stated complaint Stated Complaint: CP - Chief complaint Chief Complaint: Cardiac - Additonal information Additional information: 32-year-old female presents emergency department for evaluation of chest pain. Reports that she was walking in [employer] when she began to have discomfort in the chest. She states that it hurts when she coughs and she has had a cough for 3 days. No fevers. Patient did summon EMS to [facility]. She was found to be in sinus rhythm however she was given 325 of aspirin en route History is somewhat limited. Patient does have a history of developmental delay. She also has a history of tetralogy of Fallot, chronic kidney disease, congestive heart failure and diabetes. She is followed by [facility] cardiology. She denies any recent travel. No unilateral leg swelling. Takes no estrogens. No history of DVT or cancer. Review of Systems Constitutional: denies: Fever Cardiac: reports: Chest pain / pressure. denies: Palpitations, Pedal edema, Calf pain Respiratory: reports: Cough. 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 : None HEENT: Chronic hearing loss Psych: Depression, Anxiety, Panic attacks, Post traumatic stress disorder, Other Musculoskeletal: None Derm: Eczema - Past Surgical History Past Surgical History: Yes Cardiovascular: Valve replacement, Other HEENT: Myringotomy (tubes) - Present Medications Home Medications: Ambulatory Orders Medication Instructions Recorded Confirmed lisinopriL [Lisinopril] 2.5 mg PO DAILY 07/29/17 08/30/21 metFORMIN [Glucophage] 500 mg PO DAILY 07/29/17 08/30/21 ARIPiprazole INJ [Abilify Maintena] 400 mg IM .QMONTH 07/31/20 08/30/21 Acetaminophen [Aphen] 325 mg PO DAILY PRN 07/31/20 08/30/21 Albuterol Sulf [Ventolin Hfa 1 - 2 puffs INH Q6H PRN 07/31/20 08/30/21 Inhaler] Doxepin [SINEquan] 10 mg PO DAILY 07/31/20 08/30/21 Levothyroxine [Synthroid] 125 mcg PO DAILY 07/31/20 08/30/21 Melatonin 5 mg PO QPM PRN 07/31/20 08/30/21 Mirtazapine [Remeron] 20 mg PO QPM 07/31/20 08/30/21 Prazosin [Minipress] 2 mg PO DAILY 07/31/20 08/30/21 Furosemide [Lasix] 20 mg PO DAILY 09/17/20 08/30/21 LORazepam [Ativan] 1 mg PO DAILY PRN 11/18/20 08/30/21 Naproxen 250 mg PO QID PRN #15 tablet 11/18/20 08/30/21 - Allergies Allergies/Adverse Reactions: Allergies Allergy/AdvReac Type Severity Reaction Status Date / Time cephalexin monohydrate * Allergy Severe Hives Verified 02/03/23 14:11 [From Keflex] cetirizine HCl * Allergy Mild Rash Verified 02/03/23 14:11 [From Zyrtec] bacitracin Allergy Hives Verified 02/03/23 14:11 [From Neosporin ([id number])] bacitracin zinc * Allergy Hives Verified 02/03/23 14:11 [From Neosporin ([id number]-[id number])] neomycin sulfate * Allergy Hives Verified 02/03/23 14:11 [From Neosporin ([id number])] polymyxin B Allergy Hives Verified 02/03/23 14:11 [From Neosporin ([id number])] sulfamethoxazole Allergy Hives Verified 02/03/23 14:11 [From Septra] trimethoprim [From Septra] Allergy Hives Verified 02/03/23 14:11 sertraline HCl * AdvReac Intermediate Nausea Verified 02/03/23 14:11 [From Zoloft] - Social History Does the pt smoke?: No Smoking Status: Never smoker Does the pt drink ETOH?: Yes Does the pt have substance abuse?: Yes - Immunizations Immunizations are current?: Yes Immunizations: Other immun not current - POLST Patient has POLST: No POLST Status: Full Code PD ED PE NORMAL - General General: Alert and oriented X 3, No acute distress, Well developed/nourished - HEENT HEENT: Atraumatic, Moist mucous membranes - Neck Neck: Supple, no meningeal sign, No adenopathy - Cardiac Cardiac: RRR. No: No murmur ( 3/6) - Respiratory Respiratory: No respiratory distress, Clear bilaterally - Abdomen Abdomen: Normal bowel sounds, Soft, Non tender - Derm Derm: Normal color, Warm and dry, No rash - Extremities Extremities: No deformity, No tenderness to palpate, Normal ROM s pain - Neuro Neuro: Alert and oriented X 3, content checker 2-12 intact Eye Opening: Spontaneous Motor: Obeys Commands Verbal: Oriented GCS Score: 15 Results - Vitals Vitals: Vital Signs - 24 hr 02/03/23 02/03/23 14:05 14:49 Temperature 36.3 C L Heart Rate 98 96 Respiratory 16 17 Rate Blood Pressure 115/77 115/77 O2 Saturation 96 97 Oxygen O2 Source Room air - EKG (time done) 1442 EKG releavant findings:: EKG personally interpreted by author of this note. Relevant findings are: Rate: Rate (enter#) (94) Rhythm: NSR Intervals: RBBB QRS: Normal Ischemia: Non specific changes Compare to prior EKG: Unchanged from prior EKG Computer interpretation: Agree with computer - Labs Labs: Laboratory Tests 02/03/23 02/03/23 02/03/23 14:51 15:05 15:05 WBC 9.0 RBC 4.52 Hgb 12.0 Hct 38.7 MCV 85.6 MCH 26.5 L MCHC 31.0 L RDW 14.0 Plt Count 185 MPV 12.0 H Neut # (Auto) 6.0 Lymph # (Auto) 2.2 [place] # (Auto) 0.5 Eos # (Auto) 0.3 Baso # (Auto) 0.0 Absolute Nucleated RBC 0.00 Nucleated RBC % 0.0 PT 11.4 INR 1.0 Sodium 142 Potassium 3.4 L Chloride 107 Carbon Dioxide 25 Anion Gap 10.0 BUN 10 Creatinine 0.9 Estimated GFR (MDRD) 72 L Glucose 118 H Calcium 9.2 Total Bilirubin 0.7 AST 49 H ALT 45 Alkaline Phosphatase 175 H Troponin I High Sens B-Natriuretic Peptide Total Protein 8.1 Albumin 4.3 Globulin 3.8 Albumin/Globulin Ratio 1.1 Lipase 37 Serum HCG, Qual 02/03/23 02/03/23 02/03/23 15:05 15:05 15:05 WBC RBC Hgb Hct MCV MCH MCHC RDW Plt Count MPV Neut # (Auto) Lymph # (Auto) [place] # (Auto) Eos # (Auto) Baso # (Auto) Absolute Nucleated RBC Nucleated RBC % PT INR Sodium Potassium Chloride Carbon Dioxide Anion Gap BUN Creatinine Estimated GFR (MDRD) Glucose Calcium Total Bilirubin AST ALT Alkaline Phosphatase Troponin I High Sens 2.3 B-Natriuretic Peptide 58 Total Protein Albumin Globulin Albumin/Globulin Ratio Lipase Serum HCG, Qual NEGATIVE - Rads (name of study) cxr Relevant Findings:: Final report received (No acute cardiopulmonary process) PD Medical Decision Making - ED course Complexity details: reviewed results, re-evaluated patient, considered differential, d/w patient ED course: 32-year-old female who has a history of tetralogy of Fallot, congestive heart failure, diabetes, anxiety presents to the emergency department for evaluation of chest pain that [facility] She did not have shortness of air. It did not radiate. Some of the history is limited as the patient does have a developmental delay. Her caregiver today reports that she is not her usual caregiver. It is typically her sister and she is anxious because her sister is visiting family. On presentation to the emergency department she is however alert, well-appearing and does not appear in any distress. Her EKG is interpreted by myself shows sinus rhythm with right bundle mehrdad block. This is unchanged from the most recent 1. A chest x-ray showed no findings of pneumonia, pleural effusion or volume overload. I did obtain CBC and electrolytes as well as a high- sensitivity troponin. Per my interpretation no acute worrisome findings. Hemoglobin is normal. She has normal renal function. Troponin and BNP are negative. Clinically the patient does not have history consistent with ACS nor does she have heart failure, pneumonia. Patient is PERC criteria negative. She is also negative for suspicion of PE by Wells criteria. Clinically I suspect she had anxiety/panic attack which the patient endorses. At this time no further work-up is warranted. She is discharged home in stable condition with usual emergent return precautions discussed. Departure - Departure Disposition: 01 Home, Self Care Clinical Impression: Chest pain Qualifiers: Chest pain type: unspecified Qualified Code(s): R07.9 - Chest pain, unspecified Condition: Stable Record reviewed to determine appropriate education?: Yes Comments: You came to the emergency department today because she began to have chest pain while walking at [employer]. You do have a history of tetralogy of Fallot, heart failure, anxiety and diabetes. Today your EKG shows no changes from your most recent one that was completed. The chest x-ray is also normal and does not show signs of fluid overload in your heart or lungs. This is important because your heart failure is stable. The labs that we took today also did not show any worrisome findings. Your BUN and creatinine or markers of renal function were normal today. However that does not mean that you do not have chronic kidney disease it just means that they are functioning well at this time. I can tell you with confidence that you are not having a heart attack. You are also not having heart failure exacerbation. I suspect that the etiology of your symptoms was most likely anxiety though if you are finding your symptoms are worsening you can return to the ER. Please discuss this ED visit with your primary care doctor. You can continue to take your usual medications without any adjustments. Return to the ER for new or worsening symptoms.
[2023-02-03 14:19] VITALS: BP 115/77
[2023-02-03 15:11] LABS: PT - PROTHROMBIN TIME 11.4 secs (9.9-12.6)
[2023-02-03 15:12] LABS: BASOPHILS % (AUTO) 0.4 %; EOSINOPHILS # (AUTO) 0.3 10^3/uL (0.0-0.7); HCT - HEMATOCRIT 38.7 % (37.0-47.0); LYMPHOCYTES # (AUTO) 2.2 10^3/uL (1.5-3.5); LYMPHOCYTES % (AUTO) 24.4 %; MEAN CORPUSCULAR HEMOGLOBIN 26.5 pg (27.0-31.0); MEAN CORPUSCULAR VOLUME 85.6 fL (81.0-99.0); MONOCYTES # (AUTO) 0.5 10^3/uL (0.0-1.0); MONOCYTES % (AUTO) 5.4 %; NEUTROPHILS % (AUTO) 66.5 %; PLT - PLATELET COUNT 185 10^3/uL (130-450); RED BLOOD COUNT 4.52 10^6/uL (4.20-5.40)
[2023-02-03 15:30] LABS: ALBUMIN 4.3 g/dL (3.2-5.5); ALBUMIN/GLOBULIN RATIO 1.1 (1.0-2.2); BILIRUBIN,TOTAL 0.7 mg/dL (0.2-1.0); CALCIUM 9.2 mg/dL (8.5-10.3); CREATININE 0.9 mg/dL (0.4-1.0); POTASSIUM 3.4 mmol/L (3.5-5.0); TOTAL PROTEIN 8.1 g/dL (6.7-8.2)
--- NOTE | 2023-02-03 15:32 | XRAY Report ---
PROCEDURE: Chest 1 View X-Ray INDICATIONS: Chest Pain TECHNIQUE: One view of the chest was acquired. COMPARISON: None. FINDINGS: Surgical changes and devices: None. Lungs and pleura: No pleural effusions or pneumothorax. Lungs are clear. Mediastinum: Mediastinal contours appear normal. Heart size is normal. Bones and chest wall: No suspicious bony lesions. Overlying soft tissues appear unremarkable. IMPRESSION: No acute cardiopulmonary process. Reviewed by: Gonzalez Plascencia on 02/03/2023 3:31 PM PDT Approved by: Gonzalez Plascencia on 02/03/2023 3:31 PM PDT Station ID: [id number]
[2023-02-03 15:39] LABS: HCG,QUALITATIVE BLOOD NEGATIVE
== END 2023-02-03 16:06 | disposition home or self-care (01) ==
LOC: EDUNIT# → EDBD → ED 13:59
DX: R07.9 Chest pain, unspecified (principal)
CPT/HCPCS: 36415; 80053; 83690; 83880; 84484; 84703; 85025; 85610; 93005; 99283; 99284

== ENCOUNTER 2023-07-29 10:09 | Outpatient (CLI) | payer MEDICARE, MEDICAID | END 2023-07-29 23:59 | disposition EMS.NT | LOC: EMS 10:09 | DX: R07.89 Other chest pain (principal) ==

== ENCOUNTER 2023-07-31 17:09 | Outpatient (CLI) | payer MEDICARE, MEDICAID | END 2023-07-31 17:10 | disposition critical access hospital (66) | LOC: EMS 17:09 | DX: R21 Rash and other nonspecific skin eruption (principal); L29.9 Pruritus, unspecified | CPT/HCPCS: A0425; A0429 ==

== ENCOUNTER 2023-07-31 17:31 | Emergency (ER) | payer MEDICARE, MEDICAID ==
[2023-07-31 17:42] VITALS: BP 130/88; O2SAT 98
--- NOTE | 2023-07-31 18:59 | ED Physician Documentation ---
PD HPI SKIN - Stated complaint Stated Complaint: RASH - Chief complaint Chief Complaint: Wound - History obtained from History obtained from: Patient - Additional information Additional information: She presents by ambulance for the evaluation of a rash on the left leg. She does not know how long it has been there. It does not hurt or itch. 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 : None HEENT: Chronic hearing loss Psych: Depression, Anxiety, Panic attacks, Post traumatic stress disorder, Other Musculoskeletal: None Derm: Eczema - Past Surgical History Past Surgical History: Yes Cardiovascular: Valve replacement, Other HEENT: Myringotomy (tubes) - Present Medications Home Medications: Ambulatory Orders Medication Instructions Recorded Confirmed lisinopriL [Lisinopril] 2.5 mg PO DAILY 07/29/17 08/30/21 metFORMIN [Glucophage] 500 mg PO DAILY 07/29/17 08/30/21 ARIPiprazole INJ [Abilify Maintena] 400 mg IM .QMONTH 07/31/20 08/30/21 Acetaminophen [Aphen] 325 mg PO DAILY PRN 07/31/20 08/30/21 Albuterol Sulf [Ventolin Hfa 1 - 2 puffs INH Q6H PRN 07/31/20 08/30/21 Inhaler] Doxepin [SINEquan] 10 mg PO DAILY 07/31/20 08/30/21 Levothyroxine [Synthroid] 125 mcg PO DAILY 07/31/20 08/30/21 Melatonin 5 mg PO QPM PRN 07/31/20 08/30/21 Mirtazapine [Remeron] 20 mg PO QPM 07/31/20 08/30/21 Prazosin [Minipress] 2 mg PO DAILY 07/31/20 08/30/21 Furosemide [Lasix] 20 mg PO DAILY 09/17/20 08/30/21 LORazepam [Ativan] 1 mg PO DAILY PRN 11/18/20 08/30/21 Naproxen 250 mg PO QID PRN #15 tablet 11/18/20 08/30/21 Hydrocortisone 1% Cream 1 applic TOP BID #28 gm 07/31/23 [Hydrocortisone] - Allergies Allergies/Adverse Reactions: Allergies Allergy/AdvReac Type Severity Reaction Status Date / Time cephalexin monohydrate * Allergy Severe Hives Verified 07/31/23 17:37 [From Keflex] cetirizine HCl * Allergy Mild Rash Verified 07/31/23 17:37 [From Zyrtec] bacitracin Allergy Hives Verified 07/31/23 17:37 [From Neosporin ([id number])] bacitracin zinc * Allergy Hives Verified 07/31/23 17:37 [From Neosporin (hok-rqj-[id number])] neomycin sulfate * Allergy Hives Verified 07/31/23 17:37 [From Neosporin (jww-hkv-canwa)] polymyxin B Allergy Hives Verified 07/31/23 17:37 [From Neosporin (mrz-zlf-mxhni)] sulfamethoxazole Allergy Hives Verified 07/31/23 17:37 [From Septra] trimethoprim [From Septra] Allergy Hives Verified 07/31/23 17:37 sertraline HCl * AdvReac Intermediate Nausea Verified 07/31/23 17:37 [From Zoloft] - Social History Does the pt smoke?: No Smoking Status: Never smoker Does the pt drink ETOH?: Yes Does the pt have substance abuse?: Yes - Immunizations Immunizations are current?: Yes Immunizations: Other immun not current - POLST Patient has POLST: No POLST Status: Full Code PD ED PE NORMAL - Vitals Vital signs reviewed: Yes - General General: Alert and oriented X 3, No acute distress - Derm Derm: Other (On the lateral side of the left knee there is a reticular erythematous nonraised dermatosis most consistent with erythema ab igne) Results - Vitals Vitals: Vital Signs - 24 hr 07/31/23 17:38 Temperature 36.8 C Heart Rate 88 Respiratory 18 Rate Blood Pressure 130/88 H O2 Saturation 98 Oxygen O2 Source Room air PD Medical Decision Making - ED course ED course: She has what looks like erythema ab igne on the outside of the left knee. She admits she probably sits too close to a heater there and removal of the heat source was advised. Departure - Departure Disposition: 01 Home, Self Care Clinical Impression: Erythema ab igne [dermatitis ab igne] Condition: Good Record reviewed to determine appropriate education?: Yes Prescriptions: Hydrocortisone 1% Cream [Hydrocortisone] 1 applic TOP BID #28 gm Comments: As discussed, the rash appears to be erythema ab igne. Which is due to repeated heat exposure we presume from sitting to close to be heater there. Do not sit too close to a heater and this will likely go away. I will trial some steroid cream as well. Return if worse. Follow-up with your primary care physician for recheck. Forms: PCP List
== END 2023-07-31 19:04 | disposition home or self-care (01) ==
LOC: EDUNIT# → ED 17:31
DX: L59.0 Erythema ab igne [dermatitis ab igne] (principal); I10 Essential (primary) hypertension; E78.00 Pure hypercholesterolemia, unspecified; E11.9 Type 2 diabetes mellitus without complications; E03.9 Hypothyroidism, unspecified; Z79.899 Other long term (current) drug therapy; Z79.84 Long term (current) use of oral hypoglycemic drugs
CPT/HCPCS: 99283

== ENCOUNTER 2023-08-18 13:31 | Outpatient (CLI) | payer MEDICARE, MEDICAID | END 2023-08-18 23:59 | disposition EMS.NT | LOC: EMS 13:31 | DX: R07.89 Other chest pain (principal); F41.9 Anxiety disorder, unspecified ==

== ENCOUNTER 2023-08-20 08:00 | Outpatient (CLI) | payer MEDICARE, MEDICAID ==
[2023-08-20 21:14] LABS: CHLAMYDIA TRACHOMATIS DNA NEGATIVE (NEGATIVE); NEISSERIA GONORRHOEAE DNA NEGATIVE (NEGATIVE)
[2023-08-24 05:14] LABS: HSV-1 DNA Negative (Negative); HSV-2 DNA Negative (Negative)
== END 2023-08-20 23:59 | disposition home or self-care (01) ==
LOC: LAB.N 08:00
PROVIDERS: ATTEND Family Medicine
DX: L29.8 Other pruritus (principal); N89.8 Other specified noninflammatory disorders of vagina
CPT/HCPCS: 81514; 87491; 87529; 87591; 87661

== ENCOUNTER 2023-10-12 18:27 | Outpatient (CLI) | payer MEDICARE, MEDICAID | END 2023-10-12 18:28 | disposition critical access hospital (66) | LOC: EMS 18:27 | DX: R45.851 Suicidal ideations (principal) | CPT/HCPCS: A0425; A0429 ==

== ENCOUNTER 2023-10-12 18:47 | Emergency (ER) | payer MEDICARE, MEDICAID ==
--- NOTE | 2023-10-12 19:04 | ED Physician Documentation ---
PD HPI MHE - Stated complaint Stated Complaint: SI - Chief complaint Chief Complaint: MHE - History obtained from History obtained from: Patient - Additional information Additional information: 32-year-old presents by ambulance for suicidal ideation. She says her caregiver left her last night her she left her caregiver and today she is suicidal with thoughts of overdose on sleeping pills. She has a history of depression. Denies drug or alcohol use, has a history of cannabis use but not in the last month or so she says. 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 : None HEENT: Chronic hearing loss Psych: Depression, Anxiety, Panic attacks, Post traumatic stress disorder, Other Musculoskeletal: None Derm: Eczema - Past Surgical History Past Surgical History: Yes Cardiovascular: Valve replacement, Other HEENT: Myringotomy (tubes) - Present Medications Home Medications: Ambulatory Orders Medication Instructions Recorded Confirmed lisinopriL [Lisinopril] 2.5 mg PO DAILY 07/29/17 10/12/23 metFORMIN [Glucophage] 500 mg PO BID 07/29/17 10/12/23 ARIPiprazole INJ [Abilify Maintena] 400 mg IM .QMONTH 07/31/20 10/12/23 Acetaminophen [Aphen] 325 - 650 mg PO DAILY PRN 07/31/20 10/12/23 Albuterol Sulf [Ventolin Hfa 1 - 2 puffs INH Q6H PRN 07/31/20 10/12/23 Inhaler] Doxepin [SINEquan] 25 mg PO DAILY 07/31/20 10/12/23 Furosemide [Lasix] 20 mg PO DAILY 09/17/20 10/12/23 Famotidine 40 mg PO DAILY 10/12/23 10/12/23 LORazepam [Ativan] 0.5 mg PO BID PRN 10/12/23 10/12/23 Levothyroxine Sodium 137 mcg PO DAILY 10/12/23 10/12/23 Mirtazapine 45 mg PO HS 10/12/23 10/12/23 OLANZapine [Olanzapine] 5 mg PO DAILY 10/12/23 10/12/23 Prazosin HCl [Minipress] 2 mg PO HS 10/12/23 10/12/23 Simvastatin [Zocor] 20 mg PO HS 10/12/23 10/12/23 - Allergies Allergies/Adverse Reactions: Allergies Allergy/AdvReac Type Severity Reaction Status Date / Time cephalexin monohydrate * Allergy Severe Hives Verified 10/12/23 18:56 [From Keflex] cetirizine HCl * Allergy Mild Rash Verified 10/12/23 18:56 [From Zyrtec] bacitracin Allergy Hives Verified 10/12/23 18:56 [From Neosporin (iuz-hoa-juzyx)] bacitracin zinc * Allergy Hives Verified 10/12/23 18:56 [From Neosporin ([id number]-xhn-ksnvv)] neomycin sulfate * Allergy Hives Verified 10/12/23 18:56 [From Neosporin (glw-pcj-pmsbg)] polymyxin B Allergy Hives Verified 10/12/23 18:56 [From Neosporin (fxg-spx-[id number])] sulfamethoxazole Allergy Hives Verified 10/12/23 18:56 [From Septra] trimethoprim [From Septra] Allergy Hives Verified 10/12/23 18:56 sertraline HCl * AdvReac Intermediate Nausea Verified 10/12/23 18:56 [From Zoloft] - Social History Does the pt smoke?: No Smoking Status: Never smoker Does the pt drink ETOH?: Yes Does the pt have substance abuse?: Yes - Immunizations Immunizations are current?: Yes Immunizations: Other immun not current - POLST Patient has POLST: No POLST Status: Full Code PD ED PE NORMAL - Vitals Vital signs reviewed: Yes - General General: Alert and oriented X 3, No acute distress - HEENT HEENT: PERRL, Other (Very thick glasses) - Neck Neck: Supple, no meningeal sign, No bony TTP - Cardiac Cardiac: RRR, No murmur - Respiratory Respiratory: No respiratory distress, Clear bilaterally - Abdomen Abdomen: Non tender - Neuro Neuro: Alert and oriented X 3, Normal speech Results - Vitals Vitals: Vital Signs - 24 hr 10/12/23 18:56 Temperature 36.8 C Heart Rate 95 Respiratory 18 Rate Blood Pressure 130/85 H O2 Saturation 98 Oxygen O2 Source Room air - Labs Labs: Laboratory Tests 02/28/24 02/28/24 02/28/24 19:12 19:12 19:35 WBC 8.9 RBC 4.31 Hgb 10.4 L Hct 35.9 L MCV 83.3 MCH 24.1 L MCHC 29.0 L RDW 15.7 H Plt Count 216 MPV 12.3 H Neut # (Auto) 6.1 Lymph # (Auto) 2.1 [place] # (Auto) 0.4 Eos # (Auto) 0.2 Baso # (Auto) 0.0 Absolute Nucleated RBC 0.00 Nucleated RBC % 0.0 Sodium 139 Potassium 3.3 L Chloride 101 Carbon Dioxide 28 Anion Gap 10.0 BUN 6 Creatinine 1.1 Estimated GFR (MDRD) 57 L Glucose 112 H Calcium 9.4 Magnesium 1.5 L Total Bilirubin 0.7 AST 51 H ALT 37 Alkaline Phosphatase 150 H Total Creatine Kinase 118 Total Protein 7.8 Albumin 4.6 Globulin 3.2 Albumin/Globulin Ratio 1.4 Lipase 22 TSH 3.75 Urine Color STRAW Urine Clarity HAZY Urine pH 6.5 Ur Specific [place] <=1.005 Urine Protein NEGATIVE Urine Glucose (UA) NEGATIVE Urine Ketones NEGATIVE Urine Occult Blood NEGATIVE Urine Nitrite NEGATIVE Urine Bilirubin NEGATIVE Urine Urobilinogen 0.2 (NORMAL) Ur Leukocyte Esterase LARGE H Urine RBC 0-5 Urine WBC 11-25 H Ur Squamous Epith Cells FEW Squamous Urine Bacteria Rare Ur Microscopic Review INDICATED Urine Culture Comments INDICATED Urine HCG, Qual NEGATIVE Salicylates < 1.5 Urine Opiates Screen NEGATIVE Ur Buprenorphine Scrn NEGATIVE Ur Oxycodone Screen NEGATIVE Urine Methadone Screen NEGATIVE Acetaminophen 0.3 Ur Barbiturates Screen NEGATIVE Ur Tricyclics Screen NEGATIVE Ur Phencyclidine Scrn NEGATIVE Ur Amphetamine Screen NEGATIVE U Methamphetamines Scrn NEGATIVE U Benzodiazepines Scrn NEGATIVE Urine Cocaine Screen NEGATIVE U Cannabinoids Screen NEGATIVE Ur Drug Screen Comment CUTOFF CONC BELOW: Ethyl Alcohol < 10.0 SARS-CoV-2 (PCR) 10/12/23 19:35 WBC RBC Hgb Hct MCV MCH MCHC RDW Plt Count MPV Neut # (Auto) Lymph # (Auto) [place] # (Auto) Eos # (Auto) Baso # (Auto) Absolute Nucleated RBC Nucleated RBC % Sodium Potassium Chloride Carbon Dioxide Anion Gap BUN Creatinine Estimated GFR (MDRD) Glucose Calcium Magnesium Total Bilirubin AST ALT Alkaline Phosphatase Total Creatine Kinase Total Protein Albumin Globulin Albumin/Globulin Ratio Lipase TSH Urine Color Urine Clarity Urine pH Ur Specific [place] Urine Protein Urine Glucose (UA) Urine Ketones Urine Occult Blood Urine Nitrite Urine Bilirubin Urine Urobilinogen Ur Leukocyte Esterase Urine RBC Urine WBC Ur Squamous Epith Cells Urine Bacteria Ur Microscopic Review Urine Culture Comments Urine HCG, Qual Salicylates Urine Opiates Screen Ur Buprenorphine Scrn Ur Oxycodone Screen Urine Methadone Screen Acetaminophen Ur Barbiturates Screen Ur Tricyclics Screen Ur Phencyclidine Scrn Ur Amphetamine Screen U Methamphetamines Scrn U Benzodiazepines Scrn Urine Cocaine Screen U Cannabinoids Screen Ur Drug Screen Comment Ethyl Alcohol SARS-CoV-2 (PCR) NOT DETECTED PD Medical Decision Making - ED course ED course: She was seen tonight after a stress reaction regarding something that happened with her caregiver. She was seen by telepsych and was feeling better after that and denied SI or HI. Screening/medical clearance labs were done showing mild anemia, mild hypomagnesemia and hypokalemia that were repleted orally. Urinalysis showing some white cells but no urinary symptoms. Toxicology screening was negative. Departure - Departure Disposition: 01 Home, Self Care Clinical Impression: Depressive disorder Condition: Good Record reviewed to determine appropriate education?: Yes Instructions: ED Stress React, ED Depression Comments: You are seen tonight after a stress reaction with what happened with your caregiver. You were seen by our telepsychiatrist and were feeling better after that and have a good ongoing plan forward. Please continue current medications and follow-up with your counselor, next available appointment. Return for new or worsening symptoms. Forms: PCP List
[2023-10-12 19:16] LABS: BASOPHILS % (AUTO) 0.4 %; EOSINOPHILS # (AUTO) 0.2 10^3/uL (0.0-0.7); HCT - HEMATOCRIT 35.9 % (37.0-47.0); HGB - HEMOGLOBIN 10.4 g/dL (12.0-16.0); LYMPHOCYTES # (AUTO) 2.1 10^3/uL (1.5-3.5); LYMPHOCYTES % (AUTO) 23.9 %; MEAN CORPUSCULAR HEMOGLOBIN 24.1 pg (27.0-31.0); MEAN CORPUSCULAR VOLUME 83.3 fL (81.0-99.0); MEAN PLATELET VOLUME 12.3 fL (7.9-10.8); MONOCYTES # (AUTO) 0.4 10^3/uL (0.0-1.0); MONOCYTES % (AUTO) 4.4 %; NEUTROPHILS # (AUTO) 6.1 10^3/uL (1.5-6.6); NEUTROPHILS % (AUTO) 69.1 %; PLT - PLATELET COUNT 216 10^3/uL (130-450); RED BLOOD COUNT 4.31 10^6/uL (4.20-5.40); RED CELL DISTRIBUTION WIDTH 15.7 % (12.0-15.0); WHITE BLOOD COUNT 8.9 x10^3/uL (4.8-10.8)
[2023-10-12 19:25] LABS: MAGNESIUM 1.5 mg/dL (1.7-2.3)
[2023-10-12 19:31] LABS: ACETAMINOPHEN 0.3 ug/mL; ALBUMIN 4.6 g/dL (3.2-5.5); ALBUMIN/GLOBULIN RATIO 1.4 (1.0-2.2); ALKALINE PHOSPHATASE 150 IU/L (42-121); ALT ALANINE AMINOTRANSFERASE 37 IU/L (10-60); AST ASPARTATE AMINOTRANSFERASE 51 IU/L (10-42); BILIRUBIN,TOTAL 0.7 mg/dL (0.2-1.0); BUN - BLOOD UREA NITROGEN 6 mg/dL (6-20); CALCIUM 9.4 mg/dL (8.5-10.3); CARBON DIOXIDE - CO2 28 mmol/L (21-32); CHLORIDE 101 mmol/L (101-111); CK- CREATINE KINASE 118 IU/L (30-223); CREATININE 1.1 mg/dL (0.6-1.3); ETOH - ETHANOL < 10.0 mg/dL; GFR - MDRD 57 (>89); GLUCOSE 112 mg/dL (74-104); LIPASE 22 U/L (11-82); POTASSIUM 3.3 mmol/L (3.5-4.5); SODIUM 139 mmol/L (135-145); TOTAL PROTEIN 7.8 g/dL (6.4-8.9)
[2023-10-12 19:34] LABS: SALICYLATE < 1.5 mg/dL
[2023-10-12 19:46] LABS: THYROID STIMULATING HORMONE 3.75 uIU/mL (0.34-5.60)
[2023-10-12 19:47] LABS: BILIRUBIN,URINE NEGATIVE (NEGATIVE); GLUCOSE, URINE (UA) NEGATIVE (NEGATIVE); KETONES,URINE (UA) NEGATIVE (NEGATIVE); LEUKOCYTE ESTERASE, URINE LARGE (NEGATIVE); NITRITE,URINE NEGATIVE (NEGATIVE); OCCULT BLOOD,URINE NEGATIVE (NEGATIVE); PH,URINE 6.5 PH (5.0-7.5); PROTEIN,URINE NEGATIVE (NEGATIVE); UROBILINOGEN,URINE 0.2 (NORMAL) E.U./dL (NORMAL)
[2023-10-12 19:49] LABS: CLARITY,URINE HAZY (CLEAR); HCG UR QUAL NEGATIVE
[2023-10-12 19:57] LABS: BACTERIA,URINE Rare /HPF (None Seen); RBC,URINE 0-5 /HPF (0-5); SQUAMOUS EPITHELIAL CELL,UR FEW Squamous (<= Few)
[2023-10-12 20:00] LABS: AMPHETAMINE SCREEN,URINE NEGATIVE (NEGATIVE); BARBITURATE SCREEN,UR NEGATIVE (NEGATIVE); BENZODIAZEPINES SCREEN, URINE NEGATIVE (NEGATIVE); BUPRENORPHINE SCREEN, URINE NEGATIVE (NEGATIVE); COCAINE SCREEN URINE NEGATIVE (NEGATIVE); METHADONE SCREEN, URINE NEGATIVE (NEGATIVE); METHAMPHETAMINES SCREEN, URINE NEGATIVE (NEGATIVE); OPIATE SCREEN, URINE NEGATIVE (NEGATIVE); OXYCODONE SCREEN, URINE NEGATIVE (NEGATIVE); THC CANNABINOID SCREEN, URINE NEGATIVE (NEGATIVE); TRICYCLIC ANTIDEPRESSANT,URINE NEGATIVE (NEGATIVE)
[2023-10-12] MEDS: POTASSIUM BICARB 25 MEQ TABLET PO STA (20:00)
[2023-10-12] MEDS: MAGNESIUM OXIDE 400 MG TABLET PO STA (20:01)
--- NOTE | 2023-10-12 20:32 | TELEPSYCH PHYS NOTE ---
[facility] Consult Consult Date: 10/12/23 Name of Referring Provider:: Lucian Caruso MD Reason for Consult: Suicidal Ideation - Suicide Risk Sreening (ASQ Tool) In the past few weeks, have you wished you were ?: No In the past few weeks, have you felt that you or your family would be better off if you were ?: No In the past week, have you been having thoughts about killing yourself?: Yes Have you ever tried to kill yourself?: Yes - Assessment Language: Uzbek Turbine Inspector Required: No Cultural, Adventism or Spiritual Preferences: "I am Hinduism." Notes: See HPI Chief Complaint: "I am okay now it is just when I talk to the police I get anxious. I got in a fight with my caregiver and she told me she was leaving November 13 and I am the one paying rent. It is my apartment." She says that she had been feeling suicida l "but I am okay now." History of Present Illness: Patient brought to the ED by ambulance after she had a fight with her caregiver and called the police to say she was suicidal. She comes to the ED and says that she is no longer feeling suicidal. It was passing. She says that she is feeling better. If 10 is the worst, she would rate her depression at a 3/10 now and 5.5 in the last week "I usually don't think about it because I have a happy life." She says that she is looking forward to her upcoming birthday. She [place] go to the casino. She rates her anxiety at a 2/10 at this time. When asked about her sleep, she says, "It has been off and on because even though I take my nighttime meds I stay up until 2:00." She says that she stays up on purpose. She will then sleep until noon often. She sometimes will have trouble getting to sleep or staying asleep. She just had her Remeron increased to 45 mg to help with this. "I have been eating well I just eat a lot of out food because I don't know how to cook so I eat out." She reports that she will hear something that is like static in her head like the sound og a TV. "It is like another world is trying to contact me." She says that she had been off of her medications for 3-4 days and she restarted them about a week ago. She says that when she stops the medications the voices start again. Suicide Ideation - Homicide Ideation - Self Harm: SI- Just last night and tonight she had thoughts about drowning herself in the tub. She says that she had a suicide attempt "wanting to overdose but my brother stopped me" She says that she has not been thinking about it since she got her boyfriend a year ago. HI- Denies Self- harm- Has a tattoo over her arm to hide old scars and she has not cut in 4 years. Psychiatric History - Treatment History: DX- anxiety, depression, PTSD, nightmares She denies any schizophrenia or bipolar dx. Medication hx- She has been on the HANNAH for about 4 years now and she thinks that the combination of medications she is on now help a lot when she is good about taking them. OP-She has been seeing Mendez who is her prescriber but she is going on Maternity leave. She is moving to [place] and has an appointment set up there on the at 1 pm. This is with [facility]. IP- Maybe 10 to 15 times, starting in [place]. Longest IP stay was 6 months. Last time IP was August 18. Community Resources Accessed: See OP Family Psych History/ History of suicide: None known Nutritional Status: No nutritional concerns - Medication & Allergies Home Medications: Ambulatory Orders Medication Instructions Recorded Confirmed lisinopriL [Lisinopril] 2.5 mg PO DAILY 07/29/17 10/12/23 metFORMIN [Glucophage] 500 mg PO BID 07/29/17 10/12/23 ARIPiprazole INJ [Abilify Maintena] 400 mg IM .QMONTH 07/31/20 10/12/23 Acetaminophen [Aphen] 325 - 650 mg PO DAILY PRN 07/31/20 10/12/23 Albuterol Sulf [Ventolin Hfa 1 - 2 puffs INH Q6H PRN 07/31/20 10/12/23 Inhaler] Doxepin [SINEquan] 25 mg PO DAILY 07/31/20 10/12/23 Furosemide [Lasix] 20 mg PO DAILY 09/17/20 10/12/23 Famotidine 40 mg PO DAILY 10/12/23 10/12/23 LORazepam [Ativan] 0.5 mg PO BID PRN 10/12/23 10/12/23 Levothyroxine Sodium 137 mcg PO DAILY 10/12/23 10/12/23 Mirtazapine 45 mg PO HS 10/12/23 10/12/23 OLANZapine [Olanzapine] 5 mg PO DAILY 10/12/23 10/12/23 Prazosin HCl [Minipress] 2 mg PO HS 10/12/23 10/12/23 Simvastatin [Zocor] 20 mg PO HS 10/12/23 10/12/23 Allergies/Adverse Reactions: Allergies Allergy/AdvReac Type Severity Reaction Status Date / Time cephalexin monohydrate * Allergy Severe Hives Verified 10/12/23 18:56 [From Keflex] cetirizine HCl * Allergy Mild Rash Verified 10/12/23 18:56 [From Zyrtec] bacitracin Allergy Hives Verified 10/12/23 18:56 [From Neosporin ([id number])] bacitracin zinc * Allergy Hives Verified 10/12/23 18:56 [From Neosporin (fse-bvi-quapo)] neomycin sulfate * Allergy Hives Verified 10/12/23 18:56 [From Neosporin ([id number]-rmr-[id number])] polymyxin B Allergy Hives Verified 10/12/23 18:56 [From Neosporin (vhg-pgw-floig)] sulfamethoxazole Allergy Hives Verified 10/12/23 18:56 [From Septra] trimethoprim [From Septra] Allergy Hives Verified 10/12/23 18:56 sertraline HCl * AdvReac Intermediate Nausea Verified 10/12/23 18:56 [From Zoloft] - Drug & Alcohol History Does patient have Drug/ETOH history or addictive behavior?: Yes Use: Uses substance without health or social issues: Cannabis Abuse: Recurrent use of substance despite neg consequences: NONE Dependence: Experiences withdrawal or developed tolerances: NONE - Trauma Does the patient have a history of trauma, abuse, neglect or explotation?: Yes History of trauma, abuse, neglect, or exploitation (Notes): "I don't want to talk about it. It is personal to me." - Personal Information Does the patient have a history or present tendencies for violence?: None History or present tendencies for violence (Notes): Denies Services History: Denies Does patient have any Legal Charges or Investigations?: No Legal Charges or Investigations (Notes): Denies Environment & Living Situation - Social, Peer-Group (Note): At home Environment & Living Situation - Social, Peer-Group (Notes): She is living with Erma, who was her caregiver. She is moving to [place] at the end of October but is waiting for approval by the Housing Authority. Marital Status - Family Circumstances: Never and no children Stressors - Financial Concerns: Caregiver left her today and she is hoping to move. Education: High school Occupation: Used to work at [employer] in 2016, She is on SS Collateral - Interdisciplinary Input: Hospital notes reviewed - Medical History Psychiatric: reports: Depression, Anxiety, Panic attacks, Post traumatic stress disorder, Other Neurological: reports: None, Other Eyes, Ears, Nose, Throat: reports: Chronic hearing loss Cardiovascular: reports: Hypertension, High cholesterol, Murmur, Valve disorder, Other Respiratory: reports: Asthma Gastrointestinal: reports: Other Urinary: reports: None PRESIDENT PRACTICING UROLOGIST: reports: None Musculoskeletal: reports: None Skin: reports: Eczema - Surgical History Cardiovascular: reports: Valve replacement, Other HEENT: reports: Myringotomy (tubes) - Family & Social History Family History Comment/Other: She has 5 siblings who to the best of her knowledge are healthy. She does not know her parents medical history because she has not been in communication with them for a long time. She was mainly brought up by her Great grandparents. Her great grandfather had history of an CA. Living Situation: With caregiver(s) Social History Notes: She stopped smoking on March 02, 2019. She does not drink alcohol or use recreational substances.She lives alone Childhood History: "I would describe it as fun." - Mental Status Exam Appearance and Attire: In hospital scrubs and sitting up in bed to talk. Attitude and Behavior: Calm and cooperative Speech: Coherent and appropriate in rate and volume Affect and Mood: Mood is mildly depressed per patient and affect is cheerful Association and Thought Process: Logical and linear Thought Content: No evidence of any obsessions or delusions Perception: She reports hearing static at times and says that when sh eis not on her medications she has hallucinations. Today she denies any and none suspected based on her presentation. Sensorium, memory and orientation: Alert and oriented x 4 Intellectual - Cognitive functioning: Mild impairment in cognition Insight and Judgement: Insight and judgement are both fair Emotional and Behavioral Functioning: Improved distress tolerance over the years, able to quit cutting and smoking Ability to Self-Care: Overall fair - Personal Goals Short-term Goals: "To move to [place] and to quit smoking for 5 years because I have quit for 2 now." Long-term Goals: Get - Risk/Protective Factors Risk Factors: Trigger events leading to humiliation, shame and/or despair Protective Factors / Internal: Ability to cope with stress, Frustration tolerance, Adventism beliefs, Fear of or the actual act of killing self, Identifies reasons for living Protective Factors / External: Cultural, spiritual and/or moral attitudes against suicide, Supportive social network of family or friends - Plan Impression/Risk Assessment: Patient had a fight with her caregiver today, who told her that she was going to quit. When she heard this she felt suicidal and the police were called. She reports that she is feeling much calmer and better and denies any further SI Patient has an extensive psychiatric history and when she stops taking her medication, her symptoms return. She had stopped her medications for a few days a couple of weeks ago ut is back on them. She has an upcoming appointment with a provider for next week. Patient denies HI. Treatment - Therapy Recommendations: Provider feels that she is safe to return home (needs a voucher to get home) and have her routine OP treatment follow up. Pharmacological Recommendations: No changes needed, continue home medications. - Time Spent & Provider Location Telepsych consultation conducted via videoconferencing: Yes List names and roles of persons who participated in consult: [facility] Provider Location: [place], [place] Time Spent (Minutes): 40
[2023-10-12 21:42] VITALS: BP 139/73; O2SAT 96
== END 2023-10-12 21:49 | disposition home or self-care (01) ==
LOC: EDUNIT# → ED 18:47
DX: F32.A Depression, unspecified (principal)
CPT/HCPCS: 36415; 80053; 80143; 80306; 81001; 81025; 82550; 83690; 83735; 84443; 85025; 87086; 87635; 99284; 99285; A9270; G0425; G0480; Q3014; 80179; 81003; 82077

== ENCOUNTER 2023-11-01 11:40 | Outpatient (CLI) | payer MEDICARE, MEDICAID | END 2023-11-01 23:59 | disposition EMS.NT | LOC: EMS 11:40 | DX: R11.10 Vomiting, unspecified (principal) ==

== ENCOUNTER 2023-11-21 13:15 | Outpatient (CLI) | payer MEDICARE, MEDICAID | END 2023-11-21 23:59 | disposition left against medical advice (07) | LOC: EMS 13:15 | DX: R10.84 Generalized abdominal pain (principal) ==

== ENCOUNTER 2023-11-22 08:38 | Outpatient (CLI) | payer MEDICARE, MEDICAID | END 2023-11-22 23:59 | disposition critical access hospital (66) | LOC: EMS 08:38 | DX: R10.84 Generalized abdominal pain (principal); R10.817 Generalized abdominal tenderness; F41.9 Anxiety disorder, unspecified | CPT/HCPCS: A0425; A0429 ==

== ENCOUNTER 2023-11-22 08:59 | Emergency (ER) | payer MEDICARE, MEDICAID ==
[2023-11-22 09:18] VITALS: O2SAT 95
[2023-11-22] MEDS ORDERED: iohexoL-300 100 ML VIAL ONE (09:32)
[2023-11-22] MEDS: ONDANSETRON 4 MG/2 ML VIAL IVP STA (09:43)
[2023-11-22] MEDS: KETOROLAC 15 MG/ML VIAL IVP STA (09:43)
[2023-11-22 09:46] LABS: BASOPHILS % (AUTO) 0.5 %; EOSINOPHILS # (AUTO) 0.2 10^3/uL (0.0-0.7); EOSINOPHILS % (AUTO) 2.7 %; HGB - HEMOGLOBIN 8.9 g/dL (12.0-16.0); LYMPHOCYTES # (AUTO) 1.9 10^3/uL (1.5-3.5); LYMPHOCYTES % (AUTO) 21.9 %; MEAN CORPUSCULAR HEMOGLOBIN 24.4 pg (27.0-31.0); MEAN CORPUSCULAR HGB CONC 28.7 g/dL (32.0-36.0); MEAN CORPUSCULAR VOLUME 84.9 fL (81.0-99.0); MEAN PLATELET VOLUME 12.3 fL (7.9-10.8); MONOCYTES # (AUTO) 0.5 10^3/uL (0.0-1.0); MONOCYTES % (AUTO) 5.3 %; NEUTROPHILS # (AUTO) 5.9 10^3/uL (1.5-6.6); NEUTROPHILS % (AUTO) 69.2 %; PLT - PLATELET COUNT 193 10^3/uL (130-450); RED BLOOD COUNT 3.65 10^6/uL (4.20-5.40); RED CELL DISTRIBUTION WIDTH 15.9 % (12.0-15.0); WHITE BLOOD COUNT 8.5 x10^3/uL (4.8-10.8)
--- NOTE | 2023-11-22 09:52 | ED Physician Documentation ---
History of Present Illness - Stated complaint Stated Complaint: ABD PX - Chief complaint Chief Complaint: Abd Pain - History obtained from History obtained from: Patient - Additonal information Additional information: Patient is a 33-year-old female presenting for evaluation of left-sided abdominal pain which has been present for the past 4 days. Patient is unable to describe the pain. Believes it could be related to a muscle strain as she had to bend down to get laundry out of a top loading a washer and states that this is usually difficult for her. She did go to the walk-in clinic yesterday and they only recommended her to using anti-inflammatories which she states have not helped. Her last regular bowel movement was yesterday but she did have a small 1 today. No vomiting, diarrhea, dysuria or hematuria. Review of Systems Constitutional: denies: Fever Cardiac: denies: Chest pain / pressure Respiratory: denies: Dyspnea GI: reports: Abdominal Pain. denies: Vomiting, Diarrhea, Bloody / black stool : denies: Dysuria PD PAST MEDICAL HISTORY - Past Medical History Past Medical History: Yes Cardiovascular: Hypertension, High cholesterol, Murmur, Valve disorder, Other Respiratory: Asthma Neuro: None, Other Endocrine/Autoimmune: Type 2 diabetes, HyPOthyroidism GI: Other RUBY ON RAILS DEVELOPER: None : None HEENT: Chronic hearing loss Psych: Depression, Anxiety, Panic attacks, Post traumatic stress disorder, Other Musculoskeletal: None Derm: Eczema - Past Surgical History Past Surgical History: Yes Cardiovascular: Valve replacement, Other HEENT: Myringotomy (tubes) - Present Medications Home Medications: Ambulatory Orders Medication Instructions Recorded Confirmed lisinopriL [Lisinopril] 2.5 mg PO DAILY 07/29/17 10/12/23 metFORMIN [Glucophage] 500 mg PO BID 07/29/17 10/12/23 ARIPiprazole INJ [Abilify Maintena] 400 mg IM .QMONTH 07/31/20 10/12/23 Acetaminophen [Aphen] 325 - 650 mg PO DAILY PRN 07/31/20 10/12/23 Albuterol Sulf [Ventolin Hfa 1 - 2 puffs INH Q6H PRN 07/31/20 10/12/23 Inhaler] Doxepin [SINEquan] 25 mg PO DAILY 07/31/20 10/12/23 Furosemide [Lasix] 20 mg PO DAILY 09/17/20 10/12/23 Famotidine 40 mg PO DAILY 10/12/23 10/12/23 LORazepam [Ativan] 0.5 mg PO BID PRN 10/12/23 10/12/23 Levothyroxine Sodium 137 mcg PO DAILY 10/12/23 10/12/23 Mirtazapine 45 mg PO HS 10/12/23 10/12/23 OLANZapine [Olanzapine] 5 mg PO DAILY 10/12/23 10/12/23 Prazosin HCl [Minipress] 2 mg PO HS 10/12/23 10/12/23 Simvastatin [Zocor] 20 mg PO HS 10/12/23 10/12/23 - Allergies Allergies/Adverse Reactions: Allergies Allergy/AdvReac Type Severity Reaction Status Date / Time cephalexin monohydrate * Allergy Severe Hives Verified 11/22/23 09:09 [From Keflex] cetirizine HCl * Allergy Mild Rash Verified 11/22/23 09:09 [From Zyrtec] bacitracin Allergy Hives Verified 11/22/23 09:09 [From Neosporin ([id number]-[id number]-[id number])] bacitracin zinc * Allergy Hives Verified 11/22/23 09:09 [From Neosporin ([id number]-hfm-[id number])] neomycin sulfate * Allergy Hives Verified 11/22/23 09:09 [From Neosporin (rse-pdi-[id number])] polymyxin B Allergy Hives Verified 11/22/23 09:09 [From Neosporin ([id number])] sulfamethoxazole Allergy Hives Verified 11/22/23 09:09 [From Septra] trimethoprim [From Septra] Allergy Hives Verified 11/22/23 09:09 sertraline HCl * AdvReac Intermediate Nausea Verified 11/22/23 09:09 [From Zoloft] - Social History Does the pt smoke?: No Smoking Status: Never smoker Does the pt drink ETOH?: Yes Does the pt have substance abuse?: Yes Substance Use and Type: Marijuana - Immunizations Immunizations are current?: Yes Immunizations: Other immun not current - POLST Patient has POLST: No POLST Status: Full Code PD ED PE NORMAL - General General: Alert and oriented X 3, No acute distress, Well developed/nourished - HEENT HEENT: Atraumatic, Moist mucous membranes, Pharynx benign - Neck Neck: Supple, no meningeal sign - Cardiac Cardiac: RRR, Strong equal pulses - Respiratory Respiratory: No respiratory distress, Clear bilaterally - Abdomen Abdomen: Normal bowel sounds, Soft, Non distended, Other (Left upper and lower quadrant tenderness to palpation, no rebound, no guarding) - Derm Derm: Warm and dry - Neuro Neuro: Normal speech Results - Vitals Vitals: Oxygen O2 Source Room air - Labs Labs: Laboratory Tests 11/22/23 11/22/23 11/22/23 09:40 09:40 09:50 WBC 8.5 RBC 3.65 L Hgb 8.9 L Hct 31.0 L MCV 84.9 MCH 24.4 L MCHC 28.7 L RDW 15.9 H Plt Count 193 MPV 12.3 H Neut # (Auto) 5.9 Lymph # (Auto) 1.9 [place] # (Auto) 0.5 Eos # (Auto) 0.2 Baso # (Auto) 0.0 Absolute Nucleated RBC 0.00 Nucleated RBC % 0.0 Manual Slide Review Indicated Platelet Estimate NORMAL (130-450,000) Platelet Morphology NORMAL APPEARANCE RBC Morph Micro Appear 2+ HYPOCHROMASIA Sodium 142 Potassium 3.0 L Chloride 105 Carbon Dioxide 29 Anion Gap 8.0 BUN 6 Creatinine 0.9 Estimated GFR (MDRD) 71 L Glucose 139 H Calcium 8.8 Total Bilirubin 0.8 AST 45 H ALT 28 Alkaline Phosphatase 142 H Total Protein 7.1 Albumin 4.1 Globulin 3.0 Albumin/Globulin Ratio 1.4 Lipase 28 Urine Color LT. YELLOW Urine Clarity HAZY Urine pH 6.0 Ur Specific Edgar <=1.005 Urine Protein NEGATIVE Urine Glucose (UA) NEGATIVE Urine Ketones NEGATIVE Urine Occult Blood NEGATIVE Urine Nitrite NEGATIVE Urine Bilirubin NEGATIVE Urine Urobilinogen 0.2 (NORMAL) Ur Leukocyte Esterase MODERATE H Urine RBC None Seen Urine WBC 11-25 H Ur Squamous Epith Cells RARE Squamous Urine Bacteria Few Ur Microscopic Review INDICATED Urine Culture Comments INDICATED Urine HCG, Qual NEGATIVE PD Medical Decision Making - ED course Complexity details: reviewed results, re-evaluated patient, d/w patient ED course: Pt with L sided abdominal pain x 4 days. Worse with movements. CBC, chemistries, UA reviewed. Anemia with Hgb of 8.9 (10.4 in Fe). Denies known history of anemia and denies symptoms of GI bleed. K3.0 - PO replacement. Pt feeling better with zofran and toradol. CT abdomen/pelvis without acute findings. UA with WBC but no symptoms of UTI. HCG negative. Pt has been ambulatory without issues and feeling better. Counseled on need for follow up with PCP, especially for further workup for anemia. Pt advised on concerning symptoms to return for. 1154 - Pt sleeping; feeling better. Departure - Departure Disposition: 01 Home, Self Care Clinical Impression: Upper abdominal pain, Hypokalemia, Anemia Condition: Stable Instructions: ED Abdominal Pain Female Non-Specific Abdominal Pain, ED Anemia Type Not Specified, ED Potassium Deficiency Comments: Your CT scan does not show any abnormalities to explain your abdominal pain. It could still be muscle strain as you are suspecting. Your labs do show that you are slightly anemic and your potassium level was also low which we did give you potassium replacement for. I would recommend you have close follow-up with your primary care doctor for further evaluation of your anemia As well as recheck of your potassium. Continue with an anti-inflammatory for your pain. Return to the ER with any worsening symptoms. Forms: PCP List Discharge Date/Time: 11/22/23 12:15
[2023-11-22 09:53] LABS: SLIDE REVIEW? Indicated
[2023-11-22 10:01] LABS: BILIRUBIN,URINE NEGATIVE (NEGATIVE); GLUCOSE, URINE (UA) NEGATIVE (NEGATIVE); KETONES,URINE (UA) NEGATIVE (NEGATIVE); LEUKOCYTE ESTERASE, URINE MODERATE (NEGATIVE); NITRITE,URINE NEGATIVE (NEGATIVE); OCCULT BLOOD,URINE NEGATIVE (NEGATIVE); PROTEIN,URINE NEGATIVE (NEGATIVE); UROBILINOGEN,URINE 0.2 (NORMAL) E.U./dL (NORMAL)
[2023-11-22 10:03] LABS: CLARITY,URINE HAZY (CLEAR); HCG UR QUAL NEGATIVE
[2023-11-22 10:04] LABS: ALBUMIN 4.1 g/dL (3.2-5.5); ALBUMIN/GLOBULIN RATIO 1.4 (1.0-2.2); BILIRUBIN,TOTAL 0.8 mg/dL (0.2-1.0); CALCIUM 8.8 mg/dL (8.5-10.3); CREATININE 0.9 mg/dL (0.6-1.3); TOTAL PROTEIN 7.1 g/dL (6.4-8.9)
[2023-11-22 10:08] LABS: PLATELET ESTIMATE, MANUAL NORMAL (130-450,000) (NORMAL); PLATELET MORPHOLOGY NORMAL APPEARANCE (NORMAL)
[2023-11-22 10:17] LABS: BACTERIA,URINE Few /HPF (None Seen); RBC,URINE None Seen /HPF (0-5); SQUAMOUS EPITHELIAL CELL,UR RARE Squamous (<= Few)
[2023-11-22] MEDS: iohexoL-300 100 ML VIAL IVP ONE (11:27)
--- NOTE | 2023-11-22 11:32 | CT Report ---
PROCEDURE: Abdomen/Pelvis W INDICATIONS: L sided abd pain x 4 days CONTRAST: Omnipaque 300 100ml TECHNIQUE: After the administration of intravenous contrast, a CT scan of the abdomen and pelvis was performed. Images were recorded and evaluated at appropriate window settings. Reformats: coronal and sagittal. F or radiation dose reduction, the following was used: automated exposure control, adjustment of mA and /or kV according to patient size. COMPARISON: CT abdomen pelvis 11/09/2021 FINDINGS: Image quality: Diagnostic. Lower chest: Unremarkable. Liver: No solid mass. Liver is enlarged measuring 17 cm with steatosis. Gallbladder and biliary tree: Unremarkable. Spleen: No splenomegaly. Pancreas: No pancreatic ductal dilation. Adrenals: No adrenal nodule. Kidneys and ureters: No hydronephrosis. No renal cystic lesion which requires follow up. No solid mas s. Stomach, bowel and peritoneum: No bowel distension. No pathologic free fluid. Appendix is normal. Sca ttered diverticula without inflammatory change. Lymph nodes: No central or retroperitoneal adenopathy. Vessels: No infrarenal aortic aneurysm. PELVIS Reproductive organs: IUD is present. Bladder: No abnormal wall thickening, accounting for underdistention. Pelvic lymph nodes: No pelvic adenopathy by size criteria. Bones: No aggressive osseous abnormality. Other: No significant ventral or inguinal hernia. IMPRESSION: No visualized cause of abdominal pain. Reviewed by: Miracle Kim MD on 11/22/2023 11:30 AM PDT Approved by: Miracle Kim MD on 11/22/2023 11:30 AM PDT Station ID: [id number]
[2023-11-22] MEDS ORDERED: POTASSIUM BICARB 25 MEQ TABLET PO ONE (11:51)
[2023-11-22 12:18] VITALS: BP 95/45
--- NOTE | 2023-11-25 15:59 | ED Physician Documentation ---
ED Addendum - Addendum Addendum: 11/25/23 15:57 The patient was here for nonspecific left belly pain and had a normal CT scan and a urine that showed just a small amount of white cells of 11-25 with negative nitrates and small leukocytes. No prescriptions were given as was not looking specific to UTI. The CT did not show any kidney swelling. Subsequently her urine culture came back showing Myroides species. Looking this up in up-to-date and online showed it to be a rare organism that is more likely environmental or contaminant and less likely pathogenic. However it did not give clear specifics on treatment. I did consult by phone infectious disease at [facility] to discuss it. They suggested we call the patient back and see if there are any symptoms and if not any urinary symptoms then to obtain a repeat urine test and culture to see if it was contaminant or not. If any symptoms then to treat with minocycline as the organism was resistant to Bactrim and the patient is allergic to cefazolin. Nursing staff did call the patient back here. She is not having any urinary symptoms or discomfort. She was urged to go to her primary care or the walk-in for repeat urine test and culture and she said she would do so. 11/25/23 15:59
== END 2023-11-22 12:15 | disposition home or self-care (01) ==
LOC: EDUNIT# → ED 08:59
DX: R10.10 Upper abdominal pain, unspecified (principal); E87.6 Hypokalemia; D64.9 Anemia, unspecified; I10 Essential (primary) hypertension; E10.9 Type 1 diabetes mellitus without complications; Z79.84 Long term (current) use of oral hypoglycemic drugs
CPT/HCPCS: 36415; 74177; 80053; 81001; 81025; 83690; 85025; 87086; 96374; 99284; Q9967; 81003; 87077; 87181

== ENCOUNTER 2023-11-25 08:00 | Outpatient (CLI) | payer MEDICARE, MEDICAID | END 2023-11-25 23:59 | disposition home or self-care (01) | LOC: LAB.N 08:00 | PROVIDERS: ATTEND Family Medicine | DX: R30.0 Dysuria (principal); R10.9 Unspecified abdominal pain | CPT/HCPCS: 87086 ==